=== PATIENT | female | born 1960 | race Caucasian/White ===

== ENCOUNTER → 2018-04-29 01:40 | Outpatient (CLI) | payer MEDICARE, OTHER, SELFPAY ==
--- NOTE | 2018-04-29 13:10 | DI.REPORT_ITS ---
SYMPTOM/DIAGNOSIS: SCREENING, Z12.31 BILATERAL SCREENING MAMMOGRAM: Mammograms were interpreted according to the usual protocol including computer analysis with CAD system, tomosynthesis and C view imaging. Comparison is made with exams from 2011 through 2016. The breasts are composed of scattered fibroglandular densities, breast density category B. No suspicious masses or suspicious microcalcifications are seen. There has been no significant change. IMPRESSION: Category 1-B, negative mammogram. Routine screening is recommended. [facility] ASSESSMENT OF FINDINGS: Negative. Category 1. Patient will receive a letter notifying them of these results. BI-RADS category B. There are scattered areas of fibroglandular density.
== END ==
PROVIDERS: PCP Nurse Practitioner Family; Visit Provider Nurse Practitioner Family
DX: Z12.31 Encounter for screening mammogram for malignant neoplasm of breast (principal)
CPT/HCPCS: 77063; 77067

== ENCOUNTER 2018-07-24 08:59 | Emergency (ER) | payer MEDICARE, OTHER, SELFPAY ==
[2018-07-24 09:06] VITALS: BP 121/86; PULSE 91; RESP 16; TEMP 36.7; O2SAT 94
--- NOTE | 2018-07-24 09:34 | DI.RAD_ITS ---
SYMPTOMS/DIAGNOSIS: PAIN 1ST METATARSAL AND GREAT TOE EXAMINATION OF THE RIGHT FOOT: No trauma history is provided. There is no evidence of a fracture or dislocation. There are mild degenerative changes involving the 1st metatarsophalangeal and interphalangeal joints of the great toe. There is no evidence of a soft tissue mass. There is no evidence of a localized area of osteosclerosis, osteolysis or bony expansion. Note is also made of mild degenerative changes involving the intertarsal and tarsometatarsal joints and calcaneocuboid and talonavicular joints, the findings most advanced at the calcaneocuboid articulation. The findings above to be correlated with the patient's clinical status.
[2018-07-24] MEDS: Ibuprofen 800 MG TAB PO (10:00)
--- NOTE | 2018-07-24 10:30 | W.ED.GENAD ---
Discharge Plan Disposition Patient Disposition: HOME Condition: Good Discharge Details Chief Complaint: Orthopedic Clinical Impression: Great toe pain, Acute foot pain Primary Care Provider: Yasmin Millard ED Provider: Kennedy Daniels Home Meds and New Rx's Prescriptions: New acetaminophen [Mapap Extra Strength] 500 MG tablet 1,000 mg PO Q6H 5 Days Qty: 60 RF: 0 lidocaine [Lidoderm] 1 PATCH patch 1 patch Topical Q24H Qty: 4 RF: 0 No Action cyanocobalamin (vitamin B-12) [Vitamin B-12] 500 MCG tablet 500 mcg PO DAILY RF: 0 lisinopril 10 MG tablet 10 mg PO DAILY Qty: 90 RF: 3 amitriptyline 25 MG tablet 50 mg PO HS Qty: 60 RF: 11 lamotrigine [Lamictal] 200 MG tablet 200 mg PO See Instructions Qty: 90 RF: 5 levetiracetam 750 mg tablet 750 mg PO BID Qty: 60 RF: 11 acetaminophen [Tylenol] 325 MG tablet 650 mg PO Q4H PRN PRNRF: 0 Discharge Instructions Instructions: Swollen Joint (ED) Additional Instructions: Take Tylenol, and use the topical pain patch for improvement of your symptoms please. Please use your boot and crutches as often as possible gradually transitioning to just the boot as symptoms allow. If you notice any worsening of your symptoms, or any new symptoms such as vomiting, diarrhea, fever, chills, shortness of breath, chest pain, numbness, weakness, or fainting , please return immediately to the emergency department for reevaluation. Please follow up with your primary care provider as soon as possible for reassessment and reevaluation. As always, it was a pleasure participating in your medical care today. Referrals: Yasmin Millard, LUCIUS [Primary Care Provider] - Medical Decision Making This is a 58-year-old female who presents for evaluation of foot pain. The patient states that yesterday she tripped on her foot, and now has notable pain over her right great toe. She does have a previous injury to this toe in the past, however physical exam at this time demonstrates notable bruising over the toe, however concerningly her pain extends to the proximal component of her first metatarsal, including at the tarsometatarsal joint. And concern for a distal intra-articular fracture at her metatarsal phalangeal joint however with the proximal component concern is also for Lisfranc's. We did get an x-ray, and this does show evidence of some abnormalities at the distal component, however very mild but on joint asymmetry in the proximal component at the tarsometatarsal joint. I did contact the radiologist and discussed this with him, he agrees that there is an atypical abnormality there. Recommendation is for CT scan to rule out Lisfranc injury. Prior to this I did get the patient up and ambulate her and she has notable pain with ambulation, which only increases my clinical suspicion. We will get a CT to rule this out. The CT is negative the patient will be given a walking boot for discharge home and close follow-up. 12:[address] scan has returned, I discussed the case with radiology, and the radiologist states no acute process in the foot, no evidence of fracture. With no evidence of significant fracture I feel she can be safely discharged home. We will give her a walking boot, and crutches. With close follow-up with her PCP. I discussed red flags which to return the patient understands. I feel her symptoms are most likely than secondary to a mild ligamentous injury, as well as notable bruising of the subcu tissues. Patient will follow up with her PCP. I have extensively reviewed the treatment plan and discharge instructions with the patient. I have addressed all patient concerns at this time. The patient was made aware of what symptoms to monitor for that would warrant a return to the emergency department. Discussed the plan with the patient, they demonstrate verbal understanding and agreement with our assessment and plan at this time. HPI General Date/Time Provider Initiated Documentation: 07/24/18 09:08. HPI Narrative: This is a 58-year-old female with past medical history of hypertension, who presents for evaluation of foot pain. The patient states that yesterday she was walking barefoot when she tripped on her foot and developed significant pain in her right great toe and midfoot region. It is worse with movement. It is minimally improved with NSAIDs. She denies hearing any pop, she denies any previous fractures in this area but does admit to previous injuries in the area. The patient denies any numbness or tingling. She does admit to mild associated swelling of that area, she has no other associated symptoms. She did not fall, hit her head, injure her knee, or complaint of pain in any other location. No other modifying factors at this time. She denies any pertinent family, surgical, or other personal medical history. Related Data Home Medications Medication Instructions Recorded Confirmed cyanocobalamin (vitamin B-12) 500 mcg PO DAILY 11/18/12 07/24/18 [Vitamin B-12] acetaminophen [Tylenol] 650 mg PO Q4H PRN PRN tab 06/27/16 07/24/18 lisinopril 10 mg PO DAILY #90 tab 07/23/17 07/24/18 amitriptyline 50 mg PO HS #60 tab-cap 01/08/18 07/24/18 lamotrigine [Lamictal] 200 mg PO See Instructions #90 01/23/18 07/24/18 tab-cap NS levetiracetam 750 mg tablet 750 mg PO BID #60 tab-cap 07/22/18 07/24/18 acetaminophen [Mapap Extra 1,000 mg PO Q6H 5 Days #60 tab 07/24/18 Strength] lidocaine [Lidoderm] 1 patch TOPICAL Q24H #4 patch 07/24/18 Previous Rx's Medication Instructions Recorded acetaminophen [Tylenol] 650 mg PO Q4H PRN PRN tab 06/27/16 lisinopril 10 mg PO DAILY #90 tab 07/23/17 amitriptyline 50 mg PO HS #60 tab-cap 01/08/18 lamotrigine [Lamictal] 200 mg PO See Instructions #90 01/23/18 tab-cap NS levetiracetam 750 mg tablet 750 mg PO BID #60 tab-cap 07/22/18 acetaminophen [Mapap Extra 1,000 mg PO Q6H 5 Days #60 tab 07/24/18 Strength] lidocaine [Lidoderm] 1 patch TOPICAL Q24H #4 patch 07/24/18 Allergies Allergy/AdvReac Type Severity Reaction Status Date / Time hydrocortisone Allergy Unknown SKIN RASH Unverified 07/24/18 09:09 adhesive AdvReac skin rash Unverified 07/24/18 09:09 baby powder Allergy Intermediate Contraindic Uncoded 07/24/18 09:09 ated pine trees Allergy Intermediate Uncoded 07/24/18 09:09 General Stated Complaint: Orthopedic TAWNY: 4 Review of Systems Review of Systems All systems reviewed & are unremarkable except as noted in HPI and below PFSH Medical History CKD (chronic kidney disease) HLD (hyperlipidemia) HTN (hypertension) IFG (impaired fasting glucose) Menorrhagia Seizure disorder Social History Smoking/Tobacco Use Status: Never Surgical History Brain cyst removal, [facility] [place] section Endometrial Biopsy (08/15/12) closed reduction /pinning rgt fifth finger (06/27/16) Exam Narrative Exam Narrative: 1.Const: Well-nourished, Well-developed, appearing stated age 2.Eyes: PERRL, no conjunctival injection, and symmetrical lids. 3.ENT: Atraumatic external nose and ears. Moist MM. Neck: Symmetric, trachea midline, No thyromegaly. 4.CVS: +S1/S2, No murmurs or gallops. Peripheral pulses 2+ and equal in all extremities. Brisk capillary refill in all extremities. 5.RESP: Unlabored respiratory effort. Clear to auscultation bilaterally. No wheezes rales or rhonchi 6.GI: Soft, Nontender/Nondistended, No hepatosplenomegaly. No guarding or rebound. 7.MSK: Normocephalic no cyanosis or clubbing. Extremity exams are normal for all components except for the right lower foot, which demonstrates notable swelling and bruising over the right great toe, extending proximally towards the midfoot. Tenderness is noted at the metatarsal phalangeal joint, as well as the distal middle and plantar component of the proximal metatarsal. Pain is worse with palpation and movement. Patient does demonstrate good flexion over the great toe, however slightly decreased extension of the great toe. Sensation is intact, capillary refill is brisk. Notable pain with weight placement on the foot. Immediately limits with any weight placement. No other significant abnormalities. 8.Skin: Warm, Dry. No rashes or lesions. 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 Sensation grossly intact, no focal neurologic deficits. 10.Psych: (AAO) x3. Appropriate mood and affect Course Vital Signs Temperature 36.7 C 07/24/18 09:06 Pulse 91 H 07/24/18 09:06 Respiratory Rate 16 07/24/18 09:06 Blood Pressure 121/86 07/24/18 09:06 Pulse Oximetry 94 L 07/24/18 09:06 Temperature 36.7 C 07/24/18 09:06 Temperature Source Skin 07/24/18 09:06 Pulse 91 H 07/24/18 09:06 Respiratory Rate 16 07/24/18 09:06 Respiratory Effort 07/24/18 09:06 Blood Pressure 121/86 07/24/18 09:06 Blood Pressure Position Sitting 07/24/18 09:06 Pulse Oximetry 94 L 07/24/18 09:06 Oxygen Delivery Method Room Air 07/24/18 09:06 Oxygen Flow Rate 0 07/24/18 09:06 Pain Level 6 07/24/18 09:06
--- NOTE | 2018-07-24 10:37 | ED.GENADUL_ITS ---
Discharge Plan Disposition Patient Disposition: HOME Condition: Good Discharge Details Chief Complaint: Orthopedic Clinical Impression: Great toe pain, Acute foot pain Primary Care Provider: Yasmin Millard ED Provider: Kennedy Daniels Home Meds and New Rx's Prescriptions: New acetaminophen [Mapap Extra Strength] 500 MG tablet 1,000 mg PO Q6H 5 Days Qty: 60 RF: 0 lidocaine [Lidoderm] 1 PATCH patch 1 patch Topical Q24H Qty: 4 RF: 0 No Action cyanocobalamin (vitamin B-12) [Vitamin B-12] 500 MCG tablet 500 mcg PO DAILY RF: 0 lisinopril 10 MG tablet 10 mg PO DAILY Qty: 90 RF: 3 amitriptyline 25 MG tablet 50 mg PO HS Qty: 60 RF: 11 lamotrigine [Lamictal] 200 MG tablet 200 mg PO See Instructions Qty: 90 RF: 5 levetiracetam 750 mg tablet 750 mg PO BID Qty: 60 RF: 11 acetaminophen [Tylenol] 325 MG tablet 650 mg PO Q4H PRN PRNRF: 0 Discharge Instructions Instructions: Swollen Joint (ED) Additional Instructions: Take Tylenol, and use the topical pain patch for improvement of your symptoms please. Please use your boot and crutches as often as possible gradually transitioning to just the boot as symptoms allow. If you notice any worsening of your symptoms, or any new symptoms such as vomiting, diarrhea, fever, chills , shortness of breath, chest pain, numbness, weakness, or fainting , please return immediately to the emergency department for reevaluation. Please follow up with your primary care provider as soon as possible for reassessment and reevaluation. As always, it was a pleasure participating in your medical care today. Referrals: Yasmin Millard, LUCIUS [Primary Care Provider] - Medical Decision Making This is a 58-year-old female who presents for evaluation of foot pain. The patient states that yesterday she tripped on her foot, and now has notable pain over her right great toe. She does have a previous injury to this toe in the past, however physical exam at this time demonstrates notable bruising over the toe, however concerningly her pain extends to the proximal component of her first metatarsal, including at the tarsometatarsal joint. And concern for a distal intra-articular fracture at her metatarsal phalangeal joint however with the proximal component concern is also for Lisfranc's. We did get an x-ray, and this does show evidence of some abnormalities at the distal component, however very mild but on joint asymmetry in the proximal component at the tarsometatarsal joint. I did contact the radiologist and discussed this with him, he agrees that there is an atypical abnormality there. Recommendation is for CT scan to rule out Lisfranc injury. Prior to this I did get the patient up and ambulate her and she has notable pain with ambulation , which only increases my clinical suspicion. We will get a CT to rule this out. The CT is negative the patient will be given a walking boot for discharge home and close follow-up. 12:[address] scan has returned, I discussed the case with radiology, and the radiologist states no acute process in the foot, no evidence of fracture. With no evidence of significant fracture I feel she can be safely discharged home. We will give her a walking boot, and crutches. With close follow-up with her PCP. I discussed red flags which to return the patient understands. I feel her symptoms are most likely than secondary to a mild ligamentous injury , as well as notable bruising of the subcu tissues. Patient will follow up with her PCP. I have extensively reviewed the treatment plan and discharge instructions with the patient. I have addressed all patient concerns at this time. The patient was made aware of what symptoms to monitor for that would warrant a return to the emergency department. Discussed the plan with the patient, they demonstrate verbal understanding and agreement with our assessment and plan at this time. HPI General Date/Time Provider Initiated Documentation: 07/24/18 09:08 . HPI Narrative: This is a 58-year-old female with past medical history of hypertension, who presents for evaluation of foot pain. The patient states that yesterday she was walking barefoot when she tripped on her foot and developed significant pain in her right great toe and midfoot region. It is worse with movement. It is minimally improved with NSAIDs. She denies hearing any pop, she denies any previous fractures in this area but does admit to previous injuries in the area. The patient denies any numbness or tingling. She does admit to mild associated swelling of that area, she has no other associated symptoms. She did not fall, hit her head, injure her knee, or complaint of pain in any other location. No other modifying factors at this time. She denies any pertinent family, surgical, or other personal medical history. Related Data Home Medications Medication Instructions Recorded Confirmed cyanocobalamin (vitamin B-12) 500 mcg PO DAILY 11/18/12 07/24/18 [Vitamin B-12] acetaminophen [Tylenol] 650 mg PO Q4H PRN PRN tab 06/27/16 07/24/18 lisinopril 10 mg PO DAILY #90 tab 07/23/17 07/24/18 amitriptyline 50 mg PO HS #60 tab-cap 01/08/18 07/24/18 lamotrigine [Lamictal] 200 mg PO See Instructions #90 01/23/18 07/24/18 tab-cap NS levetiracetam 750 mg tablet 750 mg PO BID #60 tab-cap 07/22/18 07/24/18 acetaminophen [Mapap Extra 1,000 mg PO Q6H 5 Days #60 tab 07/24/18 Strength] lidocaine [Lidoderm] 1 patch TOPICAL Q24H #4 patch 07/24/18 Previous Rx's Medication Instructions Recorded acetaminophen [Tylenol] 650 mg PO Q4H PRN PRN tab 06/27/16 lisinopril 10 mg PO DAILY #90 tab 07/23/17 amitriptyline 50 mg PO HS #60 tab-cap 01/08/18 lamotrigine [Lamictal] 200 mg PO See Instructions #90 01/23/18 tab-cap NS levetiracetam 750 mg tablet 750 mg PO BID #60 tab-cap 07/22/18 acetaminophen [Mapap Extra 1,000 mg PO Q6H 5 Days #60 tab 07/24/18 Strength] lidocaine [Lidoderm] 1 patch TOPICAL Q24H #4 patch 07/24/18 Allergies Allergy/AdvReac Type Severity Reaction Status Date / Time hydrocortisone Allergy Unknown SKIN RASH Unverified 07/24/18 09:09 adhesive AdvReac skin rash Unverified 07/24/18 09:09 baby powder Allergy Intermediate Contraindic Uncoded 07/24/18 09:09 ated pine trees Allergy Intermediate Uncoded 07/24/18 09:09 General Stated Complaint: Orthopedic TAWNY: 4 Review of Systems Review of Systems All systems reviewed & are unremarkable except as noted in HPI and below PFSH Medical History CKD (chronic kidney disease) HLD (hyperlipidemia) HTN (hypertension) IFG (impaired fasting glucose) Menorrhagia Seizure disorder Social History Smoking/Tobacco Use Status: Never Surgical History [place] [facility] [place]omet[place] Bi[place] (08/15/12) closed reduction /pinning rgt fifth finger (06/27/16) Exam Narrative Exam Narrative: 1.Const: Well-nourished, Well-developed, appearing stated age 2.Eyes: PERRL, no conjunctival injection, and symmetrical lids. 3.ENT: Atraumatic external nose and ears. Moist MM. Neck: Symmetric, trachea midline, No thyromegaly. 4.CVS: +S1/S2, No murmurs or gallops. Peripheral pulses 2+ and equal in all extremities. Brisk capillary refill in all extremities. 5.RESP: Unlabored respiratory effort. Clear to auscultation bilaterally. No wheezes rales or rhonchi 6.GI: Soft, Nontender/Nondistended, No hepatosplenomegaly. No guarding or rebound. 7.MSK: Normocephalic no cyanosis or clubbing. Extremity exams are normal for all components except for the right lower foot, which demonstrates notable swelling and bruising over the right great toe, extending proximally towards the midfoot. Tenderness is noted at the metatarsal phalangeal joint, as well as the distal middle and plantar component of the proximal metatarsal. Pain is worse with palpation and movement. Patient does demonstrate good flexion over the great toe, however slightly decreased extension of the great toe. Sensation is intact, capillary refill is brisk. Notable pain with weight placement on the foot. Immediately limits with any weight placement. No other significant abnormalities. 8.Skin: Warm, Dry. No rashes or lesions. 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 Sensation grossly intact, no focal neurologic deficits. 10.Psych: (AAO) x3. Appropriate mood and affect Course Vital Signs Temperature 36.7 C 07/24/18 09:06 Pulse 91 H 07/24/18 09:06 Respiratory Rate 16 07/24/18 09:06 Blood Pressure 121/86 07/24/18 09:06 Pulse Oximetry 94 L 07/24/18 09:06 Temperature 36.7 C 07/24/18 09:06 Temperature Source Skin 07/24/18 09:06 Pulse 91 H 07/24/18 09:06 Respiratory Rate 16 07/24/18 09:06 Respiratory Effort 07/24/18 09:06 Blood Pressure 121/86 07/24/18 09:06 Blood Pressure Position Sitting 07/24/18 09:06 Pulse Oximetry 94 L 07/24/18 09:06 Oxygen Delivery Method Room Air 07/24/18 09:06 Oxygen Flow Rate 0 07/24/18 09:06 Pain Level 6 07/24/18 09:06
--- NOTE | 2018-07-24 10:55 | DI.CT_ITS ---
SYMPTOMS/DIAGNOSIS: PAIN, ? LIS FRANC FX CT OF THE RIGHT FOOT: The study was conducted according to the usual protocol. Soft tissue swelling is noted over the dorsum of the distal foot. There is no demonstrated fracture or evidence of a dislocation.
== END 2018-07-24 14:32 | disposition home or self-care (01) ==
PROVIDERS: Emergency Provider Student in an Organized Health Care Education/Training Program; PCP Nurse Practitioner Family
DX: M79.671 Pain in right foot (principal); M79.674 Pain in right toe(s); W18.49XA Other slipping, tripping and stumbling without falling, initial encounter; I12.9 Hypertensive chronic kidney disease with stage 1 through stage 4 chronic kidney disease, or unspecified chronic kidney disease; N18.9 Chronic kidney disease, unspecified; R73.01 Impaired fasting glucose
CPT/HCPCS: 99284; 73630; 73700; E0114; L4361

== ENCOUNTER → 2019-01-06 13:33 | Outpatient (BNVA) | payer MEDICARE, OTHER, SELFPAY | PROVIDERS: PCP Nurse Practitioner Family; Visit Provider Psychiatry & Neurology Neurology | DX: G40.909 Epilepsy, unspecified, not intractable, without status epilepticus (principal); I12.9 Hypertensive chronic kidney disease with stage 1 through stage 4 chronic kidney disease, or unspecified chronic kidney disease; N18.9 Chronic kidney disease, unspecified | CPT/HCPCS: 99213 ==

== ENCOUNTER 2019-02-09 09:08 | Emergency (ER) | payer MEDICARE, OTHER, SELFPAY ==
--- NOTE | 2019-02-09 09:48 | W.ED.GENAD ---
Discharge Plan Disposition Patient Disposition: HOME Condition: Stable Discharge Details Chief Complaint: EyeProblem Clinical Impression: Acute allergic conjunctivitis of right eye Primary Care Provider: Yasmin Millard ED Provider: Lacho Mata Home Meds and New Rx's Prescriptions: Continued lamotrigine [Lamictal] 200 mg tablet 200 mg PO See Instructions Qty: 270 RF: 3 levetiracetam 750 mg tablet 750 mg PO BID Qty: 180 RF: 3 cyanocobalamin (vitamin B-12) [Vitamin B-12] 500 MCG tablet 500 mcg PO DAILY RF: 0 lisinopril 10 mg tablet 10 mg PO DAILY Qty: 90 RF: 3 amitriptyline 25 mg tablet 50 mg PO HS Qty: 60 RF: 3 acetaminophen [Tylenol] 325 MG tablet 650 mg PO Q4H PRN PRNRF: 0 Discharge Instructions Instructions: Conjunctivitis (ED) Additional Instructions: Please purchase [id number] allergy relief eyedrops and take as directed on packaging. If not improving over the next couple days please follow-up with your primary care provider for reassessment or return to the emergency department for any new or significant worsening of symptoms, loss of vision, or drainage from your eye. Referrals: Yasmin Millard, [facility] [Primary Care Provider] - (As needed for reassessment or if not improving) Discharge Data Discharge Date/Time-TO BE ENTERED AT DEPARTURE: 02/09/19 10:24 Medical Decision Making Patient presenting to the emergency department for chief complaint of itchy right eye. Patient states that she woke up this morning and noticed some itching and irritation to her right eye. When she looked in the mirror she noted the medial aspect was slightly reddened. Patient denies any vision loss, change in vision, eye pain, or any other symptoms. Physical exam shows slight medial injection of the sclera otherwise no purulent drainage, no exudates, eye exam is otherwise unremarkable without any emergent findings. I feel that this is more of a allergenic conjunctivitis and no signs of need of antibiotics and no signs of trauma or injury and no history to make me suspect that. Patient was encouraged to purchase [id number] allergy eyedrops and use as directed on packaging and return precautions were discussed. After discussion of diagnosis and plan of care patient has no further needs, questions, or concerns and states clear understanding to return to the emergency department for any worsening symptoms. HPI General Mode of arrival: ambulatory. Date/Time Provider Initiated Documentation: 02/09/19 09:26. Limitations to Documentation: no limitations. Information obtained by: patient. History of Present Illness 58 year old F presents to the emergency department with the chief complaint of right red eye, described as mild, with intensity rated at 1. Quality is described as other (itching), and is localized to the eyes and right. Patient started experiencing this hour(s) (3) and it has been constant. No exacerbating factors reported . Patient notes no other symptoms.. Patient did receive the following treatments prior to arrival, none Related Data Home Medications Medication Instructions Recorded Confirmed cyanocobalamin (vitamin B-12) 500 mcg PO DAILY 11/18/12 01/06/19 [Vitamin B-12] acetaminophen [Tylenol] 650 mg PO Q4H PRN PRN tab 06/27/16 01/06/19 lisinopril 10 mg tablet 10 mg PO DAILY #90 tab 09/16/18 01/06/19 amitriptyline 25 mg tablet 50 mg PO HS #60 tab-cap 12/23/18 01/06/19 lamotrigine 200 mg tablet 200 mg PO See Instructions #270 01/06/19 01/06/19 tab-cap levetiracetam 750 mg tablet 750 mg PO BID #180 tab-cap 01/06/19 01/06/19 Previous Rx's Medication Instructions Recorded acetaminophen [Tylenol] 650 mg PO Q4H PRN PRN tab 06/27/16 lisinopril 10 mg tablet 10 mg PO DAILY #90 tab 09/16/18 amitriptyline 25 mg tablet 50 mg PO HS #60 tab-cap 12/23/18 lamotrigine 200 mg tablet 200 mg PO See Instructions #270 01/06/19 tab-cap levetiracetam 750 mg tablet 750 mg PO BID #180 tab-cap 01/06/19 Allergies Allergy/AdvReac Type Severity Reaction Status Date / Time hydrocortisone Allergy Unknown SKIN RASH Unverified 01/06/19 13:52 adhesive AdvReac skin rash Unverified 01/06/19 13:52 baby powder Allergy Intermediate Contraindic Uncoded 01/06/19 13:52 ated pine trees Allergy Intermediate Uncoded 01/06/19 13:52 General TAWNY: 4 Review of Systems Constitutional Denies body ache(s), Denies chills and Denies fever(s) Eyes Reports as per HPI, Denies blurry vision, Denies eye discharge, Reports itchy eyes (right) and Denies eye pain Cardiovascular Denies chest pain and Denies dyspnea Respiratory Denies dyspnea Integumentary/Breasts Denies rash Neurologic Denies other visual disturbances Allergic/Immunologic Reports itchy eyes (right) [facility] Medical History Menorrhagia (Chronic) CKD (chronic kidney disease) (Chronic) HTN (hypertension) (Chronic) Other specified irregular menstruation (Chronic 07/23/12) Coordination problem (Chronic 12/23/10) Endometrium, polyp (Chronic 01/25/16) Epilepsy (Chronic 12/23/10) Essential hypertension (Chronic 10/18/11) Hyperlipidemia (Chronic 12/24/15) IFG (impaired fasting glucose) (Chronic 04/01/18) Insomnia (Chronic 03/09/10) Iron deficiency anemia (Resolved 05/26/13) 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) Low serum HDL (Chronic) Memory impairment (Chronic 12/23/10) Migraine without aura (Chronic 05/28/09) Obesity (Chronic 05/15/13) Primary osteoarthritis of left knee (Chronic 01/03/17) Sleep apnea (Chronic 06/09/13) Thyroid cyst (Chronic 07/26/16) Hand fracture (Resolved) [place] [facility] [place]) Endometrial Biopsy (Resolved 08/15/12) closed reduction /pinning rgt fifth finger (Resolved 06/27/16) Social History Smoking/Tobacco Use Status: Never Alcohol Intake: never Drug use: Never Substance use type: does not use Household members: spouse and children Number of Children: 1 Pets and animals: No Sexually active: Yes Current gender identity: female What type of physical activity do you participate in: walking Frequency: daily Seatbelt use: always Do you feel safe at home: Yes Do you feel safe in your relationship?: Yes Exam Const General: cooperative, no acute distress and not ill appearing Orientation: alert, awake and oriented x3 HENMT Mouth: moist mucous membranes Eyes Visual Segovia: normal visual segovia by confrontation Alignment and Position: alignment normal Periorbital: periorbital findings normal Eyelids: eyelids normal Conjunctivae: conjunctivae normal Sclera: scleral abnormality right scleral injection medial (mild) Cornea: corneas normal Pupils: PERRL EOM: EOM intact bilaterally Resp Effort & Inspection: normal respiratory effort, able to speak in complete sentences and no respiratory distress
--- NOTE | 2019-02-09 09:53 | ED.GENADUL_ITS ---
Discharge Plan Disposition Patient Disposition: HOME Condition: Stable Discharge Details Chief Complaint: EyeProblem Clinical Impression: Acute allergic conjunctivitis of right eye Primary Care Provider: Yasmin Millard ED Provider: Lacho Mata Home Meds and New Rx's Prescriptions: Continued lamotrigine [Lamictal] 200 mg tablet 200 mg PO See Instructions Qty: 270 RF: 3 levetiracetam 750 mg tablet 750 mg PO BID Qty: 180 RF: 3 cyanocobalamin (vitamin B-12) [Vitamin B-12] 500 MCG tablet 500 mcg PO DAILY RF: 0 lisinopril 10 mg tablet 10 mg PO DAILY Qty: 90 RF: 3 amitriptyline 25 mg tablet 50 mg PO HS Qty: 60 RF: 3 acetaminophen [Tylenol] 325 MG tablet 650 mg PO Q4H PRN PRNRF: 0 Discharge Instructions Instructions: Conjunctivitis (ED) Additional Instructions: Please purchase [id number] allergy relief eyedrops and take as directed on packaging. If not improving over the next couple days please follow-up with your primary care provider for reassessment or return to the emergency department for any new or significant worsening of symptoms, loss of vision, or drainage from your eye. Referrals: Yasmin Millard, [employer]MIST [Primary Care Provider] - (As needed for reassessment or if not improving) Discharge Data Discharge Date/Time-TO BE ENTERED AT DEPARTURE: 02/09/19 10:24 Medical Decision Making Patient presenting to the emergency department for chief complaint of itchy right eye. Patient states that she woke up this morning and noticed some itching and irritation to her right eye. When she looked in the mirror she noted the medial aspect was slightly reddened. Patient denies any vision loss, change in vision, eye pain, or any other symptoms. Physical exam shows slight medial injection of the sclera otherwise no purulent drainage, no exudates, eye exam is otherwise unremarkable without any emergent findings. I feel that this is more of a allergenic conjunctivitis and no signs of need of antibiotics and no signs of trauma or injury and no history to make me suspect that. Patient was encouraged to purchase [id number] allergy eyedrops and use as directed on packaging and return precautions were discussed. After discussion of diagnosis and plan of care patient has no further needs, questions, or concerns and states clear understanding to return to the emergency department for any worsening symptoms. HPI General Mode of arrival: ambulatory . Date/Time Provider Initiated Documentation: 02/09/19 09:26 . Limitations to Documentation: no limitations . Information obtained by: patient . History of Present Illness 58 year old F presents to the emergency department with the chief complaint of right red eye, described as mild, with intensity rated at 1. Quality is described as other (itching), and is localized to the eyes and right. Patient started experiencing this hour(s) (3) and it has been constant. No exacerbating factors reported . Patient notes no other symptoms.. Patient did receive the following treatments prior to arrival, none Related Data Home Medications Medication Instructions Recorded Confirmed cyanocobalamin (vitamin B-12) 500 mcg PO DAILY 11/18/12 01/06/19 [Vitamin B-12] acetaminophen [Tylenol] 650 mg PO Q4H PRN PRN tab 06/27/16 01/06/19 lisinopril 10 mg tablet 10 mg PO DAILY #90 tab 09/16/18 01/06/19 amitriptyline 25 mg tablet 50 mg PO HS #60 tab-cap 12/23/18 01/06/19 lamotrigine 200 mg tablet 200 mg PO See Instructions #270 01/06/19 01/06/19 tab-cap levetiracetam 750 mg tablet 750 mg PO BID #180 tab-cap 01/06/19 01/06/19 Previous Rx's Medication Instructions Recorded acetaminophen [Tylenol] 650 mg PO Q4H PRN PRN tab 06/27/16 lisinopril 10 mg tablet 10 mg PO DAILY #90 tab 09/16/18 amitriptyline 25 mg tablet 50 mg PO HS #60 tab-cap 12/23/18 lamotrigine 200 mg tablet 200 mg PO See Instructions #270 01/06/19 tab-cap levetiracetam 750 mg tablet 750 mg PO BID #180 tab-cap 01/06/19 Allergies Allergy/AdvReac Type Severity Reaction Status Date / Time hydrocortisone Allergy Unknown SKIN RASH Unverified 01/06/19 13:52 adhesive AdvReac skin rash Unverified 01/06/19 13:52 baby powder Allergy Intermediate Contraindic Uncoded 01/06/19 13:52 ated pine trees Allergy Intermediate Uncoded 01/06/19 13:52 General TAWNY: 4 Review of Systems Constitutional Denies body ache(s), Denies chills and Denies fever(s) Eyes Reports as per HPI, Denies blurry vision, Denies eye discharge, Reports itchy eyes (right) and Denies eye pain Cardiovascular Denies chest pain and Denies dyspnea Respiratory Denies dyspnea Integumentary/Breasts Denies rash Neurologic Denies other visual disturbances Allergic/Immunologic Reports itchy eyes (right) [facility] Medical History Menorrhagia (Chronic) CKD (chronic kidney disease) (Chronic) HTN (hypertension) (Chronic) Other specified irregular menstruation (Chronic 07/23/12) Coordination problem (Chronic 12/23/10) Endometrium, polyp (Chronic 01/25/16) Epilepsy (Chronic 12/23/10) Essential hypertension (Chronic 10/18/11) Hyperlipidemia (Chronic 12/24/15) IFG (impaired fasting glucose) (Chronic 04/01/18) Insomnia (Chronic 03/09/10) Iron deficiency anemia (Resolved 05/26/13) 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) Low serum HDL (Chronic) Memory impairment (Chronic 12/23/10) Migraine without aura (Chronic 05/28/09) Obesity (Chronic 05/15/13) Primary osteoarthritis of left knee (Chronic 01/03/17) Sleep apnea (Chronic 06/09/13) Thyroid cyst (Chronic 07/26/16) Hand fracture (Resolved) Surgical History Brain cyst removal, [facility] [place]Resolved) section (Resolved) Endometrial Biopsy (Resolved 08/15/12) closed reduction /pinning rgt fifth finger (Resolved 06/27/16) Social History Smoking/Tobacco Use Status: Never Alcohol Intake: never Drug use: Never Substance use type: does not use Household members: spouse and children Number of Children: 1 Pets and animals: No Sexually active: Yes Current gender identity: female What type of physical activity do you participate in: walking Frequency: daily Seatbelt use: always Do you feel safe at home: Yes Do you feel safe in your relationship?: Yes Exam Const General: cooperative, no acute distress and not ill appearing Orientation: alert, awake and oriented x3 HENMT Mouth: moist mucous membranes Eyes Visual Segovia: normal visual segovia by confrontation Alignment and Position: alignment normal Periorbital: periorbital findings normal Eyelids: eyelids normal Conjunctivae: conjunctivae normal Sclera: scleral abnormality right scleral injection medial (mild) Cornea: corneas normal Pupils: PERRL EOM: EOM intact bilaterally Resp Effort & Inspection: normal respiratory effort, able to speak in complete sentences and no respiratory distress
--- NOTE | 2019-02-09 10:05 | NUR.NOTE ---
pt believed that she had conjunctivitis in her right eye
[2019-02-09 10:06] VITALS: BP 129/83; PULSE 78; RESP 18; TEMP 36.8; O2SAT 98
[2019-02-09 10:08] VITALS: BP 129/83; PULSE 78; RESP 18; TEMP 36.8; O2SAT 98
== END 2019-02-09 10:24 | disposition home or self-care (01) ==
LOC: ER 10:32
PROVIDERS: Emergency Provider Nurse Practitioner Family; PCP Nurse Practitioner Family
DX: H10.11 Acute atopic conjunctivitis, right eye (principal); I12.9 Hypertensive chronic kidney disease with stage 1 through stage 4 chronic kidney disease, or unspecified chronic kidney disease; N18.9 Chronic kidney disease, unspecified
CPT/HCPCS: 99282

== ENCOUNTER 2019-03-05 23:47 | Emergency (ER) | payer MEDICARE, OTHER, SELFPAY ==
[2019-03-05 23:40] VITALS: O2SAT 95
[2019-03-05 23:46] VITALS: BP 140/70; BP 158/82; PULSE 116; PULSE 119; RESP 16; TEMP 37.1; O2SAT 92; O2SAT 94
[2019-03-05 23:50] VITALS: O2SAT 96
--- NOTE | 2019-03-05 23:59 | W.ED.GENAD ---
Discharge Plan Disposition Patient Disposition: HOME Condition: Good Discharge Details Chief Complaint: HeadInjury Clinical Impression: Fall at home, Hematoma of parietal scalp Primary Care Provider: Yasmin Millard ED Provider: Raheel Cabrales and New Rx's Prescriptions: Continued lamotrigine [Lamictal] 200 mg tablet 200 mg PO See Instructions Qty: 270 RF: 3 levetiracetam 750 mg tablet 750 mg PO BID Qty: 180 RF: 3 cyanocobalamin (vitamin B-12) [Vitamin B-12] 500 MCG tablet 500 mcg PO DAILY RF: 0 lisinopril 10 mg tablet 10 mg PO DAILY Qty: 90 RF: 3 amitriptyline 25 mg tablet 50 mg PO HS Qty: 60 RF: 3 acetaminophen [Tylenol] 325 MG tablet 650 mg PO Q4H PRN PRNRF: 0 Discharge Instructions Instructions: Fall Prevention (ED), Hematoma (ED) Additional Instructions: Your CT scan tonight showed nothing acute. His scalp hematoma will get better on its own over time. You may take Tylenol if needed for pain. Ice will help with the swelling. Follow-up with primary care next week if needed. Return to ED for acute changes in neurologic status, vomiting, lethargy. Referrals: Yasmin Millard, [employer] [Primary Care Provider] - Medical Decision Making Patient presenting to ED after losing her balance and falling at home. She has a scalp hematoma but is nonfocal neurologically. She has trouble with memory and orientation to time but this does not appear to be new according to records. She is not on focal neurologically otherwise. She has no spinal tenderness. She has no other complaints except that she was unable to get up. She does have a mild tachycardia. Saturations are normal when there is good waveform. Vitals are otherwise okay. Head CT is come back with no acute changes. She has chronic findings that are unchanged. She has been ambulatory in the ED without significant difficulty. She is requesting to go home. Follow-up with primary care next week as needed. Return to ED for problems. Medical Records Medical records reviewed: Yes I reviewed the patient's medical records. ECG Data Attestation: I personally reviewed and interpreted this ECG (s) as follows: Prior ECG tracings: not available for review Interpretation: Sinus tachycardia at 113. Normal axis and intervals. No acute ST changes noted. HPI General Mode of arrival: EMS. Date/Time Provider Initiated Documentation: 03/05/19 23:58. Limitations to Documentation: no limitations. Information obtained by: patient and EMS. HPI Narrative: Patient presents to ED by ambulance status post trip and fall at home. She struck her head but did not have loss of consciousness. She was unable to get herself up. Her could not help get her up. EMS was eventually called. Because of her inability to get herself up as well as the head injury, she decided she wanted to come in for evaluation. She has a mild headache currently. She denies neck pain or back pain. She had no chest pain, shortness of breath, syncope. She has no abdominal pain, vomiting. She has no urinary symptoms. She has not been ill and there is been no fever or cough. She has no complaints of hip or extremity pain currently. Related Data Home Medications Medication Instructions Recorded Confirmed cyanocobalamin (vitamin B-12) 500 mcg PO DAILY 11/18/12 03/05/19 [Vitamin B-12] acetaminophen [Tylenol] 650 mg PO Q4H PRN PRN tab 06/27/16 03/05/19 lisinopril 10 mg tablet 10 mg PO DAILY #90 tab 09/16/18 03/05/19 amitriptyline 25 mg tablet 50 mg PO HS #60 tab-cap 12/23/18 03/05/19 lamotrigine 200 mg tablet 200 mg PO See Instructions #270 01/06/19 03/05/19 tab-cap levetiracetam 750 mg tablet 750 mg PO BID #180 tab-cap 01/06/19 03/05/19 Previous Rx's Medication Instructions Recorded acetaminophen [Tylenol] 650 mg PO Q4H PRN PRN tab 06/27/16 lisinopril 10 mg tablet 10 mg PO DAILY #90 tab 09/16/18 amitriptyline 25 mg tablet 50 mg PO HS #60 tab-cap 12/23/18 lamotrigine 200 mg tablet 200 mg PO See Instructions #270 01/06/19 tab-cap levetiracetam 750 mg tablet 750 mg PO BID #180 tab-cap 01/06/19 Allergies Allergy/AdvReac Type Severity Reaction Status Date / Time hydrocortisone Allergy Unknown SKIN RASH Unverified 03/05/19 23:55 adhesive AdvReac skin rash Unverified 03/05/19 23:55 baby powder Allergy Intermediate Contraindic Uncoded 03/05/19 23:55 ated pine trees Allergy Intermediate Uncoded 03/05/19 23:55 General Stated Complaint: HeadInjury TAWNY: 3 Review of Systems Review of Systems As documented in HPI otherwise negative as below. Const: no fever, chills, weakness Resp: no cough, SOB, pleuritic pain CV: no CP, diaphoresis, edema, syncope GI: no abdominal pain, nausea, vomiting, diarrhea Neuro: mild headache; no numbness, focal weakness, confusion [facility] Medical History Menorrhagia (Chronic) CKD (chronic kidney disease) (Chronic) HTN (hypertension) (Chronic) Other specified irregular menstruation (Chronic 07/23/12) Coordination problem (Chronic 12/23/10) Endometrium, polyp (Chronic 01/25/16) Epilepsy (Chronic 12/23/10) Essential hypertension (Chronic 10/18/11) Hyperlipidemia (Chronic 12/24/15) IFG (impaired fasting glucose) (Chronic 04/01/18) Insomnia (Chronic 03/09/10) Iron deficiency anemia (Resolved 05/26/13) 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) Low serum HDL (Chronic) Memory impairment (Chronic 12/23/10) Migraine without aura (Chronic 05/28/09) Obesity (Chronic 05/15/13) Primary osteoarthritis of left knee (Chronic 01/03/17) Sleep apnea (Chronic 06/09/13) Thyroid cyst (Chronic 07/26/16) Hand fracture (Resolved) Surgical History Brain [place] [facility] [place] (Resolved) Endometrial Biopsy (Resolved 08/15/12) closed reduction /pinning rgt fifth finger (Resolved 06/27/16) Social History Smoking/Tobacco Use Status: Never Alcohol Intake: never Drug use: Never Substance use type: does not use Household members: spouse and children Number of Children: 1 Pets and animals: No Sexually active: Yes Current gender identity: female What type of physical activity do you participate in: walking Frequency: daily Seatbelt use: always Do you feel safe at home: Yes Do you feel safe in your relationship?: Yes Exam Narrative Exam Narrative: Vitals: Afebrile. Mild tachycardia. Normal saturations when good waveform present. Const: Obese female in NAD. HEENT: NC. Scalp hematoma present right parietal region. Neck: Supple. Trachea midline. C-spine is non-tender. Lungs: Normal respiratory effort. Lungs are clear. Ribs are non-tender. Cor: RRR without murmur/gallop. Mild tachycardia. Good radial pulses. GI: Soft. NT/ND. No guarding or rebound. Back: No spinal tenderness. Neuro: Awake and alert. Problems with timeline/memory. CN grossly in tact. Good strength and no focal deficit. Ext: No C/C/E. No deformity or tenderness. Good ROM of extremities. Skin: Warm and dry without rash. No lacerations. Course Vital Signs Temperature 98.8 F 03/05/19 23:46 Pulse 119 H 03/05/19 23:46 Respiratory Rate 16 03/05/19 23:46 Blood Pressure 158/82 H 03/05/19 23:46 Pulse Oximetry 94 L 03/05/19 23:46 Temperature 98.8 F 03/05/19 23:46 Temperature Source Temporal Artery Scan 03/05/19 23:46 Pulse 119 H 03/05/19 23:46 Respiratory Rate 16 03/05/19 23:46 Respiratory Effort 03/05/19 23:52 Respiratory Depth Normal 03/05/19 23:52 Respiratory Pattern Normal 03/05/19 23:52 Blood Pressure 158/82 H 03/05/19 23:46 Pulse Oximetry 94 L 03/05/19 23:46 Oxygen Delivery Method Room Air 03/05/19 23:46 Oxygen Flow Rate 0 03/05/19 23:46 Pain Level 6 03/05/19 23:46
[2019-03-06] VITALS: O2SAT 94
[2019-03-06 00:01] VITALS: BP 134/69; PULSE 115; O2SAT 94
[2019-03-06 00:10] VITALS: O2SAT 96
[2019-03-06 00:16] VITALS: BP 137/119; PULSE 98
[2019-03-06 00:20] VITALS: O2SAT 91
--- NOTE | 2019-03-06 00:43 | DI.CT_ITS ---
SYMPTOM/DIAGNOSIS: TRAUMA/FEEL AND HIT HEAD CRANIAL CT: A noncontrast enhanced examination was carried out. There is mild generalized atrophy. There is no evidence of an intra or extra axial hemorrhage. There is nothing to suggest a territorial infarct. The midline is well maintained. The ventricles are normal. Note is made of a high left frontal craniotomy site which is unchanged when compared with previous images of 12/03/2016. A multilobular cystic region is identified with central calcification which could represent chronic resection bed with cystic encephalomalacia measuring up to 4.3 x 3.1 cm. This finding is also unchanged. The sinuses are intact. There is no evidence of a mastoid effusion. The orbits are intact. The right parietal soft tissues with swelling noted. There is no evidence of a skull fracture. SUMMARY: No acute intracranial process is demonstrated. Note is made of a chronic high left parietal craniotomy site. The bone flap is well positioned without gross complication. There is an underlying 4.3 x 3.1 cystic region with central calcification which is also unchanged. 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 There is nothing to suggest residual or recurrent malignancy. A right parietal soft tissue swelling is noted. No underlying fracture is apparent.
--- NOTE | 2019-03-06 01:13 | DI.VRAD_ITS ---
EXAM: CT Head Without Contrast EXAM DATE/TIME: 03/06/2019 12:13 AM CLINICAL HISTORY: 59 years old, female; Injury or trauma; Fall; Initial encounter; Blunt trauma (contusions or hematomas); Without loss of consciousness; Injury date: 03/05/2019; Injury details: Fell in home, tripped over her foot, no loc; Prior surgery; Surgery type: Brain surgery; Additional info: PT states she had surgery within the past year but can't remember when exactly. Surgery was for seizures per patient TECHNIQUE: Imaging protocol: Axial computed tomography images of the head without contrast. Coronal and sagittal reformatted images were created and reviewed. Radiation optimization: All CT scans at this facility use at least one of these dose optimization techniques: automated exposure control; mA and/or kV adjustment per patient size (includes targeted exams where dose is matched to clinical indication); or iterative reconstruction. COMPARISON: CT HEAD WITHOUT CONTRAST 12/03/2016 1:20 PM FINDINGS: Brain: Mild generalized atrophy consistent with age. No extra-axial fluid collections. No evidence of acute intracranial hemorrhage. No evidence of acute or subacute intracranial ischemia/infarct. Midline shift: No midline shift or herniation. Ventricles: Ventricles normal. Bones/joints: Chronic high left frontal craniotomy site again noted, unchanged from 12/03/2016 with no gross complication. There is an underlying multilobular cystic focus with central calcification which may represent a chronic resection bed with cystic encephalomalacia, measuring 4.3 x 3.1 cm. This is unchanged. Sinuses: Visualized paranasal sinuses are clear. Mastoid air cells: Visualized mastoid air cells are clear. Orbits: Orbital contents demonstrate no evidence of acute abnormality. Soft tissues: Right parietal scalp soft tissue swelling. No underlying fracture or foreign body. Vasculature: The visualized major intracranial arterial segments demonstrate no gross abnormality by noncontrast CT. IMPRESSION: 1. No acute intracranial process. No significant change from previous exam 12/03/2016. 2. Chronic high left parietal craniotomy site again noted. The bone flap is well positioned without gross complication. 3. There is an underlying 4.3 x 3.1 cm cystic focus with central calcification which is unchanged. This may represent chronic cystic encephalomalacia at the operative bed. There were no imaging features to specifically favor residual or recurrent malignancy in this region. 4. Right parietal scalp soft tissue swelling with no underlying fracture or foreign body. Dictated and Authenticated by: Neftali Stanton MD. Ordering:RAHEEM Pickering MD
[2019-03-06 01:41] VITALS: BP 125/82; PULSE 109; RESP 16; O2SAT 94
== END 2019-03-06 01:38 | disposition home or self-care (01) ==
PROVIDERS: Emergency Provider Emergency Medicine; PCP Nurse Practitioner Family
DX: S00.03XA Contusion of scalp, initial encounter (principal); R00.0 Tachycardia, unspecified; W01.0XXA Fall on same level from slipping, tripping and stumbling without subsequent striking against object, initial encounter
CPT/HCPCS: 93005; 99284; 70450; 93010

== ENCOUNTER 2019-04-02 01:56 | Outpatient (CLI) | payer MEDICARE, OTHER, SELFPAY ==
[2019-04-02 10:06] LABS: HGB 11.9 g/dL (12.0-15.5); Mean Corp. HGB Concentration 33.1 g/dL (32.0-36.0); Mean Corpuscular Volume 90.7 fL (80-95); Mean Platelet Volume 9.9 fL (8.0-11.0); Platelet Count 252 x1000/uL (130-400); RBC 3.97 m/cumm (4.00-5.20); RBC Distribution Width 14.1 % (11.7-14.6); White Blood Cell Count 5.34 k/cumm (4.4-10.8)
[2019-04-02 10:39] LABS: ALT 22 U/L (12-78); AST 10 U/L (15-37); Albumin 3.6 g/dL (3.4-5.0); Alkaline Phosphatase 88 U/L (46-116); Anion Gap 9.7 mmol/L (3-11); BUN 15 mg/dL (7-18); Bilirubin, Total 0.3 mg/dL (0.2-1.0); CO2 26.3 mmol/L (21.0-32.0); CREATININE 1.21 mg/dL (0.55-1.02); Calcium 9.5 mg/dL (8.5-10.1); Chloride 105 mmol/L (98-107); Estimated GFR 45.86 (mL/min/1.73m2); Glucose 99 mg/dL (70-100); Potassium 4.7 mmol/L (3.5-5.1); Sodium 141 mmol/L (136-145); Total Protein 7.2 g/dL (6.4-8.2)
[2019-04-02 10:40] LABS: Hemoglobin A1C 5.5 % (4.5-6.2)
== END 2019-04-02 02:16 ==
LOC: LOS 01:56 → LBO 09:16
PROVIDERS: PCP Nurse Practitioner Family; Visit Provider Nurse Practitioner Family
DX: I10 Essential (primary) hypertension (principal); Z86.2 Personal history of diseases of the blood and blood-forming organs and certain disorders involving the immune mechanism; R73.01 Impaired fasting glucose
CPT/HCPCS: 36415; 80053; 85027; 83036

== ENCOUNTER 2019-11-06 13:44 | Emergency (ER) | payer MEDICARE, OTHER, MEDICAID, SELFPAY ==
--- NOTE | 2019-11-06 13:45 | DI.RAD_ITS ---
EXAM: XR CHEST 2V PA LATERAL CLINICAL HISTORY: cough. TECHNIQUE: 2D digital imaging was performed. COMPARISON: No exams were available for comparison FINDINGS: LUNGS: Clear. No pleural abnormality seen. HEART: Normal. MEDIASTINUM: Normal. OTHER FINDINGS:Normal. BONE:Normal. IMPRESSION: No acute pulmonary findings. DATA REPOSITORY: RADIATION DOSE DELIVERED:
[2019-11-06 13:48] VITALS: BP 125/89; PULSE 80; RESP 18; TEMP 36.5; O2SAT 98
--- NOTE | 2019-11-06 13:59 | ED.GENADUL_ITS ---
Discharge Plan Disposition Patient Disposition: HOME Condition: Stable Discharge Details Chief Complaint: Dizzy/Sync Clinical Impression: Falls Primary Care Provider: Yasmin Millard ED Provider: Alejandro Rodriguez Home Meds and New Rx's Prescriptions: Continued amitriptyline 50 mg tablet 50 mg PO QHS Qty: 90 RF: 3 lamotrigine [Lamictal] 200 mg tablet 200 mg PO See Instructions Qty: 270 RF: 3 levetiracetam 750 mg tablet 750 mg PO BID Qty: 180 RF: 3 lisinopril 10 mg tablet 10 mg PO DAILY Qty: 90 RF: 3 acetaminophen [Tylenol] 325 MG tablet 650 mg PO Q4H PRN PRNRF: 0 vitamin F16-fjkrl acid 500-400 mcg Tablet 1 tab PO DAILY RF: 0 Discharge Instructions Instructions: Fall Prevention (ED) Additional Instructions: please use your walker as much as possible follow up with your primary care provider within 1 week if you feel more ill, have chest pain/pressure or worsening weakness return to the emergency department Medical Decision Making 59 yo female with hx of ckd, htn, hld, seizures, who comes in with 3 falls the past two days and cough. she states she was using her cane and not her walker when she had 3 episodes where she felt the room spin and she landed on her buttocks. Denies loc, hitting head, vomit, fevers, abdominal pain, n/v. She denies focal weakness. Has had some rhinorrhea and cough, speaking in full s entences. She arrives with normal steady gait, no focal motor or sensation deficits, CN II-XII are intact and has nih of 0. Seems most likely this is orthostasis vs vasovagal and possible veritigo. No symptoms to suggest cva and given no head trauma or headache do not feel head imaging indicated. Will obtain ecg, eval for anemia and electrolyte abnormalities and obtain cxr givne her cough which is likely from a viral uri labs and xray unremarkable still has not urinated but denies any uti symptoms and has had uti's in the past and states she normally has dysuria. will d/c and have her use her walker, follow up with pcp and return precautions given Differential Diagnosis Differential Diagnosis: orthostasis, uri, anemia, Medical Records Medical records reviewed: Yes I reviewed the patient's medical records. Lab Data Lab results reviewed: Yes I reviewed the patient's lab results. ECG Data Attestation: I personally reviewed and interpreted this ECG (s) as follows: Prior ECG tracings: not available for review Interpretation: sinus rhythm, rate of 74, pr 154, qtc 386 HPI General Mode of arrival: ambulatory . Date/Time Provider Initiated Documentation: 11/06/19 13:46 . Limitations to Documentation: no limitations . Information obtained by: patient . History of Present Illness 59 year old F presents to the emergency department with the chief complaint of falls, described as moderate, Patient started experiencing this day(s) (3) and it has been intermittent. No relieving factors improve symptom(s), No exacerbating factors reported . Patient did receive the following treatments prior to arrival, none Related Data Home Medications Medication Instructions Recorded Confirmed acetaminophen [Tylenol] 650 mg PO Q4H PRN PRN tab 06/27/16 11/06/19 amitriptyline 50 mg tablet 50 mg PO QHS #90 tab 09/29/19 11/06/19 lamotrigine 200 mg tablet 200 mg PO See Instructions #270 09/29/19 11/06/19 tab-cap levetiracetam 750 mg tablet 750 mg PO BID #180 tab-cap 09/29/19 11/06/19 lisinopril 10 mg tablet 10 mg PO DAILY #90 tab 10/03/19 11/06/19 vitamin A25-lrzls acid 1 tab PO DAILY 11/06/19 11/06/19 Previous Rx's Medication Instructions Recorded acetaminophen [Tylenol] 650 mg PO Q4H PRN PRN tab 06/27/16 amitriptyline 50 mg tablet 50 mg PO QHS #90 tab 09/29/19 lamotrigine 200 mg tablet 200 mg PO See Instructions #270 09/29/19 tab-cap levetiracetam 750 mg tablet 750 mg PO BID #180 tab-cap 09/29/19 lisinopril 10 mg tablet 10 mg PO DAILY #90 tab 10/03/19 Allergies Allergy/AdvReac Type Severity Reaction Status Date / Time hydrocortisone Allergy Unknown SKIN RASH Verified 11/06/19 13:52 adhesive AdvReac Intermediate skin rash Verified 11/06/19 13:52 NSAIDS (Non-Steroidal AdvReac Other (See Unverified 11/06/19 13:58 Anti-Inflamma Comment) baby powder Allergy Intermediate Contraindic Uncoded 11/06/19 13:52 ated pine trees Allergy Intermediate Uncoded 11/06/19 13:52 General Stated Complaint: Dizzy/Sync TAWNY: 3 Review of Systems All systems reviewed & are unremarkable except as noted in HPI and below Constitutional Constitutional: Denies chills and Denies fever(s) Cardiovascular Cardiovascular: Denies dyspnea Respiratory Respiratory: Denies cough and Denies dyspnea Gastrointestinal Gastrointestinal: Denies abdominal pain, Denies nausea and Denies vomiting Musculoskeletal Musculoskeletal: Denies joint swelling [facility] Medical History (Updated 11/06/19 @ 15:12 by Alejandro Rodriguez MD) CKD (chronic kidney disease) (Chronic) 12/2015 [place] [facility] [place] bilateral and symmetric renal cortical thinning consistent with patient's known history of CKD Coordination problem (Chronic 12/23/10) Hemiparesis; R more than L, mostly resolved Endometrium, polyp (Chronic 01/25/16) currently protruding through the exocervix. I have recomended hysteroscopic resection under anesthesia. Epilepsy (Chronic 12/23/10) Cyst on brain surgery; Dr. Antunez follows Essential hypertension (Chronic 10/18/11) Hand fracture (Resolved) Hyperlipidemia (Chronic 12/24/15) 03/2018 labwork: 10-year ASCVD risk = ~3.7% --> no statin indicated at this time IFG (impaired fasting glucose) (Chronic 04/01/18) Insomnia (Chronic 03/09/10) Amitryp resolved Iron deficiency anemia (Chronic 05/26/13) 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) Cerebral Cyst (L parietal cyst): Dr. Antunez [facility] [place] Low serum HDL (Chronic) 2012 labwork: 10-year ASCVD risk = ~3% --> no statin indicated at this time Memory impairment (Chronic 12/23/10) Related to sz disorder & brain surgery Menorrhagia (Chronic) EMBx 2011: benign. Repeat EMBx 2012: benign proliferative endometrium, started on norethindrone, pt counseled re: endometrial ablation. Migraine without aura (Chronic 05/28/09) Obesity (Chronic 05/15/13) Other specified irregular menstruation (Chronic 07/23/12) [facility] Primary osteoarthritis of left knee (Chronic 01/03/17) Sleep apnea (Chronic 06/09/13) CPAP Thyroid cyst (Chronic 07/26/16) 07/2016 US: no changes, stable, repeat 3 years Surgical History Brain cyst removal, [facility] [place] (Resolved) 04/12/2011 section (Resolved) x2 closed reduction /pinning rgt fifth finger (Resolved 06/27/16) Endometrial Biopsy (Resolved 08/15/12) Dr. Salinas Social History Smoking/Tobacco Use Status: Never Alcohol Intake: never Drug use: Never Substance use type: does not use Caregiver/Support person: No Household members: spouse and children Number of Children: 1 Communication Needs: None Pets and animals: No Sexually active: Yes Current gender identity: female What type of physical activity do you participate in: walking Duration: 15-30 minutes/day Frequency: daily Seatbelt use: always Water heater temp set <120 deg: Yes Working smoke detector in home: Yes Fire extinguisher in home: Yes Carbon monox detector in home: Yes Firearms in home: No Do you feel safe at home: Yes Do you feel safe in your relationship?: Yes Exam Const General: no acute distress Orientation: alert HENMT Head: normal to inspection Ears: external ears normal General nose exam: external nose normal Mouth: moist mucous membranes Eyes General: appearance normal, both eyes and all related structures Neck Neck: normal visual inspection Resp Effort & Inspection: normal respiratory effort and able to speak in complete sentences Cardio Rate: regular rate Skin General skin exam: no rashes or lesions noted Neuro General: alert and oriented x3 Extrem General: normal to inspection Psych Mental Status: mental status grossly normal Course Vital Signs Vital signs: Vital Signs Temperature 36.5 C 11/06/19 13:48 Pulse 80 11/06/19 13:48 Respiratory Rate 18 11/06/19 13:48 Blood Pressure 125/89 11/06/19 13:48 Pulse Oximetry 98 11/06/19 13:48 Temperature 36.5 C 11/06/19 13:48 Temperature Source Temporal Artery Scan 11/06/19 13:48 Pulse 80 11/06/19 13:48 Respiratory Rate 18 11/06/19 13:48 Respiratory Effort Non-Labored 11/06/19 13:52 Blood Pressure 125/89 11/06/19 13:48 Blood Pressure Position Sitting 11/06/19 13:48 Pulse Oximetry 98 11/06/19 13:48 Oxygen Delivery Method Room Air 11/06/19 13:48 Oxygen Flow Rate 0 11/06/19 13:48 Pain Level 0 11/06/19 13:48
[2019-11-06 14:23] LABS: Abs Immature Grans 0.01 k/cumm (0.0-0.09); Absolute Basophil Count 0.02 k/cumm (0.0-0.2); Absolute Eosinophil Count 0.27 k/cumm (0.0-0.7); Absolute Lymphocyte Count 1.71 k/cumm (1.2-3.4); Absolute Monocyte Count 0.92 k/cumm (0.11-0.7); Absolute Neutrophil Count 4.23 k/cumm (1.2-6.7); Basophils % 0.3; Eosinophils % 3.8; HCT 36.2 % (36.0-46.0); HGB 11.8 g/dL (12.0-15.5); Immature Grans % 0.1 %; Lymphocytes % 23.9; Mean Corp. HGB Concentration 32.6 g/dL (32.0-36.0); Mean Corpuscular Hemoglobin 29.7 pg (27.0-33.0); Mean Corpuscular Volume 91.2 fL (80-95); Monocytes % 12.8; Neutrophils % 59.1; Platelet Count 253 x1000/uL (130-400); RBC 3.97 m/cumm (4.00-5.20); RBC Distribution Width 14.1 % (11.7-14.6); White Blood Cell Count 7.16 k/cumm (4.4-10.8)
[2019-11-06 14:44] LABS: ALT 17 U/L (14-59); AST 15 U/L (15-37); Albumin 3.5 g/dL (3.4-5.0); Alkaline Phosphatase 90 U/L (46-116); Anion Gap 9.5 mmol/L (3-11); BUN 14 mg/dL (7-18); Bilirubin, Total 0.3 mg/dL (0.2-1.0); CO2 27.5 mmol/L (21.0-32.0); Calcium 9.4 mg/dL (8.5-10.1); Chloride 105 mmol/L (98-107); Estimated GFR 35.79 (mL/min/1.73m2); Glucose 88 mg/dL (74-106); Potassium 4.4 mmol/L (3.5-5.1); Sodium 142 mmol/L (136-145); Total Protein 7.6 g/dL (6.4-8.2)
[2019-11-06 14:49] LABS: Troponin I < 0.05 ng/Ml (<0.06)
== END 2019-11-06 15:22 | disposition home or self-care (01) ==
PROVIDERS: Emergency Provider Emergency Medicine; PCP Nurse Practitioner Family
DX: R29.6 Repeated falls (principal); I12.9 Hypertensive chronic kidney disease with stage 1 through stage 4 chronic kidney disease, or unspecified chronic kidney disease; N18.9 Chronic kidney disease, unspecified
CPT/HCPCS: 36415; 80053; 93005; 99284; 71046; 83735; 84484; 85025; 93010; 99283

== ENCOUNTER → 2019-12-11 09:07 | Outpatient (BNVA) | payer MEDICARE, OTHER, SELFPAY | PROVIDERS: PCP Nurse Practitioner Family; Referring Provider Nurse Practitioner Family; Visit Provider Psychiatry & Neurology Neurology | DX: G40.109 Localization-related (focal) (partial) symptomatic epilepsy and epileptic syndromes with simple partial seizures, not intractable, without status epilepticus (principal); W19.XXXA Unspecified fall, initial encounter; G81.90 Hemiplegia, unspecified affecting unspecified side | CPT/HCPCS: 99213; 99442 ==

== ENCOUNTER 2020-04-16 08:25 | Outpatient (CLI) | payer MEDICARE, OTHER, SELFPAY ==
[2020-04-19 15:08] LABS: SARS-CoV-2 RNA Undetected (Undetected); SARS-CoV-2 Specimen Source Nasopharynx
== END 2020-04-16 08:45 ==
PROVIDERS: PCP Nurse Practitioner Family; Visit Provider Internal Medicine
DX: Z11.59 Encounter for screening for other viral diseases (principal)
CPT/HCPCS: U0003

== ENCOUNTER → 2020-06-15 10:20 | Outpatient (BNVA) | payer MEDICARE, OTHER, SELFPAY | PROVIDERS: PCP Nurse Practitioner Family; Referring Provider Nurse Practitioner Family; Visit Provider Psychiatry & Neurology Neurology | DX: G40.209 Localization-related (focal) (partial) symptomatic epilepsy and epileptic syndromes with complex partial seizures, not intractable, without status epilepticus (principal); I10 Essential (primary) hypertension | CPT/HCPCS: 99213 ==

== ENCOUNTER 2020-07-19 03:15 | Outpatient (CLI) | payer MEDICARE, OTHER, SELFPAY ==
[2020-07-19 10:25] LABS: Hemoglobin A1C 5.3 % (<5.7)
[2020-07-19 11:01] LABS: ALT 21 U/L (14-59); AST 14 U/L (15-37); Albumin 3.8 g/dL (3.4-5.0); Alkaline Phosphatase 89 U/L (46-116); Anion Gap 6.9 mmol/L (3-11); BUN 19 mg/dL (7-18); Bilirubin, Total 0.5 mg/dL (0.2-1.0); CO2 26.1 mmol/L (21.0-32.0); Calcium 9.4 mg/dL (8.5-10.1); Chloride 103 mmol/L (98-107); Estimated GFR 35.67 (mL/min/1.73m2); Glucose 111 mg/dL (74-106); Potassium 4.5 mmol/L (3.5-5.1); Sodium 136 mmol/L (136-145); Total Protein 7.6 g/dL (6.4-8.2)
[2020-07-21 15:06] LABS: HIV-1/2 Ag & Ab Screen Negative (Negative); Hepatitis C Ab w Rflx HCV PCR Negative (Negative)
== END 2020-07-19 03:35 ==
PROVIDERS: PCP Nurse Practitioner Family; Visit Provider Nurse Practitioner Family
DX: R73.01 Impaired fasting glucose (principal); I10 Essential (primary) hypertension; N18.9 Chronic kidney disease, unspecified; Z11.59 Encounter for screening for other viral diseases; Z11.4 Encounter for screening for human immunodeficiency virus [HIV]
CPT/HCPCS: 36415; 80053; 86803; 87389; 83036

== ENCOUNTER 2021-01-14 10:02 | Outpatient (REF) | payer MEDICARE, OTHER, SELFPAY ==
--- NOTE | 2021-01-14 08:45 | PAPFT_PTH ---
PATIENT: Sherry Wang LOC: [facility] U#:[id number] AGE/SX: 60/F ROOM: RE01/14/[address]: Yasmin Millard APRN : 1960 BED: DIS: 01/14/2021 SPEC #: [id number] RECD: 01/14/21 13:13 STATUS: FREDO REDavidson #: [id number] VALERIA: 01/14/21 08:[address]: Yasmin Millard DEPT: [facility] Cytology RECD BY: Farida Motley Tissues: 1 - CX/ENDOCX FOR PAP SMEARS Procedures: PAP THIN PREP/UVM Screening HPV DNA PROBE Comments: [id number]
== END 2021-01-14 10:03 | disposition home or self-care (01) ==
LOC: LBN 10:02
PROVIDERS: PCP Nurse Practitioner Family; Visit Provider Nurse Practitioner Family
DX: Z12.4 Encounter for screening for malignant neoplasm of cervix (principal); Z11.51 Encounter for screening for human papillomavirus (HPV)
CPT/HCPCS: 88142; 87624

== ENCOUNTER 2021-01-20 02:13 | Outpatient (CLI) | payer MEDICARE, SELFPAY ==
--- NOTE | 2021-01-20 09:03 | DI.MAMMO_ITS ---
Exam(s) MAMMO SCREENING EXAM: MAMMO SCREENING CLINICAL HISTORY: screening,z12.39 TECHNIQUE: Mammograms were interpreted according to the usual protocol including computer analysis w ith CAD system, tomosynthesis and C-view imaging. COMPARISON: FINDINGS: The breasts are of moderate density with fairly symmetrical distribution fibroglandular tissue. No d ominant mass or clumped microcalcification is identified in either breast. The current examination i s compared with previous examinations including April 2018 and there is question of increased promin ence of an area of asymmetric density projected in the central superior portion right breast on the M LO view only. Additional mammographic views of this area are requested to include an MLO spot compre ssion view of the right breast. No other significant change seen. IMPRESSION: Additional mammographic views of the right breast requested as described above. Breast ultrasound m ay be indicated as well depending on the results of the additional mammographic views. BI-RADS Category 0 - Assessment Incomplete: Need additional imaging evaluation Breast Density - Category B - Scattered areas of fibroglandular density
== END 2021-01-20 02:33 ==
PROVIDERS: PCP Nurse Practitioner Family; Visit Provider Nurse Practitioner Family
DX: Z12.31 Encounter for screening mammogram for malignant neoplasm of breast (principal); R92.8 Other abnormal and inconclusive findings on diagnostic imaging of breast
CPT/HCPCS: 77063; 77067

== ENCOUNTER 2021-01-24 01:49 | Outpatient (CLI) | payer MEDICARE, SELFPAY ==
--- NOTE | 2021-01-24 | DI.US_ITS ---
Exam(s) US BREAST RT LIMITED EXAM: US BREAST RT LIMITED CLINICAL HISTORY: ABN MAMMO. TECHNIQUE: Limited ultrasound of the right breast was performed. COMPARISON: Prior mammograms were reviewed. FINDINGS: Limited right breast ultrasound from 6 o'clock to the 12-1 o'clock position was performed following sunil torres's diagnostic mammogram. This ultrasound revealed no evidence of solid or significant cystic lesions. IMPRESSION: Negative limited right breast ultrasound Appropriate follow-up is to keep this patient yearly mammogram schedule, with earlier imaging if a se lf detected breast changes noted.. BI-RADS Category 2 - Benign Findings Breast Density - Category B - Scattered areas of fibroglandular density Breast density Category C or D implies that the patient has dense breast tissue. Dense breast tissue can make it harder to find cancer on a mammogram. Dense breast tissue is also associated with an incr eased risk of breast cancer. This information about the result of the mammogram report was provided to the patient to raise their awareness. Use this report when you speak with the patient about their risks for breast cancer, which includes their family history. At that time, you may recommend additional screening tests (Ultrasoun d or MRI) as these tests may add significant information. A negative radiographic report should not delay biopsy if a dominant or clinically suspicious mass is present. Up to ten percent of cancers are not identified on mammography. A negative report may reinforce clinical impression. Adenosis and dense breasts may obscure an underlying neoplasm. False positive reports average 6 to 10%. Patient will receive a letter notifying them of these results.
--- NOTE | 2021-01-24 09:00 | DI.US_ITS ---
Exam(s) US THYROID EXAM: US THYROID CLINICAL HISTORY: F/u thyroid cysts; last US 2016,E04.1. TECHNIQUE: Ultrasound thyroid performed using standard protocol. COMPARISON: FINDINGS: Gland echo architecture is homogeneous with the exception of the described findings below. RIGHT THYROID LOBE: Measures 1.8 cm AP x 1.7 cm wide x 5.2 cm craniocaudal Few small benign colloid cysts are noted superiorly in the right lobe. At the mid aspect of the right lobe there is a wider than taller well-defined cyst measuring 1.3 cm w elliot by 0.8 cm AP x 1.1 cm craniocaudal. This contains a solitary peripheral 3 millimeter calcificati on (1 point). TiRads: 2 ISTHMUS: Normal thickness. There are no nodules in the isthmus. LEFT THYROID LOBE: Measures 1.4 cm AP x 1.1 wide x 4.7 cm craniocaudal Contains a mid level well-defined simple cyst measuring 0.6 x 0.3 x 0.5 cm. TiRads: 1 LYMPH NODES: There is no significant adenopathy. IMPRESSION: 1. Benign findings as described above in each lobe. TiRads: 2-not suspicious 2. There is no significant lymphadenopathy. DATA REPOSITORY:
--- NOTE | 2021-01-24 14:29 | DI.MAMMO_ITS ---
Exam(s) MAMMO SCREEN CALL BACK UNI EXAM: MAMMO SCREEN CALL BACK UNI CLINICAL HISTORY: F/U MAMMO, R02.9, ? INCREASED ASYMMETRIC DENSITY. TECHNIQUE: Unilateral spot MLO mammographic images were obtained with 3D tomosynthesis and utilizing computer aided detection (CAD). Also performed 3D straight lateral view of the right breast.. Right breast Ultrasound was also performed. COMPARISON: Prior mammograms were reviewed. This additional imaging was performed due to findings described on the recent screening mammogram of January 20, 2021. FINDINGS: Additional mammographic views performed todayrender this area less concerning. Limited right breast ultrasound performed today reveals no significant focal findings. IMPRESSION: No radiographic evidence of malignancy. Ultrasound is also negative Appropriate follow-up is to keep this patient on a yearly mammogram schedule, with earlier imaging if a self detected breast changes noted. The patient was informed of these findings and recommendations prior to leaving the department today. BI-RADS Category 2 - Benign Findings Breast Density - Category B - Scattered areas of fibroglandular density Breast density Category C or D implies that the patient has dense breast tissue. Dense breast tissue can make it harder to find cancer on a mammogram. Dense breast tissue is also associated with an incr eased risk of breast cancer. This information about the result of the mammogram report was provided to the patient to raise their awareness. Use this report when you speak with the patient about their risks for breast cancer, which includes their family history. At that time, you may recommend additional screening tests (Ultrasoun d or MRI) as these tests may add significant information. A negative radiographic report should not delay biopsy if a dominant or clinically suspicious mass is present. Up to ten percent of cancers are not identified on mammography. A negative report may reinforce clinical impression. Adenosis and dense breasts may obscure an underlying neoplasm. False positive reports average 6 to 10%. Patient will receive a letter notifying them of these results.
== END 2021-01-24 02:09 ==
PROVIDERS: PCP Nurse Practitioner Family; Visit Provider Nurse Practitioner Family
DX: Z12.31 Encounter for screening mammogram for malignant neoplasm of breast (principal); R92.8 Other abnormal and inconclusive findings on diagnostic imaging of breast; N64.59 Other signs and symptoms in breast; E04.2 Nontoxic multinodular goiter
CPT/HCPCS: 76642; 77063; 77067; 76536

== ENCOUNTER → 2021-06-14 11:06 | Outpatient (BNVA) | payer MEDICARE, OTHER, MEDICAID, SELFPAY | PROVIDERS: PCP Nurse Practitioner Family; Visit Provider Psychiatry & Neurology Neurology | DX: G40.109 Localization-related (focal) (partial) symptomatic epilepsy and epileptic syndromes with simple partial seizures, not intractable, without status epilepticus (principal); R29.6 Repeated falls; E04.1 Nontoxic single thyroid nodule; R27.9 Unspecified lack of coordination; G93.9 Disorder of brain, unspecified; G40.909 Epilepsy, unspecified, not intractable, without status epilepticus | CPT/HCPCS: 99214 ==

== ENCOUNTER 2021-07-01 00:28 | Outpatient (CLI) | payer MEDICARE, OTHER, MEDICAID, SELFPAY ==
--- NOTE | 2021-07-01 08:35 | DI.MRI_ITS ---
Exam(s) MR BRAIN WO EXAM: MR BRAIN WO CLINICAL HISTORY: knowN L cyst; increased falls,COORDINATION PROBLEM,W19.XXXA,R27.9. TECHNIQUE: Multiplanar multisequence MRI of the brain and internal auditory canals was performed. COMPARISON: CT HEAD WITHOUT CONTRAST from 12/28/2015 CT HEAD WITHOUT CONTRAST from 12/28/[address] HEAD WO from 03/06/2019 FINDINGS: VENTRICLES AND EXTRA AXIAL SPACES: Normal in size and morphology for the patient's age. HEMORRHAGE: None. CEREBRAL PARENCHYMA: No focus of restricted diffusion to suggest acute infarct. Mild atrophy. No obdulio nge in cystic lesion in the high left parietal region, measuring 4.3 cm in maximal dimension.. No mercado rrounding abnormal signal or significant mass effect.. No significant white matter changes.. MIDLINE SHIFT: None. BRAINSTEM/CEREBELLUM: Normal. CALVARIUM: Craniotomy site at vertex. VISUALIZED PARANASAL SINUSES/MASTOIDS: Clear. OTHER FINDINGS: Pituitary, orbits unremarkable. Vascular flow voids intact. IMPRESSION: Stable appearance of cystic lesion in the high left parietal region. Mild atrophy. No new abnormali ties. DATA REPOSITORY:
--- NOTE | 2021-07-01 09:05 | DI.MRI_ITS ---
Exam(s) MR CERVICAL SPINE WO EXAM: MR CERVICAL SPINE WO CLINICAL HISTORY: increased falls; +Babinski bilaterally,W19.XXXA,R27.9 TECHNIQUE: Multiplanar multisequence MRI of the cervical spine was performed without intravenous con trast. FINDINGS: Exam somewhat limited by patient motion. BONES: Vertebral body heights are maintained. Intervertebral disc spaces are normal. Alignment is nor mal. Bone marrow signal intensity is within normal limits. CERVICAL CORD: Craniovertebral junction is unremarkable. The cervical cord is normal size and signal intensity. SOFT TISSUES: Unremarkable. C2-3: No disc herniation or bulge is identified. C3-4: Minimal disc bulging. No central canal stenosis or neural foraminal narrowing. C4-5: No disc herniation or bulge is identified. C5-6: No disc herniation or bulge is identified. C6-7: No disc herniation or bulge is identified. C7-T1: No disc herniation or bulge is identified. IMPRESSION: Minimal degenerative disc changes. No evidence of disc herniation. Normal cord signal. DATA REPOSITORY:
== END 2021-07-01 00:48 ==
PROVIDERS: PCP Nurse Practitioner Family; Visit Provider Psychiatry & Neurology Neurology
DX: G93.0 Cerebral cysts (principal); R27.8 Other lack of coordination; W19.XXXA Unspecified fall, initial encounter; G31.9 Degenerative disease of nervous system, unspecified
CPT/HCPCS: 80053; 80061; 80175; 85027; 70551; 72141; 80177; 83036; 84443; 85025

== ENCOUNTER 2021-07-01 02:16 | Outpatient (CLI) | payer MEDICARE, OTHER, SELFPAY ==
[2021-07-01 09:54] LABS: Abs Immature Grans 0.02 10^3/uL (0.0-0.06); Absolute Basophil Count 0.02 10^3/uL (0.0-0.2); Absolute Eosinophil Count 0.11 10^3/uL (0.0-0.7); Absolute Lymphocyte Count 1.71 10^3/uL (1.2-3.4); Absolute Monocyte Count 0.62 10^3/uL (0.1-0.8); Basophils % 0.3; Eosinophils % 1.7; HCT 36.9 % (36.0-46.0); HGB 11.8 g/dL (11.2-15.7); Immature Grans % 0.3; Lymphocytes % 26.4; MCH 29.1 pg (27.0-33.0); MCV 91.1 fL (80-95); MPV 9.2 fL (8.0-11.0); Monocytes % 9.6; Neutrophils % 61.7; Nucleated RBC 0 %; Platelet Count 264 10^3/uL (130-400); RBC 4.05 10^6/uL (3.93-5.22); RDW 13.3 % (11.7-14.6); RDW-SD 44.9 fL; WBC 6.48 10^3/uL (4.4-10.8)
[2021-07-01 10:51] LABS: Hemoglobin A1C 5.4 % (<5.7)
[2021-07-01 11:05] LABS: ALT 25 U/L (14-59); AST 13 U/L (15-37); Albumin 3.8 g/dL (3.4-5.0); Alkaline Phosphatase 90 U/L (46-116); Anion Gap 9.9 mmol/L (3-11); BUN 18 mg/dL (7-18); Bilirubin, Total 0.3 mg/dL (0.2-1.0); CO2 26.1 mmol/L (21.0-32.0); CREATININE 1.4 mg/dL (0.55-1.02); Calcium 9.5 mg/dL (8.5-10.1); Calculated LDL 160 mg/dL (<100); Chloride 104 mmol/L (98-107); Cholesterol 236 mg/dL (<200); Estimated GFR 38.49 (mL/min/1.73m2); Glucose 99 mg/dL (74-106); HDL Cholesterol 52 mg/dL (40-60); Potassium 4.6 mmol/L (3.5-5.1); Sodium 140 mmol/L (136-145); TSH (W/Ref FT4) 3.09 uIU/mL (0.36-3.74); Total Protein 7.5 g/dL (6.4-8.2); Triglyceride 124 mg/dL (<150)
[2021-07-04 12:29] LABS: Levetiracetam 21.3 mcg/mL
[2021-07-04 13:01] LABS: Lamotrigine 15.7 mcg/mL (2.5 - 15.0)
== END 2021-07-01 02:17 | disposition home or self-care (01) ==
LOC: LBO 02:16
PROVIDERS: PCP Nurse Practitioner Family; Visit Provider Psychiatry & Neurology Neurology
DX: E78.5 Hyperlipidemia, unspecified; E04.1 Nontoxic single thyroid nodule; R73.01 Impaired fasting glucose; N18.9 Chronic kidney disease, unspecified; I10 Essential (primary) hypertension; Z51.81 Encounter for therapeutic drug level monitoring
CPT/HCPCS: 80053; 80061; 80175; 85027; 80177; 83036; 84443; 85025

== ENCOUNTER 2021-07-21 09:17 | Outpatient (CLI) | payer MEDICARE, OTHER, SELFPAY ==
--- NOTE | 2021-07-21 12:45 | DI.MRI_ITS ---
Exam(s) MR THORACIC SPINE WO EXAM: MR THORACIC SPINE WO CLINICAL HISTORY: bilateral Babinski and falls; ?myelopathy,w19.xxxa,r29.2 TECHNIQUE: Multiplanar multisequence MRI of the thoracic spine was performed without intravenous con trast. MR MR BRAIN WO from 07/01/2021 FINDINGS: OSSEOUS: There are no acute appearing thoracic vertebral fractures. There is a non expansile bone les ion occupying the central and right side of the T6 vertebral body extending from superior to inferior endplate and exhibiting signal characteristics of a benign intraosseous hemangioma. This measures 1 .6 cm craniocaudal by 1.9cm AP by 1.7 cm wide. There are no lytic osseous lesions evident in the tho racic vertebral bodies. THORACIC SPINAL CORD: There is no abnormal signal in the cervical spinal cord and no evidence of foca l cord atrophy nor focal cord swelling. There is no evidence of syringomyelia nor significant spinal cord dysraphism. There is no evidence of mass at the conus medullaris. The position of the conus me dullaris is at L1 level. There is no evidence of abnormal mass or fluid collection in the epidural s pace. SIGNIFICANT INDIVIDUAL LEVEL FINDINGS: No disc herniations evident. No central canal stenosis. No foraminal stenosis. No significant face t arthropathy. PARASPINAL TISSUES: No significant masses nor fluid collections evident. Incidentally noted are benign cortical cysts in the partially included kidneys. IMPRESSION: 1. 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 No ominous osseous lesions. No fracture at this level nor elsewhere in the thoracic vertebral bodies. No listhesis 2. No disc herniations nor central canal stenosis. There is no foraminal stenosis. 3. No focal abnormality evident in the thoracic spinal cord and conus medullaris. DATA REPOSITORY:
== END 2021-07-21 09:37 ==
PROVIDERS: PCP Nurse Practitioner Family; Visit Provider Psychiatry & Neurology Neurology
DX: R29.2 Abnormal reflex (principal); R29.6 Repeated falls; D18.09 Hemangioma of other sites
CPT/HCPCS: 72146

== ENCOUNTER → 2021-08-16 12:17 | Outpatient (BNVA) | payer MEDICARE, OTHER, MEDICAID, SELFPAY | PROVIDERS: PCP Nurse Practitioner Family; Visit Provider Psychiatry & Neurology Neurology | DX: G40.209 Localization-related (focal) (partial) symptomatic epilepsy and epileptic syndromes with complex partial seizures, not intractable, without status epilepticus (principal); R29.6 Repeated falls; G93.9 Disorder of brain, unspecified; R62.50 Unspecified lack of expected normal physiological development in childhood; R63.5 Abnormal weight gain | CPT/HCPCS: 99213 ==

== ENCOUNTER 2021-09-23 11:19 | Emergency (ER) | payer MEDICARE, OTHER, MEDICAID, SELFPAY ==
[2021-09-23 11:21] VITALS: PULSE 104; RESP 16; TEMP 36.6; O2SAT 100
--- NOTE | 2021-09-23 11:35 | W.ED.GENAD ---
Discharge Plan Disposition Patient Disposition: HOME Condition: Stable Discharge Details Clinical Impression: Lumbar strain, Left lumbar radiculopathy Primary Care Provider: Yasmin Millard ED Provider: Shanti Newsome Home Meds and New Rx's Prescriptions: New methocarbamol 500 mg tablet 500 mg PO Q6H PRN (Reason: muscle spasm) Qty: 14 RF: 0 prednisone 20 mg tablet See Rx Instructions .ROUTE .COMPLEX Qty: 18 RF: 0 Continued lisinopril 10 mg tablet 10 mg PO DAILY Qty: 90 RF: 3 amitriptyline 50 mg tablet 50 mg PO QHS Qty: 90 RF: 3 lamotrigine [Lamictal] 200 mg tablet 200 mg PO See Instructions Qty: 270 RF: 3 levetiracetam 750 mg tablet 750 mg PO BID Qty: 180 RF: 3 acetaminophen [Tylenol] 325 MG tablet 650 mg PO Q4H PRN PRNRF: 0 Discharge Instructions Instructions: Low Back Strain (ED), Lumbar Radiculopathy (ED) Additional Instructions: Alternate ice and heat to the affected area(s) several times daily for 20 minutes at a time. Alternate tylenol and ibuprofen as needed and directed for pain. Take the oxycodone for pain not relieved with Tylenol or ibuprofen. Prescriptions for steroids and muscle relaxers have been sent electronically to your pharmacy. Follow-up with your primary care doctor in 1 week. Return to the emergency department with any worsening or new concerning symptoms such as worsening pain, loss of bowel or bladder function, leg weakness or numbness or any other concerns. Discharge Data Discharge Physician: Shanti Newsome Medical Decision Making 61-year-old female with a history of obesity, hypertension, hyperlipidemia, chronic kidney disease and seizures presents from home for back pain for the past 3 days after carrying groceries, worse today with now with radiation to her left leg after a slip and fall while getting into a car. Denies any direct blunt injury due to the fall. No cauda equina symptoms. She states she can take ibuprofen sparingly and denies any history of anaphylaxis with NSAIDs. Patient appears slightly uncomfortable but nontoxic. She has reproducible midline and lumbar paraspinal tenderness but no evidence of trauma, cellulitis or rash. She has no focal deficits. Suspect most likely strain. At this time do not see indication for lab work or imaging. Will give a dose of IM Toradol, p.o. oxycodone and Valium and reassess. She has a history of allergy to cortisone so hold on steroids at this time. Discussed with patient that it may be difficult to significantly reduce her pain due to limitation on NSAIDs or steroids but will try to obtain some improvement. Sister now bedside who is her POA and notes that she has no history of allergy to oral steroids. She states she cannot take NSAIDs sparingly. We will give a dose of prednisone here. Patient did have some improvement after medications here. Prescriptions for steroids and muscle relaxer sent electronically to her pharmacy. We will also send with oxycodone for breakthrough pain. Advised to follow up with the primary care doctor for re-evaluation. Usual and customary return precautions given prior to discharge. Medical Records Medical records reviewed: Yes I reviewed the patient's medical records. HPI General Mode of arrival: EMS. Date/Time Provider Initiated Documentation: 09/23/21 11:50. Limitations to Documentation: no limitations. Information obtained by: patient. HPI Narrative: Patient is a 61-year old female with a history of hypertension, hyperlipidemia, obesity, chronic kidney disease, seizures presents from home for back pain for 3 days and fall today when slipping on ice causing worsening of her back pain with radiation down her left leg. She states her lower back pain started 3 days ago for carrying groceries. She denies any specific injury but states her back hurt after that. She states the pain is across her lower back and feels aching. She states today she was getting in her sister's car when she slipped on ice and feels that she may have twisted her back more. She denies any head injury, direct injury to her back, extremities or any other new injuries from the fall. She states she is able to catch herself and did not hit against anything. She denies any bowel or bladder incontinence, saddle anesthesia, leg weakness or numbness. She states she took Bufferin this morning for her pain without relief. She states she sparingly takes Tylenol and ibuprofen for pain as needed. She states she limits ibuprofen at times due to her history of chronic kidney disease but does take it occasionally as needed. Related Data Home Medications Medication Instructions Recorded Confirmed acetaminophen [Tylenol] 650 mg PO Q4H PRN PRN tab 10/11/16 01/07/22 amitriptyline 50 mg tablet 50 mg PO QHS #90 tab 09/20/21 09/23/21 lamotrigine 200 mg tablet 200 mg PO See Instructions #270 09/20/21 09/23/21 tab-cap levetiracetam 750 mg tablet 750 mg PO BID #180 tab-cap 09/20/21 09/23/21 lisinopril 10 mg tablet 10 mg PO DAILY #90 tab 09/20/21 09/23/21 methocarbamol 500 mg PO Q6H PRN #14 tab 09/23/21 prednisone See Rx Instructions .ROUTE 09/23/21 .COMPLEX #18 tab Previous Rx's Medication Instructions Recorded acetaminophen [Tylenol] 650 mg PO Q4H PRN PRN tab 06/27/16 amitriptyline 50 mg tablet 50 mg PO QHS #90 tab 09/20/21 lamotrigine 200 mg tablet 200 mg PO See Instructions #270 09/20/21 tab-cap levetiracetam 750 mg tablet 750 mg PO BID #180 tab-cap 09/20/21 lisinopril 10 mg tablet 10 mg PO DAILY #90 tab 09/20/21 methocarbamol 500 mg PO Q6H PRN #14 tab 09/23/21 prednisone See Rx Instructions .ROUTE 09/23/21 .COMPLEX #18 tab Allergies Allergy/AdvReac Type Severity Reaction Status Date / Time hydrocortisone Allergy Unknown SKIN RASH Verified 09/23/21 11:31 adhesive AdvReac Intermediate skin rash Verified 09/23/21 11:31 NSAIDS (Non-Steroidal AdvReac Other (See Verified 09/23/21 11:31 Anti-Inflamma Comment) baby powder Allergy Intermediate Contraindic Uncoded 09/23/21 11:31 ated pine trees Allergy Intermediate Uncoded 09/23/21 11:31 General Stated Complaint: Nk/Back Pain TAWNY: 3 Review of Systems All systems reviewed & are unremarkable except as noted in HPI and below Constitutional Constitutional: Reports as per HPI, Denies chills and Denies fever(s) Eyes Eyes: Denies blurry vision ENT Ears, Nose, Mouth, and Throat: Denies dizziness, Denies sore throat and Denies throat swelling Cardiovascular Cardiovascular: Denies chest pain and Denies dyspnea Respiratory Respiratory: Denies cough and Denies dyspnea Gastrointestinal Gastrointestinal: Denies abdominal pain, Denies diarrhea and Denies vomiting Genitourinary Genitourinary: Denies hematuria and Denies dysuria Musculoskeletal Musculoskeletal: Denies back pain and Denies numbness Integumentary/Breasts Skin/Breast: Denies lesions and Denies rash Neurologic Neurologic: Denies dizziness, Denies localized weakness and Denies numbness Allergic/Immunologic Allergic/Immunologic: Denies throat swelling PFSH All Active Problems (Updated 09/23/21 @ 13:15 by Shanti Newsome DO) Lumbar strain (Acute) Left lumbar radiculopathy (Acute) Weight gain (Acute) Hemiparesis (Acute) right; Leg>>>arm; due to left parietal cyst Focal epilepsy (Acute) Falls (Acute) Menorrhagia (Chronic) EMBx 2012: benign. Repeat EMBx 2013: benign proliferative endometrium, started on norethindrone, pt counseled re: endometrial ablation. CKD (chronic kidney disease) (Chronic) 12/2015 renal US at [facility]: bilateral and symmetric renal cortical thinning consistent with patient's known history of CKD Other specified irregular menstruation (Chronic 07/23/12) [facility] Coordination problem (Chronic 12/23/10) Hemiparesis; R more than L, mostly resolved Endometrium, polyp (Chronic 01/25/16) currently protruding through the exocervix. I have recomended hysteroscopic resection under anesthesia. Epilepsy (Chronic 12/23/10) Cyst on brain surgery; Dr. 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 Migraine without aura (Chronic 05/28/09) Obesity (Chronic 05/15/13) Primary osteoarthritis of left knee (Chronic 01/03/17) Sleep apnea (Chronic 06/09/13) CPAP Thyroid cyst (Chronic 07/26/16) Most recent US: 01/24/2021 TI-RADS 2, repeat US if clinically necessary Active Problem List Hemiparesis (Acute) Focal epilepsy (Acute) Falls (Acute) Menorrhagia (Chronic) CKD (chronic kidney disease) (Chronic) Other specified irregular menstruation (Chronic 07/23/12) Coordination problem (Chronic 12/23/10) Endometrium, polyp (Chronic 01/25/16) Epilepsy (Chronic 12/23/10) Essential hypertension (Chronic 10/18/11) Hyperlipidemia (Chronic 12/24/15) IFG (impaired fasting glucose) (Chronic 04/01/18) Insomnia (Chronic 03/09/10) 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) Memory impairment (Chronic 12/23/10) Migraine without aura (Chronic 05/28/09) Obesity (Chronic 05/15/13) Primary osteoarthritis of left knee (Chronic 01/03/17) Sleep apnea (Chronic 06/09/13) Thyroid cyst (Chronic 07/26/16) Medical History Hand fracture 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 Salinas Family History Father Alcohol abuse Other Adopted Social History Smoking/Tobacco Use Status: Never Smoking risk assessment performed?: Yes Alcohol Intake: never Drug use: Never Substance use type: does not use Caregiver/Support person: No Household members: spouse and children Number of Children: 1 Communication Needs: None current occupation: Disabled Pets and animals: No Sexually active: Yes Current gender identity: female What type of physical activity do you participate in: walking Duration: 15-30 minutes/day Frequency: daily Seatbelt use: always Water heater temp set <120 deg: Yes Working smoke detector in home: Yes Fire extinguisher in home: Yes Carbon monox detector in home: Yes Firearms in home: No Do you feel safe at home: Yes Do you feel safe in your relationship?: Yes Additional Social history: 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 Sister Jeannine helps out with medical care. Female Reproductive History Menstrual Menopause type: natural Exam Const General: cooperative, healthy appearing and no acute distress HENMT Head: normal to inspection Face and sinus: normal facial exam Eyes General: appearance normal, both eyes and all related structures Pupils: PERRL EOM: EOM intact bilaterally Neck Neck: normal visual inspection and No submandibular swelling Lymphatic: no lymphadenopathy noted Chest Chest: normal inspection of the chest and no tenderness Resp Effort & Inspection: normal respiratory effort and able to speak in complete sentences Auscultation: clear to auscultation bilaterally Cardio Rate: regular rate Rhythm: regular rhythm GI Inspection: normal to inspection Palpation: soft, not firm, not rigid and nontender Auscultation: normal bowel sounds Back/Spine/Pelvis Thoracic/Lumbar Spine: thoracic and lumbar spine normal to inspection Pelvis: no pain with anterior-posterior compression Skin General skin exam: no rashes or lesions noted Neuro General: patient alert, patient awake and patient oriented x3 Cognition: normal cognition Speech: speech normal Motor: muscle tone normal throughout Sensory Exam: no sensory deficits noted Extrem General: normal to inspection, full ROM, capillary refill normal, no calf tenderness bilaterally and no edema Psych Appearance: grossly normal Mental Status: mental status grossly normal Speech and Movement: speech and movement normal Affect: normal affect Course Vital Signs Vital signs: Vital Signs Temperature 97.9 F 09/23/21 11:21 Pulse 104 H 09/23/21 11:21 Respiratory Rate 16 09/23/21 11:21 Pulse Oximetry 100 09/23/21 11:21 Temperature 97.9 F 09/23/21 11:21 Temperature Source Temporal Artery Scan 09/23/21 11:21 Pulse 104 H 09/23/21 11:21 Respiratory Rate 16 09/23/21 11:21 Respiratory Effort 09/23/21 11:21 Blood Pressure Position Sitting 09/23/21 11:21 Pulse Oximetry 100 09/23/21 11:21 Oxygen Delivery Method Room Air 09/23/21 11:21 Oxygen Flow Rate 0 09/23/21 11:21 Pain Level 3 09/23/21 11:21
[2021-09-23] MEDS: oxyCODONE 5 MG TAB PO (11:59)
[2021-09-23] MEDS: diazePAM 5 MG TAB PO (11:59)
[2021-09-23] MEDS: Ketorolac 60 MG/2 ML VIAL IM (12:06)
[2021-09-23] MEDS: predniSONE 20 MG TAB 60 MG PO (13:12)
== END 2021-09-23 13:45 | disposition home or self-care (01) ==
PROVIDERS: Emergency Provider Physician Assistant; PCP Nurse Practitioner Family
DX: S39.012A Strain of muscle, fascia and tendon of lower back, initial encounter (principal); M54.16 Radiculopathy, lumbar region; X50.0XXA Overexertion from strenuous movement or load, initial encounter; I12.9 Hypertensive chronic kidney disease with stage 1 through stage 4 chronic kidney disease, or unspecified chronic kidney disease; N18.9 Chronic kidney disease, unspecified; W00.2XXA Other fall from one level to another due to ice and snow, initial encounter
CPT/HCPCS: 96372; 99284; 99283; J1885; J7512

== ENCOUNTER 2022-01-27 03:29 | Outpatient (CLI) | payer MEDICARE, OTHER, MEDICAID, SELFPAY | END 2022-01-27 03:30 | disposition home or self-care (01) | LOC: LBO 03:30 | PROVIDERS: PCP Nurse Practitioner Family; Visit Provider Nurse Practitioner Family ==

== ENCOUNTER → 2022-01-30 02:24 | Outpatient (CLI) | payer MEDICARE, OTHER, MEDICAID, SELFPAY ==
--- NOTE | 2022-01-30 06:45 | DI.MAMMO_ITS ---
Exam(s) MAMMO SCREENING EXAM: MAMMO SCREENING CLINICAL HISTORY: screening,z12.39 TECHNIQUE: Bilateral full field digital CC and MLO mammographic images were obtained with 3D tomosyn thesis and utilizing computer aided detection (CAD). COMPARISON: Available for comparison. FINDINGS: Masses/Architectural Distortion: None seen. Microcalcifications: No suspicious pleomorphic-type are seen. Skin Thickening/Nipple Retraction: None. IMPRESSION: 1. No significant interval change with no specific features of malignancy noted. 2. Unless there is more urgent need, screening mammography is recommended, as per [place] [employer] guidelines. BI-RADS Category 1 - Negative Breast Density - Category B - Scattered areas of fibroglandular density Breast density category C or D implies that the patient has dense breast tissue. Dense breast tissue is very common and is not abnormal but dense breast tissue can make it harder to find cancer on a ma mmogram. Also, dense breast tissue may increase their breast cancer risk. This information about the result of the mammogram report was provided to the patient to raise their awareness. Use this report when you speak with the patient about their risks for breast cancer, which includes their family hist ory. At that time, you may recommend for more screening tests (Ultrasound or MRI) as they might be us eful based on their risk. A negative radiographic report should not delay biopsy if a dominant or clinically suspicious mass is present. Up to ten percent of cancers are not identified on mammography. A negative report may reinforce clinical impression. Adenosis and dense breasts may obscure an underlying neoplasm. False positive reports average 6 to 10%. Patient will receive a letter notifying them of these results.
== END ==
PROVIDERS: PCP Nurse Practitioner Family; Visit Provider Nurse Practitioner Family
DX: Z12.31 Encounter for screening mammogram for malignant neoplasm of breast (principal)
CPT/HCPCS: 77063; 77067

== ENCOUNTER → 2022-02-14 08:23 | Outpatient (BNVA) | payer MEDICARE, OTHER, MEDICAID, SELFPAY | PROVIDERS: PCP Nurse Practitioner Family; Referring Provider Nurse Practitioner Family; Visit Provider Psychiatry & Neurology Neurology | DX: G40.109 Localization-related (focal) (partial) symptomatic epilepsy and epileptic syndromes with simple partial seizures, not intractable, without status epilepticus (principal); G93.9 Disorder of brain, unspecified; R29.6 Repeated falls | CPT/HCPCS: 99213 ==

== ENCOUNTER 2022-07-25 03:29 | Outpatient (CLI) | payer MEDICARE, OTHER, MEDICAID, SELFPAY ==
[2022-07-25 09:20] LABS: Abs Immature Grans 0.02 10^3/uL (0.0-0.06); Absolute Basophil Count 0.03 10^3/uL (0.0-0.2); Absolute Eosinophil Count 0.17 10^3/uL (0.0-0.7); Absolute Lymphocyte Count 1.72 10^3/uL (1.2-3.4); Absolute Monocyte Count 0.64 10^3/uL (0.1-0.8); Absolute Neutrophil Count 3.72 10^3/uL (1.2-6.7); Basophils % 0.5; Eosinophils % 2.7; HCT 36.4 % (36.0-46.0); HGB 11.9 g/dL (11.2-15.7); Immature Grans % 0.3; Lymphocytes % 27.3; MCH 29.5 pg (27.0-33.0); MCHC 32.7 % (32.0-36.0); MCV 90 fL (80-95); MPV 9.3 fL (8.0-11.0); Monocytes % 10.2; Platelet Count 259 10^3/uL (130-400); RBC 4.04 10^6/uL (3.93-5.22); RDW 13.9 % (11.7-14.6)
[2022-07-25 09:44] LABS: ALT 22 U/L (14-59); AST 15 U/L (15-37); Albumin 3.6 g/dL (3.4-5.0); Alkaline Phosphatase 90 U/L (46-116); Anion Gap 7.2 mmol/L (3-11); BUN 23 mg/dL (7-18); Bilirubin, Total 0.3 mg/dL (0.2-1.0); CO2 27.8 mmol/L (21.0-32.0); CREATININE 1.5 mg/dL (0.55-1.02); Calcium 9.6 mg/dL (8.5-10.1); Chloride 105 mmol/L (98-107); Estimated GFR 39.65 (mL/min/1.73m2); Glucose 106 mg/dL (74-106); Potassium 4.8 mmol/L (3.5-5.1); Sodium 140 mmol/L (136-145); Total Protein 7.9 g/dL (6.4-8.2)
== END 2022-07-25 03:30 | disposition home or self-care (01) ==
LOC: LBO 03:30
PROVIDERS: PCP Nurse Practitioner Family; Visit Provider Nurse Practitioner Family
DX: I10 Essential (primary) hypertension (principal); N18.9 Chronic kidney disease, unspecified
CPT/HCPCS: 36415; 80053; 85025

== ENCOUNTER → 2022-08-14 08:21 | Outpatient (BNVA) | payer MEDICARE, OTHER, MEDICAID, SELFPAY | PROVIDERS: PCP Nurse Practitioner Family; Referring Provider Nurse Practitioner Family; Visit Provider Psychiatry & Neurology Neurology | DX: Q04.6 Congenital cerebral cysts (principal); R41.3 Other amnesia; R29.6 Repeated falls; R42 Dizziness and giddiness; I12.9 Hypertensive chronic kidney disease with stage 1 through stage 4 chronic kidney disease, or unspecified chronic kidney disease; N18.9 Chronic kidney disease, unspecified; G40.209 Localization-related (focal) (partial) symptomatic epilepsy and epileptic syndromes with complex partial seizures, not intractable, without status epilepticus; R62.50 Unspecified lack of expected normal physiological development in childhood | CPT/HCPCS: 99213 ==

== ENCOUNTER 2022-11-14 13:55 | Outpatient (REF) | payer MEDICARE, OTHER, MEDICAID, SELFPAY ==
[2022-11-14 17:32] LABS: COVID-19 PCR Negative (Negative); Influenza A PCR Negative (Negative); Influenza B PCR Negative (Negative); RSV PCR Negative (Negative)
[2022-11-14 17:41] LABS: Source Nasopharynx
== END 2022-11-14 13:56 | disposition home or self-care (01) ==
LOC: LBN 13:55
PROVIDERS: PCP Nurse Practitioner Family; Visit Provider Nurse Practitioner
DX: R05.8 Other specified cough (principal); R07.81 Pleurodynia; Z20.822 Contact with and (suspected) exposure to COVID-19
CPT/HCPCS: 87637

== ENCOUNTER 2022-11-14 15:42 | Outpatient (CLI) | payer MEDICARE, OTHER, MEDICAID, SELFPAY ==
--- NOTE | 2022-11-14 13:45 | DI.RAD_ITS ---
Exam(s) XR CHEST 2V PA LATERAL EXAM: XR CHEST 2V PA LATERAL CLINICAL HISTORY: cough, right rib pain R05.9 COUGH R07.81 PLEURODYNIA. TECHNIQUE: 2D digital imaging was performed. COMPARISON: CR XR CHEST 2V PA LATERAL from 11/06/2019 FINDINGS: 2 views: Heart size is normal. The mediastinum is not widened. Lungs are clear. No infiltrates nor pleural effusions. IMPRESSION: No acute pulmonary findings. DATA REPOSITORY: RADIATION DOSE DELIVERED:
== END 2022-11-14 16:02 ==
LOC: DI 15:44
PROVIDERS: PCP Nurse Practitioner Family; Visit Provider Nurse Practitioner
DX: R05.9 Cough, unspecified (principal); R07.81 Pleurodynia
CPT/HCPCS: 71046

== ENCOUNTER → 2022-12-21 14:44 | Outpatient (BNVA) | payer MEDICARE, OTHER, MEDICAID, SELFPAY | PROVIDERS: PCP Nurse Practitioner Family; Referring Provider Nurse Practitioner Family; Visit Provider Physical Therapy Assistant | DX: Z12.11 Encounter for screening for malignant neoplasm of colon (principal) ==

== ENCOUNTER 2023-01-01 09:47 | Day surgery (SDC) | payer MEDICARE, OTHER, MEDICAID, SELFPAY ==
--- NOTE | 2022-12-31 21:01 | W.PM.DSUDISC ---
Date of service: 01/01/23 Time of Service: 12:13 Discharge Plan Disposition Patient Disposition: Home Condition: Good Discharge Details Reason For Visit: Screening colonoscopy Attending Provider: Casey Lazo Primary Care Provider: Yasmin Millard Home Meds and New Rx's Prescriptions: Continued levetiracetam 750 mg tablet 750 mg PO BID Qty: 180 3RF lamotrigine [Lamictal] 200 mg tablet 200 mg PO See Instructions Qty: 270 3RF Rx Instructions: FOR SEIZURES - ok for generic Take 1 tablet in the AM & 2 tablets in the PM lisinopril 10 mg tablet 10 mg PO DAILY Qty: 90 3RF Rx Instructions: DX: BLOOD PRESSURE amitriptyline 50 mg tablet 50 mg PO QHS Qty: 90 3RF acetaminophen [Tylenol] 325 MG tablet 650 mg PO Q4H PRN PRN0RF Discontinued bisacodyl [Dulcolax (bisacodyl)] 5 mg tablet,delayed release (DR/EC) 5 mg PO ONCE Qty: 4 0RF Rx Instructions: Colonoscopy Bowel Prep- Per Instructions polyethylene glycol 3350 17 gram/dose powder 238 g PO ONCE Qty: 238 0RF Rx Instructions: Colonoscopy Bowel Prep- Per Instructions Discharge Instructions Additional Instructions: (My we were able to complete your colonoscopy today without any difficulty. The quality of your preparation was excellent. I did not see any signs of polyps or tumors. Your colonoscopy was negative. You should consider another screening colonoscopy in 10 years to reduce your chances of from colon cancer over the course of your lifetime. 1. If tolerated, consume a soft, low fiber diet for 1-2 days. 2[address] Do not drive, drink alcohol, operate machinery, make critical decisions, or do activities that require coordination or balance for 24 hours. 3. Because air was put into your colon during the procedure, expelling air from your rectum (passing gas or farting) is normal. 4. You may not have a bowel movement for 1-3 days because of the colonoscopy prep. This is normal. 5. Go directly to the emergency room if you notice any of the following: Develop chills (warm to touch), or if you have a thermometer and your temperature is above 101 Difficulty breathing or difficultly swallowing Persistent vomiting Severe abdominal pain, other than gas cramps Severe chest pain Black, tarry stools Any bleeding ? exceeding one tablespoon 6. Call your physician if the site where your intravenous was started becomes red, swollen, painful, and warm to touch. 7. Your physician has reviewed your pre-procedure medications. Please continue to take those medications as previously ordered. You will be given specific information/education regarding any changes to your medications before leaving. Activity:: Activity as Tolerated Diet:: As Tolerated Discharge Orders Discharge Orders: Discharge Order (Routine); Ordered 12/31/22 Ordered By: Casey Lazo DS: Diagnosis Discharge Diagnosis (1) Encounter for screening colonoscopy: Status: Acute Asessment and Plan: Negative screening colonoscopy
--- NOTE | 2022-12-31 21:03 | W.COLOREPORT ---
Date of service: 01/01/23 Time of Service: 12:14 Colonoscopy Report Date of procedure: 01/01/23 Pre-op diagnosis general: Screening colonoscopy Post-op diagnosis procedure note: other (Negative screening colonoscopy) Procedure: Colonoscopy Surgeon: Casey Lazo Anesthesia Type: General:No Airway Estimated blood loss (mL): 0 Pathology: none sent Complications: None Disposition: same day Indications: Reggie is a 62-year-old woman here for screening colonoscopy Prep: Miralax/Dulcolax Procedure Start Time: 11:46 Procedure End Time: 12:04 Retraction Time: 9 Findings: Negative screening colonoscopy Procedure Description: After the induction of monitored anesthetic care, and with the patient in left lateral decubitus position, I began by performing an external anorectal exam.? Perineum and skin were normal, as was the anal verge.? There was no evidence of external hemorrhoids.? Next, I performed a digital rectal exam.? I did not appreciate any abnormal findings.? Next, I advanced a colonoscope into the rectal vault.? I performed retroflexion.? I this appeared normal.? Using insufflation, I then advanced the colonoscope beyond the rectal folds and into the sigmoid colon before advancing towards the cecum.? The quality of the prep was excellent.? The scope was noted to be in the cecum by identification of the ileocecal valve and appendiceal orifice.? I then began withdrawing the colonoscope using repeated irrigation as necessary for full evaluation of the colonic mucosa. ?Once the scope was withdrawn to the level of the rectum, great care was taken to examine portions of the rectal folds.? I did not see any signs of colon polyps or tumors. Finally, the scope was withdrawn and the patient was brought to the same-day surgery recovery unit as the anesthetic wore off. ?The findings and instructions were shared with the patient prior to discharge.
[2023-01-01 10:00] VITALS: BP 129/81; PULSE 81; RESP 16; TEMP 36.6; O2SAT 96
[2023-01-01] MEDS: Lactated Ringers 1,000 ML 80 ML IV (10:30)
--- NOTE | 2023-01-01 11:27 | ANES.PREOP_ITS ---
General Info Date of Service Date Performed: 01/01/23 Height: 5 ft Weight: 107.5 kg Body Mass Index (BMI): 46.3 Surgical Procedure: Operation Date: 01/01/23 11:35 Proposed Procedure Side Surgeon hemanth Lazo MD Meds Allergies and Home Medications Allergies Allergy/AdvReac Type Severity Reaction Status Date / Time hydrocortisone Allergy Unknown SKIN RASH Verified 01/01/23 10:13 adhesive AdvReac Intermediate skin rash Verified 01/01/23 10:13 NSAIDS (Non-Steroidal AdvReac Other (See Verified 01/01/23 10:13 Anti-Inflamma Comment) baby powder Allergy Intermediate Contraindic Uncoded 01/01/23 10:13 ated pine trees Allergy Intermediate Uncoded 01/01/23 10:13 Home Medication Medication Instructions Recorded acetaminophen 325 mg tablet 650 mg PO Q4H PRN PRN 06/27/16 (Tylenol) lamotrigine 200 mg tablet 200 mg PO See Instructions #270 08/14/22 (Lamictal) tab-caps levetiracetam 750 mg tablet 750 mg PO BID #180 tab-caps 08/14/22 lisinopril 10 mg tablet 10 mg PO DAILY #90 tabs 09/13/22 amitriptyline 50 mg tablet 50 mg PO QHS #90 tabs 10/10/22 Current Visit Medications: Current Medications Generic Name Dose Route Start Last Admin Trade Name Freq PRN Reason Stop Dose Admin Hyoscyamine Sulfate 0.125 mg 12/31/22 21:04 Hyoscyamine 0.125 Mg Sl/Oral/Chew SL DIRECTED PRN Ringer's Solution 1,000 mls @ 80 mls/hr 01/01/23 06:00 01/01/23 10:30 IV 01/28/23 23:59 80 mls/hr INFUSION OTIS Administration IV Miscellaneous Supplies 1 each 01/01/23 06:00 Iv Access IV 01/28/23 23:59 DIRECTED OTIS Ondansetron HCl 4 mg 12/31/22 21:04 Ondansetron 4 Mg/2 Ml Vial IVP Q4H PRN PRN Nausea / Vomiting Sodium Chloride 0 ml 01/01/23 06:00 Normal Saline Flush 10 Ml Syr IV 01/28/23 23:59 PRN PRN Sodium Chloride 0 ml 01/01/23 06:00 Normal Saline 10 Ml Vial IJ 01/28/23 23:59 DIRECTED PRN Sterile Water 0 ml 01/01/23 06:00 Water,Injection,Sterile 10 Ml Vial IJ 01/28/23 23:59 DIRECTED PRN PFSH Active Problems Active Problems: Problem Status Onset Code Encounter for screening colonoscopy Z12.11 Menorrhagia CKD (chronic kidney disease) Sleep apnea 06/09/13 G47.30 Primary osteoarthritis of left knee 01/03/17 M17.12 Obesity 05/15/13 E66.9 Migraine without aura 05/28/09 G43.009 Memory impairment 12/23/10 R41.3 Lesion of brain 03/23/08 G93.9 Insomnia 03/09/10 G47.00 IFG (impaired fasting glucose) 04/01/18 R73.01 Hyperlipidemia 12/24/15 E78.5 Essential hypertension 10/18/11 I10 Endometrium, polyp 01/25/16 N84.0 Coordination problem 12/23/10 R27.9 Falls W19.XXXA Focal epilepsy G40.109 Hemiparesis G81.90 Mild developmental delay R62.50 Medical History Medical History Hand fracture Iron deficiency anemia (05/26/13) [place]. [place]unez [place] [facility] [place] Nephrolithiasis incidental finding Petit mal seizure status Per sister states she is not aware she has them per her sister states it aroung 1 month ago Thyroid cyst (07/26/16) Most recent US: 01/24/2021 TI-RADS 2, repeat US if clinically necessary Surgical History Surgical History [place] [facility] [place] fenestration closed reduction /pinning rgt fifth finger (06/27/16) R 5th digit; 2016; s/p fall Endometrial Biopsy (08/15/12) Dr. Salinas History of section x2 Tobacco Smoking/Tobacco Use Status: Never Passive smoking exposure: No Alcohol Alcohol Intake: never Substance Use Substance use: Never Substance use type: does not use Vital Signs and Lab Results Vital Signs Most Recent Vital Signs in EMR: Most Recent Vital Signs Temp Pulse Resp BP Pulse Ox 36.6 C 81 16 129/81 96 01/01/23 10:00 01/01/23 10:00 01/01/23 10:00 01/01/23 10:00 01/01/23 10:00 Lab Results Blood Type / Crossmatch: No Data to Display Complete Blood Count: No Data to Display Complete Metabolic Panel: No Data to Display Liver Function Panel: No Data to Display Coagulation Panel: No Data to Display Cardiac Panel: No Data to Display Arterial Blood Gas: No Data to Display Venous Blood Gas: No Data to Display Pancreas Panel: No Data to Display Thyroid Panel: No Data to Display Infectious Disease: No Data to Display Blood Cultures: No Data to Display Toxicology Panel: No Data to Display Anesthesia Assessment and Plan Anesthesia History Personal History: No History of Anesthesia Complications Family History: Family History Unknown Exercise Tolerance Exercise Tolerance: Metabolic Equivalents>4 Pertinent Negatives Pertinent Negatives: No Symptoms of GERD Cardiac & Pulmonary Exam Cardiac Exam: Normal S1/S2 Heart Sounds Pulmonary Exam: Clear Bilateral Breath Sounds Implantable Cardiac Device Does patient have a Pacemaker or an ICD?: No Airway Exam Known Difficult Airway: No Mallampati Class: 3 Mouth Opening: Normal (> 3cm) Thyromental Distance: Greater than 3 cm Neck Range of Motion: Full ROM Neck Circumference: Normal Teeth Condition: Normal Dentition ASA Classification ASA Score: ASA 2 Emergency Case?: No NPO Status NPO Status: NPO Clears >2 hours, Solids >8 hours Anesthesia Plan Resuscitation Status: Full Code Anesthesia Technique: General Anesthesia Airway Planned: Natural Airway Monitors Used: Standard Monitors
[2023-01-01 11:31] VITALS: BMI 46.3
[2023-01-01 12:10] VITALS: BP 127/82; PULSE 79; RESP 16; TEMP 36.5; O2SAT 96
[2023-01-01 12:37] VITALS: BP 127/82; PULSE 74; RESP 16; TEMP 36.6; O2SAT 97
--- NOTE | 2023-01-01 12:41 | W.ANESPOSTOP ---
Postoperative Evaluation Date, Time and Location Date Performed: 01/01/23 Time Performed: 12:20 Patient Location: Day Surgery Unit Vital Signs Most Recent Imported Vital Signs: Most Recent Vital Signs Temp Pulse Resp BP Pulse Ox 36.6 C 74 16 127/82 97 01/01/23 12:37 01/01/23 12:37 01/01/23 12:37 01/01/23 12:37 01/01/23 12:37 Pain Score Most Recent Pain Score: Most Recent Pain Score Pain Level 0 01/01/23 12:37 Assessment Mental Status: Awake (Alert & Oriented to Patient Baseline) Airway and Respiratory Function: Patent airway with normal (patient baseline) respiratory exam Cardiovascular Function: Hemodynamically Stable Hydration Status: Adequately Hydrated Nausea & Vomiting: No Nausea or Vomiting Pain: Pt. Denies Any Pain Peripheral Nerve Block: Patient did not receive a nerve block
== END 2023-01-01 13:00 | disposition home or self-care (01) ==
PROVIDERS: PCP Nurse Practitioner Family; Visit Provider Surgery
PROC: 0DJD8ZZ Inspection of Lower Intestinal Tract, Via Natural or Artificial Opening Endoscopic (ICD-10-PCS; CPT 45378; principal; 2023-01-01 11:30)
DX: Z12.11 Encounter for screening for malignant neoplasm of colon (principal)
CPT/HCPCS: G0121

== ENCOUNTER → 2023-02-13 08:30 | Outpatient (BNVA) | payer MEDICARE, OTHER, MEDICAID, SELFPAY | PROVIDERS: PCP Nurse Practitioner Family; Visit Provider Psychiatry & Neurology Neurology | DX: G40.209 Localization-related (focal) (partial) symptomatic epilepsy and epileptic syndromes with complex partial seizures, not intractable, without status epilepticus (principal); Q04.6 Congenital cerebral cysts; R29.6 Repeated falls; R20.0 Anesthesia of skin | CPT/HCPCS: 99214 ==

== ENCOUNTER 2023-03-14 01:31 | Outpatient (CLI) | payer MEDICARE, OTHER, MEDICAID, SELFPAY ==
--- NOTE | 2023-03-14 12:12 | DI.MAMMO_ITS ---
Exam(s) MAMMO SCREENING EXAM: MAMMO SCREENING CLINICAL HISTORY: screening,z12.39 TECHNIQUE: Bilateral full field digital CC and MLO mammographic images were obtained with 3D tomosyn thesis and utilizing computer aided detection (CAD). COMPARISON: Available for comparison. FINDINGS: Masses/Architectural Distortion: None seen. Microcalcifications: No suspicious pleomorphic-type are seen. Skin Thickening/Nipple Retraction: None. IMPRESSION: 1. No significant interval change with no specific features of malignancy noted. 2. Unless there is more urgent need, screening mammography is recommended, as per [employer] guidelines. BI-RADS Category 1 - Negative Breast Density - Category B - Scattered areas of fibroglandular density Breast density category C or D implies that the patient has dense breast tissue. Dense breast tissue is very common and is not abnormal but dense breast tissue can make it harder to find cancer on a ma mmogram. Also, dense breast tissue may increase their breast cancer risk. This information about the result of the mammogram report was provided to the patient to raise their awareness. Use this report when you speak with the patient about their risks for breast cancer, which includes their family hist ory. At that time, you may recommend for more screening tests (Ultrasound or MRI) as they might be us eful based on their risk. A negative radiographic report should not delay biopsy if a dominant or clinically suspicious mass is present. Up to ten percent of cancers are not identified on mammography. A negative report may reinforce clinical impression. Adenosis and dense breasts may obscure an underlying neoplasm. False positive reports average 6 to 10%. Patient will receive a letter notifying them of these results.
== END 2023-03-14 01:51 ==
PROVIDERS: PCP Nurse Practitioner Family; Visit Provider Nurse Practitioner Family
DX: Z12.31 Encounter for screening mammogram for malignant neoplasm of breast (principal)
CPT/HCPCS: 77063; 77067

== ENCOUNTER → 2023-05-07 15:07 | Outpatient (CLI) | payer MEDICARE, OTHER, MEDICAID, SELFPAY ==
--- NOTE | 2023-05-07 13:46 | DI.RAD_ITS ---
Exam(s) XR LUMBAR SPINE COMPLETE EXAM: XR LUMBAR SPINE COMPLETE CLINICAL HISTORY: BACK PAIN M54.9. TECHNIQUE: 2D digital imaging was performed of the lumbar spine. Five images were obtained. AP, la teral, right oblique, left oblique and L5-S1 spot views were obtained. COMPARISON: No exams were available for comparison FINDINGS: BONES: No fracture or destructive lesion. There endplate osteophytes seen in the lumbar spine particu larly at L2-3 and L3-L4. No facet hypertrophy identified. DISKS: Intervertebral disc spaces are maintained. ALIGNMENT: There is a very mild left convex curvature of the lumbar spine. No spondylolysis or spond ylolisthesis. SOFT TISSUE: Normal. IMPRESSION: Mild degenerative changes in the lumbar spine. No acute abnormality. DATA REPOSITORY: RADIATION DOSE DELIVERED:
--- NOTE | 2023-05-07 13:46 | DI.RAD_ITS ---
Exam(s) XR THORACIC SPINE COMPLETE EXAM: XR THORACIC SPINE COMPLETE CLINICAL HISTORY: BACK PAIN M54.9 FALL 2 WEEKS AGO NEW BACK PAIN. TECHNIQUE: 2D digital imaging was performed of the thoracic spine. Three views were obtained. AP, swimmer's and lateral views were obtained. COMPARISON: CR XR CHEST 2V PA LATERAL from 11/14/2022 FINDINGS: BONES: There is no fracture or destructive lesion. Mild degenerative changes are seen in the thoracic spine with disc space narrowing and endplate osteophytes. DISKS:Alignment is within normal limits. Mild disc space narrowing particularly seen in the midthorac ic spine. SOFT TISSUE: Visualized lungs are clear. IMPRESSION: Mild degenerative changes in the thoracic spine. DATA REPOSITORY: RADIATION DOSE DELIVERED:
== END ==
PROVIDERS: PCP Nurse Practitioner Family; Visit Provider Nurse Practitioner Family
DX: M51.35 Other intervertebral disc degeneration, thoracolumbar region (principal); W19.XXXA Unspecified fall, initial encounter
CPT/HCPCS: 72072; 72110

== ENCOUNTER 2023-07-10 01:39 | Emergency (ER) | payer MEDICARE, OTHER, SELFPAY ==
[2023-07-10 01:43] VITALS: BP 140/77; PULSE 107; RESP 16; TEMP 36.7; O2SAT 97
--- NOTE | 2023-07-10 01:45 | DI.RAD_ITS ---
Exam(s) XR KNEE RT 3V AP,LAT,ANJELICA EXAM: XR KNEE RT 3V AP,LAT,ANJELICA CLINICAL HISTORY: fall, generalized knee pain, bruising. TECHNIQUE: 2D digital imaging was performed. Three views. COMPARISON: CR LEFT KNEE LIMITED 1 OR 2 VIEWS from 01/03/2017 FINDINGS: BONES: No acute fracture is present. No bony destructive lesion is seen. JOINTS: The knee is normally aligned. No joint effusion is seen. SOFT TISSUE: Normal. IMPRESSION: Unremarkable radiographs of the right knee. DATA REPOSITORY: RADIATION DOSE DELIVERED:
--- NOTE | 2023-07-10 01:45 | DI.CT_ITS ---
Exam(s) CT HEAD WO EXAM: CT HEAD WO CLINICAL HISTORY: falls, confusion. TECHNIQUE: Imaging Protocol: Axial computed tomography images with coronal and sagittal reformatted images were created and reviewed COMPARISON: CT CT HEAD WO from 03/06/2019 FINDINGS: Ventricles and Extra axial spaces: Normal in size and morphology for the patient's age. Hemorrhage: None. Cerebral parenchyma: No change in area of encephalomalacia in the high left frontal region. No surro unding edema. No evidence of acute infarct or mass. Midline shift: None. Brainstem/Cerebellum: Normal. Calvarium: Craniotomy at left vertex. Visualized Paranasal sinuses/Mastoids: Clear. Soft Tissues: Unremarkable. IMPRESSION: No acute intracranial process.Stable postsurgical changes. RADIATION DOSE DELIVERED: Total DLP DATA REPOSITORY: All CT scans at this facility are submitted to the National Radiology Data Registry (NRDR) Dose Index Registry (DIR) with the [employer] ([employer]). RADIATION OPTIMIZATION: All CT scans at this facility use at least one of these dose optimization te chniques: automated exposure control; mA and/or kV adjustment per patient size (includes targeted exa ms where dose is matched to clinical indication); or iterative reconstruction.
--- NOTE | 2023-07-10 01:45 | RT.EKG_ITS ---
APPROVED REPORT Exam: Resting ECG Reason for Exam: Falls Patient Location: E HR:104 bpm ECG Measurements Heart Rate 104 AXIS KS 170 P 38 QRSd 97 QRS -14 QT 340 T -13 QTc 448 Conclusion Sinus tachycardia...rate> 99 Low voltage, precordial leads...precordial leads <1.0mV Physician: no stemi
[2023-07-10 01:47] VITALS: BP 140/77; PULSE 106; RESP 16; TEMP 36.7; O2SAT 97
[2023-07-10] MEDS: Acetaminophen 500 MG TAB 1000 MG PO (01:59)
[2023-07-10] MEDS: Normal Saline 500 ML IV (02:00)
[2023-07-10 02:04] LABS: Abs Immature Grans 0.03 10^3/uL (0.0-0.06); Absolute Basophil Count 0.03 10^3/uL (0.0-0.2); Absolute Eosinophil Count 0.28 10^3/uL (0.0-0.7); Absolute Lymphocyte Count 1.24 10^3/uL (1.2-3.4); Absolute Monocyte Count 0.71 10^3/uL (0.1-0.8); Absolute Neutrophil Count 4.66 10^3/uL (1.2-6.7); Basophils % 0.4; HCT 34.3 % (36.0-46.0); HGB 11.3 g/dL (11.2-15.7); Immature Grans % 0.4; Lymphocytes % 17.8; MCH 29.4 pg (27.0-33.0); MCHC 32.9 % (32.0-36.0); MCV 89 fL (80-95); MPV 9.2 fL (8.0-11.0); Monocytes % 10.2; Neutrophils % 67.2; Platelet Count 247 10^3/uL (130-400); RBC 3.84 10^6/uL (3.93-5.22); RDW 13.9 % (11.7-14.6); RDW-SD 45.1 fL; WBC 6.95 10^3/uL (4.4-10.8)
[2023-07-10 02:29] LABS: ALT 20 U/L (14-59); AST 16 U/L (15-37); Albumin 3.6 g/dL (3.4-5.0); Alkaline Phosphatase 102 U/L (46-116); Anion Gap 10.1 mmol/L (3-11); BUN 13 mg/dL (7-18); Bilirubin, Total 0.4 mg/dL (0.2-1.0); CO2 24.9 mmol/L (21.0-32.0); CREATININE 1.3 mg/dL (0.55-1.02); Calcium 10.3 mg/dL (8.5-10.1); Chloride 105 mmol/L (98-107); Estimated GFR 46.78 (mL/min/1.73m2); Glucose 119 mg/dL (74-106); Potassium 4.4 mmol/L (3.5-5.1); Sodium 140 mmol/L (136-145); TSH (W/Ref FT4) 2.67 uIU/mL (0.36-3.74); Total Protein 7.9 g/dL (6.4-8.2); Troponin I < 50 ng/L (<or=60)
--- NOTE | 2023-07-10 02:45 | ED.GENADUL_ITS ---
Discharge Plan Disposition Patient Disposition: Home Discharge Details Chief Complaint: GenMedical Clinical Impression: Fall, Contusion of knee, right Primary Care Provider: Yasmin Millard ED Provider: Kennedy Daniels Home Meds and New Rx's Prescriptions: No Action lisinopril 10 mg tablet 10 mg PO DAILY Qty: 90 3RF Rx Instructions: DX: BLOOD PRESSURE amitriptyline 50 mg tablet 50 mg PO QHS Qty: 90 3RF lamotrigine [Lamictal] 200 mg tablet 200 mg PO See Instructions Qty: 270 3RF Rx Instructions: FOR SEIZURES - ok for generic Take 1 tablet in the AM & 2 tablets in the PM levetiracetam 750 mg tablet 750 mg PO BID Qty: 180 3RF acetaminophen [Tylenol] 325 MG tablet 650 mg PO Q4H PRN PRN0RF Discharge Instructions Instructions: Contusion in Adults (ED), Fall Prevention (ED) Additional Instructions: At this time your x-rays of your knee show no evidence of fracture, your CAT scan shows no evidence of bleed or stroke in your brain, and your laboratory work-up is normal. If you notice any worsening of your symptoms, or any new symptoms such as vomiting, diarrhea, fever, chills, shortness of breath, chest pain, numbness, weakness, or fainting , please return immediately to the emergency department for reevaluation. Please follow up with your primary care provider as soon as possible for reassessment and reevaluation. As always, it was a pleasure participating in your medical care today. 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 Patient has been having intermittent dizziness and falls for the last few months, she was having the symptoms on 02/13/[address] Gruber. She states the symptoms have continued but not worsening. Twice in the last 2 days ago she did fall onto her right knee, but denies falling and hitting her head. She states that she has felt slightly more weak than normal. Unfortunately she is a bit of a poor historian. Her latest fall that occurred tonight she was not able to get up, so 911 was called. They were able to assist her up, and then she was brought back here for assessment. She denies any chest pain or shortness of breath. She denies any new numbness or tingling. She denies any bowel or bladder incontinence. She was not down on the floor for an extended period of time. She denies any urinary frequency. No other complaints at this time. No other modifying factors. Exam demonstrates well-appearing female, no signs of focal trauma. Normal strength of the upper and lower extremities. No focal deficits. Differential includes contusion of the knee, mild dehydration, urinary tract infection or electrolyte abnormality. ACS unlikely given exam and assessment. We will evaluate for concerning etiologies, monitor closely and reassess. We will get a CT scan of the head to rule out new stroke or bleed 3:53 AM Laboratory work-up is returned normal, no white count, bandemia or left shift. No fever. Electrolytes normal, renal function at baseline. Troponin normal, EKG normal. Thyroid function normal. CT scan of the head is negative for acute process or fracture bleed or stroke. X-ray of the knee is negative for fracture. Patient otherwise feels well. Patient stable for discharge. I did reach out and called the patient's . He states that he is not able to pick her up at this time, but will try to have the sister pick her up in the morning. Patient has also used RCT in the past, and the states that she can also be brought home via that mechanism. Patient otherwise stable and will be discharged. Discussed red flags for which to return. I have extensively reviewed the treatment plan and discharge instructions with the patient. I have addressed all patient concerns at this time. The patient was made aware of what symptoms to monitor for that would warrant a return to the emergency department. Discussed the plan with the patient, they demonstrate verbal understanding and agreement with our assessment and plan at this time. The documentation in this chart was dictated using [employer] dictation software. Please excuse any dictation errors. FINDINGS: Bones/joints: Normal. Soft tissues: Normal. IMPRESSION: No acute findings. Thank you for allowing us to participate in the care of your patient. Dictated and Authenticated by: Basil Nielsen MD 07/10/2023 3:12 AM Eastern Time ([place] & [place]) FINDINGS: Bones/joints: Normal. Soft tissues: Normal. IMPRESSION: No acute findings. Thank you for allowing us to participate in the care of your patient. Dictated and Authenticated by: Basil Nielsen MD 07/10/2023 3:12 AM Eastern Time ([place] & [place]) HPI General Date/Time Provider Initiated Documentation: 07/10/23 01:41 . 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 Patient has been having intermittent dizziness and falls for the last few months, she was having the symptoms on 02/13/[address] Gruber. She states the symptoms have continued but not worsening. Twice in the last 2 days ago she did fall onto her right knee, but denies falling and hitting her head. She states that she has felt slightly more weak than normal. Unfortunately she is a bit of a poor historian. Her latest fall that occurred tonight she was not able to get up, so 911 was called. They were able to assist her up, and then she was brought back here for assessment. She denies any chest pain or shortness of breath. She denies any new numbness or tingling. She denies any bowel or bladder incontinence. She was not down on the floor for an extended period of time. She denies any urinary frequency. No other complaints at this time. No other modifying factors. Related Data Home Medications Medication Instructions Recorded Confirmed acetaminophen 325 mg tablet 650 mg (2 x 325 mg) PO Q4H PRN PRN 06/27/16 07/10/23 (Tylenol) lisinopril 10 mg tablet 10 mg PO DAILY #90 tabs 09/13/22 07/10/23 amitriptyline 50 mg tablet 50 mg PO QHS #90 tabs 10/10/22 07/10/23 lamotrigine 200 mg tablet 200 mg PO See Instructions #270 06/11/23 07/10/23 (Lamictal) tab-caps levetiracetam 750 mg tablet 750 mg PO BID #180 tab-caps 06/11/23 07/10/23 Previous Rx's Medication Instructions Recorded acetaminophen 325 mg tablet 650 mg (2 x 325 mg) PO Q4H PRN PRN 06/27/16 (Tylenol) lisinopril 10 mg tablet 10 mg PO DAILY #90 tabs 09/13/22 amitriptyline 50 mg tablet 50 mg PO QHS #90 tabs 10/10/22 lamotrigine 200 mg tablet 200 mg PO See Instructions #270 06/11/23 (Lamictal) tab-caps levetiracetam 750 mg tablet 750 mg PO BID #180 tab-caps 06/11/23 Allergies Allergy/AdvReac Type Severity Reaction Status Date / Time hydrocortisone Allergy Unknown SKIN RASH Verified 07/10/23 01:42 adhesive AdvReac Intermediate skin rash Verified 07/10/23 01:42 NSAIDS (Non-Steroidal AdvReac Other (See Verified 07/10/23 01:42 Anti-Inflamma Comment) baby powder Allergy Intermediate Contraindic Uncoded 07/10/23 01:42 ated pine trees Allergy Intermediate Uncoded 07/10/23 01:42 General Stated Complaint: GenMedical TAWNY: 3 Review of Systems All systems reviewed & are unremarkable except as noted in HPI and below PFSH All Active Problems (Updated 07/10/23 @ 03:55 by Kennedy Daniels DO) Contusion of knee, right (Acute) Fall (Acute) CKD (chronic kidney disease) (Chronic) Encounter for screening colonoscopy (Acute) Menorrhagia (Chronic) EMBx 2012: benign. Repeat EMBx 2013: benign proliferative endometrium, started on norethindrone, pt counseled re: endometrial ablation. CKD (chronic kidney disease) (Chronic) 12[place] [facility] [place] renal cortical thinning consistent with patient's known history of CKD Sleep apnea (Chronic 06/09/13) CPAP Primary osteoarthritis of left knee (Chronic 01/03/17) Obesity (Chronic 05/15/13) Migraine without aura (Chronic 05/28/09) Memory impairment (Chronic 12/23/10) Related to sz disorder & brain surgery 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) Cerebral Cyst (L parietal cyst): [place]. Antunez [facility] [place] Insomnia (Chronic 03/09/10) Amitryp resolved IFG (impaired fasting glucose) (Chronic 04/01/18) Hyperlipidemia (Chronic 12/24/15) 06/2021 labs: 10-year ASCVD risk ~4.9% --> no statin indicated Essential hypertension (Chronic 10/18/11) Endometrium, polyp (Chronic 01/25/16) currently protruding through the exocervix. I have recomended hysteroscopic resection under anesthesia. Coordination problem (Chronic 12/23/10) Hemiparesis; R more than L, mostly resolved Falls (Acute) Focal epilepsy (Chronic) Cyst on brain; [facility] Neurology Hemiparesis (Acute) right; Leg>>>arm; due to left parietal cyst Mild developmental delay (Acute) cognitive with right hemiparesis; due to parietal cyst; surgery, seizures Medical History Petit mal seizure status Per sister states she is not aware she has them per her sister states it aroung 1 month ago Nephrolithiasis incidental finding Iron deficiency anemia (05/26/13) Dx'ed Dr. Antunez [place] [facility] [place] worked Thyroid cyst (07/26/16) Most recent US: 01/24/2021 TI-RADS 2, repeat US if clinically necessary Hand fracture Surgical History History of section x2 closed reduction /pinning rgt fifth finger (06/27/16) R 5th digit; 2016; s/p fall Endometrial Biopsy (08/15/12) Dr. Sal[place] [facility] [place]; fenestration Family History Father Alcohol abuse Other Adopted Social History Smoking/Tobacco Use Status: Never Smoking risk assessment performed?: Yes Alcohol Intake: never Drug use: Never Substance use type: does not use Caregiver/Support person: No Household members: spouse and children Housing: apartment Number of Children: 1 Communication Needs: None current occupation: Disabled Pets and animals: No Sexually active: Yes Current gender identity: female What type of physical activity do you participate in: walking Duration: 15-30 minutes/day Frequency: daily Seatbelt use: always Water heater temp set <120 deg: Yes Working smoke detector in home: Yes Fire extinguisher in home: Yes Carbon monox detector in home: Yes Firearms in home: No Do you feel safe at home: Yes Do you feel safe in your relationship?: Yes Additional Social history: Unable to assess michael She is ( 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 Sister Jeannine helps out with medical care. Signs for self Female Reproductive History Menstrual Menopause type: natural Exam Narrative Exam Narrative: 1.Const: Well-nourished, Well-developed, appearing stated age 2.Eyes: PERRL, no conjunctival injection, and symmetrical lids. 3.ENT: Atraumatic external nose and ears. Moist MM. Neck: Symmetric, trachea midline, No thyromegaly. Patient demonstrates intact dentition with no signs of tooth avulsion or fracture, no signs of jaw deformity, no evidence of a LeFort's fracture, with an intact palate, nose and orbital region. There is no evidence of a nasal septal hematoma. No proptosis. Jaw closes symmetrically. Airway is clear. No signs of trauma to the head neck or scalp. 4.CVS: +S1/S2, No murmurs or gallops. Peripheral pulses 2+ and equal in all extremities. Brisk capillary refill in all extremities. 5.RESP: Unlabored respiratory effort. Clear to auscultation bilaterally. No wheezes rales or rhonchi 6.GI: Soft, Nontender/Nondistended, No hepatosplenomegaly. No guarding or rebound. 7.MSK: Normocephalic/Atraumatic, Extremities w/o deformity. No cyanosis or clubbing, Normal movement of all extremities. No midline cervical thoracic or lumbar spine tenderness. Pelvis is stable, hips are stable with movement. She has 5 out of 5 strength in her lower extremities bilaterally. Good range of motion for both knees. There is mild bruising noted around the right knee, but the knee demonstrates good mobility, movement, with no significant focal tenderness. 8.Skin: Warm, Dry. No rashes or lesions. 9.Neuro: scow captain II-XII grossly intact. Sensation grossly intact, no focal neurologic deficits. Normal [id number]. No dysdiadochokinesia. 10.Psych: (AAO) x3. Appropriate mood and affect Course Vital Signs Vital signs: Vital Signs Temperature 36.7 C 07/10/23 01:43 Pulse 107 H 07/10/23 01:43 Respiratory Rate 16 07/10/23 01:43 Blood Pressure 140/77 07/10/23 01:43 Pulse Oximetry 97 07/10/23 01:43 Temperature 36.7 C 07/10/23 01:47 Temperature Source Temporal Artery Scan 07/10/23 01:47 Pulse 106 H 07/10/23 01:47 Respiratory Rate 16 07/10/23 01:47 Respiratory Effort Normal, Non-Labored 07/10/23 01:47 Respiratory Depth Normal 07/10/23 01:47 Respiratory Pattern Normal 07/10/23 01:47 Blood Pressure 140/77 07/10/23 01:47 Blood Pressure Position Sitting 07/10/23 01:47 Pulse Oximetry 97 07/10/23 01:47 Oxygen Delivery Method Room Air 07/10/23 01:47 Oxygen Flow Rate 0 07/10/23 01:43 Pain Level 8 07/10/23 01:47 Lab/Test Results Lab/Test Results: Laboratory Tests Range/Units 07/10/23 02:00 WBC (4.4-10.8) 10^3/uL 6.95 RBC (3.93-5.22) 10^6/uL 3.84 L Hgb (11.2-15.7) g/dL 11.3 Hct (36.0-46.0) % 34.3 L MCV (80-95) fL 89 MCH (27.0-33.0) pg 29.4 MCHC (32.0-36.0) % 32.9 RDW (11.7-14.6) % 13.9 Plt Count (130-400) 10^3/uL 247 MPV (8.0-11.0) fL 9.2 Immature Gran % 0.4 Neutrophils % 67.2 Lymphocytes % 17.8 Monocytes % 10.2 Eosinophils % 4.0 Basophils % 0.4 Nucleated RBC % (0.0-0.3) % 0.0 Absolute Neutrophils (1.2-6.7) 10^3/uL 4.66 Absolute Lymphocytes (1.2-3.4) 10^3/uL 1.24 Absolute Monocytes (0.1-0.8) 10^3/uL 0.71 Absolute Eosinophils (0.0-0.7) 10^3/uL 0.28 Absolute Basophils (0.0-0.2) 10^3/uL 0.03 Sodium (136-145) mmol/L 140 Potassium (3.5-5.1) mmol/L 4.4 Chloride (98-107) mmol/L 105 Carbon Dioxide (21.0-32.0) mmol/L 24.9 Anion Gap (3-11) mmol/L 10.1 BUN (7-18) mg/dL 13 Creatinine (0.55-1.02) mg/dL 1.3 H Est GFR (CKD-EPI 2020) (mL/min/1.73m2) 46.78 Glucose (74-106) mg/dL 119 H Calcium (8.5-10.1) mg/dL 10.3 H Total Bilirubin (0.2-1.0) mg/dL 0.4 AST (15-37) U/L 16 ALT (14-59) U/L 20 Alkaline Phosphatase (46-116) U/L 102 Troponin I (<or=60) ng/L < 50 Total Protein (6.4-8.2) g/dL 7.9 Albumin (3.4-5.0) g/dL 3.6 TSH (0.36-3.74) uIU/mL 2.67
--- NOTE | 2023-07-10 03:07 | DI.VRAD_ITS ---
PROCEDURE INFORMATION: Exam: CT Head Without Contrast Exam date and time: 07/10/2023 2:14 AM Age: 63 years old Clinical indication: Injury or trauma; Blunt trauma (contusions or hematomas); Consciousness not specified; Injury date: 07/10/23; Injury details: Fall, confusion; Prior surgery; Surgery date: 6+ months; Surgery type: Removal of brain cyst; Patient HX: Falls, confusion TECHNIQUE: Imaging protocol: Computed tomography of the head without contrast. Radiation optimization: All CT scans at this facility use at least one of these dose optimization techniques: automated exposure control; mA and/or kV adjustment per patient size (includes targeted exams where dose is matched to clinical indication); or iterative reconstruction. COMPARISON: MR BRAIN WO 07/01/2021 8:19 AM FINDINGS: Brain: No brain edema. No intracranial hemorrhage. Cerebral ventricles: No ventriculomegaly. Paranasal sinuses: Visualized sinuses are unremarkable. No fluid levels. Mastoid air cells: Unremarkable. Bones/joints: Chronic postsurgical changes of the skull. Cystic lesion/cystic encephalomalacia without associated edema in the superior left frontal parietal brain, subjacent to the postsurgical change of the skull. Unchanged compared to prior study.Mild generalized volume loss of the brain. Soft tissues: Unremarkable. IMPRESSION: No acute brain findings. Dictated and Authenticated by: Basil Nielsen MD. Ordering:WILLIE Benavides MD
--- NOTE | 2023-07-10 03:13 | DI.VRAD_ITS ---
PROCEDURE INFORMATION: Exam: XR Right Knee Exam date and time: 07/10/2023 2:21 AM Age: 63 years old Clinical indication: Injury or trauma; Blunt trauma; Right; Injury date: Unknown; Injury details: Fall, bruising, generalized knee pain TECHNIQUE: Imaging protocol: Radiologic exam of the right knee. Views: 3 views. COMPARISON: CT lower extremity RT wo 07/24/2018 10:49 AM FINDINGS: Bones/joints: Normal. Soft tissues: Normal. IMPRESSION: No acute findings. Dictated and Authenticated by: Basil Nielsen MD. Ordering:WILLIE Benavides MD
[2023-07-10 04:08] VITALS: BP 137/48; PULSE 90; RESP 18; TEMP 36.7; O2SAT 97
--- NOTE | 2023-07-10 05:37 | NUR.NOTE ---
0537: Pt ambulated around room successfully w/ a walker. Corrected a few behaviors that might be contributing to pt frequent falls (i.e. exiting bed prior to having feet placed firmly on floor, sitting down w/o ensuring that chair is directly behind her, moving walker to far ahead of her). Does demonstrate some need for further teaching on safe and effective mobility practices w/ PT. Pt stated she declined to work w/ PT b/c 'I didn't like his(the PT who came to work w/ her) attitude'. Stressed to pt that this PT was probably not the only therapist available to work w/ her, and that working regularly w/ PT would more than likely greatly reduce her difficulty w/ mobility. Pt receptive to this RN's teaching.
[2023-07-10 05:57] VITALS: BP 138/84; PULSE 82; RESP 17; TEMP 36.6; O2SAT 96
== END 2023-07-10 05:57 | disposition home or self-care (01) ==
LOC: ER 05:50
PROVIDERS: Emergency Provider Student in an Organized Health Care Education/Training Program; PCP Nurse Practitioner Family
DX: R42 Dizziness and giddiness (principal); S80.01XA Contusion of right knee, initial encounter; W19.XXXA Unspecified fall, initial encounter; Z86.39 Personal history of other endocrine, nutritional and metabolic disease
CPT/HCPCS: 73562; 80053; 93005; 96360; 99284; 70450; 81003; 84443; 84484; 85025; 93010

== ENCOUNTER → 2023-07-26 13:01 | Outpatient (BNVA) | payer MEDICARE, OTHER, SELFPAY | PROVIDERS: PCP Nurse Practitioner Family; Referring Provider Nurse Practitioner Family; Visit Provider Psychiatry & Neurology Neurology | DX: G40.109 Localization-related (focal) (partial) symptomatic epilepsy and epileptic syndromes with simple partial seizures, not intractable, without status epilepticus (principal); R29.6 Repeated falls; G93.9 Disorder of brain, unspecified; R62.50 Unspecified lack of expected normal physiological development in childhood; I12.9 Hypertensive chronic kidney disease with stage 1 through stage 4 chronic kidney disease, or unspecified chronic kidney disease; N18.9 Chronic kidney disease, unspecified | CPT/HCPCS: 99215 ==

== ENCOUNTER 2023-08-02 04:30 | Outpatient (CLI) | payer MEDICARE, OTHER, SELFPAY ==
--- NOTE | 2023-08-13 08:32 | PDOC.EEG ---
Neurology EEG EEG: [facility] Department of Neurology LONG-TERM AMBULATORY EEG REPORT Date of Recordin08/02/23 at 16:15:16 to 08/03/23 at 17:34:14 Interpreting Physician: Dr. Kim Gruber PCP/Referring Provider: Yasmin Millard NP Reason for study: Ms. Wang is a 63 year-old woman with a known L parietal cyst and epilepsy with reported 1 week of daily seizures. Current Medications: Home Medications Medication Instructions Recorded Confirmed Type acetaminophen 325 mg tablet 650 mg (2 x 325 mg) PO Q4H PRN PRN 06/27/16 08/11/23 Rx (Tylenol) lisinopril 10 mg tablet 10 mg PO DAILY #90 tabs 09/13/22 08/11/23 Rx lamotrigine 200 mg tablet 200 mg PO See Instructions #270 06/11/23 08/11/23 Rx (Lamictal) tab-caps levetiracetam 750 mg tablet 750 mg PO BID #180 tab-caps 06/11/23 08/11/23 Rx amitriptyline 50 mg tablet 50 mg PO QHS #90 tabs 07/30/23 08/11/23 Rx METHODS: An 18-channel digitized electroencephalogram was recorded in the ambulatory setting with video. The 10/20 international system of electrode placement was used and bipolar and referential electrode montages were recorded. In addition to EEG the patient was monitored for EKG and by video. Activation procedures of photic stimulation and hyperventilation were performed if applicable. The duration of the recording was ~25 hours. DESCRIPTION OF EEG: Waking background activity: During maximal wakefulness a 9-Hz posterior background rhythm was present which was well-modulated, symmetrical, reactive to eye opening, and of moderate voltage. Faster frequencies were present in the bilateral anterior head regions. There was a normal anterior-posterior voltage gradient. Drowsy and sleeping background activity: During drowsiness, there was attenuation of the posterior dominant background rhythm and vertex waves. Normal stage II and III sleep was present with symmetrical sleep spindles, K-complexes, and vertex waves with slowing of the background rhythm to delta/theta frequencies. REM sleep manifested by rapid lateral eye movements and faster background rhythms was recorded. Arousal was unremarkable. Interictal abnormalities: none. Ictal findings: No events were recorded. Activating Procedures: Photic stimulation was performed which produced a symmetrical posterior driving response at various flash frequencies. Hyperventilation was not performed. EKG: EKG revealed normal sinus rhythm. INTERPRETATION: This long-term EEG is normal during the awake and sleep states as well as during photic stimulation. PRIOR EEG: -EEG (Amb 01/25/11): normal awake, asleep, hyperventilation -EEG (Amb 05/15/16-05/16/16): left fronto-temporal low amplitude activity CLINICAL CORRELATION: No focal regions of cerebral dysfunction or epileptiform activity was present. Epilepsy remains a clinical diagnosis and a normal EEG does not rule out epilepsy. Clinical correlation is advised. Kim Gruber MD Date of service: 08/02/23 Coding CPT Codes EEG 12-26 Hours w/video - [id number] ([id number])
== END 2023-08-02 04:31 | disposition home or self-care (01) ==
LOC: RT 04:31
PROVIDERS: PCP Nurse Practitioner Family; Visit Provider Psychiatry & Neurology Neurology
DX: G93.9 Disorder of brain, unspecified (principal); R56.9 Unspecified convulsions
CPT/HCPCS: 95714; 95720

== ENCOUNTER 2023-08-05 11:34 | Emergency (ER) | payer MEDICARE, OTHER, SELFPAY ==
[2023-08-05] VITALS (8 sets, daily range): BP systolic 139–155; BP diastolic 66–108; PULSE 84–97; RESP 18; TEMP 36.4; O2SAT 95–100
--- NOTE | 2023-08-05 11:45 | RT.EKG_ITS ---
APPROVED REPORT Exam: Resting ECG Reason for Exam: Dizziness Patient Location: E HR:89 bpm ECG Measurements Heart Rate 89 AXIS SC 164 P 54 QRSd 94 QRS -20 QT 342 T -13 QTc 417 Conclusion Sinus rhythm...normal P axis, V-rate 60- 99 Nonspecific T abnormalities, inferior leads...T <-0.10mV, II III aVF sinus rhythm, normal intervals, non ischemic
[2023-08-05 12:17] LABS: Abs Immature Grans 0.01 10^3/uL (0.0-0.06); Absolute Basophil Count 0.03 10^3/uL (0.0-0.2); Absolute Eosinophil Count 0.14 10^3/uL (0.0-0.7); Absolute Lymphocyte Count 1.52 10^3/uL (1.2-3.4); Absolute Monocyte Count 0.55 10^3/uL (0.1-0.8); Absolute Neutrophil Count 3.52 10^3/uL (1.2-6.7); Basophils % 0.5; Eosinophils % 2.4; HGB 11.5 g/dL (11.2-15.7); Immature Grans % 0.2; Lymphocytes % 26.3; MCHC 31.9 % (32.0-36.0); MCV 91 fL (80-95); MPV 9.3 fL (8.0-11.0); Monocytes % 9.5; Neutrophils % 61.1; Platelet Count 283 10^3/uL (130-400); RBC 3.97 10^6/uL (3.93-5.22); RDW 13.9 % (11.7-14.6); RDW-SD 46.8 fL; WBC 5.77 10^3/uL (4.4-10.8)
--- NOTE | 2023-08-05 12:30 | DI.RAD_ITS ---
Exam(s) XR CHEST 2V PA LATERAL EXAM: XR CHEST 2V PA LATERAL CLINICAL HISTORY: dizziness TECHNIQUE: 2D digital imaging was performed. COMPARISON: CR XR CHEST 2V PA LATERAL from 11/14/2022 FINDINGS: HEART: Normal size. Aorta: Not dilated. Mildly tortuous. PULMONARY VASCULATURE: Normal. LUNGS: Clear. PLEURAL SPACE: No pleural effusion or pneumothorax. BONE:Unremarkable for age. Soft tissues: Unremarkable. IMPRESSION: No acute abnormality. DATA REPOSITORY: RADIATION DOSE DELIVERED:
--- NOTE | 2023-08-05 12:30 | DI.CT_ITS ---
Exam(s) CT BRAIN NECK CTA EXAM: CT BRAIN NECK CTA CLINICAL HISTORY: double vision dizziness. TECHNIQUE: Imaging Protocol: Axial CT angiography was performed with multi-slice acquisition and mu lti-planar and 3D reconstructions. CONTRAST MATERIAL: Intravenous: Omnipaque 350 Contrast volume:100 ml COMPARISON: CT CT HEAD WO from 07/10/2023 FINDINGS: CT Head W/O and W contrast: Ventricles and Extra axial spaces: Normal in size and morphology for the patient's age. Hemorrhage: None. Cerebral parenchyma: Stable cystic area in the high left parietal region. Midline shift: None. Brainstem/Cerebellum: Normal. Calvarium: Craniotomy defect again noted near the vertex. Visualized Paranasal sinuses/Mastoids: Clear. Soft Tissues: Unremarkable. Enhancement: Normal. CTA Brain W: Internal Carotid Arteries: Petrous: Normal. Cavernous: Normal. Cerebral: Normal. Middle Cerebral Arteries: Right: No aneurysm, occlusion or significant stenosis. Left: No aneurysm, occlusion or significant stenosis. Anterior Cerebral Arteries: Right: No aneurysm, occlusion or significant stenosis. Left: No aneurysm, occlusion or significant stenosis. Posterior cerebral Arteries: Right: No aneurysm, occlusion or significant stenosis. Left: No aneurysm, occlusion or significant stenosis. Vertebral Arteries: Right: No aneurysm, occlusion or significant stenosis. Left: No aneurysm, occlusion or significant stenosis. Basilar Artery: No aneurysm, occlusion or significant stenosis. CTA Neck W: Common Carotid: Right: No dissection, occlusion or significant stenosis. Left: No dissection, occlusion or significant stenosis. External Carotid: Right: No dissection, occlusion or significant stenosis. Left: No dissection, occlusion or significant stenosis. Internal Carotid: Right: No dissection, occlusion or significant stenosis. Left: No dissection, occlusion or significant stenosis. Vertebral Artery: Right: No dissection, occlusion or significant stenosis. Left: No dissection, occlusion or significant stenosis. Lung Apices: Normal. Bones: No acute abnormality. Soft Tissues: Normal. IMPRESSION: 1. Normal CTA examination of the [place]. 2. Head CT: Stable cystic area high left parietal lobe. No acute abnormality. 3. Normal CTA examination of the neck. RADIATION DOSE DELIVERED: Total DLP DATA REPOSITORY: All CT scans at this facility are submitted to the National Radiology Data Registry (NRDR) Dose Index Registry (DIR) with the [employer] (A[employer]). RADIATION OPTIMIZATION: All CT scans at this facility use at least one of these dose optimization te chniques: automated exposure control; mA and/or kV adjustment per patient size (includes targeted exa ms where dose is matched to clinical indication); or iterative reconstruction.
[2023-08-05 12:37] LABS: Prothrombin Time 10.4 sec (9.1-11.1)
[2023-08-05 12:40] LABS: ALT 22 U/L (14-59); AST 17 U/L (15-37); Albumin 3.6 g/dL (3.4-5.0); Alkaline Phosphatase 94 U/L (46-116); Anion Gap 8.6 mmol/L (3-11); BUN 13 mg/dL (7-18); Bilirubin, Total 0.5 mg/dL (0.2-1.0); CO2 24.4 mmol/L (21.0-32.0); CREATININE 1.5 mg/dL (0.55-1.02); Calcium 10.3 mg/dL (8.5-10.1); Chloride 103 mmol/L (98-107); Glucose 108 mg/dL (74-106); Potassium 4.6 mmol/L (3.5-5.1); Sodium 136 mmol/L (136-145)
--- NOTE | 2023-08-05 13:11 | W.ED.GENAD ---
Discharge Plan Disposition Patient Disposition: Home Condition: Improving Discharge Details Chief Complaint: Dizzy/Sync Clinical Impression: Dizziness Primary Care Provider: Yasmin Millard ED Provider: Con Li Home Meds and New Rx's Prescriptions: No Action lisinopril 10 mg tablet 10 mg PO DAILY Qty: 90 3RF Rx Instructions: DX: BLOOD PRESSURE lamotrigine [Lamictal] 200 mg tablet 200 mg PO See Instructions Qty: 270 3RF Rx Instructions: FOR SEIZURES - ok for generic Take 1 tablet in the AM & 2 tablets in the PM levetiracetam 750 mg tablet 750 mg PO BID Qty: 180 3RF amitriptyline 50 mg tablet 50 mg PO QHS Qty: 90 3RF acetaminophen [Tylenol] 325 MG tablet 650 mg PO Q4H PRN [id number] Discharge Instructions Instructions: Dizziness (ED) Additional Instructions: Please follow-up with your primary care physician and neurology team. Please return to the emergency department for any worsening symptoms Medical Decision Making 63-year-old female history of seizure disorder, migraines, presents after a dizzy episode the past 2 days as well as blurry vision now resolved. Hemodynamically stable slightly hypertensive arrival, afebrile nontoxic nonmeningeal nonfocal examination without ataxia or aphasia, no weakness or numbness, patient is asymptomatic currently. Consider resolved atypical migraine versus resolved partial seizure versus electrolyte derangement versus dehydration muscles consider TIA versus CVA lower suspicion for cardiac or pulmonary etiology lower suspicion for infectious etiology. No evidence of trauma. Screening labs imaging close reassessment of symptoms. 15: 21 patient resting comfortably no acute distress. Neurologically intact Labs imaging unremarkable. HPI General Date/Time Provider Initiated Documentation: 08/05/23 12:30. HPI Narrative: 63-year-old female history of migraines, seizure disorder, right-sided weakness, presents after episode of double vision and dizziness over the past 2 days now resolved. Denies injuries nausea vomiting fevers chills neck pain chest pain or shortness of breath. Related Data Home Medications Medication Instructions Recorded Confirmed acetaminophen 325 mg tablet 650 mg (2 x 325 mg) PO Q4H PRN PRN 06/27/16 07/26/23 (Tylenol) lisinopril 10 mg tablet 10 mg PO DAILY #90 tabs 09/13/22 07/26/23 lamotrigine 200 mg tablet 200 mg PO See Instructions #270 06/11/23 07/26/23 (Lamictal) tab-caps levetiracetam 750 mg tablet 750 mg PO BID #180 tab-caps 06/11/23 07/26/23 amitriptyline 50 mg tablet 50 mg PO QHS #90 tabs 07/30/23 Previous Rx's Medication Instructions Recorded acetaminophen 325 mg tablet 650 mg (2 x 325 mg) PO Q4H PRN PRN 06/27/16 (Tylenol) lisinopril 10 mg tablet 10 mg PO DAILY #90 tabs 09/13/22 lamotrigine 200 mg tablet 200 mg PO See Instructions #270 06/11/23 (Lamictal) tab-caps levetiracetam 750 mg tablet 750 mg PO BID #180 tab-caps 06/11/23 amitriptyline 50 mg tablet 50 mg PO QHS #90 tabs 07/30/23 Allergies Allergy/AdvReac Type Severity Reaction Status Date / Time hydrocortisone Allergy Unknown SKIN RASH Verified 07/26/23 13:13 adhesive AdvReac Intermediate skin rash Verified 07/26/23 13:13 NSAIDS (Non-Steroidal AdvReac Other (See Verified 07/26/23 13:13 Anti-Inflamma Comment) baby powder Allergy Intermediate Contraindic Uncoded 07/26/23 13:13 ated pine trees Allergy Intermediate Uncoded 07/26/23 13:13 General Stated Complaint: Dizzy/Sync TAWNY: 3 Review of Systems Narrative: Review of Systems Constitutional: negative Eyes: negative ENT: negative Cardiovascular: negative Respiratory: negative Gastrointestinal: negative : negative Musculoskeletal: negative Skin: negative Neurologic: Dizziness Psych: negative PFSH All Active Problems (Updated 08/05/23 @ 15:22 by Con Li MD) Dizziness (Acute) Contusion of knee, right (Acute) Fall (Acute) CKD (chronic kidney disease) (Chronic) Encounter for screening colonoscopy (Acute) Menorrhagia (Chronic) EMBx 2012: benign. Repeat EMBx 2013: benign proliferative endometrium, started on norethindrone, pt counseled re: endometrial ablation. CKD (chronic kidney disease) (Chronic) 12/2015 renal [place] [facility] [place]: bilateral and symmetric renal cortical thinning consistent with patient's known history of CKD Sleep apnea (Chronic 06/09/13) CPAP Primary osteoarthritis of left knee (Chronic 01/03/17) Obesity (Chronic 05/15/13) Migraine without aura (Chronic 05/28/09) Memory impairment (Chronic 12/23/10) Related to sz disorder & brain surgery 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) Cerebral Cyst (L parietal cyst): Dr. Antunez [facility] Neuro follows Insomnia (Chronic 03/09/10) Amitryp resolved IFG (impaired fasting glucose) (Chronic 04/01/18) Hyperlipidemia (Chronic 12/24/15) 06/2021 labs: 10-year ASCVD risk ~4.9% --> no statin indicated Essential hypertension (Chronic 10/18/11) Endometrium, polyp (Chronic 01/25/16) currently protruding through the exocervix. I have recomended hysteroscopic resection under anesthesia. Coordination problem (Chronic 12/23/10) Hemiparesis; R more than L, mostly resolved Falls (Acute) Focal epilepsy (Chronic) Cyst on brain; [facility] Neurology Hemiparesis (Acute) right; Leg>>>arm; due to left parietal cyst Mild developmental delay (Acute) cognitive with right hemiparesis; due to parietal cyst; surgery, seizures Medical History Petit mal seizure status Per sister states she is not aware she has them per her sister states it aroung 1 month ago Nephrolithiasis incidental finding Iron deficiency anemia (05/26/13) Dx'ed Dr. Antunez neuro [facility] [place]; iron replacement worked Thyroid cyst (07/26/16) Most recent US: 01/24/2021 TI-RADS 2, repeat US if clinically necessary Hand fracture Surgical History History of section x2 closed reduction /pinning rgt fifth finger (06/27/16) R 5th digit; 2016; s/p fall Endometrial Biopsy (08/15/12) Dr. Salinas Brain cyst removal, [facility] 04/12/2011; fenestration Family History Father Alcohol abuse Other Adopted Social History Smoking/Tobacco Use Status: Never Smoking risk assessment performed?: Yes Alcohol Intake: never Drug use: Never Substance use type: does not use Caregiver/Support person: No Household members: spouse and children Housing: apartment Number of Children: 1 Communication Needs: None current occupation: Disabled Pets and animals: No Sexually active: Yes Current gender identity: female What type of physical activity do you participate in: walking Duration: 15-30 minutes/day Frequency: daily Seatbelt use: always Water heater temp set <120 deg: Yes Working smoke detector in home: Yes Fire extinguisher in home: Yes Carbon monox detector in home: Yes Firearms in home: No Do you feel safe at home: Yes Do you feel safe in your relationship?: Yes Additional Social history: Unable to assess michael She is ( Deven is a insurance commissioner) and she states that he cant walk or talk . Sister Jeannine helps out with medical care. Signs for self Female Reproductive History Menstrual Menopause type: natural Exam Narrative Exam Narrative: Physical Examination General: alert, awake, cooperative, resting comfortably, no acute distress HEENT: normocephalic, atraumatic; PERRL, EOM intact, conjunctiva normal; no nasal discharge; moist mucous membranes, oral and pharyngeal mucosa normal, tolerating secretions Neck: supple, trachea midline; full ROM Chest: normal to inspection Respiratory: normal respiratory effort, speaking in full sentences, clear to auscultation, no wheezing, rales or rhonchi Cardiac: regular rate, regular rhythm, S1S2 intact, no murmurs rubs or gallops GI: abdomen soft, non-tender, non-distended; no palpable mass or hepatosplenomegaly Skin: no lesions, rashes or trauma appreciated Neuro: AAOx3, normal speech, moving all extremities; 5 out of 5 strength upper and lower extremities, sensation intact, no truncal ataxia Psych: Appropriate mood and affect Course Vital Signs Vital signs: Vital Signs Temperature 36.4 C 08/05/23 11:36 Pulse 97 H 08/05/23 11:36 Respiratory Rate 18 08/05/23 11:36 Blood Pressure 148/108 H 08/05/23 11:36 Pulse Oximetry 99 08/05/23 11:36 Temperature 36.4 C 08/05/23 11:36 Temperature Source Oral 08/05/23 11:36 Pulse 84 08/05/23 12:16 Respiratory Rate 18 08/05/23 11:42 Respiratory Effort Normal 08/05/23 11:42 Respiratory Depth Normal 08/05/23 11:42 Respiratory Pattern Normal 08/05/23 11:42 Blood Pressure 155/75 H 08/05/23 12:16 Blood Pressure Mean 98 08/05/23 12:16 Blood Pressure Position Sitting 08/05/23 11:36 Pulse Oximetry 99 08/05/23 12:21 Oxygen Delivery Method Room Air 08/05/23 11:36 Oxygen Flow Rate 0 08/05/23 11:36 Lab/Test Results Lab/Test Results: Laboratory Tests Range/Units 08/05/23 11:45 WBC (4.4-10.8) 10^3/uL 5.77 RBC (3.93-5.22) 10^6/uL 3.97 Hgb (11.2-15.7) g/dL 11.5 Hct (36.0-46.0) % 36.0 MCV (80-95) fL 91 MCH (27.0-33.0) pg 29.0 MCHC (32.0-36.0) % 31.9 L RDW (11.7-14.6) % 13.9 Plt Count (130-400) 10^3/uL 283 MPV (8.0-11.0) fL 9.3 Immature Gran % 0.2 Neutrophils % 61.1 Lymphocytes % 26.3 Monocytes % 9.5 Eosinophils % 2.4 Basophils % 0.5 Nucleated RBC % (0.0-0.3) % 0.0 Absolute Neutrophils (1.2-6.7) 10^3/uL 3.52 Absolute Lymphocytes (1.2-3.4) 10^3/uL 1.52 Absolute Monocytes (0.1-0.8) 10^3/uL 0.55 Absolute Eosinophils (0.0-0.7) 10^3/uL 0.14 Absolute Basophils (0.0-0.2) 10^3/uL 0.03 PT (9.1-11.1) sec 10.4 INR (0.9-1.1) 1.0 Sodium (136-145) mmol/L 136 Potassium (3.5-5.1) mmol/L 4.6 Chloride (98-107) mmol/L 103 Carbon Dioxide (21.0-32.0) mmol/L 24.4 Anion Gap (3-11) mmol/L 8.6 BUN (7-18) mg/dL 13 Creatinine (0.55-1.02) mg/dL 1.5 H Est GFR (CKD-EPI 2020) (mL/min/1.73m2) 39.40 Glucose (74-106) mg/dL 108 H Calcium (8.5-10.1) mg/dL 10.3 H Total Bilirubin (0.2-1.0) mg/dL 0.5 AST (15-37) U/L 17 ALT (14-59) U/L 22 Alkaline Phosphatase (46-116) U/L 94 Total Protein (6.4-8.2) g/dL 8.0 Albumin (3.4-5.0) g/dL 3.6
[2023-08-05] MEDS: Normal Saline Flush 10 ML SYR IVP (13:47)
[2023-08-05] MEDS: Normal Saline - Diluent 50 ML VIAL IJ (13:48)
[2023-08-05] MEDS: Omnipaque 350 MG/ML 100 ML BTL IJ (13:49)
--- NOTE | 2023-08-05 15:08 | DI.VRAD_ITS ---
PROCEDURE INFORMATION: Exam: CTA Head With Contrast, Arteriography Exam date and time: 08/05/2023 1:51 PM Age: 63 years old Clinical indication: Other: Double vision dizziness TECHNIQUE: Imaging protocol: Computed tomographic angiography of the head with contrast. Exam focused on the arteries. 3D rendering (Not supervised by radiologist): MIP and/or 3D reconstructed images were created by the technologist. Contrast material: OMNI 350; Contrast volume: 85 ml; Contrast route: IV; COMPARISON: CT HEAD WO 07/10/2023 2:14 AM FINDINGS: ANTERIOR CIRCULATION: Right internal carotid artery: Intracranial segment is patent with no significant stenosis. No aneurysm. The ophthalmic artery visualized. Right middle cerebral artery: No occlusion or significant stenosis. No aneurysm. Right anterior cerebral artery: No occlusion or significant stenosis. No aneurysm. Left internal carotid artery: Intracranial segment is patent with no significant stenosis. Minimal plaque is noted. Ophthalmic artery identified. No aneurysm. Left middle cerebral artery: No occlusion or significant stenosis. No aneurysm. Left anterior cerebral artery: No occlusion or significant stenosis. No aneurysm. POSTERIOR CIRCULATION: Right vertebral artery: No occlusion or significant stenosis. No aneurysm. Right PICA visualized Left vertebral artery: No occlusion or significant stenosis. No aneurysm. Left PICA visualized. Left vertebral artery mildly dominant. Basilar artery: No occlusion or significant stenosis. No aneurysm. Superior cerebellar artery origins identified Right posterior cerebral artery: No occlusion or significant stenosis. No aneurysm. Left posterior cerebral artery: No occlusion or significant stenosis. No aneurysm. No findings to suggest acute dural sinus thrombosis. Brain: As noted on the patient's prior CT examination examination there is a complex cyst centered at the left Pericentral cerebral convexity without surrounding edema or mass effect. There is some associated septal calcification. There are no additional findings identified on the postcontrast images. There is no associated enhancement. There is no acute cortical or major vascular territory infarct. There are no abnormal extra-axial collections. There is no evidence of an enhancing intracranial mass. Cerebral ventricles: No significant ventricular enlargement/hydrocephalus. Bones/joints: Prior left craniotomy. No new or acute bony abnormality Soft tissues: Unremarkable. IMPRESSION: No large vessel occlusion or high-grade intracranial stenosis. There is a stable complex cyst at the left ila the the the central cerebral convexity If further evaluation for recent, acute or subacute ischemic change is indicated, MR correlation is suggested. PROCEDURE INFORMATION: Exam: CTA Neck With Contrast Exam date and time: 08/05/2023 1:51 PM Age: 63 years old Clinical indication: Other: Double vision dizziness TECHNIQUE: Imaging protocol: Computed tomographic angiography of the neck with contrast. Exam focused on the cervical segments of the vasculature. 3D rendering (Not supervised by radiologist): MIP and/or 3D reconstructed images were created by the technologist. Radiation optimization: All CT scans at this facility use at least one of these dose optimization techniques: automated exposure control; mA and/or kV adjustment per patient size (includes targeted exams where dose is matched to clinical indication); or iterative reconstruction. Contrast material: OMNI 350; Contrast volume: 85 ml; Contrast route: IV; COMPARISON: CT HEAD WO 07/10/2023 2:14 AM Exam degraded by motion FINDINGS: CT angiography of the aortic arch demonstrates that the origins of the brachiocephalic left common carotid artery left subclavian artery are patent. Flow is seen distally in both subclavian arteries. Right common carotid artery: No stenosis. No dissection or occlusion. Right internal carotid artery: No stenosis of the extracranial segment. No dissection or occlusion. Right external carotid artery: No occlusion or stenosis of the origin. Left common carotid artery: No stenosis. No dissection or occlusion. Left internal carotid artery: No stenosis of the extracranial segment. No dissection or occlusion. Left external carotid artery: No occlusion or stenosis of the origin. Right vertebral artery: No stenosis. No dissection or occlusion. Left vertebral artery: No stenosis. No dissection or occlusion. Soft tissues: No evidence of a discrete soft tissue mass in the neck. The thyroid gland is heterogeneous with bilateral low-density nodules. There are small cervical nodes which are not enlarged by size criteria. The The evaluation of the lungs is degraded by patient motion. There may be some subtle patchy ground-glass airspace opacities. Bones/joints: No acute bony abnormality is identified. IMPRESSION: Exam degraded by patient motion. No significant extracranial vascular abnormality identified. REFERENCES: NASCET CRITERIA. The degree of stenosis in the cervical segment of the internal carotid artery is based on NASCET criteria. Normal is no stenosis. Mild is less than 50% stenosis. Moderate is 50-69% stenosis. Severe is 70% to 99% stenosis. Total occlusion is no detectable patent lumen. Dictated and Authenticated by: Jessica Wayne MD. Ordering:TI Andujar MD
--- NOTE | 2023-08-05 15:10 | DI.VRAD_ITS ---
PROCEDURE INFORMATION: Exam: XR Chest Exam date and time: 08/05/2023 2:18 PM Age: 63 years old Clinical indication: Other: Dizziness TECHNIQUE: Imaging protocol: Radiologic exam of the chest. Views: 2 views. COMPARISON: CR XR CHEST 2V PA LATERAL 11/14/2022 2:02 PM FINDINGS: Lungs: Unremarkable. No consolidation. Pleural spaces: Unremarkable. No pleural effusion. No pneumothorax. Heart/Mediastinum: Unremarkable. No cardiomegaly. Bones/joints: Degenerative changes are seen in the spine. Mild degenerative changes are seen in the shoulders. There is no acute bony abnormality IMPRESSION: No acute findings by plain film exam Dictated and Authenticated by: Jessica Wayne MD. Ordering:TI Andujar MD
== END 2023-08-05 16:44 | disposition home or self-care (01) ==
PROVIDERS: Emergency Provider Emergency Medicine; PCP Nurse Practitioner Family
DX: R42 Dizziness and giddiness (principal); H53.2 Diplopia; I12.9 Hypertensive chronic kidney disease with stage 1 through stage 4 chronic kidney disease, or unspecified chronic kidney disease; N18.9 Chronic kidney disease, unspecified; E78.5 Hyperlipidemia, unspecified; G40.909 Epilepsy, unspecified, not intractable, without status epilepticus
CPT/HCPCS: 70496; 70498; 80053; 93005; 99285; 71046; 85025; 85610; 93010; 99284; J3490

== ENCOUNTER 2023-08-11 22:25 | Observation (INO) | payer MEDICARE, OTHER, SELFPAY ==
[2023-08-11 22:25] VITALS: BP 167/69; PULSE 103; RESP 16; TEMP 36.3; O2SAT 98
--- NOTE | 2023-08-11 22:30 | RT.EKG_ITS ---
APPROVED REPORT Exam: Resting ECG Reason for Exam: altered mental status Patient Location: E HR:86 bpm ECG Measurements Heart Rate 86 AXIS WV 168 P 53 QRSd 101 QRS 1 QT 368 T -7 QTc 442 Conclusion Sinus rhythm 86 normal axis no acute findings
--- NOTE | 2023-08-11 22:30 | DI.CT_ITS ---
Exam(s) CT HEAD WO EXAM: CT HEAD WO CLINICAL HISTORY: altered mental status. TECHNIQUE: Imaging Protocol: Axial computed tomography images with coronal and sagittal reformatted images were created and reviewed COMPARISON: CT CT BRAIN NECK CTA from 08/05/2023 FINDINGS: Ventricles and Extra axial spaces: Normal in size and morphology for the patient's age. Hemorrhage: None. Cerebral parenchyma: Stable postsurgical changes are seen in the high left parietal lobe. No acute t erritorial infarct. Midline shift: None. Brainstem/Cerebellum: Normal. Calvarium: There again seen findings of a craniotomy at the apex of the skull. Visualized Paranasal sinuses/Mastoids: Clear. Soft Tissues: Unremarkable. IMPRESSION: No acute intracranial process. RADIATION DOSE DELIVERED: Total DLP DATA REPOSITORY: All CT scans at this facility are submitted to the National Radiology Data Registry (NRDR) Dose Index Registry (DIR) with the [employer] (A[employer]). RADIATION OPTIMIZATION: All CT scans at this facility use at least one of these dose optimization te chniques: automated exposure control; mA and/or kV adjustment per patient size (includes targeted exa ms where dose is matched to clinical indication); or iterative reconstruction.
--- NOTE | 2023-08-11 22:37 | W.ED.GENAD ---
Discharge Plan Disposition Patient Disposition: Admit to [facility] Discharge Details Clinical Impression: Mild developmental delay, Delirium, Focal epilepsy, Fall Primary Care Provider: Yasmin Millard ED Provider: Mir Crow Home Meds and New Rx's Prescriptions: No Action lisinopril 10 mg tablet 10 mg PO DAILY Qty: 90 3RF Rx Instructions: DX: BLOOD PRESSURE lamotrigine [Lamictal] 200 mg tablet 200 mg PO See Instructions Qty: 270 3RF Rx Instructions: FOR SEIZURES - ok for generic Take 1 tablet in the AM & 2 tablets in the PM levetiracetam 750 mg tablet 750 mg PO BID Qty: 180 3RF amitriptyline 50 mg tablet 50 mg PO QHS Qty: 90 3RF acetaminophen [Tylenol] 325 MG tablet 650 mg PO Q4H PRN PRN0RF Medical Decision Making Emergent evaluation of fall and altered mental status. History is difficult to obtain from the patient as well as full examination as she is having difficulty with following directions. I reviewed her medical record and noted that the seem to be her baseline. I do not appreciate any new deficits based on the records that I have reviewed. However there is a report of a fall with head injury. Initial considerations include seizure, syncope, mechanical fall. Also consider intoxication, less likely electrolyte derangement. Patient is supposed to ambulate with a walker per record, it is unclear that she was doing so this evening. Initial plan for lab work and CT imaging to evaluate for acute traumatic injury. 2320: patient just became aggressive with nursing staff, hard to redirect, as they were trying to move her for CT imaging. She was able to calm down. will order a dose of zyprexa to help her rest. 2345: I reviewed the blood work. CBC without leukocytosis or anemia. CMP demonstrates a slightly elevated creatinine that seems to be the patient's baseline. TSH is slightly elevated and there is a reflex free T4 pending. Urinalysis does not demonstrate an infection. I have sent out drug levels. Patient's waxing and waning mental status as well as her difficulty with safe ambulation makes me concerned for delirium. Based on the patient's recent neurology clinic evaluation, the patient needed an EEG and MRI. These items may contribute to an etiology of her mental status. I have attempted to contact the patient's as well as her sister, but have not been able to reach either of them. Per the neurology notes, the patient's sister is in charge of her medication, but the often finds it around the house. So there could be some noncompliance versus overdose contributing to her abnormal mental status in addition to her fall. I have discussed with the hospitalist who will admit the patient for further observation and management. Medical Records Medical records reviewed: Yes I reviewed the patient's medical records. Lab Data Lab results reviewed: Yes I reviewed the patient's lab results. HPI General Date/Time Provider Initiated Documentation: 08/11/23 22:31. Limitations to Documentation: altered mental status. Information obtained by: patient and EMS. HPI Narrative: 63-year-old female with past medical history of epilepsy, developmental delay, congenital left parietal brain cyst, presents for evaluation after a fall at home. EMS reports that the patient fell today and hit her head on the coffee table. They state that she has been having blurry vision and lightheadedness since that time. On arrival patient states that she was trying to walk in her living room and the slippery floor made her fall. Although she is not able to tell me when this happened to provide any other additional details regarding the event. Related Data Home Medications Medication Instructions Recorded Confirmed acetaminophen 325 mg tablet 650 mg (2 x 325 mg) PO Q4H PRN PRN 06/27/16 08/11/23 (Tylenol) lisinopril 10 mg tablet 10 mg PO DAILY #90 tabs 09/13/22 08/11/23 lamotrigine 200 mg tablet 200 mg PO See Instructions #270 06/11/23 08/11/23 (Lamictal) tab-caps levetiracetam 750 mg tablet 750 mg PO BID #180 tab-caps 06/11/23 08/11/23 amitriptyline 50 mg tablet 50 mg PO QHS #90 tabs 07/30/23 08/11/23 Previous Rx's Medication Instructions Recorded acetaminophen 325 mg tablet 650 mg (2 x 325 mg) PO Q4H PRN PRN 06/27/16 (Tylenol) lisinopril 10 mg tablet 10 mg PO DAILY #90 tabs 09/13/22 lamotrigine 200 mg tablet 200 mg PO See Instructions #270 06/11/23 (Lamictal) tab-caps levetiracetam 750 mg tablet 750 mg PO BID #180 tab-caps 06/11/23 amitriptyline 50 mg tablet 50 mg PO QHS #90 tabs 07/30/23 Allergies Allergy/AdvReac Type Severity Reaction Status Date / Time hydrocortisone Allergy Unknown SKIN RASH Verified 08/11/23 22:35 adhesive AdvReac Intermediate skin rash Verified 08/11/23 22:35 NSAIDS (Non-Steroidal AdvReac Other (See Verified 08/11/23 22:35 Anti-Inflamma Comment) baby powder Allergy Intermediate Contraindic Uncoded 08/11/23 22:35 ated pine trees Allergy Intermediate Uncoded 08/11/23 22:35 General Stated Complaint: GenMedical TAWNY: 3 PFSH All Active Problems (Updated 08/12/23 @ 00:24 by Bobby Mace) Fall (Acute) Delirium (Acute) Dizziness (Acute) CKD (chronic kidney disease) (Chronic) Encounter for screening colonoscopy (Acute) Menorrhagia (Chronic) EMBx 2012: benign. Repeat EMBx 2013: benign proliferative endometrium, started on norethindrone, pt counseled re: endometrial ablation. CKD (chronic kidney disease) (Chronic) 12/2015 renal US at [facility]: bilateral and symmetric renal cortical thinning consistent with patient's known history of CKD Sleep apnea (Chronic 06/09/13) CPAP Primary osteoarthritis of left knee (Chronic 01/03/17) Obesity (Chronic 05/15/13) Migraine without aura (Chronic 05/28/09) Memory impairment (Chronic 12/23/10) Related to sz disorder & brain surgery 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) Cerebral Cyst (L parietal cyst): Dr. Antunez [facility] Neuro follows Insomnia (Chronic 03/09/10) Amitryp resolved IFG (impaired fasting glucose) (Chronic 04/01/18) Hyperlipidemia (Chronic 12/24/15) 06/2021 labs: 10-year ASCVD risk ~4.9% --> no statin indicated Essential hypertension (Chronic 10/18/11) Endometrium, polyp (Chronic 01/25/16) currently protruding through the exocervix. I have recomended hysteroscopic resection under anesthesia. Coordination problem (Chronic 12/23/10) Hemiparesis; R more than L, mostly resolved Falls (Acute) Focal epilepsy (Chronic) Cyst on brain; [facility] Neurology Hemiparesis (Acute) right; Leg>>>arm; due to left parietal cyst Mild developmental delay (Acute) cognitive with right hemiparesis; due to parietal cyst; surgery, seizures Medical History Petit mal seizure status Per sister states she is not aware she has them per her sister states it aroung 1 month ago Nephrolithiasis incidental finding Iron deficiency anemia (05/26/13) Dx'ed Dr. Antunez neuro [facility]; iron replacement worked Thyroid cyst (07/26/16) Most recent US: 01/24/2021 TI-RADS 2, repeat US if clinically necessary Hand fracture Surgical History History of section x2 closed reduction /pinning rgt fifth finger (06/27/16) R 5th digit; 2016; s/p fall Endometrial Biopsy (08/15/12) Dr. Salinas Brain cyst removal, [facility] 04/12/2011; fenestration Family History Father Alcohol abuse Other Adopted Social History Smoking/Tobacco Use Status: Never Smoking risk assessment performed?: Yes Alcohol Intake: never Drug use: Never Substance use type: does not use Caregiver/Support person: No Household members: spouse and children Housing: apartment Number of Children: 1 Communication Needs: None current occupation: Disabled Pets and animals: No Sexually active: Yes Current gender identity: female What type of physical activity do you participate in: walking Duration: 15-30 minutes/day Frequency: daily Seatbelt use: always Water heater temp set <120 deg: Yes Working smoke detector in home: Yes Fire extinguisher in home: Yes Carbon monox detector in home: Yes Firearms in home: No Do you feel safe at home: Yes Do you feel safe in your relationship?: Yes Additional Social history: Unable to assess michael She is ( 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 Sister Jeannine helps out with medical care. Signs for self Female Reproductive History Menstrual Menopause type: natural Exam Narrative Exam Narrative: Review of Systems: All systems reviewed & are unremarkable except as noted in HPI and below: CONSTITUTIONAL: Alert Well-developed, no acute distress HEENT: NACT , no appreciable head trauma, contusion or laceration EYES: PERRL, no conjunctival injection CVS: RRR, No murmurs or gallops. Peripheral pulses 2+ and equal in all extremities Brisk capillary refill in all extremities. No peripheral edema RESP: Unlabored respiratory effort, Clear to auscultation bilaterally No wheezes rales or rhonchi GI: Soft, Nontender, Nondistended, No organomegaly MSK: Extremities with full range of motion, no deformity or TTP Bruising noted to bilateral hands SKIN: Warm, Dry. No rashes or lesions. NEURO: Unable to assess secondary to patient's inability to cooperate with exam Mild right-sided weakness (baseline) Has trouble answering simple questions Course Vital Signs Vital signs: Vital Signs Temperature 36.3 C L 08/11/23 22:25 Pulse 103 H 08/11/23 22:25 Respiratory Rate 16 08/11/23 22:25 Blood Pressure 167/69 H 08/11/23 22:25 Pulse Oximetry 98 08/11/23 22:25 Temperature 36.3 C L 08/11/23 22:25 Temperature Source Tympanic 08/11/23 22:25 Pulse 103 H 08/11/23 22:25 Respiratory Rate 16 08/11/23 22:25 Respiratory Effort Normal 08/11/23 22:33 Blood Pressure 167/69 H 08/11/23 22:25 Blood Pressure Position Supine 08/11/23 22:25 Pulse Oximetry 98 08/11/23 22:25 Oxygen Delivery Method Room Air 08/11/23 22:25 Oxygen Flow Rate 0 08/11/23 22:25 Pain Level 16 08/11/23 22:25
[2023-08-11 22:39] VITALS: RESP 16
[2023-08-11 23:09] LABS: Abs Immature Grans 0.02 10^3/uL (0.0-0.06); Absolute Basophil Count 0.03 10^3/uL (0.0-0.2); Absolute Eosinophil Count 0.13 10^3/uL (0.0-0.7); Absolute Neutrophil Count 3.02 10^3/uL (1.2-6.7); Basophils % 0.6; Eosinophils % 2.5; HCT 34.2 % (36.0-46.0); HGB 11.4 g/dL (11.2-15.7); Immature Grans % 0.4; Lymphocytes % 30.2; MCHC 33.3 % (32.0-36.0); MCV 90 fL (80-95); MPV 9.4 fL (8.0-11.0); Monocytes % 9.4; Neutrophils % 56.9; Platelet Count 254 10^3/uL (130-400); RDW 13.7 % (11.7-14.6); RDW-SD 44.9 fL
[2023-08-11 23:12] LABS: Bilirubin Small (Negative); Blood Trace-intact (Negative); Clarity Clear (Clear); Glucose Negative (Negative); Ketones Trace mg/dL (Negative); Leukocyte Esterase Negative (Negative); Nitrite Negative (Negative); Specific Gravity >= 1.030 (1.005-1.025); pH 5.5 (5-8)
[2023-08-11 23:17] LABS: Bacteria Rare HPF (Negative); C & S Indicated? No; Casts Negative LPF (Negative); Crystals Negative HPF (Negative); Epithelial Cells Rare HPF (Negative); Mucus Trace (Negative); WBC Negative HPF (0-5)
[2023-08-11 23:21] LABS: Prothrombin Time 9.9 sec (9.1-11.1)
[2023-08-11 23:34] LABS: ALT 21 U/L (14-59); AST 16 U/L (15-37); Albumin 3.6 g/dL (3.4-5.0); Alkaline Phosphatase 94 U/L (46-116); Anion Gap 7.4 mmol/L (3-11); BUN 15 mg/dL (7-18); Bilirubin, Total 0.4 mg/dL (0.2-1.0); CO2 25.6 mmol/L (21.0-32.0); CREATININE 1.5 mg/dL (0.55-1.02); Calcium 10.1 mg/dL (8.5-10.1); Chloride 102 mmol/L (98-107); Glucose 108 mg/dL (74-106); Magnesium 2.2 mg/dL (1.8-2.4); Potassium 4.4 mmol/L (3.5-5.1); Sodium 135 mmol/L (136-145); TSH (W/Ref FT4) 4.53 uIU/mL (0.36-3.74); Total Protein 7.8 g/dL (6.4-8.2); Troponin I < 50 ng/L (<or=60)
--- NOTE | 2023-08-11 23:34 | NUR.NOTE ---
Nursing Note: LATE ENTRY BIBArvind from home, per EMS called for fall and hitting her head. The pt was able to walk to the EMS. Upon arrival the pt appears to be altered, but had mentioned she has half of my brain removed the pt is unable to follow some directions and at times appears not to understand the staff verbal direction. IV/Labs and a straight cath was preformed without difficulty, assistance needed to obtain the urine due to the pt not following directions to bend and open her legs. The pt was being placed on a inflatable transfere device when she began to get elissa and attempted to punch the staff numerous times and would not stop trying to shake the railing with her other hand, extra staff called in for assistance. pt stopped fighting but continued to clench her fist when going to CT. security with staff
[2023-08-11 23:35] LABS: ETHANOL BLOOD < 3.0 mg/dL (<10)
--- NOTE | 2023-08-11 23:44 | DI.VRAD_ITS ---
PROCEDURE INFORMATION: Exam: CT Head Without Contrast Exam date and time: 08/11/2023 11:14 PM Age: 63 years old Clinical indication: Altered mental status/memory loss; Prior surgery; Surgery date: <1 month; Surgery type: Lesions surgery TECHNIQUE: Imaging protocol: Computed tomography of the head without contrast. COMPARISON: CT BRAIN NECK CTA 08/05/2023 1:51 PM FINDINGS: Brain: Stable multilocular CSF density cavity/postoperative change in the superior left cerebral hemisphere. No brain edema. No intracranial hemorrhage. Cerebral ventricles: No ventriculomegaly. Paranasal sinuses: Visualized sinuses are unremarkable. No fluid levels. Mastoid air cells: Unremarkable. Bones/joints: Chronic postsurgical changes the skull. Soft tissues: Unremarkable. IMPRESSION: No acute brain findings. Dictated and Authenticated by: Basil Nielsen MD. Ordering:ALYSON Lindquist MD
[2023-08-11 23:52] LABS: FREE T4 0.93 ng/dL (0.76-1.46)
[2023-08-12] VITALS (55 sets, daily range): BP systolic 100–147; BP diastolic 55–80; PULSE 73–82; RESP 12–23; TEMP 35.9–37.2; O2SAT 95–100
--- NOTE | 2023-08-12 00:21 | HPE_ITS ---
Date of service: 08/12/23 Time of Service: 00:21 Assessment and Plan Assessment and plan (1) Delirium: Start date: 08/12/23 Status: Acute Assessment and plan: This is 63-year-old lady who had a change in mental status at home with negative COVID screening and no obvious source of infection or abnormalities to explain this change. She has had a slow deterioration at home with her seizure disorder and did have plans for MRI of the brain with EEG seeing Dr. Gruber as an outpatient. There is a question of the noncompliance at home and she may be taking more or less of her medication with her partner finding medications at home on the floor at times. She will be admitted for observation and if possible MRI of the brain before being discharged. PT and OT to see the patient for evaluation for home safety. Trend labs and consider neurology consultation if available first week. Patient is a full code. (2) Fall: Start date: 08/12/23 Status: Acute Assessment and plan: He did have a fall hitting her head on a side table but negative CT for acute changes. She has a history of a chronic left frontal brain cyst. Monitor for change in neurological status and PT OT to evaluate for safety. MRI of the brain when available. Qualifiers: Encounter type: initial encounter Qualified Code(s): W19.XXXA - Unspecified fall, initial encounter (3) Petit mal seizure status: Assessment and plan: Less controlled recently some noncompliance and medication probably been missed. Follow-up on levels and monitor patient on usual prescribed medical regimen while in the hospital. Neurology consultation when available. Imaging with EEG when available. (4) CKD (chronic kidney disease): Status: Chronic Assessment and plan: Stable and most likely not contributing to acute decompensation. Continue to monitor labs. Encourage oral hydration with gentle IV hydration overnight. Qualifiers: Chronic kidney disease stage: stage 3 (moderate) Chronic kidney disease stage 3 subtype: stage 3b (GFR 30-44) Qualified Code(s): N18.32 - Chronic kidney disease, stage 3b (5) Essential hypertension: Status: Chronic Assessment and plan: Slightly elevated upon admission with patient to be started on metoprolol 25 mg every 8 hours. Continue lisinopril monitor blood pressure adjust medication as needed. History of Present Illness History of Present Illness Chief Complaint: Fall at home Narrative: This is a 63-year-old female patient with developmental delay congenital left frontal brain cyst with seizure history on medications which may not be taking correctly according to family. She usually ambulates with a walker and had a fall at home resulting in possible injury with imaging negative in the ED. She had no evidence of acute infection or significant lab abnormalities other than slightly low sodium and slightly elevated TSH with chronically elevated and stable creatinine. Patient could not stand and walk with attempt in the ED. She also had waxing and waning confusion which appears to be having at home as well. There was some concern of her being noncompliant with medications and she did need imaging with EEG in the outpatient situation which still can be done if patient stabilizes but at least MRI may be able to be accomplished if she is observed for 24 to 48 hours. The time I saw the patient appears to be at baseline with mentation being cooperative and having some evidence of developmental delay. She was not able to offer further history. Patient apparently did hit her head on a coffee table when she fell and has been having some blurry vision with lightheadedness after that fall which seem to resolve at the time I saw the patient. Review of systems was otherwise stable with patient being overweight and having no complaints of focalizing pain. Patient is a full code. Review of Systems Narrative: 13 point review of systems otherwise unrevealing or stable. PFSH All Active Problems (Updated 08/12/23 @ 00:24 by Bobby Mace) Fall (Acute) Delirium (Acute) Dizziness (Acute) CKD (chronic kidney disease) (Chronic) Encounter for screening colonoscopy (Acute) Menorrhagia (Chronic) EMBx 2012: benign. Repeat EMBx 2013: benign proliferative endometrium, started on norethindrone, pt counseled re: endometrial ablation. CKD (chronic kidney disease) (Chronic) 12/2015 renal US at [facility]: bilateral and symmetric renal cortical thinning consistent with patient's known history of CKD Sleep apnea (Chronic 06/09/13) CPAP Primary osteoarthritis of left knee (Chronic 01/03/17) Obesity (Chronic 05/15/13) Migraine without aura (Chronic 05/28/09) Memory impairment (Chronic 12/23/10) Related to sz disorder & brain surgery 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) Cerebral Cyst (L parietal cyst): Dr. Antunez [facility] Neuro follows Insomnia (Chronic 03/09/10) Amitryp resolved IFG (impaired fasting glucose) (Chronic 04/01/18) Hyperlipidemia (Chronic 12/24/15) 06/2021 labs: 10-year ASCVD risk ~4.9% --> no statin indicated Essential hypertension (Chronic 10/18/11) Endometrium, polyp (Chronic 01/25/16) currently protruding through the exocervix. I have recomended hysteroscopic resection under anesthesia. Coordination problem (Chronic 12/23/10) Hemiparesis; R more than L, mostly resolved Falls (Acute) Focal epilepsy (Chronic) Cyst on brain; [facility] Neurology Hemiparesis (Acute) right; Leg>>>arm; due to left parietal cyst Mild developmental delay (Acute) cognitive with right hemiparesis; due to parietal cyst; surgery, seizures Medical History Petit mal seizure status Per sister states she is not aware she has them per her sister states it aroung 1 month ago Nephrolithiasis incidental finding Iron deficiency anemia (05/26/13) Dx'ed Dr. Antunez neuro [facility]; iron replacement worked Thyroid cyst (07/26/16) Most recent US: 01/24/2021 TI-RADS 2, repeat US if clinically necessary Hand fracture Surgical History History of section x2 closed reduction /pinning rgt fifth finger (06/27/16) R 5th digit; 2016; s/p fall Endometrial Biopsy (08/15/12) Dr. Salinas Brain cyst removal, [facility] 04/12/2011; fenestration Family History Father Alcohol abuse Other Adopted Social History Smoking/Tobacco Use Status: Never Smoking risk assessment performed?: Yes Alcohol Intake: never Drug use: Never Substance use type: does not use Caregiver/Support person: No Household members: spouse and children Housing: apartment Number of Children: 1 Communication Needs: None current occupation: Disabled Pets and animals: No Sexually active: Yes Current gender identity: female What type of physical activity do you participate in: walking Duration: 15-30 minutes/day Frequency: daily Seatbelt use: always Water heater temp set <120 deg: Yes Working smoke detector in home: Yes Fire extinguisher in home: Yes Carbon monox detector in home: Yes Firearms in home: No Do you feel safe at home: Yes Do you feel safe in your relationship?: Yes Additional Social history: Unable to assess michael She is ( 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 Sister Jeannine helps out with medical care. Signs for self Female Reproductive History Menstrual Menopause type: natural Meds Allergies and Home Medications Allergies Allergy/AdvReac Type Severity Reaction Status Date / Time hydrocortisone Allergy Unknown SKIN RASH Verified 08/11/23 22:35 adhesive AdvReac Intermediate skin rash Verified 08/11/23 22:35 NSAIDS (Non-Steroidal AdvReac Other (See Verified 08/11/23 22:35 Anti-Inflamma Comment) baby powder Allergy Intermediate Contraindic Uncoded 08/11/23 22:35 ated pine trees Allergy Intermediate Uncoded 08/11/23 22:35 Home Medications Medication Instructions Recorded Confirmed Type acetaminophen 325 mg tablet 650 mg (2 x 325 mg) PO Q4H PRN PRN 06/27/16 08/11/23 Rx (Tylenol) lisinopril 10 mg tablet 10 mg PO DAILY #90 tabs 09/13/22 08/11/23 Rx lamotrigine 200 mg tablet 200 mg PO See Instructions #270 06/11/23 08/11/23 Rx (Lamictal) tab-caps levetiracetam 750 mg tablet 750 mg PO BID #180 tab-caps 06/11/23 08/11/23 Rx amitriptyline 50 mg tablet 50 mg PO QHS #90 tabs 07/30/23 08/11/23 Rx Exam Narrative Exam Narrative: General: Patient appears slightly older than stated age, moderate to morbidly obese, lying in bed comfortably smiling and responding to interviewer and oriented to person and place but not to time. She is in no acute distress. HEENT: Normocephalic, eyes with pupils equal react light symmetrically, extraocular movement intact and sclera anicteric. Oropharynx with moist mucosa. Neck: Supple without JVD. Lungs: Fair aeration with poor inspiratory effort. No focalizing rales or rhonchi and clear to auscultation. Breast: Exam deferred. Heart: Irregular rhythm with normal rate, 3/6 systolic murmur left sternal border. No gallop or rubs. Abdomen: Obese contour, soft nontender to palpation with no palpable hepatosplenomegaly. Bowel sounds positive all quadrants. Genitalia/rectal: Exam deferred. Extremities: Without clubbing, cyanosis or grossly pitting edema but moderate nonpitting edema over the left lower extremity more than the right. Skin: Normal color, warm and dry. Neuro: Cranial nerves II through XII appear to be grossly intact. No focalizing motor deficits or tremor. Patient states that she cannot stand but is moving lower extremities well with no obvious new weakness. Cerebellar testing not performed. Psych: Euphoric affect, normal mood. No abnormal thought processes manifested. Remote memory appear to be grossly intact with recent memory appear to have deficits at times with patient difficult to interpret with her developmental delay and being a poor historian. Results Imaging Imaging Studies: Exam: CT Head Without Contrast Exam date and time: 08/11/2023 11:14 PM Age: 63 years old Clinical indication: Altered mental status/memory loss; Prior surgery; Surgery date: <1 month; Surgery type: Lesions surgery TECHNIQUE: Imaging protocol: Computed tomography of the head without contrast. COMPARISON: CT BRAIN NECK CTA 08/05/2023 1:51 PM FINDINGS: Brain: Stable multilocular CSF density cavity/postoperative change in the superior left cerebral hemisphere. No brain edema. No intracranial hemorrhage. Cerebral ventricles: No ventriculomegaly. Paranasal sinuses: Visualized sinuses are unremarkable. No fluid levels. Mastoid air cells: Unremarkable. Bones/joints: Chronic postsurgical changes the skull. Soft tissues: Unremarkable. IMPRESSION: No acute brain findings. Labs 08/11/23 23:04 08/11/23 23:04 Labs: Laboratory Results - last 24 hr 08/11/23 08/11/23 23:03 23:04 WBC 5.30 RBC 3.80 L Hgb 11.4 Hct 34.2 L MCV 90 MCH 30.0 MCHC 33.3 RDW 13.7 Plt Count 254 MPV 9.4 Immature Gran % 0.4 Neutrophils % 56.9 Lymphocytes % 30.2 Monocytes % 9.4 Eosinophils % 2.5 Basophils % 0.6 Nucleated RBC % 0.0 Absolute Neutrophils 3.02 Absolute Lymphocytes 1.60 Absolute Monocytes 0.50 Absolute Eosinophils 0.13 Absolute Basophils 0.03 PT 9.9 INR 1.0 Sodium 135 L Potassium 4.4 Chloride 102 Carbon Dioxide 25.6 Anion Gap 7.4 BUN 15 Creatinine 1.5 H Est GFR (CKD-EPI 2020) 39.40 Glucose 108 H Calcium 10.1 Magnesium 2.2 Total Bilirubin 0.4 AST 16 ALT 21 Alkaline Phosphatase 94 Troponin I < 50 Total Protein 7.8 Albumin 3.6 TSH 4.53 H Free T4 0.93 Urine Color Yellow Urine Clarity Clear Urine pH 5.5 Ur Specific [place] >= 1.030 H Urine Protein 30 H Urine Ketones Trace H Urine Blood Trace-intact H Urine Nitrite Negative Urine Bilirubin Small H Urine Urobilinogen 2.0 H Ur Leukocyte Esterase Negative Urine RBC 3-5 H Urine WBC Negative Ur Epithelial Cells Rare Urine Crystals Negative Urine Bacteria Rare Urine Casts Negative Urine Mucus Trace Ur Culture Indicated? No Urine Glucose Negative Ethyl Alcohol < 3.0 Last Vital Signs Temp 36.3 C L 08/11/23 22:25 Pulse 103 H 08/11/23 22:25 Resp 16 08/11/23 22:39 BP 167/69 H 08/11/23 22:25 Pulse Ox 98 08/11/23 22:25 Time Spent Time spent with Patient: >75 minutes Time was spent: preparing to see the patient(eg.review tests), obtaining and/or reviewing separately otained hiistory, ordering medications,tests, procedures, referring, communicating with other health health care / medical job titles, indepentently interpreting results and care coordination
[2023-08-12 01:36] LABS: COVID-19 PCR Negative (Negative); Influenza A PCR Negative (Negative); Influenza B PCR Negative (Negative); RSV PCR Negative (Negative)
[2023-08-12 01:38] LABS: Source Nasopharynx
[2023-08-12 07:18] LABS: HGB 10.3 g/dL (11.2-15.7); MCH 29.2 pg (27.0-33.0); MCHC 32.2 % (32.0-36.0); MCV 91 fL (80-95); MPV 9.4 fL (8.0-11.0); Platelet Count 236 10^3/uL (130-400); RBC 3.53 10^6/uL (3.93-5.22); RDW 13.7 % (11.7-14.6); RDW-SD 45.6 fL; WBC 5.35 10^3/uL (4.4-10.8)
--- NOTE | 2023-08-12 07:25 | W.PC.ACHO ---
Registration Status: ADM HASMUKH Primary Language: Preferred Language: Maltese ED Information & Data Chief Complaint GenMedical 08/11/23 22:40 Triage Note Fell earlier today, hit her 08/11/23 22:25 head on a table. dizzy and double vision since. no LOC. Medical / Surgical History (Last Reviewed 08/12/23 @ 00:21 by Bobby Mace) Petit mal seizure status Nephrolithiasis Iron deficiency anemia (05/26/13) Thyroid cyst (07/26/16) Hand fracture (Last Reviewed 08/12/23 @ 00:21 by Bobby Mace) History of section closed reduction /pinning rgt fifth finger (06/27/16) Endometrial Biopsy (08/15/12) [place] [facility] Most Recent Vital Signs Temperature 36.3 C L 08/12/23 06:44 Temperature Source Tympanic 08/12/23 06:44 Pulse 75 08/12/23 06:44 Pulse Rhythm Regular 08/12/23 02:03 Respiratory Rate 18 08/12/23 06:44 Respiratory Effort Normal 08/12/23 02:03 Respiratory Depth Normal 08/12/23 02:03 Respiratory Pattern Normal 08/12/23 02:03 Blood Pressure 100/55 L 08/12/23 06:44 Blood Pressure Position Supine 08/11/23 22:25 Pulse Oximetry 99 08/12/23 06:44 Oxygen Delivery Method Room Air 08/12/23 06:44 Oxygen Flow Rate 0 08/12/23 06:44 Pain Level 0 08/12/23 02:03 Allergies hydrocortisone Allergy (Unknown, Verified 08/11/23 22:35) SKIN RASH adhesive Adverse Reaction (Intermediate, Verified 08/11/23 22:35) skin rash NSAIDS (Non-Steroidal Anti-Inflamma Adverse Reaction (Verified 08/11/23 22:35) Other (See Comment) chronic kidney disease baby powder Allergy (Intermediate, Uncoded 08/11/23 22:35) Contraindicated Rash pine trees Allergy (Intermediate, Uncoded 08/11/23 22:35) red blotches per pt. Never tested Active Medications Generic Name Dose Route Start Last Admin Trade Name Freq PRN Reason Stop Dose Admin Metoprolol Tartrate 25 mg 08/12/23 06:00 08/12/23 07:07 Metoprolol 25 Mg Tab PO Not Given Q8H [facility] IV IV Catheter Type [Right Saline Lock Antecubital] IV Catheter Gauge [Right 20 Antecubital] Diet Orders Category Date Time Status Regular/Normal [DIET] Nutrition 08/12/23 Breakfast Active Diagnostics 08/12/23 08/12/23 08/12/23 Range/Units 06:22 00:52 00:51 WBC Pending (4.4-10.8) 10^3/uL RBC Pending (3.93-5.22) 10^6/uL Hgb Pending (11.2-15.7) g/dL Hct Pending (36.0-46.0) % MCV Pending (80-95) fL MCH Pending (27.0-33.0) pg MCHC Pending (32.0-36.0) % RDW Pending (11.7-14.6) % Plt Count Pending (130-400) 10^3/uL MPV Pending (8.0-11.0) fL Immature Gran % Neutrophils % Lymphocytes % Monocytes % Eosinophils % Basophils % Nucleated RBC % (0.0-0.3) % Absolute Neutrophils (1.2-6.7) 10^3/uL Absolute Lymphocytes (1.2-3.4) 10^3/uL Absolute Monocytes (0.1-0.8) 10^3/uL Absolute Eosinophils (0.0-0.7) 10^3/uL Absolute Basophils (0.0-0.2) 10^3/uL PT (9.1-11.1) sec INR (0.9-1.1) Sodium Pending (136-145) mmol/L Potassium Pending (3.5-5.1) mmol/L Chloride Pending (98-107) mmol/L Carbon Dioxide Pending (21.0-32.0) mmol/L Anion Gap Pending (3-11) mmol/L BUN Pending (7-18) mg/dL Creatinine Pending (0.55-1.02) mg/dL Est GFR (CKD-EPI 2020) Pending (mL/min/1.73m2) Glucose Pending (74-106) mg/dL Calcium Pending (8.5-10.1) mg/dL Magnesium Pending (1.8-2.4) mg/dL Total Bilirubin Pending (0.2-1.0) mg/dL AST Pending (15-37) U/L ALT Pending (14-59) U/L Alkaline Phosphatase Pending (46-116) U/L Troponin I (<or=60) ng/L Total Protein Pending (6.4-8.2) g/dL Albumin Pending (3.4-5.0) g/dL TSH (0.36-3.74) uIU/mL Free T4 (0.76-1.46) ng/dL Urine Color (Yellow) Urine Clarity (Clear) Urine pH (5-8) Ur Specific [place] (1.005-1.025) Urine Protein (Negative) mg/dL Urine Ketones (Negative) mg/dL Urine Blood (Negative) Urine Nitrite (Negative) Urine Bilirubin (Negative) Urine Urobilinogen (Up to 0.2) mg/dL Ur Leukocyte Esterase (Negative) Urine RBC (0-2) HPF Urine WBC (0-5) HPF Ur Epithelial Cells (Negative) HPF Urine Crystals (Negative) HPF Urine Bacteria (Negative) HPF Urine Casts (Negative) LPF Urine Mucus (Negative) Ur Culture Indicated? Urine Glucose (Negative) mg/dL Lamotrigine Pending Levetiracetam Pending Amitriptyline Pending Amitriptyline&Nortrip Pending Nortriptyline Pending Ethyl Alcohol (<10) mg/dL COVID-19 Source Nasopharynx SARS-CoV-2 (PCR) Negative (Negative) Influenza Type A (PCR) Negative (Negative) Influenza Type B (PCR) Negative (Negative) RSV (PCR) Negative (Negative) 08/11/23 08/11/23 Range/Units 23:04 23:03 WBC 5.30 (4.4-10.8) 10^3/uL RBC 3.80 L (3.93-5.22) 10^6/uL Hgb 11.4 (11.2-15.7) g/dL Hct 34.2 L (36.0-46.0) % MCV 90 (80-95) fL MCH 30.0 (27.0-33.0) pg MCHC 33.3 (32.0-36.0) % RDW 13.7 (11.7-14.6) % Plt Count 254 (130-400) 10^3/uL MPV 9.4 (8.0-11.0) fL Immature Gran % 0.4 Neutrophils % 56.9 Lymphocytes % 30.2 Monocytes % 9.4 Eosinophils % 2.5 Basophils % 0.6 Nucleated RBC % 0.0 (0.0-0.3) % Absolute Neutrophils 3.02 (1.2-6.7) 10^3/uL Absolute Lymphocytes 1.60 (1.2-3.4) 10^3/uL Absolute Monocytes 0.50 (0.1-0.8) 10^3/uL Absolute Eosinophils 0.13 (0.0-0.7) 10^3/uL Absolute Basophils 0.03 (0.0-0.2) 10^3/uL PT 9.9 (9.1-11.1) sec INR 1.0 (0.9-1.1) Sodium 135 L (136-145) mmol/L Potassium 4.4 (3.5-5.1) mmol/L Chloride 102 (98-107) mmol/L Carbon Dioxide 25.6 (21.0-32.0) mmol/L Anion Gap 7.4 (3-11) mmol/L BUN 15 (7-18) mg/dL Creatinine 1.5 H (0.55-1.02) mg/dL Est GFR (CKD-EPI 2020) 39.40 (mL/min/1.73m2) Glucose 108 H (74-106) mg/dL Calcium 10.1 (8.5-10.1) mg/dL Magnesium 2.2 (1.8-2.4) mg/dL Total Bilirubin 0.4 (0.2-1.0) mg/dL AST 16 (15-37) U/L ALT 21 (14-59) U/L Alkaline Phosphatase 94 (46-116) U/L Troponin I < 50 (<or=60) ng/L Total Protein 7.8 (6.4-8.2) g/dL Albumin 3.6 (3.4-5.0) g/dL TSH 4.53 H (0.36-3.74) uIU/mL Free T4 0.93 (0.76-1.46) ng/dL Urine Color Yellow (Yellow) Urine Clarity Clear (Clear) Urine pH 5.5 (5-8) Ur Specific [place] >= 1.030 H (1.005-1.025) Urine Protein 30 H (Negative) mg/dL Urine Ketones Trace H (Negative) mg/dL Urine Blood Trace-intact H (Negative) Urine Nitrite Negative (Negative) Urine Bilirubin Small H (Negative) Urine Urobilinogen 2.0 H (Up to 0.2) mg/dL Ur Leukocyte Esterase Negative (Negative) Urine RBC 3-5 H (0-2) HPF Urine WBC Negative (0-5) HPF Ur Epithelial Cells Rare (Negative) HPF Urine Crystals Negative (Negative) HPF Urine Bacteria Rare (Negative) HPF Urine Casts Negative (Negative) LPF Urine Mucus Trace (Negative) Ur Culture Indicated? No Urine Glucose Negative (Negative) mg/dL Lamotrigine Levetiracetam Amitriptyline Amitriptyline&Nortrip Nortriptyline Ethyl Alcohol < 3.0 (<10) mg/dL COVID-19 Source SARS-CoV-2 (PCR) (Negative) Influenza Type A (PCR) (Negative) Influenza Type B (PCR) (Negative) RSV (PCR) (Negative) Dzzkg-ig-Imic Documentation Fingerstick Glucose Start: 08/11/23 22:32 Freq: .Stat Status: Active Protocol: Activity Type Activity Date Activity User E-sign Co-sign Detail Recorded Client Recorded Date Recorded By Document 08/11/23 22:37 BKG DAEMON(3) [id number] 08/11/23 22:38 BKG DAEMON(4) Intake and Output - 24 Hour Total 08/11/23 22:21 thru 08/12/23 02:03 Weight 100.244 kg Falls Risk Assessment History of Falls Admit Due to Fall 08/12/23 02:03 Contributing Factors Confusion,Impairments 08/12/23 02:03 Ambulatory Aids Uses ambulatory device + 08/12/23 02:03 Tubes/Lines With any additional score 08/12/23 02:03 Gait Evaluation No gait disturbance 08/12/23 02:03 Cognition Cognitive impairment 08/12/23 02:03 Fall Total Score 96 08/12/23 02:03 Level of Risk Maximum Risk 08/12/23 02:03 Problems (Last Reviewed 08/12/23 @ 00:21 by Bobby Mace) Fall (Acute) Delirium (Acute) CKD (chronic kidney disease) (Chronic) Essential hypertension (Chronic 10/18/11) Focal epilepsy (Chronic) Mild developmental delay (Acute) Notes 08/11/23 23:34 Nursing Notes by Bob Minor Nursing Note: LATE ENTRY BIBArvind from home, per EMS called for fall and hitting her head. The pt was able to walk to the EMS. Upon arrival the pt appears to be altered, but had mentioned she has half of my brain removed the pt is unable to follow some directions and at times appears not to understand the staff verbal direction. IV/Labs and a straight cath was preformed without difficulty, assistance needed to obtain the urine due to the pt not following directions to bend and open her legs. The pt was being placed on a inflatable transfere device when she began to get elissa and attempted to punch the staff numerous times and would not stop trying to shake the railing with her other hand, extra staff called in for assistance. pt stopped fighting but continued to clench her fist when going to CT. security with staff Initialized on 08/11/23 23:34 - END OF NOTE v v v v v v v v v Sending and/or Receiving Nurses: Please use comment section below to note any information pertinent to the patient hand-off not included above. Information / Comments: Report received from: FRANCOISE Rossi LPN
[2023-08-12 07:39] LABS: ALT 18 U/L (14-59); AST 13 U/L (15-37); Alkaline Phosphatase 85 U/L (46-116); Anion Gap 7.5 mmol/L (3-11); BUN 12 mg/dL (7-18); Bilirubin, Total 0.3 mg/dL (0.2-1.0); CO2 25.5 mmol/L (21.0-32.0); CREATININE 1.4 mg/dL (0.55-1.02); Calcium 9.3 mg/dL (8.5-10.1); Chloride 104 mmol/L (98-107); Glucose 97 mg/dL (74-106); Magnesium 2.4 mg/dL (1.8-2.4); Potassium 4.4 mmol/L (3.5-5.1); Sodium 137 mmol/L (136-145); Total Protein 6.6 g/dL (6.4-8.2)
[2023-08-12] MEDS: Enoxaparin 40 MG/0.4 ML SYR SC (08:36)
[2023-08-12] MEDS: levETIRAcetam 250 MG TAB 750 MG PO ×2 (08:37→21:04)
[2023-08-12] MEDS: Lisinopril 10 MG TAB PO (08:37)
[2023-08-12] MEDS: lamoTRIgine 100 MG TAB 200 MG PO (08:37)
--- NOTE | 2023-08-12 11:39 | PT.INIE ---
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 She recently suffered fall and hit the let side of her head, with negative CT scan. Plan for MRI in future, which may now be done sooner, with Dr. Gruber given confusion frequency. She has had recent increase in mental status changes without obvious cause, aside from potential non-compliancy with medication use, in setting of chronic CKD and HTN. Social History/Home Situation: Patient reports to live in a one level home with her , who is her care provider and generally home unless running errands. They have a ramp to enter. She reports to use a RW over the course of the last week due to increase in falls, but then can't recall if she used it prior to that. Poor historian overall. Equipment Owned/DME: RW Subjective: No pain, no current dizziness. Has fallen 5 times in the last week. She has to call EMS to get her up, as she can't do it her self, and her can't do it alone. She reports dizziness and legs giving way causing falls. She feels like her left leg is not working very well, and her has noticed she is walking differently then usual and is unsteady. History of seizures which she can usually sense prior to onset. (She is a poor historian, so report may not be accurate. ) Objective: General Observation: Lying in hospital bed, bed alarm on. Mental Status: Confused. Alert to person, place. Poor historian, and conversation not always clear or detailed, she has vague answers. ROM: Right Upper Extremity: WFL Left Upper Extremity: WFL Right Lower Extremity: WFL Left Lower Extremity:WFL Strength: Right Upper Extremity: Grossly 4/5 Left Upper Extremity: Grossly 4/5 Right Lower Extremity: Grossly 4+/5 Left Lower Extremity: Grossly 4+/5 Bed Mobility/Transfers: Supine to EOB, Min A Sit to stand at RW CG Stand to sit from RW CG Bed mobility Independent with cues, struggles and take a lot of effort Bed <> chair CG at RW Gait: 50 ft RW, demonstrates need for verbal cues for change of direction, employing AD properly Balance: Static Sitting: Fair Dynamic Sitting: Poor, easily perturbed Static Standing: Fair at RW Dynamic Standing: Poor at RW Stage 4 Balance Test Time (seconds) Feet together 10, unsteady Partial tandem 0 Tandem 0 One foot 0 Special Tests: Mobility Limitations Standardized Measure [facility] AM-PAC 6 clicks Basic Mobility Inpatient Short Form: 54% disability Informed Consent/Education: Patient instructed in purpose of PT consult and plan of care. Treatment: Initial evaluation [id number] Assessment: Patient is a 63 year old female referred to physical therapy services with reason for PT evaluation of limited ability,and admitted diagnosis of delirium, recent falls, and petit mal seizures with mental status changes without obvious cause. Patient presents with with strength, balance with increase in fall frequency and gait impairments related to acute and chronic medical issues. She requires skilled PT intervention to maximize safety mobility to allow for safe transition home once medically stable, and attend to below deficits. Impairment level findings: Poor balance, sitting and standing LE motor control deficit, uncoordinated LE movements Core control deficit, as observed with bed mobility Mental confusion Impairments are contributing to the following functional limitations: Poor bed mobility, change of position, and supine to EOB difficulty required Min A Unstable gait Poor balance with perturbations, change of direction Difficulty employing RW Patient is assessed as Moderate complexity based on the following: History: 63-year-old female patient with developmental delay congenital left frontal brain cyst with seizure history, petit mals, with medical record documentation slow deterioration of medial condition. She has had recent increase in mental status changes without obvious cause, aside from potential non-compliancy with medication use, in setting of chronic CKD and HTN. Increase in fall frequency Examination: impairment and functional limitations as noted above Presentation: Evolving Decision Making: Easy Goals: Goals X1 week 1. Supine-Sit : Independent 2. Sit-Supine : Independent 3. Sit-Stand : Independent at RW 4. Stand-Sit : Independent from RW 5. Bed-Chair : Distant supervision with RW 6. Chair-Bed : Distant supervision with RW 7. Gait : Improved ability employing RW with change of direction, distant supervision 8. [facility] [address] 20% disability Plan of Care/Treatment Plan: 1-2x/day, 7 days/week x 1 week. Plan of care has been reviewed with the RECTIFYING ATTENDANT providing the service under Physical Therapy direction. Initiate Physical Therapy intervention for strengthening, bed mobility, transfers, gait, stairs, balance training, use of assistive device. DISCHARGE RECOMMENDATIONS: Home if able to provide proper supervision, with HHPT. Requires use of RW for fall reduction and safety with ambulation. If proper home support not possible, SNF of goals are not achieved at D/C. TREATMENT CODE/TIME: Direct treatment time [id number] 30min Total treatment time 30min Units Time 04477 1 Manual therapy (72034) []min Therapeutic Procedures (53555) [] []min Neurological Reeducation (46073) [] []min Therapeutic Activity (08121) [] []min [] [] []min [] [] []min Chante Montemayor, MPT [facility]
[2023-08-12] MEDS: Metoprolol 25 MG TAB PO ×2 (14:49→21:41)
--- NOTE | 2023-08-12 17:08 | INITIAL_ITS ---
Date of service: 08/12/23 Time of Service: 17:10 Care Management Initial Assmt Initial Assessment REASON FOR HOSPITALIZATION:: Delirium, fall, petit mall seizures PREVIOUS FUNCTIONAL STATUS/SOCIAL/FAMILY SUPPORTS:: Sherry lives in [facility] with her , Beau. Her sister, Jeannine, lives nearby and is supportive. She is independent at baseline, with the use of a cane and/or walker. Recently she has been reporting falls at home. CURRENT FUNCTIONAL STATUS:: Sherry was sitting up in her chair when CM met with her. She stated that she is looking forward to getting home. She stated that she and her are home together all the time, as he recently lost his job. She has current HH RN, PT services, although they are new and have not been out to visit her yet. CM will contact [facility] to inform them that she is here, and also let them know when she discharges in order for them to resume services. Per report, Sherry will have an MRI and EEG tomorrow. CM will continue to follow. ADVANCE DIRECTIVES:: [place] AD on file; Jeannine (sister) listed as HCA. Has patient been provided with info about the portal/API?: Yes Did the patient sign up for the portal?: No CODE STATUS:: Full Code INSURANCE COVERAGE / FINANCIAL ISSUES:: [facility]. [place] [facility] [place]. CURRENT HOME/COMMUNITY SERVICES/EQUIPMENT:: HH RN, PT. PRIMARY CARE PHYSICIAN:: Yasmin Millard POTENTIAL DISCHARGE NEEDS:: Resumption of HH services, evaluation for further needs, follow up appointments. PATIENT/FAMILY EDUCATION NEEDS:: Review discharge instructions and limitations, discussion of self care needs including ask me three. ANTICIPATED BARRIERS TO DISCHARGE:: None identified. TRANSPORTATION:: Via private vehicle by family. PLAN:: Anticipate Sherry will return home with a resumption of HH services. Her sister will drive her home via private vehicle. She will follow up with her PCP and discharge plan of care. CM will continue to follow. PFSH All Active Problems (Updated 08/12/23 @ 00:24 by Bobby Mace) Fall (Acute) Delirium (Acute) Dizziness (Acute) CKD (chronic kidney disease) (Chronic) Encounter for screening colonoscopy (Acute) Menorrhagia (Chronic) EMBx 2012: benign. Repeat EMBx 2013: benign proliferative endometrium, started on norethindrone, pt counseled re: endometrial ablation. CKD (chronic kidney disease) (Chronic) 12/2015 renal US at [facility] [place] [place]: bilateral and symmetric renal cortical thinning consistent with patient's known history of CKD Sleep apnea (Chronic 06/09/13) CPAP Primary osteoarthritis of left knee (Chronic 01/03/17) Obesity (Chronic 05/15/13) Migraine without aura (Chronic 05/28/09) Memory impairment (Chronic 12/23/10) Related to sz disorder & brain surgery 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) Cerebral Cyst (L parietal cyst): Dr. Antunez [facility] [place] [place] Neuro follows Insomnia (Chronic 03/09/10) Amitryp resolved IFG (impaired fasting glucose) (Chronic 04/01/18) Hyperlipidemia (Chronic 12/24/15) 06/2021 labs: 10-year ASCVD risk ~4.9% --> no statin indicated Essential hypertension (Chronic 10/18/11) Endometrium, polyp (Chronic 01/25/16) currently protruding through the exocervix. I have recomended hysteroscopic resection under anesthesia. Coordination problem (Chronic 12/23/10) Hemiparesis; R more than L, mostly resolved Falls (Acute) Focal epilepsy (Chronic) Cyst on brain; [facility] Neurology Hemiparesis (Acute) right; Leg>>>arm; due to left parietal cyst Mild developmental delay (Acute) cognitive with right hemiparesis; due to parietal cyst; surgery, seizures Medical History Petit mal seizure status Per sister states she is not aware she has them per her sister states it aroung 1 month ago Nephrolithiasis incidental finding Iron deficiency anemia (05/26/13) Dx'ed Dr. Antunez neuro [facility] [place] [place]; iron replacement worked Thyroid cyst (07/26/16) Most recent US: 01/24/2021 TI-RADS 2, repeat US if clinically necessary Hand fracture Surgical History History of section x2 closed reduction /pinning rgt fifth finger (06/27/16) R 5th digit; 2016; s/p fall Endometrial Biopsy (08/15/12) Dr. Salinas Brain cyst removal, [facility] [place] [place] 04/12/2011; fenestration Family History Father Alcohol abuse Other Adopted Social History Smoking/Tobacco Use Status: Never Smoking risk assessment performed?: Yes Alcohol Intake: never Drug use: Never Substance use type: does not use Caregiver/Support person: No Household members: spouse and children Housing: apartment Number of Children: 1 Communication Needs: None current occupation: Disabled Pets and animals: No Sexually active: Yes Current gender identity: female What type of physical activity do you participate in: walking Duration: 15-30 minutes/day Frequency: daily Seatbelt use: always Water heater temp set <120 deg: Yes Working smoke detector in home: Yes Fire extinguisher in home: Yes Carbon monox detector in home: Yes Firearms in home: No Do you feel safe at home: Yes Do you feel safe in your relationship?: Yes Additional Social history: Unable to assess michael She is ( Deven is a lot associate) and she states that he cant walk or talk . Sister Jeannine helps out with medical care. Signs for self Female Reproductive History Menstrual Menopause type: natural
--- NOTE | 2023-08-12 20:45 | RESPIRATORY ---
RT spoke with patient concerning history of sleep apnea in her chart. Patient stated she does use a machine at home but there's no one whom can bring it in for her. RT asked if she uses O2 at night and patient declined the use of O2 at night along with a hospital device. Patient feels she will have no issues with sleeping as her very tired tonight.
[2023-08-12] MEDS: lamoTRIgine 100 MG TAB 400 MG PO (21:03)
[2023-08-12] MEDS: Normal Saline Flush 10 ML SYR IVP (21:04)
[2023-08-12] MEDS: Amitriptyline 50 MG TAB PO (21:41)
[2023-08-13 04:44] VITALS: BP 98/66; PULSE 64; RESP 16; TEMP 36; O2SAT 92
[2023-08-13] MEDS: Normal Saline 1,000 ML 125 ML IV (05:24)
--- NOTE | 2023-08-13 08:00 | DI.MRI_ITS ---
Exam(s) MR BRAIN WO EXAM: MR BRAIN WO CLINICAL HISTORY: Falls with altered mental status, seizure disorder TECHNIQUE: Multiplanar multisequence MRI of the brain was performed. COMPARISON: MR MR BRAIN WO from 07/01/[address] HEAD WO from 08/11/2023 FINDINGS: The examination is limited due to patient motion artifact. VENTRICLES AND EXTRA AXIAL SPACES: Normal in size and morphology for the patient's age. MIDLINE SHIFT: None. CEREBRAL PARENCHYMA: No focus of restricted diffusion to suggest acute infarct. No space-occupying le asuncion identified. There is a stable cystic area in the high left parietal lobe in the surgical bed. HEMORRHAGE: None. BRAINSTEM/CEREBELLUM: Normal. CALVARIUM: There again seen findings of a prior left parietal craniotomy. VISUALIZED PARANASAL SINUSES/MASTOIDS:There is a tiny mucous retention cyst in the right sphenoid sin us. The remaining visualized paranasal sinuses are clear. [place]: Normal flow void. PITUITARY GLAND: Unremarkable. OTHER FINDINGS: None. IMPRESSION: 1. No acute intracranial process. 2. Stable postsurgical changes in the high left parietal lobe. 3. No evidence of an acute infarct. DATA REPOSITORY:
[2023-08-13 08:10] VITALS: BP 106/69; PULSE 59; RESP 18; TEMP 35.9; O2SAT 93
[2023-08-13] MEDS: Lisinopril 10 MG TAB PO (08:19)
[2023-08-13] MEDS: levETIRAcetam 250 MG TAB 750 MG PO (08:19)
[2023-08-13] MEDS: lamoTRIgine 100 MG TAB 200 MG PO (08:19)
[2023-08-13] MEDS: LORazepam 2 MG/ML VIAL 0.5 MG IVP (08:20)
[2023-08-13] MEDS: Enoxaparin 40 MG/0.4 ML SYR SC (08:21)
[2023-08-13] MEDS: Normal Saline Flush 10 ML SYR IVP (08:21)
--- NOTE | 2023-08-13 08:45 | OT.INIE ---
Occupational Therapy Notes Inpatient Occupational Therapy Evaluation Date: 08/13/23 Referring Doctor:Leslie Archer NP OT Orders: Non Urgent Precautions: Fall, standard PATIENT PROFILE/ADMITTING DIAGNOSIS: Pt is a 63 year old female admitted to Med Surg through the ED for a dx of fall, delirium, dizziness, CKD, menorrhagia, CKD. Past Medical History: All Active Problems (Updated 08/12/23 @ 00:24 by Bobby Mace) Fall (Acute) Delirium (Acute) Dizziness (Acute) CKD (chronic kidney disease) (Chronic) Encounter for screening colonoscopy (Acute) Menorrhagia (Chronic) EMBx 2012: benign. Repeat EMBx 2013: benign proliferative endometrium, started on norethindrone, pt counseled re: endometrial ablation.CKD (chronic kidney disease) (Chronic) 12/2015 [place] [facility] [place] bilateral and symmetric renal cortical thinning consistent with patient's known history of CKDSleep apnea (Chronic 06/09/13) CPAP Primary osteoarthritis of left knee (Chronic 01/03/17) Obesity (Chronic 05/15/13) Migraine without aura (Chronic 05/28/09) Memory impairment (Chronic 12/23/10) Related to sz disorder & brain surgery 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) Cerebral Cyst (L parietal cyst): Dr. Antunez [facility] [place] Neuro follows Insomnia (Chronic 03/09/10) Amitryp resolved IFG (impaired fasting glucose) (Chronic 04/01/18) Hyperlipidemia (Chronic 12/24/15) 06/2021 labs: 10-year ASCVD risk ~4.9% --> no statin indicated Essential hypertension (Chronic 10/18/11) Endometrium, polyp (Chronic 01/25/16) currently protruding through the exocervix. I have recomended hysteroscopic resection under anesthesia. Coordination problem (Chronic 12/23/10) Hemiparesis; R more than L, mostly resolved Falls (Acute) Focal epilepsy (Chronic) [facility]; Leg>>>arm; due to left parietal cystMild developmental delay (Acute) cognitive with right hemiparesis; due to parietal cyst; surgery, seizures Medical History Petit mal seizure status Per sister states she is not aware she has them per her sister states it aroung 1 month agoNephrolithiasis incidental findingIron deficiency anemia (05/26/13) Dx'ed Dr. Antunez neuro [facility] [place]; iron replacement worked Thyroid cyst (07/26/16) Most recent US: 01/24/2021 TI-RADS 2, repeat US if clinically necessary Hand fracture Surgical History History of section [id number] reduction /pinning rgt fifth finger (06/27/16) R 5th digit; 2016; s/p fallEndometrial Biopsy (08/15/12) Dr. SalinasBrain cyst removal, [facility] [place]12/2011; fenestration Social History/Home Situation: Pt states that she is (I) at her baseline and (I) now. She does not offer more information on her baseline level of function. SUBJECTIVE: Pt states that she feels that she can perform her ADLs (I) and does not want further services after today. She denies all DMEs offered at todays session. OBJECTIVE: General Observation: Pleasant but refuses services post evaluation. Mental Status: A&Ox3 Pain: no c/o pain ROM: RUE AROM WFL L UE AROM WFL STRENGTH: RUE 4/5 LUE 3+/5 FUNCTIONAL MOBILITY/ADLS: BATHING pt denies. DRESSING sitting in bed Dressing UE (I) don and doffing robe Dressing LE (I) don and doffing (B) socks GROOMING Seated (I) with brushing her hair TOILETING on commode (I) EATING (I) in seated postion. BALANCE: Static sitting Normal Dynamic Sitting Normal SPECIAL TESTS: Daily Activity Limitations Standardized Measure [facility] AM -PAC ?6 clicks? Daily Activity Inpatient Short Form: Raw score: [23 Standardized score: 51.12 CMS score: 15.86% INFORMED CONSENT/EDUCATION: Pt instructed in purpose of OT Consult and plan of care. ASSESSMENT: Patient is a 63-year-old female referred to occupational therapy services with diagnosis of fall, delirium, dizziness, CKD, menorrhagia, CKD. Patient states that she would not be interested in services at this time as she feels that she is at her baseline level of function. [facility] score 23 Patient is assessed as a Moderate 30486 complexity based on the following: History: see above Examination: see functional limitations as noted above Presentation: evolving Decision Making: AMPAC score 23 GOALS N/A seen for OT consult only. PLAN OF CARE/TREATMENT PLAN: Seen for OT consult only and medically cleared per MD to return home. DISCHARGE RECOMMENDATIONS Home with services when medically cleared per MD. TREATMENT TIME/MINUTES/CODES 47319, 15 minutes Samira Raya OTR/L [facility] [place], [place]
[2023-08-13 11:29] VITALS: BP 106/67; PULSE 69; RESP 18; TEMP 36.2; O2SAT 97
[2023-08-13] MEDS: Metoprolol 25 MG TAB PO (13:26)
--- NOTE | 2023-08-13 13:48 | W.PM.DS.N ---
Date of service: 08/13/23 Time of Service: 17:03 DS: Diagnosis Discharge Diagnosis (1) Delirium: Status: Acute (2) Fall: Status: Acute (3) Petit mal seizure status: (4) CKD (chronic kidney disease): Status: Chronic (5) Essential hypertension: Status: Chronic Discharge Plan Disposition Patient Disposition: Home W/Home Health Services Condition: Stable Discharge Details Reason For Visit: Delirium, Fall, Petit mall seizures uncontrolled Admit Date/Time: 08/12/23 00:25 Admit Provider: Bobby Mace Attending Provider: Bobby Mace Primary Care Provider: Yasmin Millard Hospital Course Hospital Course: This is a 63-year-old female history of seizure disorder, migraines, who presented to the ED after a dizzy episode the past 2 days as well as blurry vision which resolved. Hemodynamically stable slightly hypertensive arrival, afebrile nontoxic nonmeningeal nonfocal examination without ataxia or aphasia, no weakness or numbness. Differentials included atypical migraine versus resolved partial seizure versus electrolyte derangement versus dehydration muscles consider TIA versus CVA with lower suspicion for cardiac or pulmonary etiology lower suspicion for infectious etiology. She was admitted to hospitalist services for further observation. We were able to obtain an EEG and MRI both which were iron remarkable. She is well-known to Dr. Gruber from neurology who did evaluate her here in the hospital. There were no medication changes. She will follow-up outpatient with her in the office. She is stable and at her baseline and ready for discharge to home, she will have resumption of home health services. Physical therapy was consulted and evaluated patient and recommendations for rehabilitation versus home with home health services. Patient adamantly refuses any rehab referral and wishes to return to home. Discharge discussed with Dr. Villalobos Home Meds and New Rx's Prescriptions: Continued lisinopril 10 mg tablet 10 mg PO DAILY Qty: 90 3RF Rx Instructions: DX: BLOOD PRESSURE lamotrigine [Lamictal] 200 mg tablet 200 mg PO See Instructions Qty: 270 3RF Rx Instructions: FOR SEIZURES - ok for generic Take 1 tablet in the AM & 2 tablets in the PM levetiracetam 750 mg tablet 750 mg PO BID Qty: 180 3RF amitriptyline 50 mg tablet 50 mg PO QHS Qty: 90 3RF acetaminophen [Tylenol] 325 MG tablet 650 mg PO Q4H PRN PRN0RF Discharge Instructions Instructions: Fall Prevention (DC) Additional Instructions: Continue to use your walker for safety and gait stability at home. You will have resumption of your home health services to include physical therapy for home safety eval gait training and fall prevention Referrals: Yasmin Millard NP [Primary Care Provider] - (Please call and make an Appointment in the next 1-2 weeks ) Kim Gruber MD [ [facility] STAFF PHYSICIAN] - (Please call and make an Appointment ) Activity:: Activity as Tolerated Equipment/Supplies:: No Equipment Needed Diet:: As Tolerated Discharge Orders Discharge Orders: Discharge Order (Routine); Ordered 08/13/23 Ordered By: Mabel Asencio Discharge Data Discharge Date/Time-TO BE ENTERED AT DEPARTURE: 08/13/23 17:28 DS: Summary Time Spent with Patient providing and/or coordinating discharge services: Greater than 30 minutes Status at Discharge Functional status at discharge: uses cane/walker Overall status at discharge: patient is back to baseline Mental Status: other Speech and Movement: speech and movement normal Mood: other Affect: normal affect Exam Const General: cooperative, no acute distress and not ill appearing Orientation: alert, awake and oriented x3 HENMT Mouth: moist mucous membranes Eyes Alignment and Position: alignment normal Eyelids: eyelids normal Conjunctivae: conjunctivae normal Pupils: PERRL EOM: EOM intact bilaterally Resp Effort & Inspection: normal respiratory effort and able to speak in complete sentences Auscultation: clear to auscultation bilaterally Cardio Rate: regular rate Rhythm: regular rhythm Heart Sounds: no murmurs GI Inspection: normal to inspection and obesity Palpation: soft Auscultation: normal bowel sounds Skin General skin exam: no rashes or lesions noted Neuro General: patient alert, patient awake, patient oriented x3 and no focal motor deficits Psych Mental Status: other Speech and Movement: speech and movement normal Mood: other Affect: normal affect DS: Data Vitals/I&O Vitals and I&O: Vital Signs Temperature 36.2 C L 08/13/23 11:29 Temperature Source Tympanic 08/13/23 11:29 Pulse 69 08/13/23 11:29 Pulse Rhythm Regular 08/13/23 09:20 Respiratory Rate 18 08/13/23 11:29 Respiratory Effort Normal 11/27/23 09:20 Respiratory Depth Normal 08/13/23 09:20 Respiratory Pattern Normal 08/13/23 09:20 Blood Pressure 106/67 08/13/23 11:29 Blood Pressure Position Supine 08/11/23 22:25 Pulse Oximetry 97 08/13/23 11:29 Oxygen Delivery Method Room Air 08/13/23 11:29 Oxygen Flow Rate 0 08/13/23 11:29 Pain Level 0 08/13/23 11:29 Comment RN Notified 08/13/23 04:44 Intake & Output 08/12/23 08/13/23 08/13/23 23:59 11:59 23:59 Intake Total 870 / 870 987.5 / 987.5 Balance 870 / 870 987.5 / 987.5 Intake: IV 737.5 / 737.5 Oral 860 / 860 250 / 250 Other: Urine Color Pale Yellow Urine Appearance Clear Clear Urine Odor None Voiding Methods Toilet Toilet PFSH All Active Problems (Updated 08/12/23 @ 00:24 by Bobby Mace) Fall (Acute) Delirium (Acute) Dizziness (Acute) CKD (chronic kidney disease) (Chronic) Encounter for screening colonoscopy (Acute) Menorrhagia (Chronic) EMBx 2012: benign. Repeat EMBx 2013: benign proliferative endometrium, started on norethindrone, pt counseled re: endometrial ablation. CKD (chronic kidney disease) (Chronic) 12/2015 renal US at [facility] [place]: bilateral and symmetric renal cortical thinning consistent with patient's known history of CKD Sleep apnea (Chronic 06/09/13) CPAP Primary osteoarthritis of left knee (Chronic 01/03/17) Obesity (Chronic 05/15/13) Migraine without aura (Chronic 05/28/09) Memory impairment (Chronic 12/23/10) Related to sz disorder & brain surgery 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) Cerebral Cyst (L parietal cyst): Dr. Antunez [facility] [place] Neuro follows Insomnia (Chronic 03/09/10) Amitryp resolved IFG (impaired fasting glucose) (Chronic 04/01/18) Hyperlipidemia (Chronic 12/24/15) 06/2021 labs: 10-year ASCVD risk ~4.9% --> no statin indicated Essential hypertension (Chronic 10/18/11) Endometrium, polyp (Chronic 05/10/16) currently protruding through the exocervix. I have recomended hysteroscopic resection under anesthesia. Coordination problem (Chronic 12/23/10) Hemiparesis; R more than L, mostly resolved Falls (Acute) Focal epilepsy (Chronic) Cyst on brain; [facility] Neurology Hemiparesis (Acute) right; Leg>>>arm; due to left parietal cyst Mild developmental delay (Acute) cognitive with right hemiparesis; due to parietal cyst; surgery, seizures Medical History Petit mal seizure status Per sister states she is not aware she has them per her sister states it aroung 1 month ago Nephrolithiasis incidental finding Iron deficiency anemia (05/26/13) Dx'ed Dr. Antunez neuro [facility] [place]; iron replacement worked Thyroid cyst (07/26/16) Most recent US: 01/24/2021 TI-RADS 2, repeat US if clinically necessary Hand fracture Surgical History History of section x2 closed reduction /pinning rgt fifth finger (06/27/16) R 5th digit; 2016; s/p fall Endometrial Biopsy (08/15/12) Dr. Salinas Brain cyst removal, [facility] [place] 04/12/2011; fenestration Family History Father Alcohol abuse Other Adopted Social History Smoking/Tobacco Use Status: Never Smoking risk assessment performed?: Yes Alcohol Intake: never Drug use: Never Substance use type: does not use Caregiver/Support person: No Household members: spouse and children Housing: apartment Number of Children: 1 Communication Needs: None current occupation: Disabled Pets and animals: No Sexually active: Yes Current gender identity: female What type of physical activity do you participate in: walking Duration: 15-30 minutes/day Frequency: daily Seatbelt use: always Water heater temp set <120 deg: Yes Working smoke detector in home: Yes Fire extinguisher in home: Yes Carbon monox detector in home: Yes Firearms in home: No Do you feel safe at home: Yes Do you feel safe in your relationship?: Yes Additional Social history: Unable to assess michael She is ( Deven is a backing in 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 Sister Jeannine helps out with medical care. Signs for self Female Reproductive History Menstrual Menopause type: natural Time Spent with Patient Time Spent with Patient: 45-69 minutes Time was spent: preparing to see the patient(eg.review tests), obtaining and/or reviewing separately otained hiistory, referring, communicating with other health residential care officer, indepentently interpreting results, counseling the patient and care coordination
[2023-08-13 15:31] VITALS: BP 91/59; PULSE 62; RESP 16; TEMP 36.2; O2SAT 98
--- NOTE | 2023-08-13 15:34 | PT.INTREAT ---
PT Notes Visit Reasons: Delirium, Fall, Petit mall seizures uncontrolled Inpatient Physical Therapy Treatment Note [facility] Date: 08/13/23 SUBJECTIVE: Pt reports her legs are tired this afternoon. OBJECTIVE: ? Therapeutic Exercises (31026c[1]): Direct one-on-one instruction in therapeutic exercises to develop strength, endurance, range of motion and flexibility. ? Exercises ? Rowing x 5 Shoulder flexion x 5 Shoulder horz abd x 5 LAQ x 5 Hip abd x 5 Heel slides x 5 Ambulation ? Assistive Device: FWW? Weight bearing: Marching Assist: CGA ? Distance:? Marching in place to fatigue due to pt's legs being tired already we did not ambulate past the chair.? ASSESSMENT:? Pt required mod/max vc's with demonstration of exercises and tasks. PLAN: Cont as per PT POC. TREATMENT CODE/TIME: TP 10) 1:30-1:40
--- NOTE | 2023-08-13 15:54 | W.NEUROCONSU ---
Date of service: 08/13/23 Time of Service: 15:54 Assessment and Plan Assessment and plan (1) Fall: Status: Acute Qualifiers: Encounter type: initial encounter Qualified Code(s): W19.XXXA - Unspecified fall, initial encounter (2) Memory impairment: Status: Chronic (3) Focal epilepsy: Status: Chronic Assessment and plan: Ms. Wang was admitted for acute on chronic falls which is attributed to her right leg weakness secondary to known L parietal cyst and further complicated by cognitive impairment, lack of adherence to use of walker. She does not seem to be having breakthrough seizures. Encouraged her to use her walker. She has declined SNF/assisted living despite inadequate support at home from who works. She will continue home health PT. In regards to apparent chronic cognitive decline, will see if we can add a vitamin B12 level on to current labs. Again, she declined further care above. May need family conference with . Note that despite years of care, I have not met due to his work schedule. Continue her seizure medications unchanged. She will f/up in the neurology clinic as scheduled in 6 weeks. History of Present Illness History of Present Illness Chief Complaint: fall Narrative: Handedness: right. Ms. Wang is a 63 year-old woman with focal epilepsy, L parietal congenital cyst, cerebral palsy with cognitive developmental delay, hypertension, hyperlipidemia, pre-diabetes, chronic kidney disease, renal stones, ESME on CPAP, and insomnia. Sherry is well known to me. I last saw her in clinic on 07/26/23 at which time she was brought by her sister after increasing falls and reports from Sherry's of daily seizures (description of events unknown); despite reported good compliance with her seizure medications (levetiracteam 750mg BID and lamotrigine 200-400mg). Note that the fire department has to come to their house to help her get up with each fall. She is advised to use a walker, but does not do so. Does not fall when she is using her walker. She underwent AmbEEG x 35 hours on 08/02/23-08/03/23 which captured no events and showed no seizure activity. She presented to the [facility] ER on 08/05/23 with 2 days of poorly described dizziness which had resolved upon arrival. Labs along with CTH/CTA head/neck were unremarkable. She presented to the [facility] ER on 08/11/23 after falling and hitting the back of her head on the coffee table - no LOC. She reports walking in her socks and missed the mat, slipping on the wood floor. She was not using her walker. She had dizziness and blurred vision following this and thus was admitted for further work-up. Sister is at bedside and remains concerned about falls and ongoing cognitive decline pre-dating current and recent visits. Sherry is not interested in assistive living, SNF etc. She is currently getting home health services and the plan is to resume them at d/c. Sherry and sister report no obvious seizures since I saw her in clinic. She has had no falls since being inpatient. Work-up: -CTH (08/11/23): Stable L parietal cyst. I reviewed these images personally and this is my personal interpretation. -CTA head/neck (08/05/23): unremarkable. I reviewed these images personally and this is my personal interpretation. -MRI brain w/o (08/13/23): stable L parietal cyst - s/p surgical changes - and L BG VR space. No acute findings. I reviewed these images personally and this is my personal interpretation. -Labs (08/11/23): W 5.3, Hgb 11.4, Na 135 -> 137, K 4.4, Cl 102, Cr 1.5 (stable with chronic), glucose 108, Ca 10/1, Mag 2.2, LFTs ok, trop x1 neg, TSH 4.53, FT4 0.93, UA spec grav >1.0303 with trace blood no infection, ETOH neg Lamotrigine, levetiracetam, and amitriptyline levels are all pending. Review of Systems All systems reviewed & are unremarkable except as noted in HPI and below PFSH All Active Problems (Updated 08/12/23 @ 00:24 by Bobby Mcae) Fall (Acute) Delirium (Acute) Dizziness (Acute) CKD (chronic kidney disease) (Chronic) Encounter for screening colonoscopy (Acute) Menorrhagia (Chronic) EMBx 2011: benign. Repeat EMBx 2013: benign proliferative endometrium, started on norethindrone, pt counseled re: endometrial ablation. CKD (chronic kidney disease) (Chronic) 12[place] [facility] bilateral and symmetric renal cortical thinning consistent with patient's known history of CKD Sleep apnea (Chronic 06/09/13) CPAP Primary osteoarthritis of left knee (Chronic 01/03/17) Obesity (Chronic 05/15/13) Migraine without aura (Chronic 05/28/09) Memory impairment (Chronic 12/23/10) Related to sz disorder & brain surgery 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) Cerebral Cyst (L parietal cyst): Dr. Antunez [facility] [place] follows Insomnia (Chronic 03/09/10) Amitryp resolved IFG (impaired fasting glucose) (Chronic 04/01/18) Hyperlipidemia (Chronic 12/24/15) 06/2021 labs: 10-year ASCVD risk ~4.9% --> no statin indicated Essential hypertension (Chronic 10/18/11) Endometrium, polyp (Chronic 01/25/16) currently protruding through the exocervix. I have recomended hysteroscopic resection under anesthesia. Coordination problem (Chronic 12/23/10) Hemiparesis; R more than L, mostly resolved Falls (Acute) Focal epilepsy (Chronic) Cyst on brain; [facility] Neurology Hemiparesis (Acute) right; Leg>>>arm; due to left parietal cyst Mild developmental delay (Acute) cognitive with right hemiparesis; due to parietal cyst; surgery, seizures Medical History Petit mal seizure status Per sister states she is not aware she has them per her sister states it aroung 1 month ago Nephrolithiasis incidental finding Iron deficiency anemia (05/26/13) Dx'ed Dr. Antunez [place] [facility]; iron replacement worked Thyroid cyst (07/26/16) Most recent US: 01/24/2021 TI-RADS 2, repeat US if clinically necessary Hand fracture Surgical History History of section x2 closed reduction /pinning rgt fifth finger (06/27/16) R 5th digit; 2016; s/p fall Endometrial Biopsy (08/15/12) Dr. Salinas Brain cyst removal, [facility] [place]12[place]; fenestration Family History Father Alcohol abuse Other Adopted Social History (Reviewed 08/12/23 @ 00:21 by Bobby Pinto Smoking/Tobacco Use Status: Never Smoking risk assessment performed?: Yes Alcohol Intake: never Drug use: Never Substance use type: does not use Caregiver/Support person: No Household members: spouse and children Housing: apartment Number of Children: 1 Communication Needs: None current occupation: Disabled Pets and animals: No Sexually active: Yes Current gender identity: female What type of physical activity do you participate in: walking Duration: 15-30 minutes/day Frequency: daily Seatbelt use: always Water heater temp set <120 deg: Yes Working smoke detector in home: Yes Fire extinguisher in home: Yes Carbon monox detector in home: Yes Firearms in home: No Do you feel safe at home: Yes Do you feel safe in your relationship?: Yes Additional Social history: Unable to assess michael She is ( 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 Sister Jeannine helps out with medical care. Signs for self Female Reproductive History Menstrual Menopause type: natural Visit Medication and Allergies Active Medications Generic Name Dose Route Start Last Admin Trade Name Odilia PRN Reason Stop Dose Admin Acetaminophen 0 mg 08/12/23 00:26 Acetaminophen 325 Mg Tab PO Q4H PRN PRN Al Hydrox/Mg Hydrox/Simethicone 30 ml 08/12/23 00:26 Mylanta Suspension 30 Ml Cup PO Q2H PRN PRN Amitriptyline HCl 50 mg 08/12/23 22:00 08/12/23 21:41 Amitriptyline 50 Mg Tab PO 50 mg HS OTIS Administration Docusate Sodium 100 mg 08/12/23 00:26 Docusate Sodium 100 Mg Cap PO TID PRN PRN Enoxaparin Sodium 40 mg 08/12/23 08:30 08/13/23 08:21 Enoxaparin 40 Mg/0.4 Ml Syr SC 40 mg DAILY OTIS Administration Sodium Chloride 1,000 mls @ 125 mls/hr 08/12/23 00:30 08/13/23 11:18 Saline 1000ml Bag IV 0 mls/hr INFUSION OTIS Infusion IV Miscellaneous Supplies 1 each 08/12/23 00:30 Iv Access IV DIRECTED OTIS Lamotrigine 200 mg 08/12/23 08:30 08/13/23 08:19 Lamotrigine 100 Mg Tab PO 200 mg QAM OTIS Administration Lamotrigine 400 mg 08/12/23 20:00 08/12/23 21:03 Lamotrigine 100 Mg Tab PO 400 mg QPM OTIS Administration Levetiracetam 750 mg 08/12/23 08:30 08/13/23 08:19 Levetiracetam 250 Mg Tab PO 750 mg BID OTIS Administration Lisinopril 10 mg 08/12/23 08:30 08/13/23 08:19 Lisinopril 10 Mg Tab PO 10 mg DAILY OTIS Administration Magnesium Hydroxide 30 ml 08/12/23 00:26 Milk Of Magnesia 30 Ml Cup PO DAILY PRN PRN Metoprolol Tartrate 25 mg 08/12/23 06:00 08/13/23 13:26 Metoprolol 25 Mg Tab PO 25 mg Q8H OTIS Administration Polyethylene Glycol 17 gm 08/12/23 00:26 Polyethylene Glycol 3350 17 Gm Packet PO DAILY PRN PRN Constipation Sodium Chloride 0 ml 08/12/23 00:26 08/13/23 08:21 Normal Saline Flush 10 Ml Syr IVP 30 ml PRN PRN Administration Allergies hydrocortisone Allergy (Unknown, Verified 08/11/23 22:35) SKIN RASH adhesive Adverse Reaction (Intermediate, Verified 08/11/23 22:35) skin rash NSAIDS (Non-Steroidal Anti-Inflamma Adverse Reaction (Verified 08/11/23 22:35) Other (See Comment) baby powder Allergy (Intermediate, Uncoded 08/11/23 22:35) Contraindicated pine trees Allergy (Intermediate, Uncoded 08/11/23 22:35) Exam Narrative Exam Narrative: Physical Exam: Constitutional: Patient of apparent stated age, well nourished, well developed, no acute distress Neck: Supple, no meningismus CV: RRR, S1, S2, no murmur Resp: CTAB Abd: Soft, nontender, nondistended Neuro: MS/Language/Speech: Alert, oriented, clear language (fluency and comprehension), ?subtle dysarthria CN: EOMI, visual [place] full, trigeminal sensation intact, no facial asymmetry, hearing intact Motor: Normal bulk and tone. FMM intact, no pronator drift. FMM subtly reduced on the right, subtle R pronator drift. 5/5 strength in bilateral upper and lower extremities except 4/5 R hip flexor. Sensation: Intact to light touch throughout Coordination: Finger to nose performed without dysmetria Gait: not seen Results Last Vital Signs Temp 97.2 F L 08/13/23 15:31 Pulse 62 08/13/23 15:31 Resp 16 08/13/23 15:31 BP 91/59 L 08/13/23 15:31 Pulse Ox 98 08/13/23 15:31 Labs 08/12/23 06:22 08/12/23 06:22
--- NOTE | 2023-08-13 17:00 | PDOC.CMDIS ---
Date of service: 08/13/23 Time of Service: 17:00 LACE Index Scoring Tool Questions: Length of Stay (in days): 1 Was the patient admitted via the E.D.?: Yes Comorbidities: Liver or Renal Disease E.D. Visits: 2 Answers: Total Score: 11 Risk of Readmission: High Risk Care Management Discharge Plan Reason for Hospitalization: Delirium, fall, [place] seizures Discharge Plan: Sherry will return home today with a resumption of HH services. Her sister will drive her home via private vehicle. She will follow up with her PCP and discharge plan of care. She is happy to be going home. Patient/Family Education Needs: Review discharge instructions and limitations, discussion of self care needs including ask me three. Services Needed at Discharge: Home Health Care Services (resume HH)
[2023-08-15 11:06] LABS: Levetiracetam 41.9 mcg/mL
[2023-08-15 13:02] LABS: Lamotrigine 24.9 mcg/mL (3.0-15.0)
[2023-08-15 17:50] LABS: Nortriptyline 52 ng/mL (70-170)
== END 2023-08-13 17:28 | disposition home health service (06) ==
LOC: ER 08-12 01:11 → MS 08-12 01:43
PROVIDERS: Admitting Provider Family Medicine; Emergency Provider Emergency Medicine; PCP Nurse Practitioner Family; Visit Provider Family Medicine
DX: R41.0 Disorientation, unspecified (principal); R41.89 Other symptoms and signs involving cognitive functions and awareness; H53.8 Other visual disturbances; R42 Dizziness and giddiness; W19.XXXA Unspecified fall, initial encounter; G40.109 Localization-related (focal) (partial) symptomatic epilepsy and epileptic syndromes with simple partial seizures, not intractable, without status epilepticus; N18.32 Chronic kidney disease, stage 3b; I12.9 Hypertensive chronic kidney disease with stage 1 through stage 4 chronic kidney disease, or unspecified chronic kidney disease; R41.3 Other amnesia; Q04.6 Congenital cerebral cysts; G80.9 Cerebral palsy, unspecified; I10 Essential (primary) hypertension; E78.5 Hyperlipidemia, unspecified; R73.03 Prediabetes; N20.0 Calculus of kidney; G47.33 Obstructive sleep apnea (adult) (pediatric); G47.00 Insomnia, unspecified; M17.12 Unilateral primary osteoarthritis, left knee
CPT/HCPCS: 00123; 36415; 36416; 80053; 80175; 80335; 82962; 85027; 87637; 93005; 95720; 96361; 96372; 96374; 97162; 97165; 97530; 99223; 99285; J1650; 70450; 70551; 80177; 80320; 81003; 81015; 83735; 84439; 84443; 84484; 85025; 85610; 93010; 99239; G0378; J2060

== ENCOUNTER → 2023-08-13 09:36 | Outpatient (BNVA) | payer MEDICARE, OTHER, SELFPAY | PROVIDERS: PCP Nurse Practitioner Family; Referring Provider Nurse Practitioner Family; Visit Provider Psychiatry & Neurology Neurology ==

== ENCOUNTER 2023-08-26 21:38 | Emergency (ER) | payer MEDICARE, OTHER, SELFPAY ==
[2023-08-26] VITALS (19 sets, daily range): BP systolic 127–153; BP diastolic 52–89; PULSE 89–105; RESP 14–28; O2SAT 95–100
--- NOTE | 2023-08-26 21:30 | RT.EKG_ITS ---
APPROVED REPORT Exam: Resting ECG Reason for Exam: dizzy Patient Location: E HR:102 bpm ECG Measurements Heart Rate 102 AXIS MT 173 P 41 QRSd 95 QRS -12 QT 352 T -10 QTc 459 Conclusion Sinus tachycardia...rate> 99 Borderline T abnormalities, diffuse leads...T flat/neg sinus tachycardia, left axis, normal intervals, non ischemic
--- NOTE | 2023-08-26 21:45 | DI.CT_ITS ---
Exam(s) CT BRAIN NECK CTA EXAM: CT BRAIN NECK CTA CLINICAL HISTORY: dizziness, hx of brain cyst removal. TECHNIQUE: Imaging Protocol: Axial CT angiography was performed with multi-slice acquisition and mu lti-planar and 3D reconstructions. CONTRAST MATERIAL: Intravenous: Omnipaque 350 Contrast volume:85 ml COMPARISON: CT CT BRAIN NECK CTA from 08/05/2023 FINDINGS: CT Head W/O and W contrast: Ventricles and Extra axial spaces: Stable mild ex vacuo dilatation of the left lateral ventricle rela aziza to prior surgery. Hemorrhage: None. Cerebral parenchyma: No evidence of acute infarct or new mass. No change cystic area high left parie giuseppe lobe. Mild atrophy Midline shift: None. Brainstem/Cerebellum: No acute findings.. Calvarium: Craniotomy defect again noted at vertex. Visualized Paranasal sinuses/Mastoids: Clear. Soft Tissues: Unremarkable. Enhancement: Normal. CTA Brain W: Internal Carotid Arteries: Petrous: Normal. Cavernous: Normal. Cerebral: Normal. Middle Cerebral Arteries: Right: No aneurysm, occlusion or significant stenosis. Left: No aneurysm, occlusion or significant stenosis. Anterior Cerebral Arteries: Right: No aneurysm, occlusion or significant stenosis. Left: No aneurysm, occlusion or significant stenosis. Posterior cerebral Arteries: Right: No aneurysm, occlusion or significant stenosis. Left: No aneurysm, occlusion or significant stenosis. Vertebral Arteries: Right: No aneurysm, occlusion or significant stenosis. Left: No aneurysm, occlusion or significant stenosis. Basilar Artery: No aneurysm, occlusion or significant stenosis. CTA Neck W: Common Carotid: Right: No dissection, occlusion or significant stenosis. Left: No dissection, occlusion or significant stenosis. External Carotid: Right: No dissection, occlusion or significant stenosis. Left: No dissection, occlusion or significant stenosis. Internal Carotid: Right: No dissection, occlusion or significant stenosis. Left: No dissection, occlusion or significant stenosis. Vertebral Artery: Right: No dissection, occlusion or significant stenosis. Left: No dissection, occlusion or significant stenosis. Lung Apices: Normal. Bones: No acute abnormality. Soft Tissues: Normal. IMPRESSION: 1. Normal CTA examination of the [place]. 2. Head CT: No acute abnormality. Stable appearance of cystic area of the high left parietal region. 3. Normal CTA examination of the neck. RADIATION DOSE DELIVERED: Total DLP DATA REPOSITORY: All CT scans at this facility are submitted to the National Radiology Data Registry (NRDR) Dose Index Registry (DIR) with the [employer] (ACR). RADIATION OPTIMIZATION: All CT scans at this facility use at least one of these dose optimization te chniques: automated exposure control; mA and/or kV adjustment per patient size (includes targeted exa ms where dose is matched to clinical indication); or iterative reconstruction.
--- NOTE | 2023-08-26 22:07 | W.ED.GENAD ---
Discharge Plan Disposition Patient Disposition: Home Condition: Improving Discharge Details Clinical Impression: Dizziness Primary Care Provider: Yasmin Millard ED Provider: Con Li Home Meds and New Rx's Prescriptions: New meclizine 25 mg tablet 25 mg PO DAILY PRN (Reason: dizziness) Qty: 10 0RF No Action lisinopril 10 mg tablet 10 mg PO DAILY Qty: 90 3RF Rx Instructions: DX: BLOOD PRESSURE lamotrigine [Lamictal] 200 mg tablet 200 mg PO See Instructions Qty: 270 3RF Rx Instructions: FOR SEIZURES - ok for generic Take 1 tablet in the AM & 2 tablets in the PM levetiracetam 750 mg tablet 750 mg PO BID Qty: 180 3RF amitriptyline 50 mg tablet 50 mg PO QHS Qty: 90 3RF acetaminophen [Tylenol] 325 MG tablet 650 mg PO Q4H PRN PRN0RF Discharge Instructions Instructions: Dizziness (ED) Additional Instructions: Please follow-up with your primary care physician. Medical Decision Making 63-year-old female history of migraines, seizure disorder, remote brain cyst excision, presents with dizziness over the last 24 hours spinning sensation and difficulty ambulating. Fell into a wall this evening. Patient is alert oriented hemodynamically stable afebrile nontoxic nonmeningeal, cranial nerves II through XII intact 5-5 strength upper and lower extremities, consider peripheral vertigo versus central process such as brain mass versus posterior CVA versus hydrocephalus versus must consider electrolyte derangement versus viral illness low suspicion for encephalitis or meningitis given history and physical most also consider atypical migraine versus atypical seizure presentation. Stat CTA head and neck, labs EKG urinalysis fluids trial of meclizine close 00: 34 patient feeling much better after meclizine. Labs and imaging unremarkable. HPI General Date/Time Provider Initiated Documentation: 08/26/23 21:49. HPI Narrative: 63-year-old female remote history of brain cyst removal presents with dizziness spinning sensation and falling over the last day fell against a wall while she was walking tonight, history of seizure disorder as well as migraines. Denies chest pain shortness of breath nausea vomiting or neck pain. Related Data Home Medications Medication Instructions Recorded Confirmed acetaminophen 325 mg tablet 650 mg (2 x 325 mg) PO Q4H PRN PRN 06/27/16 08/11/23 (Tylenol) lisinopril 10 mg tablet 10 mg PO DAILY #90 tabs 09/13/22 08/26/23 lamotrigine 200 mg tablet 200 mg PO See Instructions #270 06/11/23 08/26/23 (Lamictal) tab-caps levetiracetam 750 mg tablet 750 mg PO BID #180 tab-caps 06/11/23 08/26/23 amitriptyline 50 mg tablet 50 mg PO QHS #90 tabs 07/30/23 08/26/23 meclizine 25 mg tablet 25 mg PO DAILY PRN dizziness #10 08/27/23 tabs Previous Rx's Medication Instructions Recorded acetaminophen 325 mg tablet 650 mg (2 x 325 mg) PO Q4H PRN PRN 06/27/16 (Tylenol) lisinopril 10 mg tablet 10 mg PO DAILY #90 tabs 09/13/22 lamotrigine 200 mg tablet 200 mg PO See Instructions #270 06/11/23 (Lamictal) tab-caps levetiracetam 750 mg tablet 750 mg PO BID #180 tab-caps 06/11/23 amitriptyline 50 mg tablet 50 mg PO QHS #90 tabs 07/30/23 meclizine 25 mg tablet 25 mg PO DAILY PRN dizziness #10 08/27/23 tabs Allergies Allergy/AdvReac Type Severity Reaction Status Date / Time hydrocortisone Allergy Unknown SKIN RASH Verified 08/26/23 21:50 adhesive AdvReac Intermediate skin rash Verified 08/26/23 21:50 NSAIDS (Non-Steroidal AdvReac Other (See Verified 08/26/23 21:50 Anti-Inflamma Comment) baby powder Allergy Intermediate Contraindic Uncoded 08/26/23 21:50 ated pine trees Allergy Intermediate Uncoded 08/26/23 21:50 General Stated Complaint: Dizzy/Sync TAWNY: 3 Review of Systems Narrative: Review of Systems Constitutional: negative Eyes: negative ENT: negative Cardiovascular: negative Respiratory: negative Gastrointestinal: negative : negative Musculoskeletal: negative Skin: negative Neurologic: Dizziness Psych: negative PFSH All Active Problems (Updated 08/27/23 @ 00:35 by Con Li MD) Dizziness (Acute) Fall (Acute) Delirium (Acute) Dizziness (Acute) CKD (chronic kidney disease) (Chronic) Encounter for screening colonoscopy (Acute) Menorrhagia (Chronic) EMBx 2012: benign. Repeat EMBx 2013: benign proliferative endometrium, started on norethindrone, pt counseled re: endometrial ablation. CKD (chronic kidney disease) (Chronic) 12/2015 renal US at [facility] [place]: bilateral and symmetric renal cortical thinning consistent with patient's known history of CKD Sleep apnea (Chronic 06/09/13) CPAP Primary osteoarthritis of left knee (Chronic 01/03/17) Obesity (Chronic 05/15/13) Migraine without aura (Chronic 05/28/09) Memory impairment (Chronic 12/23/10) Related to sz disorder & brain surgery 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) Cerebral Cyst (L parietal cyst): Dr. Antunez [facility] [place] Neuro follows Insomnia (Chronic 03/09/10) Amitryp resolved IFG (impaired fasting glucose) (Chronic 04/01/18) Hyperlipidemia (Chronic 12/24/15) 06/2021 labs: 10-year ASCVD risk ~4.9% --> no statin indicated Essential hypertension (Chronic 10/18/11) Endometrium, polyp (Chronic 01/25/16) currently protruding through the exocervix. I have recomended hysteroscopic resection under anesthesia. Coordination problem (Chronic 12/23/10) Hemiparesis; R more than L, mostly resolved Falls (Acute) Focal epilepsy (Chronic) Cyst on brain; [facility] Neurology Hemiparesis (Acute) right; Leg>>>arm; due to left parietal cyst Mild developmental delay (Acute) cognitive with right hemiparesis; due to parietal cyst; surgery, seizures Medical History Petit mal seizure status Per sister states she is not aware she has them per her sister states it aroung 1 month ago Nephrolithiasis incidental finding Iron deficiency anemia (05/26/13) Dx'ed Dr. Antunez neuro [facility] [place]; iron replacement worked Thyroid cyst (07/26/16) Most recent US: 01/24/2021 TI-RADS 2, repeat US if clinically necessary Hand fracture Surgical History History of section x2 closed reduction /pinning rgt fifth finger (06/27/16) R 5th digit; 2016; s/p fall Endometrial Biopsy (08/15/12) Dr. Salinas Brain cyst removal, [facility] [place] 04/12/2011; fenestration Family History Father Alcohol abuse Other Adopted Social History Smoking/Tobacco Use Status: Never Smoking risk assessment performed?: Yes Alcohol Intake: never Drug use: Never Substance use type: does not use Caregiver/Support person: No Household members: spouse and children Housing: apartment Number of Children: 1 Communication Needs: None current occupation: Disabled Pets and animals: No Sexually active: Yes Current gender identity: female What type of physical activity do you participate in: walking Duration: 15-30 minutes/day Frequency: daily Seatbelt use: always Water heater temp set <120 deg: Yes Working smoke detector in home: Yes Fire extinguisher in home: Yes Carbon monox detector in home: Yes Firearms in home: No Do you feel safe at home: Yes Do you feel safe in your relationship?: Yes Additional Social history: Unable to assess michael She is ( 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 Sister Jeannine helps out with medical care. Signs for self Female Reproductive History Menstrual Menopause type: natural Exam Narrative Exam Narrative: Physical Examination General: alert, awake, cooperative, resting comfortably, no acute distress HEENT: normocephalic, atraumatic; PERRL, EOM intact, conjunctiva normal; no nasal discharge; moist mucous membranes, oral and pharyngeal mucosa normal, tolerating secretions Neck: supple, trachea midline; full ROM Chest: normal to inspection Respiratory: normal respiratory effort, speaking in full sentences, clear to auscultation, no wheezing, rales or rhonchi Cardiac: regular rate, regular rhythm, S1S2 intact, no murmurs rubs or gallops GI: abdomen soft, non-tender, non-distended; no palpable mass or hepatosplenomegaly Skin: no lesions, rashes or trauma appreciated Neuro: AAOx3, normal speech, moving all extremities; cranial nerves II through XII intact, 5 out of 5 strength upper and lower extremities bilateral Psych: Appropriate mood and affect Course Vital Signs Vital signs: Vital Signs Respiratory Rate 20 08/26/23 21:51 Pulse 102 H 08/26/23 21:52 Pulse 104 H 08/26/23 21:52 Respiratory Rate 14 08/26/23 21:52 Respiratory Effort Normal, Non-Labored 08/26/23 21:58 Respiratory Depth Normal 08/26/23 21:58 Respiratory Pattern Normal 08/26/23 21:58 Blood Pressure 136/89 08/26/23 21:52 Blood Pressure Mean 105 08/26/23 21:52 Pulse Oximetry 97 08/26/23 21:52 Pain Level 10 08/26/23 21:46
[2023-08-26] MEDS: Normal Saline - Diluent 50 ML VIAL IJ (22:20)
[2023-08-26] MEDS: Omnipaque 350 MG/ML 100 ML BTL IJ (22:21)
[2023-08-26 22:26] LABS: Abs Immature Grans 0.02 10^3/uL (0.0-0.06); Absolute Basophil Count 0.03 10^3/uL (0.0-0.2); Absolute Eosinophil Count 0.14 10^3/uL (0.0-0.7); Absolute Lymphocyte Count 1.76 10^3/uL (1.2-3.4); Absolute Monocyte Count 0.65 10^3/uL (0.1-0.8); Absolute Neutrophil Count 4.31 10^3/uL (1.2-6.7); Basophils % 0.4; HGB 11.5 g/dL (11.2-15.7); Immature Grans % 0.3; Lymphocytes % 25.5; MCH 29.2 pg (27.0-33.0); MCHC 31.9 % (32.0-36.0); MCV 91 fL (80-95); MPV 9.2 fL (8.0-11.0); Monocytes % 9.4; Neutrophils % 62.4; Platelet Count 253 10^3/uL (130-400); RBC 3.94 10^6/uL (3.93-5.22); RDW 13.8 % (11.7-14.6); RDW-SD 46.5 fL; WBC 6.91 10^3/uL (4.4-10.8)
[2023-08-26 22:35] LABS: Prothrombin Time 10.1 sec (9.1-11.1)
[2023-08-26 22:42] LABS: ALT 19 U/L (14-59); AST 16 U/L (15-37); Albumin 3.4 g/dL (3.4-5.0); Alkaline Phosphatase 103 U/L (46-116); Anion Gap 10.6 mmol/L (3-11); BUN 14 mg/dL (7-18); Bilirubin, Total 0.3 mg/dL (0.2-1.0); CO2 25.4 mmol/L (21.0-32.0); CREATININE 1.5 mg/dL (0.55-1.02); Calcium 9.7 mg/dL (8.5-10.1); Chloride 102 mmol/L (98-107); Glucose 110 mg/dL (74-106); Potassium 4.1 mmol/L (3.5-5.1); Sodium 138 mmol/L (136-145); Total Protein 7.6 g/dL (6.4-8.2)
--- NOTE | 2023-08-26 22:52 | DI.RAD_ITS ---
Exam(s) XR PELVIS AP EXAM: XR PELVIS AP CLINICAL HISTORY: dizziness. TECHNIQUE: 2D digital imaging was performed. Single AP view. COMPARISON: No exams were available for comparison FINDINGS: BONES: No acute fracture is present. No bony destructive lesion is seen. JOINTS: No dislocation present. No joint space narrowing is present. SOFT TISSUE: Contrast noted in ureters and urinary bladder. Ureters not dilated. IMPRESSION: Unremarkable radiographs of the pelvis. DATA REPOSITORY: RADIATION DOSE DELIVERED:
--- NOTE | 2023-08-26 22:52 | DI.RAD_ITS ---
Exam(s) XR CHEST 2V PA LATERAL EXAM: XR CHEST 2V PA LATERAL CLINICAL HISTORY: dizziness TECHNIQUE: 2D digital imaging was performed. COMPARISON: CR,XR XR CHEST 2V PA LATERAL from 08/05/2023 FINDINGS: Exam limited by poor pulmonary inflation and suboptimal penetration. HEART: Normal size. Aorta: Not dilated. PULMONARY VASCULATURE: Mildly prominent. LUNGS: Grossly clear. PLEURAL SPACE: No pleural effusion or pneumothorax. BONE:Unremarkable for age. Soft tissues: Unremarkable. IMPRESSION: No acute abnormality. DATA REPOSITORY: RADIATION DOSE DELIVERED:
[2023-08-26] MEDS: ACETAMINOPHEN 1,000 MG/100 ML BTL 400 MG IVPB (22:57)
[2023-08-26] MEDS: Meclizine 25 MG TAB PO (22:58)
[2023-08-26] MEDS: Normal Saline 1,000 ML 1000 ML IV (22:59)
--- NOTE | 2023-08-26 23:10 | DI.VRAD_ITS ---
PROCEDURE INFORMATION: Exam: XR Pelvis Exam date and time: 08/26/2023 10:44 PM Age: 63 years old Clinical indication: Other: Pelvis pain TECHNIQUE: Imaging protocol: Radiologic exam of the pelvis. Views: 1 or 2 view. COMPARISON: CR XR LUMBAR SPINE COMPLETE 05/07/2023 1:18 PM FINDINGS: Bones/joints: There is no evidence of fracture or dislocation. The right hip joint is normal. The left hip joint is normal. The sacroiliac joints are normal. The visualized portions of the lower lumbar spine are normal. Soft tissues: There are no soft tissue calcifications or masses. Organs: The ureters and bladder visualized appear normal. IMPRESSION: Normal pelvis radiographs. Dictated and Authenticated by: Josué Riley MD. Ordering:TI Andujar MD
--- NOTE | 2023-08-26 23:24 | DI.VRAD_ITS ---
PROCEDURE INFORMATION: Exam: CTA Head With Contrast, Arteriography Exam date and time: 08/26/2023 10:21 PM Age: 63 years old Clinical indication: Other: Dizziness, HX of brain cyst removal; Prior surgery; Surgery date: 6+ months TECHNIQUE: Imaging protocol: Computed tomographic angiography of the head with contrast. Exam focused on the arteries. 3D rendering (Not supervised by radiologist): MIP and/or 3D reconstructed images were created by the technologist. Contrast material: OMNIPAQUE 350; Contrast volume: 100 ml; Contrast route: INTRAVENOUS (IV); COMPARISON: CT BRAIN NECK CTA 08/05/2023 1:51 PM FINDINGS: ANTERIOR CIRCULATION: Right internal carotid artery: Intracranial segment is patent with no significant stenosis. No aneurysm. Right middle cerebral artery: The right middle cerebral artery and branches are normal. Right anterior cerebral artery: The right anterior cerebral artery is normal. Left internal carotid artery: Intracranial segment is patent with no significant stenosis. No aneurysm. Left middle cerebral artery: The left middle cerebral artery and branches are normal. Left anterior cerebral artery: The left anterior cerebral artery is normal. The anterior communicating artery is patent. POSTERIOR CIRCULATION: Right vertebral artery: Right vertebral artery is normal. Left vertebral artery: The left vertebral artery is normal. Basilar artery: The basilar artery is normal. The previously described low-attenuation lesion at the tip of the basilar artery has resolved. Right posterior cerebral artery: The right posterior cerebral artery arises from the basilar artery. The right posterior communicating artery is patent. Left posterior cerebral artery: The left posterior cerebral artery arises from the basilar artery. The left posterior communicating artery is patent. Sigmoid sinuses: The dural sinuses, including the superior sagittal, straight, transverse, and sigmoid sinuses, are patent without evidence for thrombosis.The visualized superficial and deep cerebral veins are patent. There is no evidence of a varix or venous anomaly. Brain: There is mild diffuse heterogeneity of the white matter attenuation, consistent with chronic white matter microangiopathic ischemic changes. There is mild diffuse cerebral atrophy present. There is no evidence of intracranial hemorrhage. There is no evidence of acute intracranial injury or other pathologic process. There is no evidence of an acute ischemic event. Cerebral ventricles: Asymmetric enlargement of the ventricles left greater than right a portion of which may be secondary to ex vacuo effect secondary to patient's cystic lesion removal in the left parietal lobe. Orbital cavities: The orbits are normal without evidence of fracture. There is no evidence of retro-bulbar hemorrhage. There is no evidence of globe or lens injury. Mastoid air cells: The mastoid aircells are normal. Paranasal sinuses: There is no evidence of fluid levels, mucoperiosteal thickening, or opacification to suggest acute or chronic sinusitis. Bones/joints: Postsurgical changes consistent with craniotomy and cranial plate placement at the high posterior parietal and occipital regions. The bony cranium shows no evidence of injury or other acute pathologic processes. Soft tissues: Multilobulated soft tissue cystic structure with postoperative changes remains stable compared to 07/10/2023. The extracranial soft tissues are normal. Other findings: The left cavernous and supraclinoid carotid arteries are normal. The right cavernous and supraclinoid carotid arteries are normal. IMPRESSION: 1. No evidence of acute occlusive, aneurysmal or vasculitic changes seen within the intracranial carotid or vertebrobasilar arterial systems. 2. No acute intracranial enhancing lesions identified. 3. No evidence of an acute intracranial abnormality. 4. There is mild age-related atrophy and chronic white matter ischemic changes, with compensatory ventricular dilation. 5. Postsurgical changes consistent with craniotomy and cranial plate placement at the high posterior parietal and occipital regions. 6. Multilobulated soft tissue cystic structure with postoperative changes remains stable compared to 07/10/2023. PROCEDURE INFORMATION: Exam: CTA Neck With Contrast Exam date and time: 08/26/2023 10:21 PM Age: 63 years old Clinical indication: Other: Dizziness, HX of brain cyst removal; Prior surgery; Surgery date: 6+ months TECHNIQUE: Imaging protocol: Computed tomographic angiography of the neck with contrast. Exam focused on the cervical segments of the vasculature. 3D rendering (Not supervised by radiologist): MIP and/or 3D reconstructed images were created by the technologist. Contrast material: OMNIPAQUE 350; Contrast volume: 100 ml; Contrast route: INTRAVENOUS (IV); COMPARISON: CT BRAIN NECK CTA 08/05/2023 1:51 PM FINDINGS: Right common carotid artery: Right common carotid artery is normal. Right internal carotid artery: The right internal carotid artery is normal. Right external carotid artery: Right external carotid artery is normal. Left common carotid artery: Left common carotid artery is normal. Left internal carotid artery: The left internal carotid artery is normal. Left external carotid artery: The left external carotid artery is normal. Right vertebral artery: Right vertebral artery is normal. Left vertebral artery: The left vertebral artery is normal. Right subclavian artery: Mild atherosclerosis at the origin of the right subclavian artery. Aorta: The aorta demonstrates mild atherosclerotic calcification. Salivary glands: The parotid and submandibular glands are normal. The pharyngeal, hypopharyngeal, and laryngeal structures are unremarkable. There is no evidence of lymphadenopathy. Thyroid: Low-attenuation cystic changes present within the thyroid lobes bilaterally. Soft tissues: No evidence of soft tissue masses or fluid collections. Bones/joints: There is no evidence of acute fracture within the cervical spine.. The spinal canal and cord are normal. Lungs: The visualized portions of the lung apices are normal. Other findings: Minimal atherosclerosis at the origins of the great vessels. Standard branching of the great vessels. IMPRESSION: 1. No evidence of acute occlusive, aneurysmal or vasculitic changes seen within the extracranial carotid or vertebrobasilar arterial systems. 2. Low-attenuation cystic changes present within the thyroid lobes bilaterally. REFERENCES: NASCET CRITERIA. The degree of stenosis in the cervical segment of the internal carotid artery is based on NASCET criteria. Normal is no stenosis. Mild is less than 50% stenosis. Moderate is 50-69% stenosis. Severe is 70% to 99% stenosis. Total occlusion is no detectable patent lumen. Dictated and Authenticated by: Josué Riley MD. Ordering:TI Andujar MD
--- NOTE | 2023-08-26 23:25 | DI.VRAD_ITS ---
PROCEDURE INFORMATION: Exam: XR Chest Exam date and time: 08/26/2023 10:41 PM Age: 63 years old Clinical indication: Other: Dizziness TECHNIQUE: Imaging protocol: Radiologic exam of the chest. Views: 2 views. COMPARISON: CR XR CHEST 2V PA LATERAL 08/05/2023 2:18 PM FINDINGS: Lungs: There is mild pulmonary venous congestion. There is mild diffuse interstitial edema. Underlying inflammatory or infectious process not excluded. Pleural spaces: There are no pleural effusions. No evidence of pneumothorax. Heart/Mediastinum: The heart is mildly enlarged. There is prominence of the mediastinum. Bones/joints: The skeletal structures and soft tissues show no evidence of fracture or other acute processes. Soft tissues: The soft tissues of the extrathoracic region are unremarkable. IMPRESSION: Probable mild congestive heart failure. Underlying inflammatory or infectious process not excluded. Dictated and Authenticated by: Josué Riley MD. Ordering:TI Andujar MD
[2023-08-27] VITALS: PULSE 82; RESP 14; O2SAT 97
[2023-08-27 00:01] VITALS: BP 138/72; PULSE 82; PULSE 85; RESP 16; O2SAT 95
[2023-08-27 00:10] VITALS: PULSE 82; RESP 16; O2SAT 96
[2023-08-27 00:16] VITALS: BP 141/61; PULSE 82; PULSE 84; RESP 20; O2SAT 97
[2023-08-27 00:20] VITALS: PULSE 82; RESP 22; O2SAT 96
[2023-08-27 01:03] VITALS: PULSE 98; RESP 16; TEMP 36.4; O2SAT 97
== END 2023-08-27 01:08 | disposition home or self-care (01) ==
PROVIDERS: Emergency Provider Emergency Medicine; PCP Nurse Practitioner Family
DX: R42 Dizziness and giddiness (principal); M79.621 Pain in right upper arm; M79.622 Pain in left upper arm; W18.00XA Striking against unspecified object with subsequent fall, initial encounter; Z86.011 Personal history of benign neoplasm of the brain; Z86.69 Personal history of other diseases of the nervous system and sense organs
CPT/HCPCS: 36415; 36416; 70496; 70498; 80053; 82962; 93005; 96365; 99285; 71046; 72170; 85025; 85610; 85730; 93010; 99283; J0131; J3490

== ENCOUNTER → 2023-08-30 01:09 | Outpatient (CLI) | payer MEDICARE, OTHER, SELFPAY ==
--- NOTE | 2023-08-30 | DI.US_ITS ---
Exam(s) US CAROTID EXAM: US CAROTID CLINICAL HISTORY: episode blurred vision josi Hx falls, H53.8 visual disturbances. TECHNIQUE: Ultrasound carotids performed using grayscale, color-flow, and spectral Doppler imaging. COMPARISON: CT CT BRAIN NECK CTA from 08/26/2023 FINDINGS: RIGHT CAROTID ARTERY: Plaque: No significant plaque. Velocity elevation: None. LEFT CAROTID ARTERY: Plaque: No significant plaque. Velocity elevation: None. VERTEBRAL ARTERIES: Antegrade flow. Measurements: R Bulb: 68.5cm/s PS / 21.9cm/s ED R CCA: 73.7cm/s PS / 24.5cm/s ED R ECA: 109.4cm/s PS / 18.7cm/s ED R ICA Prox: 83.5cm/s PS / 16.8cm/s ED R ICA Mid: 87.1cm/s PS / 32.6cm/s ED R ICA Distal: 65.3cm/s PS /13.2cm/s ED R Vert: 51.9cm/s PS / 19.2cm/s ED R SVR: 1.2 R DVR: 1.3 L Bulb: 53.1cm/s PS / 15.6cm/s ED L CCA: PS / 22.8cm/s ED L ECA: 82.3cm/s PS / 14.4cm/s ED L ICA Prox: 83cm/s PS / 26.1cm/s ED L ICA Mid: 85cm/s PS / 31.5cm/s ED L ICA Distal: 85.6cm/s PS / 34.2cm/s ED L Vert: 48.2cm/s PS / 17.5cm/s ED L SVR: 1.2 L DVR: 1.5 IMPRESSION: No evidence for hemodynamically significant carotid stenosis. Criteria for Carotid Stenosis: Normal: ICA PSV <125 cm/s no plaque or intimal thickening is visible. <50% stenosis: ICA PSV <125 cm/s and plaque or intimal thickening is visible. 50-69% stenosis: ICA PSV is 125-250 cm/s and plaque is visible. >70% stenosis to near occlusion: ICA PSV >250 cm/s with visible plaque and luminal narrowing. DATA REPOSITORY:
== END ==
PROVIDERS: PCP Nurse Practitioner Family; Visit Provider Nurse Practitioner
DX: H53.8 Other visual disturbances (principal)
CPT/HCPCS: 93880

== ENCOUNTER 2023-09-02 03:05 | Emergency (ER) | payer MEDICARE, OTHER, SELFPAY ==
[2023-09-02] VITALS (20 sets, daily range): BP systolic 110–166; BP diastolic 77–94; PULSE 64–83; RESP 13–18; TEMP 36.9; O2SAT 96–99
--- NOTE | 2023-09-02 03:15 | DI.RAD_ITS ---
Exam(s) XR LUMBAR SPINE COMPLETE EXAM: XR LUMBAR SPINE COMPLETE CLINICAL HISTORY: trauma fall. TECHNIQUE: 2D digital imaging was performed of the lumbar spine. Six images were obtained. AP, lat eral, right oblique, left oblique and L5-S1 spot views were obtained. COMPARISON: CR XR LUMBAR SPINE COMPLETE from 05/07/2023 FINDINGS: The lateral view is suboptimal due to positioning and patient body habitus. There are mild degenerative changes present throughout the lumbar spine. No definite acute fractures or subluxations are seen in the bones appear normally mineralized. Atherosclerosis is present. The re is a moderate amount of stool in the colon. IMPRESSION: 1. Examination limited by patient body habitus and patient positioning. 2. No obvious acute fractures or subluxations. If there is continued clinical concern, a repeat exam ination should be considered. DATA REPOSITORY: RADIATION DOSE DELIVERED:
--- NOTE | 2023-09-02 03:20 | W.ED.GENAD ---
Discharge Plan Disposition Patient Disposition: Home Discharge Details Chief Complaint: Orthopedic Clinical Impression: Low back pain, Falls, CKD (chronic kidney disease) Primary Care Provider: Yasmin Millard ED Provider: Mariya Denny Home Meds and New Rx's Prescriptions: No Action lisinopril 10 mg tablet 10 mg PO DAILY Qty: 90 3RF Rx Instructions: DX: BLOOD PRESSURE lamotrigine [Lamictal] 200 mg tablet 200 mg PO See Instructions Qty: 270 3RF Rx Instructions: FOR SEIZURES - ok for generic Take 1 tablet in the AM & 2 tablets in the PM levetiracetam 750 mg tablet 750 mg PO BID Qty: 180 3RF amitriptyline 50 mg tablet 50 mg PO QHS Qty: 90 3RF acetaminophen [Tylenol] 325 MG tablet 650 mg PO Q4H PRN PRN0RF meclizine 25 mg tablet 25 mg PO DAILY PRN (Reason: dizziness) Qty: 10 0RF Discharge Instructions Instructions: Low Back Strain (ED), Fall Prevention (ED) Additional Instructions: 1. Take acetaminophen as needed for pain. You may also buy [id number] lidocaine patches for your back pain. Return to the emergency department if he develop any problems controlling your bowels or bladder or if you develop numbness and tingling in the genitals, abdominal pain, fever or any new or worrisome complaints. 2. Call your primary care provider on Sunday the for a follow-up appointment and recheck and return return here as needed. Discharge Data Discharge Physician: Mariya Denny Medical Decision Making This is a 63-year-old female who presents to the emergency department after several falls with back pain. She denies any saddle anesthesia, bowel or bladder incontinence or retention, pain radiating down her legs or numbness tingling or weakness. She does have a history of a previous left craniotomy for cerebral cyst but has only mild weakness of the right lower extremity on my exam. My plan is to obtain blood work including a CBC to check for anemia since she appears slightly pale. I will also check coags because of the ecchymoses. I will check a urinalysis for hematuria and infection. I will obtain plain films of the LS spine and blood work including a comprehensive metabolic panel to evaluate her liver and renal function as well as as her electrolytes. I will write for IV acetaminophen for pain since she has an allergy to nonsteroidal anti-inflammatories. If her workup is unremarkable she will likely be discharged home with outpatient follow-up. Differential Diagnosis Differential Diagnosis: Multiple falls, abrasion right elbow, ecchymoses Medical Records Medical records reviewed: Yes I reviewed the patient's medical records. Imaging Data Radiologic Study: Imaging: X-Ray (LS-spine) Radiologist's impression: V rad impression: Mild degenerative change otherwise negative Lab Data Lab results reviewed: Yes I reviewed the patient's lab results. Lab results narrative: Mild anemia white count of 4.332 which is slightly lower than normal. Normal coags. Electrolytes are within normal limits. Mild elevation of the creatinine of 1.3 with a GFR 46.68. This is actually improved from previous labs. Miild hypoalbuminemia HPI General Date/Time Provider Initiated Documentation: 09/02/23 03:20. Information obtained by: patient, EMS, RN notes reviewed and old records reviewed. History of Present Illness with intensity rated at 5. Patient started experiencing this day(s) (2) and it has been constant. HPI Narrative: Time seen was on arrival in bed 4. Patient is a 63-year-old female well-known to the ED staff for multiple falls who was brought into the emergency department this evening by EMS after a fall from home. She uses a cane and a walker. She has had a craniotomy for a left cerebral cyst many years ago. Apparently she called 911 after she fell this evening and fire department came and helped her back into bed, when EMS arrived shortly afterwards she told them that she has had 2 days of low back pain. She denies any bowel or bladder incontinence or retention. She denies any saddle anesthesia. She denies any dysuria or hematuria. She denies any headache chest pain abdominal pain or shortness of breath. She denies any numbness tingling or weakness in her legs. She denies any radiation of the pain down her legs. She denies any fevers chills or URI symptoms. She said initially her back pain was 10 out of 10 in severity is currently 5 out of 10 in severity. According to EMS she was able to ambulate though she denied being able to ambulate here. She also tells me she has a seizure disorder and her last seizure was several days ago. She tells me when she has a seizure she is usually awake. She denies any other aggravating or alleviating factors. Related Data Home Medications Medication Instructions Recorded Confirmed acetaminophen 325 mg tablet 650 mg (2 x 325 mg) PO Q4H PRN PRN 06/27/16 09/02/23 (Tylenol) lisinopril 10 mg tablet 10 mg PO DAILY #90 tabs 09/13/22 09/02/23 lamotrigine 200 mg tablet 200 mg PO See Instructions #270 06/11/23 09/02/23 (Lamictal) tab-caps levetiracetam 750 mg tablet 750 mg PO BID #180 tab-caps 06/11/23 09/02/23 amitriptyline 50 mg tablet 50 mg PO QHS #90 tabs 07/30/23 09/02/23 meclizine 25 mg tablet 25 mg PO DAILY PRN dizziness #10 08/27/23 09/02/23 tabs Previous Rx's Medication Instructions Recorded acetaminophen 325 mg tablet 650 mg (2 x 325 mg) PO Q4H PRN PRN 06/27/16 (Tylenol) lisinopril 10 mg tablet 10 mg PO DAILY #90 tabs 09/13/22 lamotrigine 200 mg tablet 200 mg PO See Instructions #270 06/11/23 (Lamictal) tab-caps levetiracetam 750 mg tablet 750 mg PO BID #180 tab-caps 06/11/23 amitriptyline 50 mg tablet 50 mg PO QHS #90 tabs 07/30/23 meclizine 25 mg tablet 25 mg PO DAILY PRN dizziness #10 08/27/23 tabs Allergies Allergy/AdvReac Type Severity Reaction Status Date / Time hydrocortisone Allergy Unknown SKIN RASH Verified 09/02/23 03:08 adhesive AdvReac Intermediate skin rash Verified 09/02/23 03:08 NSAIDS (Non-Steroidal AdvReac Other (See Verified 09/02/23 03:08 Anti-Inflamma Comment) baby powder Allergy Intermediate Contraindic Uncoded 09/02/23 03:08 ated pine trees Allergy Intermediate Uncoded 09/02/23 03:08 General Stated Complaint: Orthopedic TAWNY: 3 Review of Systems Narrative: see hpi PFSH All Active Problems (Updated 09/02/23 @ 07:11 by Mariya Denny MD) Low back pain (Acute) Dizziness (Acute) Fall (Acute) Delirium (Acute) Dizziness (Acute) CKD (chronic kidney disease) (Chronic) Encounter for screening colonoscopy (Acute) Menorrhagia (Chronic) EMBx 2012: benign. Repeat EMBx 2013: benign proliferative endometrium, started on norethindrone, pt counseled re: endometrial ablation. CKD (chronic kidney disease) (Chronic) 12/2015 [place] [facility] [place]: bilateral and symmetric renal cortical thinning consistent with patient's known history of CKD Sleep apnea (Chronic 06/09/13) CPAP Primary osteoarthritis of left knee (Chronic 01/03/17) Obesity (Chronic 05/15/13) Migraine without aura (Chronic 05/28/09) Memory impairment (Chronic 12/23/10) Related to sz disorder & brain surgery 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) Cerebral Cyst (L parietal cyst): Dr. Antunez [facility] [place] follows Insomnia (Chronic 03/09/10) Amitryp resolved IFG (impaired fasting glucose) (Chronic 04/01/18) Hyperlipidemia (Chronic 12/24/15) 06/2021 labs: 10-year ASCVD risk ~4.9% --> no statin indicated Essential hypertension (Chronic 10/18/11) Endometrium, polyp (Chronic 01/25/16) currently protruding through the exocervix. I have recomended hysteroscopic resection under anesthesia. Coordination problem (Chronic 12/23/10) Hemiparesis; R more than L, mostly resolved Falls (Acute) Focal epilepsy (Chronic) Cyst on brain; [facility] Hemiparesis (Acute) right; Leg>>>arm; due to left parietal cyst Mild developmental delay (Acute) cognitive with right hemiparesis; due to parietal cyst; surgery, seizures Medical History Petit mal seizure status Per sister states she is not aware she has them per her sister states it aroung 1 month ago Nephrolithiasis incidental finding Iron deficiency anemia (05/26/13) Dx'ed Dr. Antunez neuro [facility] [place]; iron replacement worked Thyroid cyst (07/26/16) Most recent US: 01/24/2021 TI-RADS 2, repeat US if clinically necessary Hand fracture Surgical History History of section x2 closed reduction /pinning rgt fifth finger (06/27/16) R 5th digit; 2016; s/p fall Endometrial Biopsy (08/15/12) Dr. Salinas Brain cyst removal, [facility] [place] 04/12/2011; fenestration Family History Father Alcohol abuse Other Adopted Social History Smoking/Tobacco Use Status: Never Smoking risk assessment performed?: Yes Alcohol Intake: never Drug use: Never Substance use type: does not use Caregiver/Support person: No Household members: spouse and children Housing: apartment Number of Children: 1 Communication Needs: None current occupation: Disabled Pets and animals: No Sexually active: Yes Current gender identity: female What type of physical activity do you participate in: walking Duration: 15-30 minutes/day Frequency: daily Seatbelt use: always Water heater temp set <120 deg: Yes Working smoke detector in home: Yes Fire extinguisher in home: Yes Carbon monox detector in home: Yes Firearms in home: No Do you feel safe at home: Yes Do you feel safe in your relationship?: Yes Additional Social history: Unable to assess michael She is ( Deven is a plodding 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 Sister Jeannine helps out with medical care. Signs for self Female Reproductive History Menstrual Menopause type: natural Exam Narrative Exam Narrative: Patient is a well-developed well-nourished female lying on the stretcher in no acute distress. She is mildly hypertensive with a blood pressure 160/81. Heart rate 83 respiratory rate 17 she is afebrile at 36.9. Const General: cooperative, healthy appearing, comfortable, no acute distress, well developed, well groomed and well hydrated Nutritional Appearance: average body habitus and well nourished Orientation: alert, awake and oriented x3 HENMT Head: normal to inspection, normocephalic and atraumatic Ears: hearing grossly normal bilaterally and external ears normal General nose exam: external nose normal, nares normal and no nasal discharge Face and sinus: normal facial exam, sinuses nontender and face symmetric Mouth: oral mucosae normal, lip normal, tongue normal, oropharynx normal, moist mucous membranes and other (Normal phonation. The patient is handling secretions.) Throat: posterior oropharynx normal and uvula midline Eyes General: appearance normal, both eyes and all related structures Eyelids: eyelids normal Conjunctivae: other (Conjunctiva slightly pale) Sclera: sclerae normal Cornea: corneas normal Pupils: PERRL EOM: EOM intact bilaterally and No nystagmus Neck Neck: normal visual inspection, full ROM, no lymphadenopathy, no meningeal signs, trachea midline and supple Lymphatic: no lymphadenopathy noted Chest Chest: normal inspection of the chest Resp Effort & Inspection: normal respiratory effort, able to speak in complete sentences, no audible wheezes, no nasal flaring, no respiratory distress, no retractions, no stridor, not tachypneic, no tracheal deviation, no use of accessory muscles, No prolonged expiratory phase and other (Normal inspiratory to expiratory ratio.) Auscultation: clear to auscultation bilaterally, no rales, no rhonchi, no wheezes and no rubs Tactile Fremitus: tactile fremitus absent Cardio Jugular venous pressure: no JVD Palpation: normal PMI Rate: regular rate Rhythm: regular rhythm Heart Sounds: S1 normal, S2 normal, no gallops, no murmurs and no rubs GI Inspection: normal to inspection and non-distended Palpation: soft, no hepatosplenomegaly, no guarding and nontender Percussion: normal to percussion Auscultation: normal bowel sounds General: No CVA tenderness Other: No numbness or tingling of the buttocks. Back/Spine/Pelvis Back: no CVA tenderness and No back tenderness Cervical Spine: normal cervical lordosis, cervical ROM normal, No cervical muscular tenderness, No pain with cervical ROM, No cervical spinal tenderness and No step off deformity Thoracic/Lumbar Spine: thoracic and lumbar spine normal to inspection, No thoracic spinal tenderness and No lumbar spinal tenderness Pelvis: no pain with anterior-posterior compression and no pain with lateral compression Sacrum: no swelling and no tenderness Coccyx: no swelling and no tenderness Other: The patient has mild paraspinous tenderness in the lumbar region. There is no step-off, bony crepitus or point tenderness of the LS spine, sacrum or coccyx. Skin General skin exam: turgor normal, no petechiae, no purpura and other (Her skin is slightly pale for ethnicity.) Rashes: no rashes Other: Patient has scattered ecchymoses of her upper and lower extremities of varying ages. She also has an abrasion over her right elbow from fall that she took several days ago. Neuro General: patient alert, patient awake, patient oriented x3, moves all extremities, no meningeal signs, no focal motor deficits and CN's II-XI intact bilaterally Cranial Nerves: CN's II-XI intact bilaterally, PERRL, accommodation normal, EOM intact bilaterally, no nystagmus, facial strength normal, tongue midline, hearing normal and no nystagmus Cognition: normal cognition Speech: speech normal Motor: muscle tone normal throughout and strength 5/5 throughout Sensory Exam: no sensory deficits noted DTR's: Rt Biceps: 2+, Lt Biceps: 2+, Rt Brachioradialis: 2+, Lt Brachioradialis: 2+, Rt Patellar: 2+, Lt Patellar: 2+, Rt Ankle: 1+ and Lt Ankle: 1+ Plantar Reflexes: Downgoing: bilateral Pupils: Normal pupillary reactivity/response: bilateral Other: I cannot appreciate any weakness in her arms. No sensory deficits. She has equal hand grasps and is able to lift both legs off the stretcher but appears to have mild weakness of the hip flexors on the right compared to the left. No sensory deficits symmetric reflexes. Extrem General: capillary refill normal, no clubbing, cyanosis or edema and no calf tenderness Other: Please see above. She does have an abrasion over the right elbow and bruises of varying ages of her arms and legs. There is no bony crepitus. No point tenderness. No deformity she is neurovascularly intact in all 4 extremities. Psych Appearance: grossly normal Affect: normal affect Attitude: cooperative Thought Process: normal Thought Content: normal Insight: insight good Judgment: judgment good Other: The patient appears to have capacity make medical decisions. Course 6:57 AM: I have reviewed the patient's labs and radiographs with the patient. She is ready for discharge. I have advised her to avoid nonsteroidal anti-inflammatories because of her renal disease and to follow-up with her primary care provider and to return here for any new or worrisome symptoms. She voiced understanding and agreement with the discharge plan. All her questions and concerns were addressed prior to discharge. 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
[2023-09-02 03:42] LABS: Abs Immature Grans 0.02 10^3/uL (0.0-0.06); Absolute Basophil Count 0.02 10^3/uL (0.0-0.2); Absolute Eosinophil Count 0.13 10^3/uL (0.0-0.7); Absolute Lymphocyte Count 1.39 10^3/uL (1.2-3.4); Absolute Monocyte Count 0.43 10^3/uL (0.1-0.8); Absolute Neutrophil Count 2.34 10^3/uL (1.2-6.7); Basophils % 0.5; HCT 33.1 % (36.0-46.0); HGB 10.7 g/dL (11.2-15.7); Immature Grans % 0.5; Lymphocytes % 32.1; MCH 29.2 pg (27.0-33.0); MCHC 32.3 % (32.0-36.0); MCV 90 fL (80-95); MPV 9.1 fL (8.0-11.0); Monocytes % 9.9; Platelet Count 235 10^3/uL (130-400); RBC 3.66 10^6/uL (3.93-5.22); RDW 13.8 % (11.7-14.6); RDW-SD 45.5 fL; WBC 4.33 10^3/uL (4.4-10.8)
[2023-09-02] MEDS: ACETAMINOPHEN 1,000 MG/100 ML BTL 400 MG IVPB (03:42)
[2023-09-02] MEDS: Normal Saline 1,000 ML 1000 ML IV (03:43)
[2023-09-02 03:58] LABS: ALT 17 U/L (14-59); AST 13 U/L (15-37); Albumin 3.3 g/dL (3.4-5.0); Alkaline Phosphatase 91 U/L (46-116); Anion Gap 9.6 mmol/L (3-11); BUN 11 mg/dL (7-18); Bilirubin, Total 0.4 mg/dL (0.2-1.0); CO2 25.4 mmol/L (21.0-32.0); CREATININE 1.3 mg/dL (0.55-1.02); Calcium 9.5 mg/dL (8.5-10.1); Chloride 105 mmol/L (98-107); Estimated GFR 46.78 (mL/min/1.73m2); Glucose 104 mg/dL (74-106); PTT Activated 27.7 sec (23.6-32.8); Potassium 3.9 mmol/L (3.5-5.1); Prothrombin Time 10.1 sec (9.1-11.1); Sodium 140 mmol/L (136-145); Total Protein 6.6 g/dL (6.4-8.2)
--- NOTE | 2023-09-02 06:13 | DI.VRAD_ITS ---
PROCEDURE INFORMATION: Exam: XR Lumbosacral Spine Exam date and time: 09/02/2023 4:16 AM Age: 63 years old Clinical indication: Injury or trauma; Fall; Blunt trauma (contusions or hematomas); Additional info: Best images obtained due to pt's lack of range of motion and body habitus TECHNIQUE: Imaging protocol: Radiologic exam of the lumbosacral spine. Views: 4 or 5 views. COMPARISON: CR XR LUMBAR SPINE COMPLETE 05/07/2023 1:18 PM FINDINGS: Bones/joints: Mild spondylotic spurring. No evidence of fracture. No significant disc space narrowing Soft tissues: Unremarkable. IMPRESSION: Mild degenerative change otherwise negative Dictated and Authenticated by: Kisha Taylor MD. Ordering:NYASIA Meraz MD
[2023-09-02 06:22] LABS: Bilirubin Small (Negative); Blood Negative (Negative); Clarity Sl Cloudy (Clear); Glucose Negative (Negative); Ketones 15 mg/dL (Negative); Leukocyte Esterase Negative (Negative); Nitrite Negative (Negative); Specific Gravity >= 1.030 (1.005-1.025); pH 5.5 (5-8)
[2023-09-02 06:29] LABS: Bacteria Few HPF (Negative); C & S Indicated? No/Sq. Contamination; Casts 0-2 Hyaline LPF (Negative); Crystals Negative HPF (Negative); Epithelial Cells Moderate HPF (Negative); Mucus Trace (Negative); RBC 0-2 HPF (0-2); WBC 0-2 HPF (0-5)
== END 2023-09-02 07:46 | disposition home or self-care (01) ==
PROVIDERS: Emergency Provider Emergency Medicine Emergency Medical Services; PCP Nurse Practitioner Family
DX: M54.50 Low back pain, unspecified (principal); N18.9 Chronic kidney disease, unspecified; W19.XXXA Unspecified fall, initial encounter
CPT/HCPCS: 36415; 36416; 80053; 82962; 96365; 96366; 99284; 72110; 81003; 81015; 85025; 85610; 85730; J0131

== ENCOUNTER 2023-10-08 22:04 | Emergency (ER) | payer MEDICARE, OTHER, SELFPAY ==
[2023-10-08] VITALS (14 sets, daily range): BP systolic 149–179; BP diastolic 83–98; PULSE 85–116; RESP 15–21; TEMP 36.4
--- NOTE | 2023-10-08 22:00 | RT.EKG_ITS ---
APPROVED REPORT Exam: Resting ECG Reason for Exam: dizziness Patient Location: E HR:90 bpm ECG Measurements Heart Rate 90 AXIS MS 165 P 24 QRSd 97 QRS -21 QT 389 T -8 QTc 477 Conclusion Sinus rhythm.. V-rate 60- [address] segment or T wave abnormalities to suggest occlusive [place]
--- NOTE | 2023-10-08 22:42 | W.ED.GENAD ---
HPI General Mode of arrival: EMS. Date/Time Provider Initiated Documentation: 10/08/23 22:17. Limitations to Documentation: no limitations. Information obtained by: patient, EMS and old records reviewed. HPI Narrative: 63yo F remote hx of brain cyst excision, migraines, seizure disorder, vertigo, CKD, HTN, HLD, presenting for episode of dizziness and difficulty ambulating. History from patient, EMS, [facility] record review. Has recurrent vertigo, been seen in this ED in the past for such. Today felt 'dizzy' (difficult to clarify whether vertigo or presyncope) and was unable to get out of her chair and walk. No falls. No focal weakness. No numbness or tingling. Took meclizine which seemed to improve her symptoms. She is otherwise in her usual state of health with no fevers, chills, rash, nasuea, vomiting, abdominal pain, chest pain, shortness of breath, palpitations, dysuria, hematuria, or other concerns. Related Data Home Medications Medication Instructions Recorded Confirmed acetaminophen 325 mg tablet 650 mg (2 x 325 mg) PO Q4H PRN PRN 06/27/16 10/08/23 (Tylenol) lisinopril 10 mg tablet 10 mg PO DAILY #90 tabs 09/13/22 10/08/23 lamotrigine 200 mg tablet 200 mg PO See Instructions #270 06/11/23 10/08/23 (Lamictal) tab-caps levetiracetam 750 mg tablet 750 mg PO BID #180 tab-caps 06/11/23 10/08/23 amitriptyline 50 mg tablet 50 mg PO QHS #90 tabs 07/30/23 10/08/23 meclizine 25 mg tablet 25 mg PO DAILY PRN dizziness #10 08/27/23 10/08/23 tabs Previous Rx's Medication Instructions Recorded acetaminophen 325 mg tablet 650 mg (2 x 325 mg) PO Q4H PRN PRN 06/27/16 (Tylenol) lisinopril 10 mg tablet 10 mg PO DAILY #90 tabs 09/13/22 lamotrigine 200 mg tablet 200 mg PO See Instructions #270 06/11/23 (Lamictal) tab-caps levetiracetam 750 mg tablet 750 mg PO BID #180 tab-caps 06/11/23 amitriptyline 50 mg tablet 50 mg PO QHS #90 tabs 07/30/23 meclizine 25 mg tablet 25 mg PO DAILY PRN dizziness #10 08/27/23 tabs Allergies Allergy/AdvReac Type Severity Reaction Status Date / Time hydrocortisone Allergy Unknown SKIN RASH Verified 10/08/23 22:20 adhesive AdvReac Intermediate skin rash Verified 10/08/23 22:20 NSAIDS (Non-Steroidal AdvReac Other (See Verified 10/08/23 22:20 Anti-Inflamma Comment) baby powder Allergy Intermediate Contraindic Uncoded 10/08/23 22:20 ated pine trees Allergy Intermediate Uncoded 10/08/23 22:20 General Stated Complaint: Dizzy/Sync TAWNY: 3 Review of Systems Narrative: see HPI Exam Narrative Exam Narrative: General: Alert, well appearing, well nourished, in no acute distress. Head: Normocephalic, atraumatic Neck: Trachea midline, ?Neck supple. ENT: ?MMM.? No oropharygeal lesions or exudate. Cardiac: ?RRR, no murmurs appreciated Resp: No respiratory distress. CTAB. Abd: ?Soft, non-distended, nontender : ?No suprapubic tenderness. Extremities: ?No deformities.? No peripheral edema. Neuro: ? GCS 15. Fluent speech, no dysarthria. Motor- 5/5 strength symmetric bilateral upper and lower extremities including shoulder abductors/adductors, elbow flexors/extensors, wrist flexors/extensors, finger abductors/adductors, hipflexors/extensors, knee flexors/extensors, ankle dorsiflexors and planter flexors. Sensation- ?Intact to light touch and symmetric multiple dermatomes including upper and lower extremities Coordination- No dysmetria on finger to nose Reflexes- 2/4 achilles & patellar, no clonus Gait/station: ?Normal stance.? No truncal ataxia. Steady gait with equal normal steps CRANIAL NERVES: II: Pupils equal and reactive, III, IV, : EOM intact, no gaze preference or deviation, no nystagmus. V: normal sensation in V1, V2, and V3 segments bilaterally VII: no asymmetry, no nasolabial fold flattening VIII: normal hearing to speech IX, X: normal palatal elevation, no uvular deviation XI: 5/5 head turn and 5/5 shoulder shrug bilaterally XII: midline tongue protrusion Course Vital Signs Vital signs: Vital Signs Temperature 36.4 C L 10/08/23 22:09 Pulse 90 10/08/23 22:09 Respiratory Rate 21 10/08/23 22:09 Blood Pressure 156/83 H 10/08/23 22:09 Temperature 36.4 C L 10/08/23 22:09 Temperature Source Tympanic 10/08/23 22:09 Pulse 90 10/08/23 22:09 Respiratory Rate 21 10/08/23 22:09 Respiratory Effort Normal, Non-Labored 10/08/23 22:15 Respiratory Depth Normal 10/08/23 22:15 Respiratory Pattern Normal 10/08/23 22:15 Blood Pressure 156/83 H 10/08/23 22:09 Oxygen Delivery Method Room Air 10/08/23 22:09 Oxygen Flow Rate 0 10/08/23 22:09 Pain Level 0 10/08/23 22:09 Medical Decision Making 63yo F with developmental delay, remote hx of brain cyst excision, migraines, seizure disorder, vertigo, CKD, HTN, HLD, presenting for episode of dizziness and difficulty ambulating. History from patient, EMS, [facility] record review. Has recurrent vertigo, been seen in this ED in the past for such. Today felt 'dizzy' (difficult to clarify whether vertigo or presyncope) and was unable to get out of her chair and walk. No falls. No other symptoms. Took meclizine which seemed to improve her dizziness. Vital signs and physical exam reassuring, normal neurologic exam. [facility] records reviewed including ED visit notes 09/02/23, 08/26/23, 08/05/23. CTA head on 08/26 visit for similar symptoms with no indication of CVA, was treated with meclizine with improvement. Would not repeat CT imaging at this time given normal neurologic exam and no change in symptoms. Followup visit note on 08/28 indicated neurology appointment scheduled for 10/02, patient states she was not able to make this appointment and that it has been rescheduled (she is not sure when). Given difficulty to clarify whether symptoms are vertiginous vs presyncopal, will get EKG and screening labs. EKG NSR, appropriate intervals, not ST segment or T wave abnormalities to suggest occlusive [place]. Labs reviewed as below, CBC reassuring with no anemia or leukocytosis, CMP with normal electrolytes. Orthostatic vital signs reassuring. Ambulatory trial with walker (uses at home) went well, able to ambulate without difficulty and without symptoms. On reassessment she remains well appearing with a normal neurologic exam. Discharged home; discharge instructions and reutrn precautions were reviewed with patient who verbalized understanding. All questions were answered and she is in full agreement with the plan. Medical Records Medical records reviewed: Yes I reviewed the patient's medical records. Lab Data Lab results reviewed: Yes I reviewed the patient's lab results. Labs: Laboratory Tests Range/Units 10/08/23 22:55 WBC (4.4-10.8) 10^3/uL 5.51 RBC (3.93-5.22) 10^6/uL 4.08 Hgb (11.2-15.7) g/dL 11.8 Hct (36.0-46.0) % 36.3 MCV (80-95) fL 89 MCH (27.0-33.0) pg 28.9 MCHC (32.0-36.0) % 32.5 RDW (11.7-14.6) % 13.4 Plt Count (130-400) 10^3/uL 261 MPV (8.0-11.0) fL 9.3 Immature Gran % 0.2 Neutrophils % 65.2 Lymphocytes % 22.7 Monocytes % 8.9 Eosinophils % 2.5 Basophils % 0.5 Nucleated RBC % (0.0-0.3) % 0.0 Absolute Neutrophils (1.2-6.7) 10^3/uL 3.59 Absolute Lymphocytes (1.2-3.4) 10^3/uL 1.25 Absolute Monocytes (0.1-0.8) 10^3/uL 0.49 Absolute Eosinophils (0.0-0.7) 10^3/uL 0.14 Absolute Basophils (0.0-0.2) 10^3/uL 0.03 Sodium (136-145) mmol/L 138 Potassium (3.5-5.1) mmol/L 4.1 Chloride (98-107) mmol/L 100 Carbon Dioxide (21.0-32.0) mmol/L 26.9 Anion Gap (3-11) mmol/L 11.1 H BUN (7-18) mg/dL 9 Creatinine (0.55-1.02) mg/dL 1.2 H Est GFR (CKD-EPI 2020) (mL/min/1.73m2) 51.50 Glucose (74-106) mg/dL 97 Calcium (8.5-10.1) mg/dL 10.0 Total Bilirubin (0.2-1.0) mg/dL 0.4 AST (15-37) U/L 13 L ALT (14-59) U/L 16 Alkaline Phosphatase (46-116) U/L 111 Total Protein (6.4-8.2) g/dL 7.6 Albumin (3.4-5.0) g/dL 3.4 Quality:SDOH Health Related Social Needs: No Data to Display PFSH All Active Problems (Updated 10/08/23 @ 23:52 by Chante Gutierrez MD) Dizziness (Acute) Fall (Acute) Delirium (Acute) Dizziness (Acute) CKD (chronic kidney disease) (Chronic) Encounter for screening colonoscopy (Acute) Menorrhagia (Chronic) EMBx 2011: benign. Repeat EMBx 2013: benign proliferative endometrium, started on norethindrone, pt counseled re: endometrial ablation. CKD (chronic kidney disease) (Chronic) 12/2015 [place] [facility] bilateral and symmetric renal cortical thinning consistent with patient's known history of CKD Sleep apnea (Chronic 06/09/13) CPAP Primary osteoarthritis of left knee (Chronic 01/03/17) Obesity (Chronic 05/15/13) Migraine without aura (Chronic 05/28/09) Memory impairment (Chronic 12/23/10) Related to sz disorder & brain surgery 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) Cerebral Cyst (L parietal cyst): Dr. Antunez [facility] [place] follows Insomnia (Chronic 03/09/10) Amitryp resolved IFG (impaired fasting glucose) (Chronic 04/01/18) Hyperlipidemia (Chronic 12/24/15) 06/2021 labs: 10-year ASCVD risk ~4.9% --> no statin indicated Essential hypertension (Chronic 10/18/11) Endometrium, polyp (Chronic 01/25/16) currently protruding through the exocervix. I have recomended hysteroscopic resection under anesthesia. Coordination problem (Chronic 12/23/10) Hemiparesis; R more than L, mostly resolved Falls (Acute) Focal epilepsy (Chronic) Cyst on brain; [facility] Neurology Hemiparesis (Acute) right; Leg>>>arm; due to left parietal cyst Mild developmental delay (Acute) cognitive with right hemiparesis; due to parietal cyst; surgery, seizures Medical History Petit mal seizure status Per sister states she is not aware she has them per her sister states it aroung 1 month ago Nephrolithiasis incidental finding Iron deficiency anemia (05/26/13) Dx'ed Dr. [place]unez [place] [facility]; iron replacement worked Thyroid cyst (07/26/16) Most recent US: 01/24/2021 TI-RADS 2, repeat US if clinically necessary Hand fracture Surgical History History of section x2 closed reduction /pinning rgt fifth finger (06/27/16) R 5th digit; 2016; s/p fall Endometrial Biopsy (08/15/12) Dr. Salinas Brain cyst removal, [facility] 04/12/[place]; fenestration Family History Father Alcohol abuse Other Adopted Social History Smoking/Tobacco Use Status: Never Smoking risk assessment performed?: Yes Alcohol Intake: never Drug use: Never Substance use type: does not use Caregiver/Support person: No Household members: spouse and children Housing: apartment Number of Children: 1 Communication Needs: None current occupation: Disabled Pets and animals: No Sexually active: Yes Current gender identity: female What type of physical activity do you participate in: walking Duration: 15-30 minutes/day Frequency: daily Seatbelt use: always Water heater temp set <120 deg: Yes Working smoke detector in home: Yes Fire extinguisher in home: Yes Carbon monox detector in home: Yes Firearms in home: No Do you feel safe at home: Yes Do you feel safe in your relationship?: Yes Additional Social history: Unable to assess michael She is ( Deven is a computer installation engineer) and she states that he cant walk or talk . Sister Jeannine helps out with medical care. Signs for self Female Reproductive History Menstrual Menopause type: natural Discharge Plan Disposition Patient Disposition: Home Condition: Good Discharge Details Clinical Impression: Dizziness Primary Care Provider: Yasmin Millard ED Provider: Chante Gutierrez Home Meds and New Rx's Prescriptions: No Action lisinopril 10 mg tablet 10 mg PO DAILY Qty: 90 3RF Rx Instructions: DX: BLOOD PRESSURE lamotrigine [Lamictal] 200 mg tablet 200 mg PO See Instructions Qty: 270 3RF Rx Instructions: FOR SEIZURES - ok for generic Take 1 tablet in the AM & 2 tablets in the PM levetiracetam 750 mg tablet 750 mg PO BID Qty: 180 3RF amitriptyline 50 mg tablet 50 mg PO QHS Qty: 90 3RF acetaminophen [Tylenol] 325 MG tablet 650 mg PO Q4H PRN PRN0RF meclizine 25 mg tablet 25 mg PO DAILY PRN (Reason: dizziness) Qty: 10 0RF Discharge Instructions Instructions: Dizziness (ED) Additional Instructions: Keep your appointment with neurology. Call your primary care doctor today to schedule an appointment within 3 days to followup on your visit here. Return to the emergency department for new or worsening symptoms. Referrals: Yasmin Millard NP [Primary Care Provider] -
[2023-10-08 23:13] LABS: Abs Immature Grans 0.01 10^3/uL (0.0-0.06); Absolute Basophil Count 0.03 10^3/uL (0.0-0.2); Absolute Eosinophil Count 0.14 10^3/uL (0.0-0.7); Absolute Lymphocyte Count 1.25 10^3/uL (1.2-3.4); Absolute Monocyte Count 0.49 10^3/uL (0.1-0.8); Absolute Neutrophil Count 3.59 10^3/uL (1.2-6.7); Basophils % 0.5; Eosinophils % 2.5; HCT 36.3 % (36.0-46.0); HGB 11.8 g/dL (11.2-15.7); Immature Grans % 0.2; Lymphocytes % 22.7; MCH 28.9 pg (27.0-33.0); MCHC 32.5 % (32.0-36.0); MCV 89 fL (80-95); MPV 9.3 fL (8.0-11.0); Monocytes % 8.9; Neutrophils % 65.2; Platelet Count 261 10^3/uL (130-400); RBC 4.08 10^6/uL (3.93-5.22); RDW 13.4 % (11.7-14.6); RDW-SD 43.6 fL; WBC 5.51 10^3/uL (4.4-10.8)
[2023-10-08 23:29] LABS: ALT 16 U/L (14-59); AST 13 U/L (15-37); Albumin 3.4 g/dL (3.4-5.0); Alkaline Phosphatase 111 U/L (46-116); Anion Gap 11.1 mmol/L (3-11); BUN 9 mg/dL (7-18); Bilirubin, Total 0.4 mg/dL (0.2-1.0); CO2 26.9 mmol/L (21.0-32.0); CREATININE 1.2 mg/dL (0.55-1.02); Chloride 100 mmol/L (98-107); Glucose 97 mg/dL (74-106); Potassium 4.1 mmol/L (3.5-5.1); Sodium 138 mmol/L (136-145); Total Protein 7.6 g/dL (6.4-8.2)
== END 2023-10-09 02:02 | disposition home or self-care (01) ==
PROVIDERS: Emergency Provider Student in an Organized Health Care Education/Training Program; PCP Nurse Practitioner Family
DX: R42 Dizziness and giddiness (principal); R53.1 Weakness; I12.9 Hypertensive chronic kidney disease with stage 1 through stage 4 chronic kidney disease, or unspecified chronic kidney disease; N18.9 Chronic kidney disease, unspecified; G40.909 Epilepsy, unspecified, not intractable, without status epilepticus; E78.5 Hyperlipidemia, unspecified; R62.50 Unspecified lack of expected normal physiological development in childhood
CPT/HCPCS: 80053; 93005; 99284; 85025; 93010; 99283

== ENCOUNTER → 2023-10-09 10:28 | Outpatient (BNVA) | payer MEDICARE, OTHER, SELFPAY | PROVIDERS: PCP Nurse Practitioner Family; Referring Provider Nurse Practitioner Family; Visit Provider Psychiatry & Neurology Neurology ==

== ENCOUNTER 2023-10-09 11:39 | Emergency (ER) | payer MEDICARE, OTHER, SELFPAY ==
[2023-10-09 11:33] VITALS: BP 154/86; PULSE 84; RESP 18; TEMP 36.8; O2SAT 97
[2023-10-09 11:38] VITALS: RESP 18
--- NOTE | 2023-10-09 11:45 | DI.CT_ITS ---
Exam(s) CT BRAIN NECK CTA EXAM: CT BRAIN NECK CTA CLINICAL HISTORY: dizziness, multiple falls. TECHNIQUE: Imaging Protocol: Axial CT angiography was performed with multi-slice acquisition and mu lti-planar and/or 3D reconstructions. CONTRAST MATERIAL: Intravenous: Omnipaque 350 contrast volume:85 mL COMPARISON: CT CT HEAD WO from 07/10/[address] BRAIN NECK CTA from 08/05/[address] HEAD WO from 08/11/[address] BRAIN NECK CTA from 08/26/2023 FINDINGS: CT Head W/O and W: Ventricles and Extra axial spaces: Normal in size and morphology for the patient's age. The large cys tic area in the posterior left parietal lobe is unchanged. Hemorrhage: None. Cerebral parenchyma: No acute mass effect. Subtle areas of decreased attenuation are seen in the whi te matter likely reflecting small vessel ischemic disease. Midline shift: None. Brainstem/Cerebellum: Normal. Calvarium: Normal. Postsurgical changes are again seen in the high left parietal bone. Visualized Paranasal sinuses/Mastoids: Small mucous retention cyst is seen in the right sphenoid sinu s. The remaining visualized paranasal sinuses are clear. Soft Tissues: Unremarkable. Enhancement: Unremarkable. CTA Neck W: Common Carotid: Right: No dissection, occlusion or significant stenosis. Left: No dissection, occlusion or significant stenosis. External Carotid: Right: No occlusion or significant stenosis. Left: No occlusion or significant stenosis. Internal Carotid: Right: No dissection, occlusion or significant stenosis. Left: No dissection, occlusion or significant stenosis. Vertebral Artery: Right: No dissection, occlusion or significant stenosis. Left: No dissection, occlusion or significant stenosis. Lung Apices: Normal. Bones: Within normal limits for the patient's age. Soft Tissues: Normal. Thyroid gland: Stable thyroid nodules. No follow-up is recommended. CTA Brain W: Internal Carotid Arteries: Normal. Anterior Cerebral Arteries: Right: No aneurysm, occlusion or significant stenosis. Left: No aneurysm, occlusion or significant stenosis. Middle Cerebral Arteries: Right: No aneurysm, occlusion or significant stenosis. Left: No aneurysm, occlusion or significant stenosis. Posterior Cerebral Arteries: Right: No aneurysm, occlusion or significant stenosis. Left: No aneurysm, occlusion or significant stenosis. Vertebral Arteries: Right: No aneurysm, occlusion or significant stenosis. Left: No aneurysm, occlusion or significant stenosis. Basilar Artery: No aneurysm, occlusion or significant stenosis. IMPRESSION: 1. No large vessel occlusion or significant stenosis on the CT angiography of the head. 2. No acute intracranial process. 3. Stable appearance of the brain compared to the prior examination. 4. No occlusion or significant stenosis on the CT angiography of the neck. 5. Findings were discussed with the emergency department at 12:58 p.m. on 10/09/2023. RADIATION DOSE DELIVERED: 2,149.83mGy.cm Total DLP DATA REPOSITORY: All CT scans at this facility are submitted to the National Radiology Data Registry (NRDR) Dose Index Registry (DIR) with the [employer] [place] [employer] [employer] (A[employer]). RADIATION OPTIMIZATION: All CT scans at this facility use at least one of these dose optimization te chniques: automated exposure control; mA and/or kV adjustment per patient size (includes targeted exa ms where dose is matched to clinical indication); or iterative reconstruction.
--- NOTE | 2023-10-09 11:45 | DI.RAD_ITS ---
Exam(s) XR CHEST 2V PA LATERAL EXAM: XR CHEST 2V PA LATERAL CLINICAL HISTORY: dizziness TECHNIQUE: 2D digital imaging was performed of the chest. Two images were obtained. PA and lateral views were obtained. COMPARISON: CR,XR XR CHEST 2V PA LATERAL from 08/26/2023 FINDINGS: MEDIASTINUM: Normal. HEART: Normal. PULMONARY VASCULATURE: Normal. LUNGS: Clear. PLEURAL SPACE: No pleural effusion or pneumothorax. BONE:Within normal limits for the patient's age. OTHER FINDINGS:On the AP view in the midline, there is a curvilinear lucency projected over the spine which appears to be extrinsic. No findings to suggest pneumoperitoneum is seen. IMPRESSION: No acute pulmonary findings. DATA REPOSITORY: RADIATION DOSE DELIVERED:
[2023-10-09] MEDS: Omnipaque 350 MG/ML 100 ML BTL IJ ×2 (12:04→12:42)
[2023-10-09] MEDS: Normal Saline - Diluent 50 ML VIAL IJ (12:05)
[2023-10-09 12:16] LABS: Carboxyhemoglobin 2.2 %
[2023-10-09 12:19] LABS: Abs Immature Grans 0.02 10^3/uL (0.0-0.06); Absolute Basophil Count 0.03 10^3/uL (0.0-0.2); Absolute Eosinophil Count 0.09 10^3/uL (0.0-0.7); Absolute Lymphocyte Count 1.16 10^3/uL (1.2-3.4); Absolute Monocyte Count 0.54 10^3/uL (0.1-0.8); Absolute Neutrophil Count 4.16 10^3/uL (1.2-6.7); Basophils % 0.5; Eosinophils % 1.5; HCT 38.1 % (36.0-46.0); HGB 12.8 g/dL (11.2-15.7); Immature Grans % 0.3; Lymphocytes % 19.3; MCH 29.5 pg (27.0-33.0); MCHC 33.6 % (32.0-36.0); MCV 88 fL (80-95); MPV 9.3 fL (8.0-11.0); Neutrophils % 69.4; Platelet Count 280 10^3/uL (130-400); RBC 4.34 10^6/uL (3.93-5.22); RDW 13.5 % (11.7-14.6); RDW-SD 43.5 fL
[2023-10-09 12:32] LABS: PTT Activated 29.3 sec (23.6-32.8); Prothrombin Time 10.1 sec (9.1-11.1)
[2023-10-09 12:35] LABS: ALT 22 U/L (14-59); AST 16 U/L (15-37); Alkaline Phosphatase 121 U/L (46-116); Anion Gap 10.6 mmol/L (3-11); BUN 9 mg/dL (7-18); Bilirubin, Total 0.5 mg/dL (0.2-1.0); CO2 26.4 mmol/L (21.0-32.0); CREATININE 1.4 mg/dL (0.55-1.02); Calcium 10.4 mg/dL (8.5-10.1); Chloride 100 mmol/L (98-107); Glucose 104 mg/dL (74-106); Potassium 4.3 mmol/L (3.5-5.1); Sodium 137 mmol/L (136-145); Total Protein 8.6 g/dL (6.4-8.2)
[2023-10-09 12:44] LABS: Magnesium 2.1 mg/dL (1.8-2.4); Salicylate < 2.8 mg/dL (<2.8); Troponin I < 50 ng/L (< or =60)
--- NOTE | 2023-10-09 12:45 | DI.MRI_ITS ---
Exam(s) MR BRAIN WO EXAM: MR BRAIN WO CLINICAL HISTORY: hx of cerebral cyst, recurrent worsening dizziness TECHNIQUE: Multiplanar multisequence MRI of the brain was performed. COMPARISON: MR MR BRAIN WO from 08/13/2023 FINDINGS: The examination is limited due to patient motion artifact. VENTRICLES AND EXTRA AXIAL SPACES: Normal in size and morphology for the patient's age. MIDLINE SHIFT: None. CEREBRAL PARENCHYMA: No focus of restricted diffusion to suggest acute infarct. No space-occupying le asuncion identified. The cystic area in the surgical bed in the left parietal lobe appears stable. HEMORRHAGE: None. BRAINSTEM/CEREBELLUM: Normal. CALVARIUM: Normal. The patient has had a prior parietal craniotomy. VISUALIZED PARANASAL SINUSES/MASTOIDS:There is again seen a mucous retention cyst in the right spheno id sinus. The visualized paranasal sinuses are otherwise clear. [place]: Normal flow void. PITUITARY GLAND: Unremarkable. OTHER FINDINGS: None. IMPRESSION: 1. Stable postsurgical changes in the left parietal lobe. 2. No evidence of an acute infarct. 3. Findings were discussed with the emergency department at 2:24 p.m. on 10/09/2023. DATA REPOSITORY:
[2023-10-09 12:55] LABS: Acetaminophen < 2 ug/mL (10-30)
[2023-10-09] MEDS: Normal Saline 500 ML 1000 ML IV (12:58)
[2023-10-09] MEDS: Meclizine 25 MG TAB PO (12:58)
--- NOTE | 2023-10-09 13:21 | W.ED.GENAD ---
HPI General Date/Time Provider Initiated Documentation: 10/09/23 11:42. HPI Narrative: 63-year-old female history of cerebral cyst presents with acute on chronic dizziness and falls, was seen in neurology office today had multiple falls over the last couple of days and was unable to ambulate upon examination in office, neurology staff concerned that patient is not suitable/safe for home given ambulatory dysfunction despite use of walker and cane. No change in speech no change in consciousness no focal weakness. No seizure activity today. Related Data Home Medications Medication Instructions Recorded Confirmed acetaminophen 325 mg tablet 650 mg (2 x 325 mg) PO Q4H PRN PRN 06/27/16 10/09/23 (Tylenol) lisinopril 10 mg tablet 10 mg PO DAILY #90 tabs 09/13/22 10/09/23 lamotrigine 200 mg tablet 200 mg PO See Instructions #270 06/11/23 10/09/23 (Lamictal) tab-caps levetiracetam 750 mg tablet 750 mg PO BID #180 tab-caps 06/11/23 10/09/23 amitriptyline 50 mg tablet 50 mg PO QHS #90 tabs 07/30/23 10/09/23 meclizine 25 mg tablet 25 mg PO DAILY PRN dizziness #10 08/27/23 10/09/23 tabs Previous Rx's Medication Instructions Recorded acetaminophen 325 mg tablet 650 mg (2 x 325 mg) PO Q4H PRN PRN 06/27/16 (Tylenol) lisinopril 10 mg tablet 10 mg PO DAILY #90 tabs 09/13/22 lamotrigine 200 mg tablet 200 mg PO See Instructions #270 06/11/23 (Lamictal) tab-caps levetiracetam 750 mg tablet 750 mg PO BID #180 tab-caps 06/11/23 amitriptyline 50 mg tablet 50 mg PO QHS #90 tabs 07/30/23 meclizine 25 mg tablet 25 mg PO DAILY PRN dizziness #10 08/27/23 tabs Allergies Allergy/AdvReac Type Severity Reaction Status Date / Time hydrocortisone Allergy Unknown SKIN RASH Verified 10/09/23 11:37 adhesive AdvReac Intermediate skin rash Verified 10/09/23 11:37 NSAIDS (Non-Steroidal AdvReac Other (See Verified 10/09/23 11:37 Anti-Inflamma Comment) baby powder Allergy Intermediate Contraindic Uncoded 10/09/23 11:37 ated pine trees Allergy Intermediate Uncoded 10/09/23 11:37 General Stated Complaint: Dizzy/Sync TAWNY: 3 Review of Systems Narrative: Review of Systems Constitutional: negative Eyes: negative ENT: negative Cardiovascular: negative Respiratory: negative Gastrointestinal: negative : negative Musculoskeletal: negative Skin: negative Neurologic: Dizziness Psych: negative Exam Narrative Exam Narrative: Physical Examination General: alert, awake, cooperative, resting comfortably, no acute distress HEENT: normocephalic, atraumatic; PERRL, EOM intact, conjunctiva normal; no nasal discharge; moist mucous membranes, oral and pharyngeal mucosa normal, tolerating secretions Neck: supple, trachea midline; full ROM Chest: normal to inspection Respiratory: normal respiratory effort, speaking in full sentences, clear to auscultation, no wheezing, rales or rhonchi Cardiac: regular rate, regular rhythm, S1S2 intact, no murmurs rubs or gallops GI: abdomen soft, non-tender, non-distended; no palpable mass or hepatosplenomegaly Skin: no lesions, rashes or trauma appreciated Neuro: AAOx3, normal speech, moving all extremities, 5-5 strength upper and lower extremities bilaterally, no sensory deficits, no truncal ataxia Psych: Appropriate mood and affect Course Vital Signs Vital signs: Vital Signs Temperature 36.8 C 10/09/23 11:33 Pulse 84 10/09/23 11:33 Respiratory Rate 18 10/09/23 11:33 Blood Pressure 154/86 H 10/09/23 11:33 Pulse Oximetry 97 10/09/23 11:33 Temperature 36.8 C 10/09/23 11:33 Temperature Source Oral 10/09/23 11:33 Pulse 84 10/09/23 11:33 Respiratory Rate 18 10/09/23 11:38 Respiratory Effort Normal 10/09/23 11:38 Respiratory Depth Normal 10/09/23 11:38 Respiratory Pattern Normal 10/09/23 11:38 Blood Pressure 154/86 H 10/09/23 11:33 Blood Pressure Position Sitting 10/09/23 11:33 Pulse Oximetry 97 10/09/23 11:33 Oxygen Delivery Method Room Air 10/09/23 11:33 Oxygen Flow Rate 0 10/09/23 11:33 Pain Level 0 10/09/23 11:33 Lab/Test Results Lab/Test Results: Laboratory Tests Range/Units 10/09/23 12:05 WBC (4.4-10.8) 10^3/uL 6.00 RBC (3.93-5.22) 10^6/uL 4.34 Hgb (11.2-15.7) g/dL 12.8 Hct (36.0-46.0) % 38.1 MCV (80-95) fL 88 MCH (27.0-33.0) pg 29.5 MCHC (32.0-36.0) % 33.6 RDW (11.7-14.6) % 13.5 Plt Count (130-400) 10^3/uL 280 MPV (8.0-11.0) fL 9.3 Immature Gran % 0.3 Neutrophils % 69.4 Lymphocytes % 19.3 Monocytes % 9.0 Eosinophils % 1.5 Basophils % 0.5 Nucleated RBC % (0.0-0.3) % 0.0 Absolute Neutrophils (1.2-6.7) 10^3/uL 4.16 Absolute Lymphocytes (1.2-3.4) 10^3/uL 1.16 L Absolute Monocytes (0.1-0.8) 10^3/uL 0.54 Absolute Eosinophils (0.0-0.7) 10^3/uL 0.09 Absolute Basophils (0.0-0.2) 10^3/uL 0.03 PT (9.1-11.1) sec 10.1 INR (0.9-1.1) 1.0 APTT (23.6-32.8) sec 29.3 Carboxyhemoglobin % % 2.2 Sodium (136-145) mmol/L 137 Potassium (3.5-5.1) mmol/L 4.3 Chloride (98-107) mmol/L 100 Carbon Dioxide (21.0-32.0) mmol/L 26.4 Anion Gap (3-11) mmol/L 10.6 BUN (7-18) mg/dL 9 Creatinine (0.55-1.02) mg/dL 1.4 H Est GFR (CKD-EPI 2020) (mL/min/1.73m2) 42.80 Glucose (74-106) mg/dL 104 Calcium (8.5-10.1) mg/dL 10.4 H Magnesium (1.8-2.4) mg/dL 2.1 Total Bilirubin (0.2-1.0) mg/dL 0.5 AST (15-37) U/L 16 ALT (14-59) U/L 22 Alkaline Phosphatase (46-116) U/L 121 H Troponin I (< or =60) ng/L < 50 Total Protein (6.4-8.2) g/dL 8.6 H Albumin (3.4-5.0) g/dL 4.0 TSH (0.36-3.74) uIU/mL 2.70 Salicylates (<2.8) mg/dL < 2.8 Acetaminophen (10-30) ug/mL < 2 Medical Decision Making 63-year-old female history of cerebral cyst, chronic ambulatory dysfunction presents referred in by neurology team for evaluation of acute on chronic dizziness ambulatory dysfunction multiple falls and consideration for rehabilitation placement given high fall risk at home. Patient alert oriented interactive cranial nerves II through XII intact 5-5 strength upper and lower extremities bilaterally no truncal ataxia no sensory deficits, hemodynamically stable mildly hypertensive in arrival afebrile nontoxic nonmeningeal. No evidence of trauma or intoxication. No evidence of infection. Will obtain repeat CTA head and neck as well as MRI to assess for any posterior fossa/vertebral/basilar system abnormalities that could contribute to her gait disturbance consider change in morphology/structure of her cyst lower suspicion for cerebral hemorrhage seizure encephalitis or meningitis given history and physical, must consider component of peripheral vertigo, will trial meclizine. Basic labs imaging EKG close reassessment of symptoms will attempt to ambulate at bedside. If unable to ambulate safely must consider placement in rehabilitation facility. 15: 16 labs and imaging unremarkable. CT CTA head neck showing no cerebral artery occlusion or dissection or aneurysm. MRI brain showing stable parietal lobe cyst. Patient evaluated by PT at bedside, able to ambulate without issue. Care management consultation has been placed given multiple visits for fall and concern for home safety. In the meantime patient has removed her own IV and got dressed and sitting at the bedside, would like to go home[facility] patient has home PT available to her. Walker and cane at home. 16: 39 patient resting comfortably no acute distress. Ambulatory at bedside. Evaluated by PT and cleared. Seen by care management team who has coordinated home health care resources for patient. Safe for discharge. Quality:SDOH Health Related Social Needs: Health related social needs risk of homeless PFSH All Active Problems Dizziness (Acute) Fall (Acute) Delirium (Acute) Dizziness (Acute) CKD (chronic kidney disease) (Chronic) Encounter for screening colonoscopy (Acute) Menorrhagia (Chronic) EMBx 2012: benign. Repeat EMBx 2013: benign proliferative endometrium, started on norethindrone, pt counseled re: endometrial ablation. CKD (chronic kidney disease) (Chronic) 12/2015 [place] [facility] bilateral and symmetric renal cortical thinning consistent with patient's known history of CKD Sleep apnea (Chronic 06/09/13) CPAP Primary osteoarthritis of left knee (Chronic 01/03/17) Obesity (Chronic 05/15/13) Migraine without aura (Chronic 05/28/09) Memory impairment (Chronic 12/23/10) Related to sz disorder & brain surgery 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) Cerebral Cyst (L parietal cyst): Dr. Antunez [facility] Neuro follows Insomnia (Chronic 03/09/10) Amitryp resolved IFG (impaired fasting glucose) (Chronic 04/01/18) Hyperlipidemia (Chronic 12/24/15) 06/2021 labs: 10-year ASCVD risk ~4.9% --> no statin indicated Essential hypertension (Chronic 10/18/11) Endometrium, polyp (Chronic 01/25/16) currently protruding through the exocervix. I have recomended hysteroscopic resection under anesthesia. 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 Antunez neuro [facility]; iron replacement worked Thyroid cyst (07/26/16) Most recent US: 01/24/2021 TI-RADS 2, repeat US if clinically necessary Hand fracture Surgical History History of section x2 closed reduction /pinning rgt fifth finger (06/27/16) R 5th digit; 2016; s/p fall Endometrial Biopsy (08/15/12) Dr. Salinas Brain cyst removal, [facility] [place]/12/2011; fenestration Family History Father Alcohol abuse Other Adopted Social History Smoking/Tobacco Use Status: Never Smoking risk assessment performed?: Yes Alcohol Intake: never Drug use: Never Substance use type: does not use Caregiver/Support person: No Household members: spouse and children Housing: apartment Number of Children: 1 Communication Needs: None current occupation: Disabled Pets and animals: No Sexually active: Yes Current gender identity: female What type of physical activity do you participate in: walking Duration: 15-30 minutes/day Frequency: daily Seatbelt use: always Water heater temp set <120 deg: Yes Working smoke detector in home: Yes Fire extinguisher in home: Yes Carbon monox detector in home: Yes Firearms in home: No Do you feel safe at home: Yes Do you feel safe in your relationship?: Yes Female Reproductive History Menstrual Menopause type: natural Discharge Plan Disposition Patient Disposition: Home Condition: Improving Discharge Details Chief Complaint: Dizzy/Sync Clinical Impression: Falls Primary Care Provider: Yasmin Millard ED Provider: Con iL Home Meds and New Rx's Prescriptions: No Action lisinopril 10 mg tablet 10 mg PO DAILY Qty: 90 3RF Rx Instructions: DX: BLOOD PRESSURE lamotrigine [Lamictal] 200 mg tablet 200 mg PO See Instructions Qty: 270 3RF Rx Instructions: FOR SEIZURES - ok for generic Take 1 tablet in the AM & 2 tablets in the PM levetiracetam 750 mg tablet 750 mg PO BID Qty: 180 3RF amitriptyline 50 mg tablet 50 mg PO QHS Qty: 90 3RF acetaminophen [Tylenol] 325 MG tablet 650 mg PO Q4H PRN PRN0RF meclizine 25 mg tablet 25 mg PO DAILY PRN (Reason: dizziness) Qty: 10 0RF Discharge Instructions Instructions: Fall Prevention (ED) Additional Instructions: Please follow-up with physical therapy as well as her home health aide services.
--- NOTE | 2023-10-09 14:58 | PT.INIE ---
PT Notes Visit Reasons: [facility] Physical Therapy Evaluation Date: 10/09/23 Referring Doctor: Dr. Con Li PT Orders: PT CONSULT: safety consult for D/C Certification Period: From 10/09/23 through 10/09/23 I certify the need for these services as being medically necessary and skilled as furnished under this plan of treatment while under my care. Please sign and return within 14 days if you agree wit the above plan of care. Thank you for this referral! Referring Physician: Date: Precautions: fall, standard Patient Profile/Admitting Diagnosis: PT consult requested in ED for patient presenting with h/o falls and increased gait instability. Brain imaging performed today reads: 1. Stable postsurgical changes in the left parietal lobe. 2. No evidence of an acute infarct. Social History/Home Situation: Patient lives with her , who assists with her care. She states that she needs help getting in/out of bed, but walks on her own. She states that she is supposed to use a walker or cane in the house, and has been working on this with PT. She admits that she often walks on her own despite recommendations. Reports approx 6 falls in the past year. Equipment Owned/DME: cane, FWW Subjective: Sherry states that she has been dizzy and off balance. States that her dizziness comes on at any time, without any identifiable provoking factor. States that yesterday it was present all day. Describes a constant sensation of light headedness and spinning, unaffected by movement or rest. She denies symptoms getting in or out of bed, rolling over, or turning her head side to side. Objective: General Observation: Resting on gurney, IV in LUE. Mental Status: A&Ox3. ROM: Cervical ROM WFL and non-symptom provoking Right Upper Extremity: Shoulder flexion 135*. Otherwise WFL for bilat UEs. Left Upper Extremity: Shoulder flexion 135*. Otherwise WFL for bilat UEs. Right Lower Extremity: Hip and knee WFL. Right ankle motion restricted in all planes (reports distant h/o ORIF) Left Lower Extremity: WF Strength: Right Upper Extremity: Shoulder flexion 4-/5. Biceps 4-/5. Triceps 4-/5. Tractor Mechanic Helper is strong and equal. Left Upper Extremity: Shoulder flexion 4/5. Biceps 4/5. Triceps 4/5. Tractor Mechanic Helper is strong and equal. Right Lower Extremity: Hip flexion 4-/5. Quads 4/5. Ankle DF 3/5 or greater. Left Lower Extremity: Hip flexion 4/5. Quads 4+/5. Ankle DF 3/5 or greater. Bed Mobility/Transfers: supine-sit: independent sit-supine: mod A x 2 sit-stand: SBA stand-sit: SBA with decreased safety awareness Gait: Ambulates 10'x1, 6'x2 with FWW, SBA. Demonstrates functional weakness of RLE, with right knee hyperextension during weight bearing. Requires intermittent cues for equipment management. Coordination: intact with rapid alternating movements of UEs and LEs Fine motor: impaired bilat UEs with thumb to digit tapping Gaze: Visual tracking is normal Test of Skew is (-) Breese-Halpike: (-) bilat for vestibular symptoms Balance: Static Sitting: good Dynamic Sitting: fair Static Standing: fair Dynamic Standing: fair Special Tests: Mobility Limitations Standardized Measure [facility]-PAC 6 clicks Basic Mobility Inpatient Short Form: Raw Score: 22 CMS Score: 21% impairment Informed Consent/Education: Patient instructed in purpose of PT consult and plan of care. Treatment: Initial Evaluation (02212) Therapeutic Activities (67371): instruction in equipment management and safe transfers instructed in safe utilization of FWW, with cues for hand position, FWW placement, and utilization during turning instructed in hand placement for effective sit-stand transfers instructed in turning techniques with use of FWW Assessment: Patient is a 63 year old female referred to physical therapy services for safety consult. Patient presents with chronic mobility deficits and diminished safety awareness, with h/o falls at home. She does report dizziness, although no signs of peripheral vestibular component. She would benefit from aggressive PT intervention to maximize mobility and improve safety in the home. She is able to safely ambulate in the treatment room today, and is safe to return home with family support and continuation of PT. She currently demonstrates the following impairment level findings: 1. decreased LE strength 2. Decreased balance 3. decreased safety awareness 4. h/o falls Impairments are contributing to the following functional limitations: 1. high risk for falls Patient is assessed as Moderate 61425 complexity based on the following: History: as above. Complicating factor of chronic mobility impairment Examination: functional limitations as above Presentation: evolving Decision Making: moderate complexity Plan of Care/Treatment Plan: One time visit DISCHARGE RECOMMENDATIONS: Home with continued family support and services ( PT) TREATMENT CODE/TIME: 3704-6174 (85088, 25520) Please sign an return this page within 30 days if you agree with the above POC. Thank you! Physician Signature Date [facility] All Active Problems Dizziness (Acute) Fall (Acute) Delirium (Acute) Dizziness (Acute) CKD (chronic kidney disease) (Chronic) Encounter for screening colonoscopy (Acute) Menorrhagia (Chronic) EMBx 2012: benign. Repeat EMBx 2013: benign proliferative endometrium, started on norethindrone, pt counseled re: endometrial ablation. CKD (chronic kidney disease) (Chronic) 12/2015 renal US at [facility]: bilateral and symmetric renal cortical thinning consistent with patient's known history of CKD Sleep apnea (Chronic 06/09/13) CPAP Primary osteoarthritis of left knee (Chronic 01/03/17) Obesity (Chronic 05/15/13) Migraine without aura (Chronic 05/28/09) Memory impairment (Chronic 12/23/10) Related to sz disorder & brain surgery 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) Cerebral Cyst (L parietal cyst): Dr. Antunez [facility] Neuro follows Insomnia (Chronic 03/09/10) Amitryp resolved IFG (impaired fasting glucose) (Chronic 04/01/18) Hyperlipidemia (Chronic 12/24/15) 06/2021 labs: 10-year ASCVD risk ~4.9% --> no statin indicated Essential hypertension (Chronic 10/18/11) Endometrium, polyp (Chronic 01/25/16) currently protruding through the exocervix. I have recomended hysteroscopic resection under anesthesia. 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 Antunez neuro [facility]; iron replacement worked Thyroid cyst (07/26/16) Most recent US: 01/24/2021 TI-RADS 2, repeat US if clinically necessary Hand fracture Surgical History History of section x2 closed reduction /pinning rgt fifth finger (06/27/16) R 5th digit; 2016; s/p fall Endometrial Biopsy (08/15/12) Dr. Salinas Brain cyst removal, [facility] 04/12/2011; fenestration
[2023-10-09 17:58] VITALS: BP 147/126; PULSE 73; RESP 20; O2SAT 97
== END 2023-10-09 18:05 | disposition home or self-care (01) ==
PROVIDERS: Emergency Provider Emergency Medicine; PCP Nurse Practitioner Family
DX: R42 Dizziness and giddiness (principal); R26.81 Unsteadiness on feet; G93.0 Cerebral cysts; I12.9 Hypertensive chronic kidney disease with stage 1 through stage 4 chronic kidney disease, or unspecified chronic kidney disease; N18.9 Chronic kidney disease, unspecified; G40.109 Localization-related (focal) (partial) symptomatic epilepsy and epileptic syndromes with simple partial seizures, not intractable, without status epilepticus; Z91.81 History of falling
CPT/HCPCS: 70496; 70498; 80053; 82375; 97162; 97530; 99215; 99285; 70551; 71046; 80329; 83735; 84443; 84484; 85025; 85610; 85730; 99284; J3490

== ENCOUNTER 2023-10-10 04:35 | Emergency (ER) | payer MEDICARE, OTHER, SELFPAY ==
[2023-10-10 04:36] VITALS: BP 160/88; PULSE 80; RESP 18; TEMP 36.6; O2SAT 100
--- NOTE | 2023-10-10 04:57 | ED.GENADUL_ITS ---
HPI General Mode of arrival: EMS . Date/Time Provider Initiated Documentation: 10/10/23 04:46 . Limitations to Documentation: no limitations . Information obtained by: patient, EMS and old records reviewed . HPI Narrative: 63yo F remote hx of brain cyst excision, migraines, seizure disorder, vertigo, CKD, HTN, HLD, presenting for back pain after a fall. Seen in this ED last night for dizziness, and again yesterday during the day for difficulty ambulating. History from patient, EMS, and prior ED visit notes. This evening was getting up and hurrying to the bathroom, when she went to sit down on the toilet she lost hold of the bar on the wall and fell to the ground, missing the toilet. Not sure if she hit her head; thinks maybe she did because she has a right-sided headache. She also has left sided upper neck pain and diffuse mid- back pain. Most bothersome symptom is the back pain which is not new but is worse than baseline after falling. Did not lose consciousness. Not on any blood thinners. No numbness, tingling, focal weakness, or vertigo. She is otherwise in her usual state of health with no fevers, chills, rash, nasuea, vomiting, abdominal pain, chest pain, shortness of breath, or other concerns. ED visit notes reviewed; 08/08 for vertigo, 08/09 sent from neurology office for concern for difficulty ambulating (evaluated by PT and able to ambulate well in dependently, cleared for discharge). Related Data Home Medications Medication Instructions Recorded Confirmed acetaminophen 325 mg tablet 650 mg (2 x 325 mg) PO Q4H PRN PRN 06/27/16 10/09/23 (Tylenol) lisinopril 10 mg tablet 10 mg PO DAILY #90 tabs 09/13/22 10/09/23 lamotrigine 200 mg tablet 200 mg PO See Instructions #270 06/11/23 10/09/23 (Lamictal) tab-caps levetiracetam 750 mg tablet 750 mg PO BID #180 tab-caps 06/11/23 10/09/23 amitriptyline 50 mg tablet 50 mg PO QHS #90 tabs 07/30/23 10/09/23 meclizine 25 mg tablet 25 mg PO DAILY PRN dizziness #10 08/27/23 10/09/23 tabs Previous Rx's Medication Instructions Recorded acetaminophen 325 mg tablet 650 mg (2 x 325 mg) PO Q4H PRN PRN 06/27/16 (Tylenol) lisinopril 10 mg tablet 10 mg PO DAILY #90 tabs 09/13/22 lamotrigine 200 mg tablet 200 mg PO See Instructions #270 06/11/23 (Lamictal) tab-caps levetiracetam 750 mg tablet 750 mg PO BID #180 tab-caps 06/11/23 amitriptyline 50 mg tablet 50 mg PO QHS #90 tabs 07/30/23 meclizine 25 mg tablet 25 mg PO DAILY PRN dizziness #10 08/27/23 tabs Allergies Allergy/AdvReac Type Severity Reaction Status Date / Time hydrocortisone Allergy Unknown SKIN RASH Verified 10/09/23 11:37 adhesive AdvReac Intermediate skin rash Verified 10/09/23 11:37 NSAIDS (Non-Steroidal AdvReac Other (See Verified 10/09/23 11:37 Anti-Inflamma Comment) baby powder Allergy Intermediate Contraindic Uncoded 10/09/23 11:37 ated pine trees Allergy Intermediate Uncoded 10/09/23 11:37 General Stated Complaint: Fall/Non TraumaCriteria TAWNY: 3 Review of Systems Narrative: see HPI Exam Narrative Exam Narrative: GENERAL: Alert, C-collar in place. SKIN: Warm and well perfused. HEAD: Atraumatic, normocephalic without edema, discoloration or evidence of tr auma. Facial bones without deformities or tenderness. EYES: PERRL. No scleral icterus or conjunctival injection. EARS: Normal appearing pinnae. No hemotympanum. NOSE: No discharge, tenderness, laxity. No nasal septal hematoma. MOUTH: No malocclusion or trismus. Moist mucus membranes without blood. NECK: Trachea midline. No discolorations or edema. No midline tenderness. Left paraspinal tenderness to palpation. Full pain free ROM at neck with flexion and bilateral rotation. CV: Regular rate and rhythm, Normal s1 and s2. No murmurs, rubs, or gallops. PV: Radial pulses 2+ bilaterally and symmetric. Dorsalis pedis pulses 2+ bilaterally and symmetric. 2+ capillary refill. CHEST: No abrasions or ecchymosis. Chest symmetric with respirations. No chest wall tenderness. Lungs are clear to auscultation bilaterally. ABDOMEN: No ecchymosis or abrasions. Soft, nondistended, nontender. BACK: No abrasions, skin openings, or ecchymosis. Spine without bony tenderness, no step offs. PELVIC: Pelvis stable, nontender to lateral compression and palpation of symphysis pubis. : Normal external genitalia MSK: No gross deformities or discolorations or lesions. Tolerates full range of motion of extremities without tenderness. NEURO: Alert and oriented to person, place, and time. GCS 15. Sensation grossly intact. Strength 5/5 in bilateral UE and LE. Finger to nose intact bilaterally. Course Vital Signs Vital signs: Vital Signs Temperature 36.6 C 10/10/23 04:36 Pulse 80 10/10/23 04:36 Respiratory Rate 18 10/10/23 04:36 Blood Pressure 160/88 H 10/10/23 04:36 Pulse Oximetry 100 10/10/23 04:36 Temperature 36.6 C 10/10/23 04:36 Pulse 80 10/10/23 04:36 Respiratory Rate 18 10/10/23 04:36 Respiratory Effort Normal 10/10/23 04:40 Blood Pressure 160/88 H 10/10/23 04:36 Pulse Oximetry 100 10/10/23 04:36 Oxygen Delivery Method Room Air 10/10/23 04:36 Oxygen Flow Rate 0 10/10/23 04:36 Pain Level 10 10/10/23 04:36 Medical Decision Making 63yo F remote hx of brain cyst excision, migraines, seizure disorder, vertigo, CKD, HTN, HLD, presenting for back pain after a fall. Seen in this ED last night for dizziness, and again yesterday during the day for difficulty ambulating. History from patient, EMS, and prior ED visit notes. ED visit notes reviewed; 08/08 for vertigo, 08/09 sent from neurology office for concern for difficulty ambulating (workup yesterday including CTA head & neck, MRI brain, labs. Was seen by PT and able to ambulate well independently, cleared for discharge with home health arranged by care management). Neurology visit note 08/09 reviewed; initially unable to ambulate in office without 2-person assist however on EMS arrival there was able to walk with walker. This morning she reports she was getting up and hurrying to the bathroom, when she began to sit down on the toilet she lost hold of the bar on the wall and fell to the ground, missing the toilet. Unknown HS, no LOC, no AC. No vertigo or presyncope with this event this morning. Vital signs and physical exam reassuring. C-spine clinically cleared. She does have some left paraspinal tenderness on exam. No significant traumatic findings, normal neurologic exam, no hemotypanum. With controlled fall from semi-sitting and no significant traumatic findings on exam, very low suspicion for acute injury including intracranial hemmoraghe, pelvic or rib fractures, or other serious injury; will not get CT or XR imaging. Her primary complaint on arrival is diffuse mid-back pain which is not new but is worse since the fall. Will treat pain with tylenol, toradol. No palpable muscle spasm on exam and with history would hesitate to add cyclobenzaprine or Valium. On reassessment she reports pain has much improved. Stood at bedside independently and ambulated with walker independently and steadily, albeit slowly. She requests discharge home which is reasonable; confirms that she has home PT set up to start soon. Discharged home; discharge instructions and return precautions were reviewed with patient who verbalized understanding. All questions were answered and she is in full agreement with the plan. Awaiting ride. Quality:SDOH Health Related Social Needs: Health related social needs risk of homeless PFSH All Active Problems (Updated 10/10/23 @ 06:11 by Chante Gutierrez MD) Fall (Acute) Back pain (Acute) Dizziness (Acute) Fall (Acute) Delirium (Acute) Dizziness (Acute) CKD (chronic kidney disease) (Chronic) Encounter for screening colonoscopy (Acute) Menorrhagia (Chronic) EMBx 2011: benign. Repeat EMBx 2013: benign proliferative endometrium, started on norethindrone, pt counseled re: endometrial ablation. CKD (chronic kidney disease) (Chronic) 12/2015 renal US at [facility] [place]: bilateral and symmetric renal cortical thinning consistent with patient's known history of CKD Sleep apnea (Chronic 06/09/13) CPAP Primary osteoarthritis of left knee (Chronic 01/03/17) Obesity (Chronic 05/15/13) Migraine without aura (Chronic 05/28/09) Memory impairment (Chronic 12/23/10) Related to sz disorder & brain surgery 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) Cerebral Cyst (L parietal cyst): Dr. Antunez [facility] [place] Neuro follows Insomnia (Chronic 03/09/10) Amitryp resolved IFG (impaired fasting glucose) (Chronic 04/01/18) Hyperlipidemia (Chronic 12/24/15) 06/2021 labs: 10-year ASCVD risk ~4.9% --> no statin indicated Essential hypertension (Chronic 10/18/11) Endometrium, polyp (Chronic 01/25/16) currently protruding through the exocervix. I have recomended hysteroscopic resection under anesthesia. Coordination problem (Chronic 12/23/10) Hemiparesis; R more than L, mostly resolved Falls (Acute) Focal epilepsy (Chronic) Cyst on brain; [facility] Neurology Hemiparesis (Acute) right; Leg>>>arm; due to left parietal cyst Mild developmental delay (Acute) cognitive with right hemiparesis; due to parietal cyst; surgery, seizures Medical History Petit mal seizure status Per sister states she is not aware she has them per her sister states it aroung 1 month ago Nephrolithiasis incidental finding Iron deficiency anemia (05/26/13) Dx'ed Dr. Antunez neuro [facility] [place]; iron replacement worked Thyroid cyst (07/26/16) Most recent US: 01/24/2021 TI-RADS 2, repeat US if clinically necessary Hand fracture Surgical History History of section x2 closed reduction /pinning rgt fifth finger (06/27/16) R 5th digit; 2016; s/p fall Endometrial Biopsy (08/15/12) Dr. Salinas Brain cyst removal, [facility] [place] 04/12/2011; fenestration Family History Father Alcohol abuse Other Adopted Social History Smoking/Tobacco Use Status: Never Smoking risk assessment performed?: Yes Alcohol Intake: never Drug use: Never Substance use type: does not use Caregiver/Support person: No Household members: spouse and children Housing: apartment Number of Children: 1 Communication Needs: None current occupation: Disabled Pets and animals: No Sexually active: Yes Current gender identity: female What type of physical activity do you participate in: walking Duration: 15-30 minutes/day Frequency: daily Seatbelt use: always Water heater temp set <120 deg: Yes Working smoke detector in home: Yes Fire extinguisher in home: Yes Carbon monox detector in home: Yes Firearms in home: No Do you feel safe at home: Yes Do you feel safe in your relationship?: Yes Female Reproductive History Menstrual Menopause type: natural Discharge Plan Disposition Patient Disposition: Home Condition: Good Discharge Details Clinical Impression: Back pain, Fall Primary Care Provider: Yasmin Millard ED Provider: Chante Gutierrez Meds and New Rx's Prescriptions: No Action lisinopril 10 mg tablet 10 mg PO DAILY Qty: 90 3RF Rx Instructions: DX: BLOOD PRESSURE lamotrigine [Lamictal] 200 mg tablet 200 mg PO See Instructions Qty: 270 3RF Rx Instructions: FOR SEIZURES - ok for generic Take 1 tablet in the AM & 2 tablets in the PM levetiracetam 750 mg tablet 750 mg PO BID Qty: 180 3RF amitriptyline 50 mg tablet 50 mg PO QHS Qty: 90 3RF acetaminophen [Tylenol] 325 MG tablet 650 mg PO Q4H PRN PRN0RF meclizine 25 mg tablet 25 mg PO DAILY PRN (Reason: dizziness) Qty: 10 0RF Discharge Instructions Instructions: Fall Prevention (ED) Additional Instructions: Call your primary care doctor today to schedule an appointment within the next 3 days to follow up on your visit here. Make sure you keep your appointments with physical therapy Return to the emergency department for new or worsening symptoms, including new/different/worse pain, or if you have any other concerns. Referrals: Yasmin Millard NP [Primary Care Provider] -
[2023-10-10] MEDS: Ketorolac 15 MG/ML VIAL IM (05:05)
[2023-10-10] MEDS: Acetaminophen 500 MG TAB 1000 MG PO (05:05)
[2023-10-10 05:58] VITALS: BP 129/85; PULSE 76; RESP 18; O2SAT 98
--- NOTE | 2023-10-10 06:16 | NUR.NOTE ---
PT was able to stand at bedside with walker and walk 3 steps forward and backward. Nursing Note:
== END 2023-10-10 07:46 | disposition home or self-care (01) ==
PROVIDERS: Emergency Provider Student in an Organized Health Care Education/Training Program; PCP Nurse Practitioner Family
DX: M54.50 Low back pain, unspecified (principal); G93.0 Cerebral cysts; G40.109 Localization-related (focal) (partial) symptomatic epilepsy and epileptic syndromes with simple partial seizures, not intractable, without status epilepticus; I12.9 Hypertensive chronic kidney disease with stage 1 through stage 4 chronic kidney disease, or unspecified chronic kidney disease; I50.9 Heart failure, unspecified; E78.5 Hyperlipidemia, unspecified; Z79.899 Other long term (current) drug therapy; W18.39XA Other fall on same level, initial encounter; Y93.E8 Activity, other personal hygiene; Y92.012 Bathroom of single-family (private) house as the place of occurrence of the external cause
CPT/HCPCS: 96372; 99283; J1885

== ENCOUNTER 2023-10-10 10:04 | Emergency (ER) | payer MEDICARE, OTHER, SELFPAY ==
[2023-10-10 10:11] VITALS: BP 144/87; PULSE 77; RESP 19; TEMP 36.4; O2SAT 99
--- NOTE | 2023-10-10 10:11 | ED.GENADUL_ITS ---
HPI General Date/Time Provider Initiated Documentation: 10/10/23 10:11 . HPI Narrative: 63-year-old female presents brought in by EMS, after mechanical fall from standing, unwitnessed, unclear whether loss of conscious, patient was able to ambulate afterwards. Multiple visits over the past several days to weeks most recently worked up with labs and MRI, had PT and care management involvement to coordinate home PT and home health. Patient lives at home with who has home health aide as well. No chest pain shortness of breath nausea vomiting or systemic signs of illness. 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 Follows closely with neurology Related Data Home Medications Medication Instructions Recorded Confirmed acetaminophen 325 mg tablet 650 mg (2 x 325 mg) PO Q4H PRN PRN 06/27/16 10/10/23 (Tylenol) lisinopril 10 mg tablet 10 mg PO DAILY #90 tabs 09/13/22 10/10/23 lamotrigine 200 mg tablet 200 mg PO See Instructions #270 06/11/23 10/10/23 (Lamictal) tab-caps levetiracetam 750 mg tablet 750 mg PO BID #180 tab-caps 06/11/23 10/10/23 amitriptyline 50 mg tablet 50 mg PO QHS #90 tabs 07/30/23 10/10/23 meclizine 25 mg tablet 25 mg PO DAILY PRN dizziness #10 08/27/23 10/10/23 tabs Previous Rx's Medication Instructions Recorded acetaminophen 325 mg tablet 650 mg (2 x 325 mg) PO Q4H PRN PRN 06/27/16 (Tylenol) lisinopril 10 mg tablet 10 mg PO DAILY #90 tabs 09/13/22 lamotrigine 200 mg tablet 200 mg PO See Instructions #270 06/11/23 (Lamictal) tab-caps levetiracetam 750 mg tablet 750 mg PO BID #180 tab-caps 06/11/23 amitriptyline 50 mg tablet 50 mg PO QHS #90 tabs 07/30/23 meclizine 25 mg tablet 25 mg PO DAILY PRN dizziness #10 08/27/23 tabs Allergies Allergy/AdvReac Type Severity Reaction Status Date / Time hydrocortisone Allergy Unknown SKIN RASH Verified 10/09/23 11:37 adhesive AdvReac Intermediate skin rash Verified 10/09/23 11:37 NSAIDS (Non-Steroidal AdvReac Other (See Verified 10/09/23 11:37 Anti-Inflamma Comment) baby powder Allergy Intermediate Contraindic Uncoded 10/09/23 11:37 ated pine trees Allergy Intermediate Uncoded 10/09/23 11:37 General TAWNY: 3 Review of Systems Narrative: Review of Systems Constitutional: negative Eyes: negative ENT: negative Cardiovascular: negative Respiratory: negative Gastrointestinal: negative : negative Musculoskeletal: negative Skin: negative Neurologic: Fall, head injury Psych: negative Exam Narrative Exam Narrative: Physical Examination General: alert, awake, cooperative, resting comfortably, no acute distress HEENT: normocephalic, atraumatic; PERRL, EOM intact, conjunctiva normal; no nasal discharge; moist mucous membranes, oral and pharyngeal mucosa normal, tolerating secretions Neck: supple, trachea midline; full ROM Chest: normal to inspection Respiratory: normal respiratory effort, speaking in full sentences Skin: no lesions, rashes or trauma appreciated Neuro: Alert, interactive moving all extremities 5-5 strength upper and lower extremities, no truncal ataxia. Extremities: No signs of trauma Psych: Appropriate mood and affect Medical Decision Making 63-year-old female presents after mechanical fall from standing at home, history of longstanding balance issues related to cerebral cyst, follows closely with neurology, multiple ER visits over the past several days to months with extensive workup including CT CTA head neck MRI labs EKG cardiac evaluation ass essment by PT and case management, cleared by physical therapy for discharge home. Working with home physical therapist actively. Home health care currently being arranged. Lives at home with who has frequent home health care visit as well. Patient alert and interactive moving all extremities without deficit, cranial nerves intact, no truncal ataxia, afebrile nontoxic normotensive nontachycardic nonhypoxic. No acute distress. Fingerstick high 80s on arrival. Patient taken to CT for Noncon head given unwitnessed fall head injury and initial complaint of confusion. Likely component of chronic balance issues versus developmental delay versus must consider secondary gain versus vertigo however no spinning sensation nausea or vomiting, low suspicion for intracerebral hemorrhage or skull fracture. No examination or history findings to suggest spinal cord injury. If CT head is negative we will continue to encourage patient to follow closely with PT home health neurology and will be discharged home 12: 00 care management patient see if he wants to touch base again with patient, given extensive evaluation yesterday reevaluation by care management is not necessary. CT head unremarkable. Patient resting comfortably alert interactive moving all extremities. Will be discharged home Quality:SDOH Health Related Social Needs: Health related social needs risk of homeless PFSH All Active Problems (Updated 10/10/23 @ 12:02 by Con Li MD) Fall (Acute) Fall (Acute) Back pain (Acute) Dizziness (Acute) Fall (Acute) Delirium (Acute) Dizziness (Acute) CKD (chronic kidney disease) (Chronic) Encounter for screening colonoscopy (Acute) Menorrhagia (Chronic) EMBx 2012: benign. Repeat EMBx 2013: benign proliferative endometrium, started on norethindrone, pt counseled re: endometrial ablation. CKD (chronic kidney disease) (Chronic) 12/2015 renal US at [facility] [place]: bilateral and symmetric renal cortical thinning consistent with patient's known history of CKD Sleep apnea (Chronic 06/09/13) CPAP Primary osteoarthritis of left knee (Chronic 01/03/17) Obesity (Chronic 05/15/13) Migraine without aura (Chronic 05/28/09) Memory impairment (Chronic 12/23/10) Related to sz disorder & brain surgery 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) Cerebral Cyst (L parietal cyst): Dr. Antunez [facility] [place] Neuro follows Insomnia (Chronic 03/09/10) Amitryp resolved IFG (impaired fasting glucose) (Chronic 04/01/18) Hyperlipidemia (Chronic 12/24/15) 06/2021 labs: 10-year ASCVD risk ~4.9% --> no statin indicated Essential hypertension (Chronic 10/18/11) Endometrium, polyp (Chronic 01/25/16) currently protruding through the exocervix. I have recomended hysteroscopic resection under anesthesia. Coordination problem (Chronic 12/23/10) Hemiparesis; R more than L, mostly resolved Falls (Acute) Focal epilepsy (Chronic) Cyst on brain; [facility] Neurology Hemiparesis (Acute) right; Leg>>>arm; due to left parietal cyst Mild developmental delay (Acute) cognitive with right hemiparesis; due to parietal cyst; surgery, seizures Medical History Petit mal seizure status Per sister states she is not aware she has them per her sister states it aroung 1 month ago Nephrolithiasis incidental finding Iron deficiency anemia (05/26/13) Dx'ed Dr. Antunez neuro [facility] [place]; iron replacement worked Thyroid cyst (07/26/16) Most recent US: 01/24/2021 TI-RADS 2, repeat US if clinically necessary Hand fracture Surgical History History of section x2 closed reduction /pinning rgt fifth finger (06/27/16) R 5th digit; 2016; s/p fall Endometrial Biopsy (08/15/12) Dr. Salinas Brain cyst removal, [facility] [place] 04/12/2011; fenestration Family History Father Alcohol abuse Other Adopted Social History Smoking/Tobacco Use Status: Never Smoking risk assessment performed?: Yes Alcohol Intake: never Drug use: Never Substance use type: does not use Caregiver/Support person: No Household members: spouse and children Housing: apartment Number of Children: 1 Communication Needs: None current occupation: Disabled Pets and animals: No Sexually active: Yes Current gender identity: female What type of physical activity do you participate in: walking Duration: 15-30 minutes/day Frequency: daily Seatbelt use: always Water heater temp set <120 deg: Yes Working smoke detector in home: Yes Fire extinguisher in home: Yes Carbon monox detector in home: Yes Firearms in home: No Do you feel safe at home: Yes Do you feel safe in your relationship?: Yes Female Reproductive History Menstrual Menopause type: natural Discharge Plan Disposition Patient Disposition: Home Condition: Improving Discharge Details Chief Complaint: Dizzy/Sync Clinical Impression: Fall Primary Care Provider: Yasmin Millard ED Provider: Con Li Home Meds and New Rx's Prescriptions: No Action lisinopril 10 mg tablet 10 mg PO DAILY Qty: 90 3RF Rx Instructions: DX: BLOOD PRESSURE lamotrigine [Lamictal] 200 mg tablet 200 mg PO See Instructions Qty: 270 3RF Rx Instructions: FOR SEIZURES - ok for generic Take 1 tablet in the AM & 2 tablets in the PM levetiracetam 750 mg tablet 750 mg PO BID Qty: 180 3RF amitriptyline 50 mg tablet 50 mg PO QHS Qty: 90 3RF acetaminophen [Tylenol] 325 MG tablet 650 mg PO Q4H PRN PRN0RF meclizine 25 mg tablet 25 mg PO DAILY PRN (Reason: dizziness) Qty: 10 0RF Discharge Instructions Instructions: Fall Prevention (ED) Additional Instructions: Please follow-up with physical therapy and home health. Follow-up with your primary care physician as well.
[2023-10-10 10:13] VITALS: RESP 19
--- NOTE | 2023-10-10 10:52 | DI.CT_ITS ---
Exam(s) CT HEAD WO EXAM: CT HEAD WO CLINICAL HISTORY: fell. hit head. TECHNIQUE: Imaging Protocol: Axial computed tomography images with coronal and sagittal reformatted images were created and reviewed COMPARISON: CT CT BRAIN NECK CTA from 10/09/2023 FINDINGS: Ventricles and Extra axial spaces: Normal in size and morphology for the patient's age. Hemorrhage: None. Cerebral parenchyma: No evidence of acute infarct. Stable cyst area again noted in the high left par ietal region. Midline shift: None. Brainstem/Cerebellum: Normal. Calvarium: No skull fracture. Craniotomy defect near vertex. Visualized Paranasal sinuses:Small mucous retention cyst right sphenoid sinus. Mastoids: Clear. Soft Tissues: Unremarkable. ORBITS: Unremarkable. PITUITARY: Normal. IMPRESSION: No acute intracranial process. RADIATION DOSE DELIVERED: 710mGy.cm Total DLP DATA REPOSITORY: All CT scans at this facility are submitted to the National Radiology Data Registry (NRDR) Dose Index Registry (DIR) with the [employer] (A[employer]). RADIATION OPTIMIZATION: All CT scans at this facility use at least one of these dose optimization te chniques: automated exposure control; mA and/or kV adjustment per patient size (includes targeted exa ms where dose is matched to clinical indication); or iterative reconstruction.
[2023-10-10 12:21] VITALS: BP 117/89; PULSE 77; RESP 16; TEMP 36.6; O2SAT 97
== END 2023-10-10 13:53 | disposition home or self-care (01) ==
PROVIDERS: Emergency Provider Emergency Medicine; PCP Nurse Practitioner Family
DX: R42 Dizziness and giddiness (principal); R41.0 Disorientation, unspecified; G93.0 Cerebral cysts; G40.109 Localization-related (focal) (partial) symptomatic epilepsy and epileptic syndromes with simple partial seizures, not intractable, without status epilepticus; E78.5 Hyperlipidemia, unspecified; I12.9 Hypertensive chronic kidney disease with stage 1 through stage 4 chronic kidney disease, or unspecified chronic kidney disease; I50.9 Heart failure, unspecified; W18.39XA Other fall on same level, initial encounter; Y93.89 Activity, other specified; Y92.018 Other place in single-family (private) house as the place of occurrence of the external cause
CPT/HCPCS: 82962; 96372; 99283; 99284; 70450; J1885

== ENCOUNTER 2023-10-19 10:49 | Emergency (ER) | payer MEDICARE, SELFPAY ==
[2023-10-19 10:49] VITALS: BP 141/90; PULSE 82; RESP 18; TEMP 36.9; O2SAT 98
--- NOTE | 2023-10-19 11:02 | W.ED.GENAD ---
HPI General Date/Time Provider Initiated Documentation: 10/19/23 10:59. HPI Narrative: 63-year-old female presents with recurrent falls over the last several weeks to months. Mechanical fall from standing fell backwards onto her back. Denies loss of consciousness. No nausea no vomiting. No weakness no numbness. Patient has physical therapy at home and coordination is underway for home health care Related Data Home Medications Medication Instructions Recorded Confirmed acetaminophen 325 mg tablet 650 mg (2 x 325 mg) PO Q4H PRN PRN 06/27/16 10/19/23 (Tylenol) lisinopril 10 mg tablet 10 mg PO DAILY #90 tabs 09/13/22 10/19/23 lamotrigine 200 mg tablet 200 mg PO See Instructions #270 06/11/23 10/19/23 (Lamictal) tab-caps levetiracetam 750 mg tablet 750 mg PO BID #180 tab-caps 06/11/23 10/19/23 amitriptyline 50 mg tablet 50 mg PO QHS #90 tabs 07/30/23 10/19/23 meclizine 25 mg tablet 25 mg PO .COMPLEX dizziness #60 10/10/23 10/19/23 tabs Previous Rx's Medication Instructions Recorded acetaminophen 325 mg tablet 650 mg (2 x 325 mg) PO Q4H PRN PRN 06/27/16 (Tylenol) lisinopril 10 mg tablet 10 mg PO DAILY #90 tabs 09/13/22 lamotrigine 200 mg tablet 200 mg PO See Instructions #270 06/11/23 (Lamictal) tab-caps levetiracetam 750 mg tablet 750 mg PO BID #180 tab-caps 06/11/23 amitriptyline 50 mg tablet 50 mg PO QHS #90 tabs 07/30/23 meclizine 25 mg tablet 25 mg PO .COMPLEX dizziness #60 10/10/23 tabs Allergies Allergy/AdvReac Type Severity Reaction Status Date / Time hydrocortisone Allergy Unknown SKIN RASH Verified 10/19/23 10:56 adhesive AdvReac Intermediate skin rash Verified 10/19/23 10:56 NSAIDS (Non-Steroidal AdvReac chronic Verified 10/19/23 11:02 Anti-Inflamma kidney disease baby powder Allergy Intermediate Contraindic Uncoded 10/19/23 11:02 ated/rash pine trees Allergy Intermediate red Uncoded 10/19/23 11:02 blotches per pt. Never tested General Stated Complaint: Fall/Non TraumaCriteria TAWNY: 3 Review of Systems Narrative: Review of Systems Constitutional: negative Eyes: negative ENT: negative Cardiovascular: negative Respiratory: negative Gastrointestinal: negative : negative Musculoskeletal: Back discomfort Skin: negative Neurologic: negative Psych: negative Exam Narrative Exam Narrative: Physical Examination General: alert, awake, cooperative, resting comfortably, no acute distress HEENT: normocephalic, atraumatic; PERRL, EOM intact, conjunctiva normal; no nasal discharge; moist mucous membranes, oral and pharyngeal mucosa normal, tolerating secretions Neck: supple, trachea midline; full ROM Chest: normal to inspection Respiratory: normal respiratory effort, speaking in full sentences GI: abdomen soft, non-tender, non-distended; no palpable mass or hepatosplenomegaly Back: No midline spinal tenderness step-off deformity or crepitus Skin: no lesions, rashes or trauma appreciated Neuro: AAOx3, normal speech, moving all extremities; cranial nerves II through XII intact, 5 out of 5 strength upper and lower extremities, no truncal ataxia Extremities: Moving all extremities without deformity Psych: Appropriate mood and affect Course Vital Signs Vital signs: Vital Signs Temperature 36.9 C 10/19/23 10:49 Pulse 82 10/19/23 10:49 Respiratory Rate 18 10/19/23 10:49 Blood Pressure 141/90 H 10/19/23 10:49 Pulse Oximetry 98 10/19/23 10:49 Temperature 36.9 C 10/19/23 10:49 Temperature Source Oral 10/19/23 10:49 Pulse 82 10/19/23 10:49 Respiratory Rate 18 10/19/23 10:49 Blood Pressure 141/90 H 10/19/23 10:49 Blood Pressure Position Sitting 10/19/23 10:49 Pulse Oximetry 98 10/19/23 10:49 Oxygen Delivery Method Room Air 10/19/23 10:49 Oxygen Flow Rate 0 10/19/23 10:49 Pain Level 7 10/19/23 10:49 Medical Decision Making 63-year-old female history of recurrent falls due to chronic balance issue presents after mechanical fall from standing, fell backwards onto her back, endorsing back discomfort, no loss of conscious, patient hemodynamically stable afebrile nontoxic alert oriented cranial nerves intact 5 strength upper lower extremities bilaterally, no ataxia, no midline spinal tenderness step-off crepitus or deformity. No external signs of trauma. Trial of analgesia anti-inflammatory. Will ambulate at bedside. Patient has physical therapy at home currently and arrangements are being made for home health care. Low suspicion for intracerebral hemorrhage skull fracture spinal cord injury thoracoabdominal trauma stroke ACS PE pulmonary contusion pneumothorax or other serious pathology at this time. Extensive lab work and imaging evaluation was done recently which was negative this included an MRI of the brain. Care management team involved in patient's care upon last contact. Will continue to encourage outpatient interventions home care instructions and return precautions to be given. Quality:SDOH Health Related Social Needs: Health related social needs risk of homeless PFSH All Active Problems (Updated 10/19/23 @ 11:17 by Con Li MD) Fall (Acute) Fall (Acute) Fall (Acute) Back pain (Acute) Dizziness (Acute) Fall (Acute) Delirium (Acute) Dizziness (Acute) CKD (chronic kidney disease) (Chronic) Encounter for screening colonoscopy (Acute) Menorrhagia (Chronic) EMBx 2012: benign. Repeat EMBx 2013: benign proliferative endometrium, started on norethindrone, pt counseled re: endometrial ablation. CKD (chronic kidney disease) (Chronic) 12/2015 renal US at [facility] [place]: bilateral and symmetric renal cortical thinning consistent with patient's known history of CKD Sleep apnea (Chronic 06/09/13) CPAP Primary osteoarthritis of left knee (Chronic 01/03/17) Obesity (Chronic 05/15/13) Migraine without aura (Chronic 05/28/09) Memory impairment (Chronic 12/23/10) Related to sz disorder & brain surgery 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) Cerebral Cyst (L parietal cyst): Dr. Antunez [facility] [place] Neuro follows Insomnia (Chronic 03/09/10) Amitryp resolved IFG (impaired fasting glucose) (Chronic 04/01/18) Hyperlipidemia (Chronic 12/24/15) 06/2021 labs: 10-year ASCVD risk ~4.9% --> no statin indicated Essential hypertension (Chronic 10/18/11) Endometrium, polyp (Chronic 01/25/16) currently protruding through the exocervix. I have recomended hysteroscopic resection under anesthesia. Coordination problem (Chronic 04/08/11) Hemiparesis; R more than L, mostly resolved Falls (Acute) Focal epilepsy (Chronic) Cyst on brain; [facility] Neurology Hemiparesis (Acute) right; Leg>>>arm; due to left parietal cyst Mild developmental delay (Acute) cognitive with right hemiparesis; due to parietal cyst; surgery, seizures Medical History Petit mal seizure status Per sister states she is not aware she has them per her sister states it aroung 1 month ago Nephrolithiasis incidental finding Iron deficiency anemia (05/26/13) Dx'ed Dr. Antunez neuro [facility] [place]; iron replacement worked Thyroid cyst (07/26/16) Most recent US: 01/24/2021 TI-RADS 2, repeat US if clinically necessary Hand fracture Surgical History History of section x2 closed reduction /pinning rgt fifth finger (06/27/16) R 5th digit; 2016; s/p fall Endometrial Biopsy (08/15/12) Dr. Salinas Brain cyst removal, [facility] [place] 04/12/2011; fenestration Family History Father Alcohol abuse Other Adopted Social History Smoking/Tobacco Use Status: Never Smoking risk assessment performed?: Yes Alcohol Intake: never Drug use: Never Substance use type: does not use Caregiver/Support person: No Household members: spouse and children Housing: apartment Number of Children: 1 Communication Needs: None current occupation: Disabled Pets and animals: No Sexually active: Yes Current gender identity: female What type of physical activity do you participate in: walking Duration: 15-30 minutes/day Frequency: daily Seatbelt use: always Water heater temp set <120 deg: Yes Working smoke detector in home: Yes Fire extinguisher in home: Yes Carbon monox detector in home: Yes Firearms in home: No Do you feel safe at home: Yes Do you feel safe in your relationship?: Yes Female Reproductive History Menstrual Menopause type: natural Discharge Plan Disposition Patient Disposition: Home Condition: Improving Discharge Details Chief Complaint: Fall/Non TraumaCriteria Clinical Impression: Fall Primary Care Provider: Yasmin Millard ED Provider: Con Li Home Meds and New Rx's Prescriptions: No Action meclizine 25 mg tablet 25 mg PO .COMPLEX Qty: 60 5RF Rx Instructions: Take 25mg once daily every day; ok to take an additional 25mg once daily prn dizziness lisinopril 10 mg tablet 10 mg PO DAILY Qty: 90 3RF Rx Instructions: DX: BLOOD PRESSURE lamotrigine [Lamictal] 200 mg tablet 200 mg PO See Instructions Qty: 270 3RF Rx Instructions: FOR SEIZURES - ok for generic Take 1 tablet in the AM & 2 tablets in the PM levetiracetam 750 mg tablet 750 mg PO BID Qty: 180 3RF amitriptyline 50 mg tablet 50 mg PO QHS Qty: 90 3RF acetaminophen [Tylenol] 325 MG tablet 650 mg PO Q4H PRN [id number] Discharge Instructions Instructions: Fall Prevention (ED)
[2023-10-19] MEDS: Lidocaine 5% Patch 1 PATCH TP (11:03)
[2023-10-19] MEDS: Acetaminophen 325 MG TAB 650 MG PO (11:04)
[2023-10-19 13:13] VITALS: BP 142/87; PULSE 82; RESP 16; O2SAT 100
== END 2023-10-19 13:13 | disposition home or self-care (01) ==
PROVIDERS: Emergency Provider Emergency Medicine; PCP Nurse Practitioner Family
DX: R26.89 Other abnormalities of gait and mobility (principal); M54.9 Dorsalgia, unspecified; W19.XXXA Unspecified fall, initial encounter
CPT/HCPCS: 99282; 99283

== ENCOUNTER 2023-11-30 02:38 | Outpatient (CLI) | payer MEDICARE, SELFPAY ==
[2023-11-30 13:13] LABS: Abs Immature Grans 0.01 10^3/uL (0.0-0.06); Absolute Basophil Count 0.03 10^3/uL (0.0-0.2); Absolute Eosinophil Count 0.14 10^3/uL (0.0-0.7); Absolute Lymphocyte Count 1.75 10^3/uL (1.2-3.4); Absolute Monocyte Count 0.44 10^3/uL (0.1-0.8); Absolute Neutrophil Count 3.51 10^3/uL (1.2-6.7); Basophils % 0.5; Eosinophils % 2.4; HCT 33.9 % (36.0-46.0); HGB 11.1 g/dL (11.2-15.7); Immature Grans % 0.2; Lymphocytes % 29.8; MCH 29.6 pg (27.0-33.0); MCHC 32.7 % (32.0-36.0); MCV 90 fL (80-95); MPV 9.1 fL (8.0-11.0); Monocytes % 7.5; Neutrophils % 59.6; Platelet Count 255 10^3/uL (130-400); RBC 3.75 10^6/uL (3.93-5.22); RDW 13.7 % (11.7-14.6); RDW-SD 45.1 fL; WBC 5.88 10^3/uL (4.4-10.8)
[2023-11-30 13:25] LABS: Hemoglobin A1C 5.4 % (<5.7)
[2023-11-30 13:58] LABS: ALT 17 U/L (14-59); AST 14 U/L (15-37); Albumin 3.5 g/dL (3.4-5.0); Alkaline Phosphatase 105 U/L (46-116); Anion Gap 8.2 mmol/L (3-11); BUN 27 mg/dL (7-18); Bilirubin, Total 0.3 mg/dL (0.2-1.0); CO2 26.8 mmol/L (21.0-32.0); CREATININE 1.5 mg/dL (0.55-1.02); Calcium 9.5 mg/dL (8.5-10.1); Chloride 104 mmol/L (98-107); Glucose 96 mg/dL (74-106); Potassium 4.7 mmol/L (3.5-5.1); Sodium 139 mmol/L (136-145); Total Protein 7.7 g/dL (6.4-8.2)
== END 2023-11-30 02:39 | disposition home or self-care (01) ==
LOC: LBO 02:38
PROVIDERS: Nurse Practitioner Family; Absent Provider Nurse Practitioner Adult Health; PCP Nurse Practitioner Adult Health; Visit Provider Nurse Practitioner Adult Health
DX: I10 Essential (primary) hypertension (principal); N18.9 Chronic kidney disease, unspecified; R73.01 Impaired fasting glucose
CPT/HCPCS: 36415; 80053; 83036; 85025

== ENCOUNTER 2023-12-01 23:05 | Emergency (ER) | payer MEDICARE, SELFPAY ==
[2023-12-01 23:05] VITALS: BP 176/107; PULSE 91; RESP 18; TEMP 36.4; O2SAT 97
--- NOTE | 2023-12-01 23:25 | W.ED.GENAD ---
Discharge Plan Disposition Patient Disposition: Home Condition: Stable Discharge Details Chief Complaint: Fall/Non TraumaCriteria Clinical Impression: Contusion of knee, Recurrent falls while walking, Contusion of scalp, Coordination problem Primary Care Provider: Delmy Valdez ED Provider: Sudhir Rivera Home Meds and New Rx's Prescriptions: No Action meclizine 25 mg tablet 25 mg PO .COMPLEX Qty: 60 5RF Rx Instructions: Take 25mg once daily every day; ok to take an additional 25mg once daily prn dizziness lisinopril 10 mg tablet 10 mg PO DAILY Qty: 90 3RF Rx Instructions: DX: BLOOD PRESSURE lamotrigine [Lamictal] 200 mg tablet 200 mg PO See Instructions Qty: 270 3RF Rx Instructions: FOR SEIZURES - ok for generic Take 1 tablet in the AM & 2 tablets in the PM levetiracetam 750 mg tablet 750 mg PO BID Qty: 180 3RF amitriptyline 50 mg tablet 50 mg PO QHS Qty: 90 3RF acetaminophen [Tylenol] 325 MG tablet 650 mg PO Q4H PRN PRN0RF Discharge Instructions Instructions: Contusion in Adults (ED) Additional Instructions: Apply cold compresses to any areas of discomfort related to recent contusions from the falls. You can take 2-3 325 mg acetaminophen tablets every 4-6 hours as needed for any symptoms of aches or pains. Continue current in-home medical therapy plans. You can always return to the ER for any new concerns or sudden changes in your health which you feel require emergency medical attention. Discharge Data Discharge Physician: Sudhir Rivera [facility] General Date/Time Provider Initiated Documentation: 12/01/23 23:11. 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 The patient is seen frequently in the emergency room for minor falls at home, typically with minor injuries. The patient tonight fell into the bureau in her bathroom, and then tells me that she fell onto her couch at home as well. The EMS crew that picked her up said that she had a hematoma on her scalp vertex and describes some bruising on her right knee. The patient tells me that the bruising on her right knee is not new but is old from other recent falls. Currently the patient lives at home with multiple family members and has physical therapy, cccupational therapy, and home health services coming to her house. The patient was offered pain medications but declined, telling me I have no pain. Related Data Home Medications Medication Instructions Recorded Confirmed acetaminophen 325 mg tablet 650 mg (2 x 325 mg) PO Q4H PRN PRN 06/27/16 10/25/23 (Tylenol) lamotrigine 200 mg tablet 200 mg PO See Instructions #270 06/11/23 10/25/23 (Lamictal) tab-caps levetiracetam 750 mg tablet 750 mg PO BID #180 tab-caps 06/11/23 10/25/23 amitriptyline 50 mg tablet 50 mg PO QHS #90 tabs 07/30/23 10/25/23 meclizine 25 mg tablet 25 mg PO .COMPLEX dizziness #60 10/10/23 10/25/23 tabs lisinopril 10 mg tablet 10 mg PO DAILY #90 tabs 10/25/23 10/25/23 Previous Rx's Medication Instructions Recorded acetaminophen 325 mg tablet 650 mg (2 x 325 mg) PO Q4H PRN PRN 06/27/16 (Tylenol) lamotrigine 200 mg tablet 200 mg PO See Instructions #270 06/11/23 (Lamictal) tab-caps levetiracetam 750 mg tablet 750 mg PO BID #180 tab-caps 06/11/23 amitriptyline 50 mg tablet 50 mg PO QHS #90 tabs 07/30/23 meclizine 25 mg tablet 25 mg PO .COMPLEX dizziness #60 10/10/23 tabs lisinopril 10 mg tablet 10 mg PO DAILY #90 tabs 10/25/23 Allergies Allergy/AdvReac Type Severity Reaction Status Date / Time hydrocortisone Allergy Unknown SKIN RASH Verified 10/25/23 13:29 adhesive AdvReac Intermediate skin rash Verified 10/25/23 13:29 NSAIDS (Non-Steroidal AdvReac chronic Verified 10/25/23 13:29 Anti-Inflamma kidney disease baby powder Allergy Intermediate Contraindic Uncoded 10/25/23 13:29 ated/rash pine trees Allergy Intermediate red Uncoded 10/25/23 13:29 blotches per pt. Never tested General Stated Complaint: Fall/Non TraumaCriteria TAWNY: 3 Exam Const Other: The patient is awake, alert, and interactive with examination. She has normal vital signs here in the emergency room and appears in no distress. HENMT Other: The external otic canals have a significant amount of wax within them, however there are visualized portions of the tympanic membranes and there does not appear to be any gross hemotympanums. The patient does not have any nasal or mandibular injury that is evident. She moves the contours of her face without difficulty and has a normal intact bite. Eyes Other: The patient has intact extraocular movements and no significant eye injuries that are readily visible to inspection. The patient has no nystagmus to confrontational testing. Neck Other: The patient spontaneously moves her neck without any difficulty. It is supple and nontender to the palpation of the posterior elements. Chest Other: The chest wall does not appear to exhibit any bruising, and there is no pain to direct palpation in both the coronal and sagittal planes. Resp Other: The breath sounds are equal bilaterally with good air exchange and no increased work of breathing. Cardio Other: The heart sounds are a regular rate and rhythm, without any murmurs, rubs, or gallops. GI Other: The patient is obese but has a soft and nontender abdomen. Back/Spine/Pelvis Other: There is no pain to palpation of the posterior elements of the thoracic or lumbar spine. There are no step-offs. Direct palpation does not elicit any pain that radiates up and down the spine. The patient had no discomfort to coronal or sagittal compression of the pelvic ring. Skin Other: There is a cluster of older appearing ecchymosis on the anterior aspect of the right knee. There are no other wounds or contusions that are visible. There is no palpable hematoma or obvious swelling or bruising to the vertex of the scalp Neuro Other: The patient has speech that would be indicative of cognitive delay. The patient has no focal motor or sensory deficits to evaluation. The cranial nerves appear to be grossly intact. Extrem Other: The patient is able to spontaneously move all 4 extremities, and does not report any pain to manipulation of the ankles, knees, hips, wrists, elbows, or shoulders. Course Vital Signs Vital signs: Vital Signs Temperature 36.4 C L 12/01/23 23:05 Pulse 91 H 12/01/23 23:05 Respiratory Rate 18 12/01/23 23:05 Blood Pressure 176/107 H 12/01/23 23:05 Pulse Oximetry 97 12/01/23 23:05 Temperature 36.4 C L 12/01/23 23:05 Temperature Source Temporal Artery Scan 12/01/23 23:05 Pulse 91 H 12/01/23 23:05 Respiratory Rate 18 12/01/23 23:05 Respiratory Effort Normal 12/01/23 23:10 Blood Pressure 176/107 H 12/01/23 23:05 Pulse Oximetry 97 12/01/23 23:05 Pain Level 9 12/01/23 23:05 Medical Decision Making The patient was seen and examined. She does not appear to be injured from the fall. She appears to have some chronic bruising to the right knee. There is no significant injury to the scalp. The patient seems to be functioning at her current base level of motor function. Although there are some chronic injuries to the right knee, there was no real significant pain to direct palpation of the contusions or manipulation of that knee. The patient will be ambulated at the bedside and assuming she is ambulating at her baseline, the patient can return home tonight with family for ongoing services. I discussed the case with her [id number] who lives in the home and will come to pick her up. Quality:SDOH Health Related Social Needs: Health related social needs risk of homeless PFSH All Active Problems (Updated 12/01/23 @ 23:36 by Sudhir Rivera MD) Contusion of scalp (Acute) Contusion of knee (Acute) Impaired gait and mobility (Acute) Recurrent falls while walking (Acute ~2022) Menorrhagia (Chronic) EMBx 2011: benign. Repeat EMBx 2013: benign proliferative endometrium, started on norethindrone, pt counseled re: endometrial ablation. CKD (chronic kidney disease) (Chronic) 12/2015 renal US at [facility] [place]: bilateral and symmetric renal cortical thinning consistent with patient's known history of CKD Sleep apnea (Chronic 06/09/13) CPAP Primary osteoarthritis of left knee (Chronic 01/03/17) Obesity (Chronic 05/15/13) Migraine without aura (Chronic 05/28/09) Memory impairment (Chronic 12/23/10) Related to sz disorder & brain surgery 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) Cerebral Cyst (L parietal cyst): Dr. Antunez [facility] [place] [place] Neuro follows Insomnia (Chronic 03/09/10) Amitryp resolved IFG (impaired fasting glucose) (Chronic 04/01/18) Hyperlipidemia (Chronic 12/24/15) 06/2021 labs: 10-year ASCVD risk ~4.9% --> no statin indicated Essential hypertension (Chronic 10/18/11) Endometrium, polyp (Chronic 01/25/16) currently protruding through the exocervix. I have recomended hysteroscopic resection under anesthesia. Coordination problem (Chronic 12/23/10) Hemiparesis; R more than L, mostly resolved Falls (Acute) Focal epilepsy (Chronic) Cyst on brain; [facility] Neurology Hemiparesis (Acute) right; Leg>>>arm; due to left parietal cyst Mild developmental delay (Acute) cognitive with right hemiparesis; due to parietal cyst; surgery, seizures Medical History (Updated 12/01/23 @ 23:36 by Sudhir Rivera MD) Delirium Dizziness Encounter for screening colonoscopy (~12/2022) Petit mal seizure status Per sister states she is not aware she has them per her sister states it aroung 1 month ago Nephrolithiasis incidental finding Iron deficiency anemia (05/26/13) Dx'ed Dr. Antunez neuro [facility] [place]; iron replacement worked Thyroid cyst (07/26/16) Most recent US: 01/24/2021 TI-RADS 2, repeat US if clinically necessary Hand fracture Surgical History History of section x2 closed reduction /pinning rgt fifth finger (06/27/16) R 5th digit; 2016; s/p fall Endometrial Biopsy (08/15/12) Dr. Salinas Brain cyst removal, [facility] 04/12/2011; fenestration Family History Father Alcohol abuse Other Adopted Social History Smoking/Tobacco Use Status: Never Smoking risk assessment performed?: Yes Alcohol Intake: never Drug use: Never Substance use type: does not use Caregiver/Support person: No Household members: spouse and children Housing: apartment Number of Children: 1 Communication Needs: None current occupation: Disabled Pets and animals: No Sexually active: Yes Current gender identity: female What type of physical activity do you participate in: walking Duration: 15-30 minutes/day Frequency: daily Seatbelt use: always Water heater temp set <120 deg: Yes Working smoke detector in home: Yes Fire extinguisher in home: Yes Carbon monox detector in home: Yes Firearms in home: No Do you feel safe at home: Yes Do you feel safe in your relationship?: Yes Female Reproductive History Menstrual Menopause type: natural
--- NOTE | 2023-12-01 23:33 | NUR.NOTE ---
PT ambulated in the room with a walker with no issues. Nursing Note:
[2023-12-01 23:57] VITALS: PULSE 85; RESP 18; O2SAT 96
== END 2023-12-01 23:57 | disposition home or self-care (01) ==
PROVIDERS: Emergency Provider Emergency Medicine Emergency Medical Services; PCP Nurse Practitioner Adult Health
DX: S80.01XA Contusion of right knee, initial encounter (principal); E78.5 Hyperlipidemia, unspecified; I10 Essential (primary) hypertension; Z91.81 History of falling; W18.39XA Other fall on same level, initial encounter; Y93.01 Activity, walking, marching and hiking; Y92.018 Other place in single-family (private) house as the place of occurrence of the external cause
CPT/HCPCS: 99283

== ENCOUNTER → 2023-12-11 09:57 | Outpatient (BNVA) | payer MEDICARE, SELFPAY | PROVIDERS: PCP Nurse Practitioner Adult Health; Visit Provider Psychiatry & Neurology Neurology | DX: R41.3 Other amnesia (principal); G81.90 Hemiplegia, unspecified affecting unspecified side; G40.109 Localization-related (focal) (partial) symptomatic epilepsy and epileptic syndromes with simple partial seizures, not intractable, without status epilepticus; G93.9 Disorder of brain, unspecified | CPT/HCPCS: 99215 ==

== ENCOUNTER → 2024-02-12 10:13 | Outpatient (BNVA) | payer MEDICARE, SELFPAY | PROVIDERS: PCP Nurse Practitioner Adult Health; Referring Provider Nurse Practitioner Adult Health; Visit Provider Psychiatry & Neurology Neurology | DX: G40.209 Localization-related (focal) (partial) symptomatic epilepsy and epileptic syndromes with complex partial seizures, not intractable, without status epilepticus (principal); G93.9 Disorder of brain, unspecified; R62.50 Unspecified lack of expected normal physiological development in childhood; R41.3 Other amnesia | CPT/HCPCS: 99214 ==

== ENCOUNTER 2024-03-18 03:29 | Outpatient (CLI) | payer MEDICARE, SELFPAY ==
[2024-03-18 14:48] LABS: Vitamin B12 410 pg/mL (193-986)
== END 2024-03-18 03:30 | disposition home or self-care (01) ==
PROVIDERS: PCP Nurse Practitioner Adult Health; Visit Provider Psychiatry & Neurology Neurology
DX: R62.50 Unspecified lack of expected normal physiological development in childhood (principal); R41.3 Other amnesia
CPT/HCPCS: 36415; 82607

== ENCOUNTER → 2024-04-22 15:16 | Outpatient (BNVA) | payer MEDICARE, SELFPAY | PROVIDERS: PCP Nurse Practitioner Adult Health; Visit Provider Psychiatry & Neurology Neurology | DX: R29.6 Repeated falls (principal); G40.909 Epilepsy, unspecified, not intractable, without status epilepticus; G93.9 Disorder of brain, unspecified; R62.50 Unspecified lack of expected normal physiological development in childhood; R41.3 Other amnesia | CPT/HCPCS: 99214 ==

== ENCOUNTER → 2024-06-25 14:05 | Outpatient (BNVA) | payer MEDICARE, SELFPAY | PROVIDERS: PCP Nurse Practitioner Adult Health; Referring Provider Nurse Practitioner Adult Health; Visit Provider Psychiatry & Neurology Neurology | DX: G40.209 Localization-related (focal) (partial) symptomatic epilepsy and epileptic syndromes with complex partial seizures, not intractable, without status epilepticus (principal); G40.109 Localization-related (focal) (partial) symptomatic epilepsy and epileptic syndromes with simple partial seizures, not intractable, without status epilepticus; R29.6 Repeated falls | CPT/HCPCS: 99213 ==

== ENCOUNTER 2024-07-09 02:09 | Outpatient (CLI) | payer MEDICARE, SELFPAY | END 2024-07-09 02:29 | PROVIDERS: PCP Nurse Practitioner Adult Health; Visit Provider Nurse Practitioner Adult Health | DX: Z12.31 Encounter for screening mammogram for malignant neoplasm of breast (principal) | CPT/HCPCS: 77063; 77067 ==

== ENCOUNTER 2024-10-07 10:20 | Emergency (ER) | payer MEDICARE, MEDICAID, SELFPAY ==
[2024-10-07 10:21] VITALS: BP 121/77; PULSE 95; RESP 18; TEMP 36.4
--- NOTE | 2024-10-07 10:27 | ED.GENADUL_ITS ---
Discharge Plan Disposition Patient Disposition: Home Condition: Stable Discharge Details Clinical Impression: Sprain of right ankle Primary Care Provider: Delmy Valdez ED Provider: Kennedy Murrell Home Meds and New Rx's Prescriptions: Continued donepezil 5 mg tablet 5 mg PO DAILY Qty: 90 3RF amitriptyline 50 mg tablet 50 mg PO QHS Qty: 90 3RF memantine 10 mg tablet 10 mg PO BID Qty: 180 3RF lisinopril 10 mg tablet See Rx Instructions .ROUTE .COMPLEX Qty: 100 2RF Dose Instruction: TAKE 1 TABLET BY MOUTH DAILY FOR BLOOD PRESSURE Rx Instructions: TAKE 1 TABLET BY MOUTH DAILY FOR BLOOD PRESSURE levetiracetam 750 mg tablet 750 mg PO BID Qty: 180 2RF meclizine 25 mg tablet 25 mg PO .COMPLEX Qty: 60 1RF Rx Instructions: Take 25mg once daily every day; ok to take an additional 25mg once daily prn dizziness lamotrigine [Lamictal] 200 mg tablet 200 mg PO See Instructions Qty: 270 2RF Rx Instructions: FOR SEIZURES - ok for generic Take 1 tablet in the AM & 2 tablets in the PM acetaminophen [Tylenol] 325 MG tablet 650 mg PO Q4H PRN PRN0RF Discharge Instructions Instructions: Ankle Sprain ED Additional Instructions: You were seen in the emergency department for the sprain of your right ankle. There is no fracture seen on your x-ray. Please rest, ice, compress and elevate your ankle often over the next few days. Take 650 mg of Tylenol every 6 hours, mcc between Tylenol dosings take 400 mg of ibuprofen also on a 6-hour schedule. Your injury should improve over the next 1 to 2 weeks, please follow- up with orthopedics for persistent pain lasting longer than this time. Please return to the emergency department for severe increase in pain especially with inability to ambulate, complete numbness or other signs of neurovascular compromise. Referrals: Delmy Valdze, SALES DESIGNER [Primary Care Provider] - Discharge Data Discharge Date/Time-TO BE ENTERED AT DEPARTURE: 10/07/24 12:27 HPI General Date/Time Provider Initiated Documentation: 10/07/24 10:27 . HPI Narrative: 64 year-old female presents to ED today by POV/ambulating with walker, which is not her baseline, with a chief complaint of R ankle pain with onset yesterday when she caught it getting out of the tub. Quality described as ankle and foot pain, worse with movement, no radiation to gross deformity, bruising, endorses mild swelling, denies numbness/tingling, denies proximal calf pain. Severity is described as moderate. Palliating factors include nothing specific attempted. Provoking factors include nothing specific. Events leading up to the incident/Associated Symptoms: Patient is R-side dominant. Patient not anticoagulated. Related Data Home Medications ?Medication ?Instructions ?Recorded ?Confirmed acetaminophen 325 mg tablet 650 mg (2 x 325 mg) PO Q4H PRN PRN 06/27/16 10/07/24 (Tylenol) amitriptyline 50 mg tablet 50 mg PO QHS #90 tabs 05/13/24 10/07/24 memantine 10 mg tablet 10 mg PO BID #180 tabs 06/09/24 10/07/24 donepezil 5 mg tablet 5 mg PO DAILY #90 tabs 06/25/24 10/07/24 lisinopril 10 mg tablet See Rx Instructions .Route 08/04/24 10/07/24 .COMPLEX #100 tabs lamotrigine 200 mg tablet 200 mg PO See Instructions #270 08/18/24 10/07/24 (Lamictal) tab-caps levetiracetam 750 mg tablet 750 mg PO BID #180 tab-caps 08/18/24 10/07/24 meclizine 25 mg tablet 25 mg PO .COMPLEX dizziness #60 08/18/24 10/07/24 tabs Previous Rx's ?Medication ?Instructions ?Recorded acetaminophen 325 mg tablet 650 mg (2 x 325 mg) PO Q4H PRN PRN 06/27/16 (Tylenol) amitriptyline 50 mg tablet 50 mg PO QHS #90 tabs 05/13/24 memantine 10 mg tablet 10 mg PO BID #180 tabs 06/09/24 donepezil 5 mg tablet 5 mg PO DAILY #90 tabs 06/25/24 lisinopril 10 mg tablet See Rx Instructions .Route 08/04/24 .COMPLEX #100 tabs lamotrigine 200 mg tablet 200 mg PO See Instructions #270 08/18/24 (Lamictal) tab-caps levetiracetam 750 mg tablet 750 mg PO BID #180 tab-caps 08/18/24 meclizine 25 mg tablet 25 mg PO .COMPLEX dizziness #60 08/18/24 tabs Allergies Allergy/AdvReac Type Severity Reaction Status Date / Time hydrocortisone Allergy Unknown SKIN RASH Verified 10/07/24 10:37 adhesive AdvReac Intermediate skin rash Verified 10/07/24 10:37 NSAIDS (Non-Steroidal AdvReac chronic Verified 10/07/24 10:37 Anti-Inflamma kidney disease baby powder Allergy Intermediate Contraindic Uncoded 10/07/24 10:37 ated/rash pine trees Allergy Intermediate red Uncoded 10/07/24 10:37 blotches per pt. Never tested General Stated Complaint: Orthopedic TAWNY: 4 Review of Systems All systems reviewed & are unremarkable except as noted in HPI and below Exam Narrative Exam Narrative: GENERAL APPEARANCE: Well-nourished, non-toxic, awake and alert, atraumatic, no acute distress. SKIN: Warm, pink, dry, intact, without rashes/lesions/ulcerations. HEAD: Normocephalic, atraumatic, normal hair distribution for gender/age. EYES: Normal conjunctiva, no exudates on lids/lashes. ENT: Nares patent, no circumoral cyanosis, no facial swelling NECK: Supple, trachea midline, painless cervical ROM. LUNGS/CHEST: Non-labored respirations, normal A/P diameter, symmetrical expansion, no chest wall deformity HEART (CV/PV): Regular rate, no peripheral edema, no JVD. ABDOMEN: Soft, non-distended, no guarding. MSK: Normal ROM, no swelling/deformity to bilateral UEs or LEs, moving all extremities without weakness, no cyanosis, spine midline without tenderness, normal curvature, diffuse tenderness to the right ankle and foot without crepitus, no overt swelling or ecchymosis, right dorsalis pedis pulse 2+, sensation intact, range of motion intact NEURO: Mental Status AAOx4 - alert to person, place, time, events No facial droop, no forehead involvement. Motor: No focal weakness - strength 5/5 in bilateral UEs and LEs, proximal and distal, symmetric. Sensory: sensation intact to light touch globally. Gait antalgic PSYCH: euthymic, cooperative, pleasant, appropriate speech Course Vital Signs Vital signs: Vital Signs Temperature 36.4 C 10/07/24 10:21 Pulse 95 H 10/07/24 10:21 Respiratory Rate 18 10/07/24 10:21 Blood Pressure 121/77 10/07/24 10:21 Temperature 36.4 C 10/07/24 10:21 Temperature Source Temporal Artery Scan 10/07/24 10:21 Pulse 95 H 10/07/24 10:21 Respiratory Rate 18 10/07/24 10:21 Blood Pressure 121/77 10/07/24 10:21 Blood Pressure Position Sitting 10/07/24 10:21 Oxygen Delivery Method Room Air 10/07/24 10:21 Oxygen Flow Rate 0 10/07/24 10:21 Pain Level 10 10/07/24 10:21 Medical Decision Making This dictation utilizes [id number] dictation software and may contain unedited grammatical errors. 64 year-old female presents to ED today by POV/ambulating with walker, which is not her baseline, with a chief complaint of R ankle pain with onset yesterday when she caught it getting out of the tub. Quality described as ankle and foot pain, worse with movement, no radiation to gross deformity, bruising, endorses mild swelling, denies numbness/tingling, denies proximal calf pain. Severity is described as moderate. Palliating factors include nothing specific attempted. Provoking factors include nothing specific. Events leading up to the incident/A ssociated Symptoms: Patient is R-side dominant. Patients' medical history: [ ]. Family and social history: [ ]. Pertinent exam findings / vital signs include diffuse tenderness to the right ankle and foot without crepitus, no overt swelling or ecchymosis, right dorsalis pedis pulse 2+, sensation intact, range of motion intact. Differential / pathologies of concern include fracture, sprain. Diagnostic studies of: -XR R ankle and foot-no acute fracture seen. Interventions of: -Sharif wrap. ED Course/Assessment/Plan: 64-year-old female presents after getting her right ankle getting stuck on the edge of her bathtub last night having persistent pain with ambulation, has intact range of motion and no severe swelling or skin changes, no crepitus on exam. X-rays negative for fracture likely ankle sprain, wrapped with Sharif, recommend RICE therapy and therapeutic dosing Tylenol and ibuprofen Findings not consistent with fracture or neurovascular compromise. Disposition of sprain of right ankle. Patient verbalized understanding of the plan and return to ED criteria and engaged in shared decision making. Medical Records Medical records reviewed: Yes I reviewed the patient's medical records. Imaging Data Radiologic Study: Attestation: I personally reviewed and interpreted this imaging study as follows: Imaging: X-Ray Radiologist's impression: EXAM: XR ANKLE RT COMPLETE CLINICAL HISTORY: R foot and ankle pain. TECHNIQUE: 2D digital imaging was performed. COMPARISON: No exams were available for comparison FINDINGS: 3 views There is soft tissue swelling around the ankle, more so laterally than medially. There is no evidence of acute fracture of the malleoli nor widening the ankle mortise. Bony excrescence is noted off the lateral aspect of the calcaneus which is doubtful for fracture. IMPRESSION: As above. No obvious fractures. Radiologic Study #2: Attestation: I personally reviewed and interpreted this imaging study as follows: Imaging: X-Ray Radiologist's impression: EXAM: XR FOOT RT COMPLETE CLINICAL HISTORY: R foot and ankle pain. TECHNIQUE: 2D digital imaging was performed. COMPARISON: CR RIGHT GREAT TOE from 07/08/2017 FINDINGS: 3 views There is some soft tissue swelling dorsally over the metatarsals. No obvious metatarsal fractures evident. No evidence of acute fracture or diastasis of the Lisfranc joint. Mild degenerative changes in the great toe metatarsophalangeal joint and interphalangeal joint of the great toe. Tarsometatarsal joints appear intact. Bone density normal. No osseous lesions. IMPRESSION: Dorsal soft tissue swelling. No fractures evident. Quality:SDOH Health Related Social Needs: Health related social needs details N/A PFSH All Active Problems (Updated 10/07/24 @ 12:01 by GLORIA Martin) Sprain of right ankle (Acute) Palliative care encounter (Acute) Memory loss (Acute) Impaired gait and mobility (Acute) Recurrent falls while walking (Acute ~2022) Menorrhagia (Chronic) EMBx 2011: benign. Repeat EMBx 2013: benign proliferative endometrium, star aziza on norethindrone, pt counseled re: endometrial ablation. CKD (chronic kidney disease) (Chronic) 12/2015 [place] [facility] [place]: bilateral and symmetric renal cortical thinning consistent with patient's known history of CKD Sleep apnea (Chronic 06/09/13) 11/2023: Per sister Jeannine, not using CPAP Primary osteoarthritis of left knee (Chronic 01/03/17) Obesity (Chronic 05/15/13) Migraine without aura (Chronic 05/28/09) Memory impairment (Chronic 12/23/10) Related to sz disorder & brain surgery 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) Cerebral Cyst (L parietal cyst): Dr. Antunez [facility] [place] follows Insomnia (Chronic 03/09/10) Amitryp resolved IFG (impaired fasting glucose) (Chronic 04/01/18) Hyperlipidemia (Chronic 12/24/15) 06/2021 labs: 10-year ASCVD risk ~4.9% --> no statin indicated Essential hypertension (Chronic 10/18/11) Endometrium, polyp (Chronic 01/25/16) currently protruding through the exocervix. I have recomended hysteroscopic resection under anesthesia. 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 Antunez neuro [facility] [place]; iron replacement worked Thyroid cyst (07/26/16) Most recent US: 01/24/2021 TI-RADS 2, repeat US if clinically necessary Hand fracture Surgical History History of section x2 closed reduction /pinning rgt fifth finger (06/27/16) R 5th digit; 2016; s/p fall Endometrial Biopsy (08/15/12) Dr. Salinas Brain cyst removal, [facility] 04/12/2011; fenestration Family History Father Alcohol abuse Other Adopted Social History Smoking/Tobacco Use Status: Never Smoking risk assessment performed?: Yes Alcohol Intake: never Drug use: Never Substance use type: does not use Adopted: Yes Caregiver/Support person: No Foster care: Yes Household members: spouse Housing: apartment Number of Children: 1 Communication Needs: Corrective Lenses Education Level: high school Do you need help understanding health information?: Never current occupation: Disabled Pets and animals: No Sexually active: No Do you think of yourself as: straight/heterosexual Current gender identity: female What is your relationship status?: How often do you talk on the phone with friends or family?: three or more times per week How often do you get together with friends or relatives?: never How often do you attend restoration or scientologist services?: decline to answer Do you belong to any clubs or organized social groups?: no Panel score (0-1 are the most socially isolated patients): 2 What type of physical activity do you participate in: walking Duration: 15-30 minutes/day Frequency: daily Seatbelt use: sometimes Helmet use: Yes (No Reason) Helmet use: never Drive intox or ride w/intox straddle truck driver: No Water heater temp set <120 deg: Yes Working smoke detector in home: Yes Fire extinguisher in home: Yes Carbon monox detector in home: Yes Firearms in home: No Do you feel safe at home: Yes Do you feel safe in your relationship?: Yes Female Reproductive History Menstrual Menopause type: natural
--- NOTE | 2024-10-07 10:30 | DI.RAD_ITS ---
Exam(s) XR FOOT RT COMPLETE EXAM: XR FOOT RT COMPLETE CLINICAL HISTORY: R foot and ankle pain. TECHNIQUE: 2D digital imaging was performed. COMPARISON: CR RIGHT GREAT TOE from 07/08/2017 FINDINGS: 3 views There is some soft tissue swelling dorsally over the metatarsals. No obvious metatarsal fractures ev ident. No evidence of acute fracture or diastasis of the Lisfranc joint. Mild degenerative changes in the g reat toe metatarsophalangeal joint and interphalangeal joint of the great toe. Tarsometatarsal joint s appear intact. Bone density normal. No osseous lesions. IMPRESSION: Dorsal soft tissue swelling. No fractures evident. DATA REPOSITORY: RADIATION DOSE DELIVERED:
--- NOTE | 2024-10-07 11:13 | DI.RAD_ITS ---
Exam(s) XR ANKLE RT COMPLETE EXAM: XR ANKLE RT COMPLETE CLINICAL HISTORY: R foot and ankle pain. TECHNIQUE: 2D digital imaging was performed. COMPARISON: No exams were available for comparison FINDINGS: 3 views There is soft tissue swelling around the ankle, more so laterally than medially. There is no evidence of acute fracture of the malleoli nor widening the ankle mortise. Bony excresce nce is noted off the lateral aspect of the calcaneus which is doubtful for fracture. IMPRESSION: As above. No obvious fractures. DATA REPOSITORY: RADIATION DOSE DELIVERED:
== END 2024-10-07 12:27 | disposition home or self-care (01) ==
PROVIDERS: Emergency Provider Physician Assistant; PCP Nurse Practitioner Adult Health
DX: S93.401A Sprain of unspecified ligament of right ankle, initial encounter (principal); W18.49XA Other slipping, tripping and stumbling without falling, initial encounter; I12.9 Hypertensive chronic kidney disease with stage 1 through stage 4 chronic kidney disease, or unspecified chronic kidney disease; N18.9 Chronic kidney disease, unspecified; E78.5 Hyperlipidemia, unspecified; Y93.E1 Activity, personal bathing and showering; Y92.012 Bathroom of single-family (private) house as the place of occurrence of the external cause
CPT/HCPCS: 99283; 73610; 73630

== ENCOUNTER → 2024-10-22 12:44 | Outpatient (BNVA) | payer MEDICARE, MEDICAID, SELFPAY | PROVIDERS: PCP Nurse Practitioner Adult Health; Visit Provider Psychiatry & Neurology Neurology | DX: R29.6 Repeated falls (principal); G40.109 Localization-related (focal) (partial) symptomatic epilepsy and epileptic syndromes with simple partial seizures, not intractable, without status epilepticus; G40.209 Localization-related (focal) (partial) symptomatic epilepsy and epileptic syndromes with complex partial seizures, not intractable, without status epilepticus | CPT/HCPCS: 99214 ==

== ENCOUNTER 2024-12-18 03:31 | Outpatient (CLI) | payer MEDICARE, MEDICAID, SELFPAY ==
[2024-12-18 09:20] LABS: Hemoglobin A1C 5.1 % (<5.7)
[2024-12-18 09:40] LABS: BUN 23 mg/dL (7-18); CREATININE 1.3 mg/dL (0.55-1.02); Calcium 9.9 mg/dL (8.5-10.1); Calculated LDL 148 mg/dL (<100); Chloride 105 mmol/L (98-107); Cholesterol 240 mg/dL (<200); Estimated GFR 46.49 (mL/min/1.73m2); Glucose 100 mg/dL (74-106); HDL Cholesterol 68 mg/dL (>or=50); Potassium 4.9 mmol/L (3.5-5.1); Sodium 142 mmol/L (136-145); Triglyceride 122 mg/dL (<150)
== END 2024-12-18 03:32 | disposition home or self-care (01) ==
LOC: LBO 03:32
PROVIDERS: PCP Nurse Practitioner Adult Health; Visit Provider Nurse Practitioner Adult Health
DX: R73.01 Impaired fasting glucose (principal); N18.9 Chronic kidney disease, unspecified; E78.5 Hyperlipidemia, unspecified; I10 Essential (primary) hypertension
CPT/HCPCS: 36415; 80048; 80061; 83036

== ENCOUNTER 2025-01-19 16:54 | Observation (INO) | payer MEDICARE, MEDICAID, SELFPAY ==
[2025-01-19] VITALS (44 sets, daily range): BP systolic 91–178; BP diastolic 48–104; PULSE 64–89; RESP 11–23; TEMP 36.6–36.7; O2SAT 83–100
--- NOTE | 2025-01-19 16:45 | DI.CT_ITS ---
Exam(s) CT BRAIN NECK CTA EXAM: CT BRAIN NECK CTA CLINICAL HISTORY: speech changes, ?cva. TECHNIQUE: Imaging Protocol: Axial CT angiography was performed with multi-slice acquisition and mu lti-planar and MIP reconstructions. CONTRAST MATERIAL: Intravenous: Omnipaque 350 Contrast volume:70ml COMPARISON: CT CT HEAD WO from 10/10/2023 FINDINGS: CT Head W/O and W contrast: Ventricles and Extra axial spaces: Normal in size and morphology for the patient's age. Hemorrhage: None. Cerebral parenchyma: No evidence of acute infarct or mass. Midline shift: None. Brainstem/Cerebellum: No acute findings.. Calvarium: High left parietal craniotomy. Visualized Paranasal sinuses/Mastoids: Clear. Soft Tissues: Unremarkable. Enhancement: Normal. Venous sinuses are patent. CTA Brain W: Internal Carotid Arteries: Right: No aneurysm, occlusion or significant stenosis. Left: No aneurysm, occlusion or significant stenosis. Middle Cerebral Arteries: Right: No aneurysm, occlusion or significant stenosis. Left: No aneurysm, occlusion or significant stenosis. Anterior Cerebral Arteries: Right: No aneurysm, occlusion or significant stenosis. Left: No aneurysm, occlusion or significant stenosis. Posterior cerebral Arteries: Right: No aneurysm, occlusion or significant stenosis. Left: No aneurysm, occlusion or significant stenosis. Vertebral Arteries: Right: No aneurysm, occlusion or significant stenosis. Left: No aneurysm, occlusion or significant stenosis. Basilar Artery: No aneurysm, occlusion or significant stenosis. CTA Neck W: Common Carotid: No visible plaque. Right: No dissection, occlusion or significant stenosis. Left: No dissection, occlusion or significant stenosis. External Carotid: Right: No dissection, occlusion or significant stenosis. Left: No dissection, occlusion or significant stenosis. Internal Carotid: Right: No dissection, occlusion or significant stenosis. Left: No dissection, occlusion or significant stenosis. Vertebral Artery: Right: No dissection, occlusion or significant stenosis. Left: No dissection, occlusion or significant stenosis. Lung Apices: No acute findings. Bones: No acute abnormality. Soft Tissues: Normal. IMPRESSION: 1. CTA brain: Normal CTA examination of the [place]. 2. Head CT: No acute abnormality. Stable cytic area left high parietal lobe. 3. CTA neck: No visible atherosclerotic sclerotic disease. No evidence of occlusion, significant nilay nosis or dissection. RADIATION DOSE DELIVERED: Total DLP DATA REPOSITORY: All CT scans at this facility are submitted to the National Radiology Data Registry (NRDR) Dose Index Registry (DIR) with the [employer] (ACR). RADIATION OPTIMIZATION: All CT scans at this facility use at least one of these dose optimization te chniques: automated exposure control; mA and/or kV adjustment per patient size (includes targeted exa ms where dose is matched to clinical indication); or iterative reconstruction.
--- NOTE | 2025-01-19 16:59 | ED.GENADUL_ITS ---
Discharge Plan Disposition Patient Disposition: Admit to [facility] Condition: Serious Discharge Details Chief Complaint: CVA/TIA Clinical Impression: Altered mental status Primary Care Provider: Delmy Valdez ED Provider: Alejandro Rodriguez Home Meds and New Rx's Prescriptions: No Action (DME) Wheeled Walker See Rx Instructions .Route .MEDSUPPLY Qty: 1 0RF Rx Instructions: Requested to have wheeled walker without breaks and with a seat (pt and sister's request) donepezil 10 mg tablet 10 mg PO DAILY Qty: 90 3RF memantine 10 mg tablet 10 mg PO BID Qty: 180 3RF lisinopril 10 mg tablet See Rx Instructions .ROUTE .COMPLEX Qty: 100 2RF Dose Instruction: TAKE 1 TABLET BY MOUTH DAILY FOR BLOOD PRESSURE Rx Instructions: TAKE 1 TABLET BY MOUTH DAILY FOR BLOOD PRESSURE levetiracetam 750 mg tablet 750 mg PO BID Qty: 180 2RF meclizine 25 mg tablet 25 mg PO .COMPLEX Qty: 60 1RF Rx Instructions: Take 25mg once daily every day; ok to take an additional 25mg once daily prn dizziness lamotrigine [Lamictal] 200 mg tablet 200 mg PO See Instructions Qty: 270 2RF Rx Instructions: FOR SEIZURES - ok for generic Take 1 tablet in the AM & 2 tablets in the PM amitriptyline 25 mg tablet 25 mg PO QHS Qty: 90 1RF Rx Instructions: Pharm: Discontinue 50mg strength. acetaminophen [Tylenol] 325 MG tablet 650 mg PO Q4H PRN PRN0RF HPI General Mode of arrival: EMS . Date/Time Provider Initiated Documentation: 01/19/25 16:56 . Information obtained by: EMS . History of Present Illness 64 year old F presents to the emergency department with the chief complaint of changes in speech, described as moderate, Patient started experiencing this minute(s) (30) and it has been constant. No relieving factors improve symptom(s), No exacerbating factors reported . Patient notes denies chest pain and shortness of breath. Patient did receive the following treatments prior to arrival, none Related Data Home Medications ?Medication ?Instructions ?Recorded ?Confirmed acetaminophen 325 mg tablet 650 mg (2 x 325 mg) PO Q4H PRN PRN 06/27/16 01/01/25 (Tylenol) memantine 10 mg tablet 10 mg PO BID #180 tabs 06/09/24 01/01/25 lisinopril 10 mg tablet See Rx Instructions .Route 08/04/24 01/01/25 .COMPLEX #100 tabs lamotrigine 200 mg tablet 200 mg PO See Instructions #270 08/18/24 01/01/25 (Lamictal) tab-caps levetiracetam 750 mg tablet 750 mg PO BID #180 tab-caps 08/18/24 01/01/25 meclizine 25 mg tablet 25 mg PO .COMPLEX dizziness #60 08/18/24 01/01/25 tabs donepezil 10 mg tablet 10 mg PO DAILY #90 tabs 10/22/24 01/01/25 Wheeled Walker #1 ea 12/22/24 01/01/25 amitriptyline 25 mg tablet 25 mg PO QHS #90 tabs 01/01/25 Previous Rx's ?Medication ?Instructions ?Recorded acetaminophen 325 mg tablet 650 mg (2 x 325 mg) PO Q4H PRN PRN 06/27/16 (Tylenol) memantine 10 mg tablet 10 mg PO BID #180 tabs 06/09/24 lisinopril 10 mg tablet See Rx Instructions .Route 08/04/24 .COMPLEX #100 tabs lamotrigine 200 mg tablet 200 mg PO See Instructions #270 08/18/24 (Lamictal) tab-caps levetiracetam 750 mg tablet 750 mg PO BID #180 tab-caps 08/18/24 meclizine 25 mg tablet 25 mg PO .COMPLEX dizziness #60 08/18/24 tabs donepezil 10 mg tablet 10 mg PO DAILY #90 tabs 10/22/24 Wheeled Walker #1 ea 12/22/24 amitriptyline 25 mg tablet 25 mg PO QHS #90 tabs 01/01/25 Allergies Allergy/AdvReac Type Severity Reaction Status Date / Time hydrocortisone Allergy Unknown SKIN RASH Verified 01/19/25 17:44 adhesive AdvReac Intermediate skin rash Verified 01/19/25 17:44 NSAIDS (Non-Steroidal AdvReac chronic Verified 01/19/25 17:44 Anti-Inflamma kidney disease baby powder Allergy Intermediate Contraindic Uncoded 01/19/25 17:44 ated/rash pine trees Allergy Intermediate red Uncoded 01/19/25 17:44 blotches per pt. Never tested General Stated Complaint: CVA/TIA TAWNY: 2 Review of Systems All systems reviewed & are unremarkable except as noted in HPI and below Constitutional Constitutional: Denies chills, Denies fever(s) and Denies weakness Cardiovascular Cardiovascular: Denies chest pain and Denies dyspnea Respiratory Respiratory: Denies dyspnea Gastrointestinal Gastrointestinal: Denies abdominal pain and Denies vomiting Neurologic Neurologic: Reports abnormal speech and Denies weakness Psychiatric Psychiatric: Denies depression Exam Const General: no acute distress Orientation: alert HENMT Head: normal to inspection Ears: external ears normal General nose exam: external nose normal Mouth: moist mucous membranes Eyes General: appearance normal, both eyes and all related structures Neck Neck: normal visual inspection Resp Effort & Inspection: normal respiratory effort and able to speak in complete sentences Cardio Rate: regular rate Skin General skin exam: no rashes or lesions noted Neuro General: patient alert and patient oriented x3 Extrem General: normal to inspection Psych Mental Status: mental status grossly normal Medical Decision Making 64-year-old female with a history of CKD, focal epilepsy, who comes in with EMS after she was talking with her around 430 and her speech became incomprehensible which is new for her. No recent falls or other trauma. Viviane vo is alert on arrival, she is moving all extremities well with no drift. She is very slurred speech and has severe dysarthria she is able to shake her head yes or no to questions. Concern for CVA versus TIA, will obtain CTA neck and brain and CBC, CMP and troponins and obtain teleneurology consult.NIH on initial exam 4 due to 2 for aphasia and 2 for dysarthria. CTA and labs thus far unremarkable. She was evaluated by teleneurology and the now states that at the start of this the patient appeared to have rigidity of her arms and brief unresponsive episode. Neurology is questioning if she had a seizure and is now postictal versus possibly a different form of Xu's paralysis. They recommend admission for monitoring and loading with Keppra 2 g IV and then 1000 mg twice daily. Recommend MRI and then when able to get an EEG. Will discuss with hospitalist upon admission. Differential Diagnosis Differential Diagnosis: TIA, CVA, electrolyte abnormality Medical Records Medical records reviewed: Yes I reviewed the patient's medical records. Lab Data Lab results reviewed: Yes I reviewed the patient's lab results. ECG Data Attestation: I personally reviewed and interpreted this ECG (s) as follows: Prior ECG tracings: available for review Interpretation: sinus rate of 79 no stemi Quality:SDOH Health Related Social Needs: Health related social needs details N/A PFSH All Active Problems (Updated 01/19/25 @ 18:20 by Alejandro Rodriguez MD) Altered mental status (Acute) Iron deficiency anemia (Acute 05/26/13) Dx'ed Dr. Antunez [place] [facility] [place]; iron replacement worked Palliative care encounter (Acute) Memory loss (Acute) Impaired gait and mobility (Acute) Recurrent falls while walking (Acute ~2022) Menorrhagia (Chronic ~2011) EMBx 2012: benign. Repeat EMBx 2013: benign proliferative endometrium, started on norethindrone, pt counseled re: endometrial ablation. CKD (chronic kidney disease) (Chronic) 12/2015 renal US at [facility] [place]: bilateral and symmetric renal cortical thinning consistent with patient's known history of CKD Sleep apnea (Chronic 06/09/13) 11/2023: Per sister Jeannine, not using CPAP Primary osteoarthritis of left knee (Chronic 01/03/17) Obesity (Chronic 05/15/13) Migraine without aura (Chronic 05/28/09) Memory impairment (Chronic 12/23/10) Related to sz disorder & brain surgery 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) Cerebral Cyst (L parietal cyst): Dr. Antunez [facility] [place] Neuro follows Insomnia (Chronic 03/09/10) Amitryp resolved IFG (impaired fasting glucose) (Chronic 04/01/18) Hyperlipidemia (Chronic 12/24/15) 06/2021 labs: 10-year ASCVD risk ~4.9% --> no statin indicated Essential hypertension (Chronic 10/18/11) Endometrium, polyp (Chronic 01/25/16) currently protruding through the exocervix. I have recomended hysteroscopic resection under anesthesia. Coordination problem (Chronic 12/23/10) Hemiparesis; R more than L, mostly resolved Falls (Acute) Focal epilepsy (Chronic) Cyst on brain; [facility] Neurology Hemiparesis (Acute) right; Leg>>>arm; due to left parietal cyst Mild developmental delay (Acute) cognitive with right hemiparesis; due to parietal cyst; surgery, seizures Medical History Delirium Dizziness Encounter for screening colonoscopy (~12/2022) Petit mal seizure status Per sister states she is not aware she has them per her sister states it aroung 1 month ago Nephrolithiasis incidental finding Thyroid cyst (07/26/16) Most recent US: 01/24/2021 TI-RADS 2, repeat US if clinically necessary Hand fracture Surgical History History of section x2 closed reduction /pinning rgt fifth finger (06/27/16) R 5th digit; 2016; s/p fall Endometrial Biopsy (08/15/12) Dr. Salinas Brain cyst removal, [facility] [place]; fenestration Family History Father Alcohol abuse Other Adopted Social History Smoking/Tobacco Use Status: Never Smoking risk assessment performed?: Yes Alcohol Intake: never Drug use: Never Substance use type: does not use Adopted: Yes Caregiver/Support person: No Foster care: Yes Household members: spouse Housing: apartment Number of Children: 1 Communication Needs: Corrective Lenses Education Level: high school Do you need help understanding health information?: Never current occupation: Disabled Pets and animals: No Sexually active: No Do you think of yourself as: straight/heterosexual Current gender identity: female What is your relationship status?: How often do you talk on the phone with friends or family?: three or more times per week How often do you get together with friends or relatives?: never How often do you attend gnosticism or sabianist services?: decline to answer Do you belong to any clubs or organized social groups?: no Panel score (0-1 are the most socially isolated patients): 2 What type of physical activity do you participate in: walking Duration: 15-30 minutes/day Frequency: daily Seatbelt use: sometimes Helmet use: Yes (No Reason) Helmet use: never Drive intox 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
--- NOTE | 2025-01-19 17:00 | RT.EKG_ITS ---
APPROVED REPORT Exam: Resting ECG Reason for Exam: possible stroke Patient Location: E HR:79 bpm ECG Measurements Heart Rate 79 AXIS RI 170 P 67 QRSd 108 QRS 35 QT 422 T 42 QTc 483 Conclusion Sinus rhythm...normal P axis, V-rate 60- 99 Nonspecific T abnormalities, lateral leads...T <-0.10mV, I aVL V5 V6
[2025-01-19] MEDS: Omnipaque 350 MG/ML 100 ML BTL 70 ML IJ (17:11)
[2025-01-19] MEDS: Normal Saline - Diluent 50 ML VIAL IJ (17:12)
[2025-01-19 17:39] LABS: Abs Immature Grans 0.01 10^3/uL (0.0-0.06); Absolute Basophil Count 0.03 10^3/uL (0.0-0.2); Absolute Eosinophil Count 0.07 10^3/uL (0.0-0.7); Absolute Lymphocyte Count 1.68 10^3/uL (1.2-3.4); Absolute Monocyte Count 0.52 10^3/uL (0.1-0.8); Absolute Neutrophil Count 3.45 10^3/uL (1.2-6.7); Basophils % 0.5 %; Eosinophils % 1.2 %; HCT 36.6 % (36.0-46.0); HGB 11.9 g/dL (11.2-15.7); Immature Grans % 0.2 %; Lymphocytes % 29.2 %; MCHC 32.5 % (32.0-36.0); MCV 92 fL (80-95); MPV 9.2 fL (8.0-11.0); Neutrophils % 59.9 %; Platelet Count 211 10^3/uL (130-400); RBC 3.97 10^6/uL (3.93-5.22); RDW 12.6 % (11.7-14.6); RDW-SD 43.3 fL; WBC 5.76 10^3/uL (4.4-10.8)
[2025-01-19 17:47] LABS: PTT Activated 25.4 sec (20.6-30.2); Prothrombin Time 10.3 sec (9.1-11.1)
[2025-01-19 17:51] LABS: ALT 21 U/L (14-59); AST 15 U/L (15-37); Albumin 3.4 g/dL (3.4-5.0); Alkaline Phosphatase 108 U/L (46-116); Anion Gap 7.5 mmol/L (3-11); BUN 18 mg/dL (7-18); Bilirubin, Total 0.3 mg/dL (0.2-1.0); CO2 26.5 mmol/L (21.0-32.0); CREATININE 1.5 mg/dL (0.55-1.02); Calcium 9.7 mg/dL (8.5-10.1); Chloride 100 mmol/L (98-107); Estimated GFR 39.16 (mL/min/1.73m2); Glucose 105 mg/dL (74-106); Magnesium 2.1 mg/dL (1.8-2.4); Potassium 4.4 mmol/L (3.5-5.1); Sodium 134 mmol/L (136-145); Total Protein 7.2 g/dL (6.4-8.2); Troponin I 4 ng/L (<or=51)
--- NOTE | 2025-01-19 18:00 | DI.RAD_ITS ---
Exam(s) XR PORTABLE CHEST AP EXAM: XR PORTABLE CHEST AP CLINICAL HISTORY: ?pneumonia TECHNIQUE: 2D digital imaging was performed. COMPARISON: CR XR CHEST 2V PA LATERAL from 10/09/2023 FINDINGS: Overlying monitoring leads. LUNGS: Clear. No pleural abnormality seen. HEART: Upper limits of normal size AORTA: Mildly tortuous. BONES: Unremarkable for age. Soft tissues: Unremarkable. IMPRESSION: No acute findings. DATA REPOSITORY: RADIATION DOSE DELIVERED:
[2025-01-19] MEDS: levETIRAcetam 2,000 MG in Normal Saline 100 ML 400 MG IVPB (18:13)
[2025-01-19 18:44] LABS: Troponin I 5 ng/L (<or=51)
[2025-01-19 19:18] LABS: COVID-19 PCR Negative (Negative); Influenza A PCR Negative (Negative); Influenza B PCR Negative (Negative); RSV PCR Negative (Negative)
[2025-01-19 19:22] LABS: Source Nasopharynx
--- NOTE | 2025-01-19 19:57 | NUR.NOTE ---
Pt still unable to give urine, purewick in place, fpj
--- NOTE | 2025-01-19 20:08 | HPE_ITS ---
Date of service: 01/19/25 Time of Service: 20:08 Assessment and Plan Assessment and plan (1) CKD (chronic kidney disease): Status: Chronic Assessment and plan: Patient appears to be close to her baseline will monitor (2) Delirium: Assessment and plan: Exact etiology unknown but most likely is a breakthrough seizure. At this point the cause of the breakthrough is unknown. Patient was given loading doses in the ED Keppra. Will continue with their antiseizure medications. (3) Seizure: Status: Acute Assessment and plan: Ordered a EEG for the a.m. The patient does not improve remarkably in the next 12 to 16 hours we will consider a infectious workup. 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 She presents today to the ED with sudden onset of dysphasia as well as instability. Patient was seen in the ED was CT scan was done which showed stable cystic lesion in the parietal area of the brain. EKG was also done and was essentially negative. Labs including a CMP and CBC were also done and benign. Triple viral screen was done as well as negative. We are called to admit the patient for possible seizure breakthroughs. The patient was seen in consultation by teleneurology. Upon my interview with the patient she would respond to verbal stimuli but would quickly fall asleep and her speech was garbled. Her last neurology visit was in October of this year. Patient did not get a infectious workup but her white count is within normal limits at this point. Patient does not appear to have meningeal signs. Review of Systems Unobtainable due to mental status PFSH All Active Problems (Updated 01/19/25 @ 20:16 by Raheel Charles MD) Seizure (Acute) Altered mental status (Acute) Iron deficiency anemia (Acute 05/26/13) Dx'ed Dr. Antunez neuro [facility] [place]; iron replacement worked Palliative care encounter (Acute) Memory loss (Acute) Impaired gait and mobility (Acute) Recurrent falls while walking (Acute ~2022) Menorrhagia (Chronic ~2011) EMBx 2011: benign. Repeat EMBx 2012: benign proliferative endometrium, started on norethindrone, pt counseled re: endometrial ablation. CKD (chronic kidney disease) (Chronic) 12/2015 renal US at [facility] [place]: bilateral and symmetric renal cortical thinning consistent with patient's known history of CKD Sleep apnea (Chronic 06/09/13) 11/2023: Per sister Jeannine, not using CPAP Primary osteoarthritis of left knee (Chronic 01/03/17) Obesity (Chronic 05/15/13) Migraine without aura (Chronic 05/28/09) Memory impairment (Chronic 12/23/10) Related to sz disorder & brain surgery 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) Cerebral Cyst (L parietal cyst): Dr. Antunez [facility] [place] Neuro follows Insomnia (Chronic 03/09/10) Amitryp resolved IFG (impaired fasting glucose) (Chronic 04/01/18) Hyperlipidemia (Chronic 12/24/15) 06/2021 labs: 10-year ASCVD risk ~4.9% --> no statin indicated Essential hypertension (Chronic 10/18/11) Endometrium, polyp (Chronic 01/25/16) currently protruding through the exocervix. I have recomended hysteroscopic resection under anesthesia. Coordination problem (Chronic 12/23/10) Hemiparesis; R more than L, mostly resolved Falls (Acute) Focal epilepsy (Chronic) Cyst on brain; [facility] Neurology Hemiparesis (Acute) right; Leg>>>arm; due to left parietal cyst Mild developmental delay (Acute) cognitive with right hemiparesis; due to parietal cyst; surgery, seizures Medical History Delirium Dizziness Encounter for screening colonoscopy (~12/2022) Petit mal seizure status Per sister states she is not aware she has them per her sister states it aroung 1 month ago Nephrolithiasis incidental finding Thyroid cyst (07/26/16) Most recent US: 01/24/2021 TI-RADS 2, repeat US if clinically necessary Hand fracture Surgical History History of section x2 closed reduction /pinning rgt fifth finger (06/27/16) R 5th digit; 2016; s/p fall Endometrial Biopsy (08/15/12) Dr. Salinas Brain cyst removal, [facility] [place] 04/12/2011; fenestration Family History Father Alcohol abuse Other Adopted Social History Smoking/Tobacco Use Status: Never Smoking risk assessment performed?: Yes Alcohol Intake: never Drug use: Never Substance use type: does not use Adopted: Yes Caregiver/Support person: No Foster care: Yes Household members: spouse Housing: apartment Number of Children: 1 Communication Needs: Corrective Lenses Education Level: high school Do you need help understanding health information?: Never current occupation: Disabled Pets and animals: No Sexually active: No Do you think of yourself as: straight/heterosexual Current gender identity: female What is your relationship status?: How often do you talk on the phone with friends or family?: three or more times per week How often do you get together with friends or relatives?: never How often do you attend methodist or presybeterian services?: decline to answer Do you belong to any clubs or organized social groups?: no Panel score (0-1 are the most socially isolated patients): 2 What type of physical activity do you participate in: walking Duration: 15-30 minutes/day Frequency: daily Seatbelt use: sometimes Helmet use: Yes (No Reason) Helmet use: never Drive intox 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 Water heater temp set <120 deg: Yes Working smoke detector in home: Yes Fire extinguisher in home: Yes Carbon monox detector in home: Yes Firearms in home: No Do you feel safe at home: Yes Do you feel safe in your relationship?: Yes Female Reproductive History Menstrual Menopause type: natural Meds Allergies and Home Medications Allergies Allergy/AdvReac Type Severity Reaction Status Date / Time hydrocortisone Allergy Unknown SKIN RASH Verified 01/19/25 17:44 adhesive AdvReac Intermediate skin rash Verified 01/19/25 17:44 NSAIDS (Non-Steroidal AdvReac chronic Verified 01/19/25 17:44 Anti-Inflamma kidney disease baby powder Allergy Intermediate Contraindic Uncoded 01/19/25 17:44 ated/rash pine trees Allergy Intermediate red Uncoded 01/19/25 17:44 blotches per pt. Never tested Home Medications ?Medication ?Instructions ?Recorded ?Confirmed ?Type acetaminophen 325 mg tablet 650 mg (2 x 325 mg) PO Q4H PRN PRN 06/27/16 01/19/25 Rx (Tylenol) memantine 10 mg tablet 10 mg PO BID #180 tabs 06/09/24 01/19/25 Rx lisinopril 10 mg tablet See Rx Instructions .Route 08/04/24 01/19/25 Rx .COMPLEX #100 tabs lamotrigine 200 mg tablet 200 mg PO See Instructions #270 08/18/24 01/19/25 Rx (Lamictal) tab-caps levetiracetam 750 mg tablet 750 mg PO BID #180 tab-caps 08/18/24 01/19/25 Rx meclizine 25 mg tablet 25 mg PO .COMPLEX dizziness #60 08/18/24 01/01/25 Rx tabs donepezil 10 mg tablet 10 mg PO DAILY #90 tabs 10/22/24 01/19/25 Rx Wheeled Walker #1 ea 12/22/24 01/19/25 Rx amitriptyline 25 mg tablet 25 mg PO QHS #90 tabs 01/01/25 01/19/25 Rx Exam Narrative Exam Narrative: HEENT: Normocephalic atraumatic mucous membranes moist oropharynx is clear extract motions are intact Neck: No lymphadenopathy no JVD no thyromegaly Cardiovascular: Regular rate and rhythm without gallops Lungs: Clear to station bilaterally with good air exchange no accessory muscle use noted Abdomen: Soft nontender nondistended bowel sounds active Extremities: No cyanosis clubbing or edema : Lange is in place neurologic: Cannot be completely assessed due to patient's underlying condition No focal abnormalities are noted Psych: Patient does respond to verbal stimuli but is very garbled in her speech somnolent Results Labs 01/19/25 17:20 01/19/25 17:20 Labs: Laboratory Results - last 24 hr 01/19/25 01/19/25 01/19/25 17:20 18:20 18:35 WBC 5.76 RBC 3.97 Hgb 11.9 Hct 36.6 MCV 92 MCH 30.0 MCHC 32.5 RDW 12.6 Plt Count 211 MPV 9.2 Immature Gran % 0.2 Neutrophils % 59.9 Lymphocytes % 29.2 Monocytes % 9.0 Eosinophils % 1.2 Basophils % 0.5 Nucleated RBC % 0.0 Absolute Neutrophils 3.45 Absolute Lymphocytes 1.68 Absolute Monocytes 0.52 Absolute Eosinophils 0.07 Absolute Basophils 0.03 PT 10.3 INR 1.0 APTT 25.4 Sodium 134 L Potassium 4.4 Chloride 100 Carbon Dioxide 26.5 Anion Gap 7.5 BUN 18 Creatinine 1.5 H Est GFR (CKD-EPI 2020) 39.16 Glucose 105 Calcium 9.7 Magnesium 2.1 Total Bilirubin 0.3 AST 15 ALT 21 Alkaline Phosphatase 108 Troponin I 4 5 Total Protein 7.2 Albumin 3.4 COVID-19 Source Nasopharynx SARS-CoV-2 (PCR) Negative Influenza Type A (PCR) Negative Influenza Type B (PCR) Negative RSV (PCR) Negative Last Vital Signs Pulse 72 01/19/25 19:46 Resp 17 01/19/25 19:50 BP 163/92 H 01/19/25 19:46 Pulse Ox 83 L 01/19/25 19:46 Time Spent Time spent with Patient: 40-54 minutes Time was spent: preparing to see the patient(eg.review tests), obtaining and/or reviewing separately otained hiistory, ordering medications,tests, procedures, referring, communicating with other health child care education coordinator, indepentently interpreting results, counseling the patient and care coordination
[2025-01-19] MEDS: Enoxaparin 40 MG/0.4 ML SYR SC (21:15)
[2025-01-19 22:12] LABS: Bilirubin Negative (Negative); Blood Negative (Negative); Clarity Clear (Clear); Glucose Negative (Negative); Ketones Trace mg/dL (Negative); Leukocyte Esterase Small (Negative); Nitrite Negative (Negative); Urobilinogen 0.2 mg/dL (Up to 0.2)
[2025-01-19 22:19] LABS: Bacteria Negative HPF (Negative); C & S Indicated? No; Crystals Negative HPF (Negative); Epithelial Cells Rare HPF (Negative); Mucus Negative (Negative); Other Cells Rare Transitional (Negative); RBC 0-2 HPF (0-2)
[2025-01-19] MEDS: lamoTRIgine 100 MG TAB 400 MG PO (23:09)
[2025-01-19] MEDS: Memantine 5 MG TAB 10 MG PO (23:09)
[2025-01-19] MEDS: Acetaminophen 325 MG TAB 650 MG PO (23:09)
[2025-01-19] MEDS: Docusate Sodium 100 MG CAP PO (23:09)
[2025-01-19] MEDS: Amitriptyline 50 MG TAB 25 MG PO (23:10)
[2025-01-19] MEDS: Normal Saline Flush 10 ML SYR IVP (23:10)
--- NOTE | 2025-01-20 03:16 | W.PC.ACHO ---
Registration Status: Primary Language: Preferred Language: ED Information & Data Chief Complaint CVA/TIA 01/19/25 17:28 Chief Complaint CVA/TIA 01/19/25 17:03 Triage Note last known normal 1630. 01/19/25 16:54 Garbled speech, AMS, not following commands. MD assessment on arrival to ED and directly to CT on EMS stretcher. will obtain VS when she returns, maintaining own airway Medical / Surgical History (Last Reviewed 01/01/25 @ 10:51 by Mel Prajapati NP) Delirium Dizziness Encounter for screening colonoscopy (~12/2022) Petit mal seizure status Nephrolithiasis Thyroid cyst (07/26/16) Hand fracture (Last Reviewed 01/01/25 @ 10:51 by Mel Prajapati NP) History of section closed reduction /pinning rgt fifth finger (06/27/16) Endometrial Biopsy (08/15/12) Brain cyst removal, [facility] [place] Most Recent Vital Signs Temperature 36.6 C 01/19/25 23:18 Temperature Source Temporal Artery Scan 01/19/25 23:18 Pulse 64 01/19/25 23:18 Pulse Rhythm Regular 01/19/25 21:39 Pulse 78 01/19/25 21:00 Respiratory Rate 18 01/19/25 23:18 Respiratory Effort Normal, Non-Labored 01/19/25 21:39 Respiratory Depth Normal 01/19/25 21:39 Respiratory Pattern Normal 01/19/25 21:39 Blood Pressure 127/82 01/19/25 23:18 Blood Pressure Mean 97 01/19/25 23:18 Pulse Oximetry 98 01/19/25 23:18 Oxygen Delivery Method Room Air 01/19/25 23:18 Oxygen Flow Rate 0 01/19/25 23:18 Allergies hydrocortisone Allergy (Unknown, Verified 01/19/25 17:44) SKIN RASH adhesive Adverse Reaction (Intermediate, Verified 01/19/25 17:44) skin rash NSAIDS (Non-Steroidal Anti-Inflamma Adverse Reaction (Verified 01/19/25 17:44) chronic kidney disease baby powder Allergy (Intermediate, Uncoded 01/19/25 17:44) Contraindicated/rash pine trees Allergy (Intermediate, Uncoded 01/19/25 17:44) red blotches per pt. Never tested Precautions Isolation Standard precaution 01/19/25 17:28 Active Medications Generic Name Dose Route Start Last Admin Trade Name Freq PRN Reason Stop Dose Admin Acetaminophen 650 mg 01/19/25 21:28 01/19/25 23:09 Acetaminophen 325 Mg Tab PO 650 mg Q4H PRN PRN Administration Amitriptyline HCl 25 mg 01/19/25 22:00 01/19/25 23:10 Amitriptyline 50 Mg Tab PO 25 mg HS OTIS Administration Docusate Sodium 100 mg 01/19/25 19:48 01/19/25 23:09 Docusate Sodium 100 Mg Cap PO 100 mg TID PRN PRN Administration Enoxaparin Sodium 40 mg 01/19/25 20:00 01/19/25 21:15 Enoxaparin 40 Mg/0.4 Ml Syr SC 40 mg Q24H OTIS Administration Iohexol 70 ml 01/19/25 17:15 01/19/25 17:11 Omnipaque 350 Mg/Ml 100 Ml Btl IJ 02/18/25 23:59 70 ml DIRECTED OTIS Administration Lamotrigine 400 mg 01/19/25 22:00 01/19/25 23:09 Lamotrigine 100 Mg Tab PO 400 mg HS OTIS Administration Memantine 10 mg 01/19/25 22:00 01/19/25 23:09 Memantine 5 Mg Tab PO 10 mg BID OTIS Administration Sodium Chloride 0 ml 01/19/25 20:00 01/19/25 23:10 Normal Saline Flush 10 Ml Syr IVP 10 ml BID OTIS Administration Sodium Chloride 50 ml 01/19/25 17:15 01/19/25 17:12 Normal Saline - Diluent 50 Ml Vial IJ 50 ml .FOR DI USE OTIS Administration IV IV Catheter Type [Left Saline Lock Antecubital] IV Catheter Type [Right Saline Lock Antecubital] IV Catheter Gauge [Left 18 Antecubital] IV Catheter Gauge [Right 18 Antecubital] Diet Orders Category Date Time Status Regular/Normal [DIET] Nutrition 01/20/25 Breakfast Active Diagnostics 01/19/25 01/19/25 01/19/25 Range/Units 21:43 19:51 18:35 WBC (4.4-10.8) 10^3/uL RBC (3.93-5.22) 10^6/uL Hgb (11.2-15.7) g/dL Hct (36.0-46.0) % MCV (80-95) fL MCH (27.0-33.0) pg MCHC (32.0-36.0) % RDW (11.7-14.6) % Plt Count (130-400) 10^3/uL MPV (8.0-11.0) fL Immature Gran % % Neutrophils % % Lymphocytes % % Monocytes % % Eosinophils % % Basophils % % Nucleated RBC % (0.0-0.3) % Absolute Neutrophils (1.2-6.7) 10^3/uL Absolute Lymphocytes (1.2-3.4) 10^3/uL Absolute Monocytes (0.1-0.8) 10^3/uL Absolute Eosinophils (0.0-0.7) 10^3/uL Absolute Basophils (0.0-0.2) 10^3/uL PT (9.1-11.1) sec INR (0.9-1.1) APTT (20.6-30.2) sec Sodium (136-145) mmol/L Potassium (3.5-5.1) mmol/L Chloride (98-107) mmol/L Carbon Dioxide (21.0-32.0) mmol/L Anion Gap (3-11) mmol/L BUN (7-18) mg/dL Creatinine (0.55-1.02) mg/dL Est GFR (CKD-EPI 2020) (mL/min/1.73m2) Glucose (74-106) mg/dL Calcium (8.5-10.1) mg/dL Magnesium (1.8-2.4) mg/dL Total Bilirubin (0.2-1.0) mg/dL AST (15-37) U/L ALT (14-59) U/L Alkaline Phosphatase (46-116) U/L Troponin I Cancelled (<or=51) ng/L Total Protein (6.4-8.2) g/dL Albumin (3.4-5.0) g/dL Urine Color Yellow (Yellow) Urine Clarity Clear (Clear) Urine pH 6.0 (5-8) Ur Specific [place] 1.010 (1.005-1.025) Urine Protein Negative (Neg-Trace) mg/dL Urine Ketones Trace H (Negative) mg/dL Urine Blood Negative (Negative) Urine Nitrite Negative (Negative) Urine Bilirubin Negative (Negative) Urine Urobilinogen 0.2 (Up to 0.2) mg/dL Ur Leukocyte Esterase Small H (Negative) Urine RBC 0-2 (0-2) HPF Urine WBC 5-10 (0-5) HPF Ur Epithelial Cells Rare (Negative) HPF Urine Crystals Negative (Negative) HPF Urine Bacteria Negative (Negative) HPF Urine Mucus Negative (Negative) Urine Other Rare Transitional (Negative) Ur Culture Indicated? No Urine Glucose Negative (Negative) mg/dL COVID-19 Source Nasopharynx SARS-CoV-2 (PCR) Negative (Negative) Influenza Type A (PCR) Negative (Negative) Influenza Type B (PCR) Negative (Negative) RSV (PCR) Negative (Negative) 01/19/25 01/19/25 Range/Units 18:20 17:20 WBC 5.76 (4.4-10.8) 10^3/uL RBC 3.97 (3.93-5.22) 10^6/uL Hgb 11.9 (11.2-15.7) g/dL Hct 36.6 (36.0-46.0) % MCV 92 (80-95) fL MCH 30.0 (27.0-33.0) pg MCHC 32.5 (32.0-36.0) % RDW 12.6 (11.7-14.6) % Plt Count 211 (130-400) 10^3/uL MPV 9.2 (8.0-11.0) fL Immature Gran % 0.2 % Neutrophils % 59.9 % Lymphocytes % 29.2 % Monocytes % 9.0 % Eosinophils % 1.2 % Basophils % 0.5 % Nucleated RBC % 0.0 (0.0-0.3) % Absolute Neutrophils 3.45 (1.2-6.7) 10^3/uL Absolute Lymphocytes 1.68 (1.2-3.4) 10^3/uL Absolute Monocytes 0.52 (0.1-0.8) 10^3/uL Absolute Eosinophils 0.07 (0.0-0.7) 10^3/uL Absolute Basophils 0.03 (0.0-0.2) 10^3/uL PT 10.3 (9.1-11.1) sec INR 1.0 (0.9-1.1) APTT 25.4 (20.6-30.2) sec Sodium 134 L (136-145) mmol/L Potassium 4.4 (3.5-5.1) mmol/L Chloride 100 (98-107) mmol/L Carbon Dioxide 26.5 (21.0-32.0) mmol/L Anion Gap 7.5 (3-11) mmol/L BUN 18 (7-18) mg/dL Creatinine 1.5 H (0.55-1.02) mg/dL Est GFR (CKD-EPI 2020) 39.16 (mL/min/1.73m2) Glucose 105 (74-106) mg/dL Calcium 9.7 (8.5-10.1) mg/dL Magnesium 2.1 (1.8-2.4) mg/dL Total Bilirubin 0.3 (0.2-1.0) mg/dL AST 15 (15-37) U/L ALT 21 (14-59) U/L Alkaline Phosphatase 108 (46-116) U/L Troponin I 5 4 (<or=51) ng/L Total Protein 7.2 (6.4-8.2) g/dL Albumin 3.4 (3.4-5.0) g/dL Urine Color (Yellow) Urine Clarity (Clear) Urine pH (5-8) Ur Specific [place] (1.005-1.025) Urine Protein (Neg-Trace) mg/dL Urine Ketones (Negative) mg/dL Urine Blood (Negative) Urine Nitrite (Negative) Urine Bilirubin (Negative) Urine Urobilinogen (Up to 0.2) mg/dL Ur Leukocyte Esterase (Negative) Urine RBC (0-2) HPF Urine WBC (0-5) HPF Ur Epithelial Cells (Negative) HPF Urine Crystals (Negative) HPF Urine Bacteria (Negative) HPF Urine Mucus (Negative) Urine Other (Negative) Ur Culture Indicated? Urine Glucose (Negative) mg/dL COVID-19 Source SARS-CoV-2 (PCR) (Negative) Influenza Type A (PCR) (Negative) Influenza Type B (PCR) (Negative) RSV (PCR) (Negative) [id number] Documentation Fingerstick Glucose Start: 01/19/25 17:25 Freq: Status: Active Protocol: Activity Type Activity Date Activity User E-sign Co-sign Detail Recorded Client Recorded Date Recorded By Document 01/19/25 17:27 TAM [id number] 01/19/25 17:27 N.GINV Intake and Output - 24 Hour Total 01/19/25 16:44 thru 01/19/25 23:28 Intake Total 420 Output Total 350 Balance 70 Weight 113.398 kg Intake: IV 120 Oral 300 Output: Urine 350 Other: Urine Color Yellow Urine Appearance Clear Falls Risk Assessment History of Falls Previous History 01/19/25 21:39 Contributing Factors Impairments 01/19/25 21:39 Ambulatory Aids Uses ambulatory device 01/19/25 21:39 Tubes/Lines None 01/19/25 21:39 Gait Evaluation W/any additional score 01/19/25 21:39 Cognition No cognitive impairment 01/19/25 21:39 Fall Total Score 53 01/19/25 21:39 Level of Risk High Risk 01/19/25 21:39 Problems (Last Reviewed 01/01/25 @ 10:51 by Mel Prajapati NP) Seizure (Acute) CKD (chronic kidney disease) (Chronic) Notes 01/19/25 19:57 Nursing Notes by Meredith Ortiz Pt still unable to give urine, purewick in place, fpj Initialized on 01/19/25 19:57 - END OF NOTE v v v v v v v v v Sending and/or Receiving Nurses: Please use comment section below to note any information pertinent to the patient hand-off not included above. Information / Comments: alert and orientated, confused at times. bedrest. seizure precautions. chest x ray complete. Report received from: meredith sanchez
[2025-01-20 03:59] VITALS: BP 138/75; PULSE 77; RESP 20; TEMP 36.8; O2SAT 95
[2025-01-20 08:11] VITALS: BP 134/79; PULSE 70; RESP 12; TEMP 36.5; O2SAT 97
[2025-01-20] MEDS: Donepezil 5 MG TAB 10 MG PO (08:52)
[2025-01-20] MEDS: lamoTRIgine 100 MG TAB 200 MG PO (08:52)
[2025-01-20] MEDS: Normal Saline Flush 10 ML SYR IVP ×2 (08:53→19:44)
[2025-01-20] MEDS: Lisinopril 10 MG TAB PO (08:53)
[2025-01-20] MEDS: Memantine 5 MG TAB 10 MG PO ×2 (08:53→19:43)
[2025-01-20] MEDS: levETIRAcetam 250 MG TAB 750 MG PO ×2 (08:53→19:43)
--- NOTE | 2025-01-20 09:55 | PDOC.CMIN ---
Date of service: 01/20/25 Time of Service: 09:55 Care Management Initial Assmt Initial Assessment Reason for Hospitalization: seizure Functional Status/Living Situation Patient Presentation: Sherry was lying in bed with her eyes closed when CM met with her. She stated she was sleepy and that her eyes were bothering her. Sherry was admitted with a seizure. She has a known seizure disorder for which she takes Keppra. She is scheduled to have an EEG this afternoon around 3 pm after which she may be discharged. Sherry lives in an apartment in [facility] with her .They have one child, a son, who lives in [place]. Sherry is disabled and is unable to work. She receives home health nursing services , has a Life Alert and uses a cane, walker and wheelchair as needed. Town of Residence: [place] [facility] Resides with: Spouse ( Beau) Significant Other/Family: Out of area (son lives in [place]) Natural Supports: Employment Status: Disabled Instrumental Activities of Daily Living (ADLs): Independent Medications Medication Management: No Issues/Barriers identified Physical Functioning/Mobility Assistive Device: walker, wheel chair, cane, shower chair, Life Alert Advance Directives Advance Directives: Do you have an Advance Directive: Y 08/13/23 09:35 AD On File at [facility]: Y 08/13/23 09:35 Date Asked 12/17/24 12/23/24 08:01 AD Date Reviewed 01/19/25 01/19/25 17:03 COLST On File at [facility] COLST Date Scanned Code Status Resuscitation Status Full Code Insurance Coverage/Financial Issues Insurance: [employer] Medicare Replacement Care Team Visit Care Team Role Provider Type Keanu Marquez MD MD [facility] STAFF PHYSICIAN Delmy Valdez NP Primary Care Provider NURSE PRACTITIONER Mara Galarza Other Providers [employer] REPAIRER Lyndsey Alexander Other Providers [employer] REPAIRER Jayde Ware Other Providers [employer] REPAIRER Adrienne Durand RN Other Providers [employer] REPAIRER Rhea Charles Other Providers [employer] REPAIRER Alejandro Rodriguez MD Emergency Provider [facility] STAFF PHYSICIAN Raheel Charles MD Admit Provider [facility] STAFF PHYSICIAN Attending Provider Discharge Potential Discharge Needs: PCP F/U Appt and Other (Neurology) Anticipated Barriers to Discharge: None Identified Patient/Family Education Needs: Review discharge instructions, discuss Ask Me Three Transportation: Private vehicle Plan: Anticipate Sherry will be discharged home with a resumption of home health services when medically cleared. She will follow up with her PCP, Neurology and plan of care and transport with family. CM will follow and continue to support discharge planning efforts. Social Determinants of Health Screening Social Determinants of health last assessed in clinic: 01/20/25 Will the Patient Participate in the Screening?: Yes Do you worry about having a steady place to live?: no Problems where you live: no known problems In the past 12 months, have you had to go without electric, gas, oil or water in your home?: no 1. Within the past 12 months, we worried whether our food would run out before we got money to buy more.: Never true 2. Within the past 12 months, the food we bought just didn't last and we didn't have money to get more.: Never true Has lack of transportation kept you from medical appointments or from doing things needed for daily living?: no Has anyone in your life made you feel unsafe or unsupported?: yes How often does anyone, including family and friends, physically hurt you?: Never How often does anyone, including family and friends, insult or talk down to you?: Never How often does anyone, including family and friends, threaten you with harm?: Never How often does anyone, including family and friends, scream or curse at you?: Never HRSN Safety total score: 4 How hard is it for you to pay for the very basics like food, housing, medical care, and heating? Would you say it is:: Not hard at all Do you want help finding or keeping work or a job?: I do not need or want help If for any reason you need help with day-to-day activities such as bathing, preparing meals, shopping, managing finances, etc., do you get the help you need?: I get all the help I need How often do you feel lonely or isolated from those around you?: Never Do you speak a language other than [place] Islander at home?: No Does the patient want assistance with any of the above?: No Health Related Social Needs Health related social needs details: pt states she has home health, PT. PFSH All Active Problems (Updated 01/19/25 @ 20:16 by Raheel Charles MD) Seizure (Acute) Altered mental status (Acute) Iron deficiency anemia (Acute 05/26/13) Dx'ed Dr. Antunez [place] [facility] [place] replacement worked Palliative care encounter (Acute) Memory loss (Acute) Impaired gait and mobility (Acute) Recurrent falls while walking (Acute ~2022) Menorrhagia (Chronic ~2011) EMBx 2011: benign. Repeat EMBx 2013: benign proliferative endometrium, started on norethindrone, pt counseled re: endometrial ablation. CKD (chronic kidney disease) (Chronic) 12/2015 renal US [place] [facility] [place]: bilateral and symmetric renal cortical thinning consistent with patient's known history of CKD Sleep apnea (Chronic 06/09/13) 11/2023: Per sister Jeannine, not using CPAP Primary osteoarthritis of left knee (Chronic 01/03/17) Obesity (Chronic 05/15/13) Migraine without aura (Chronic 05/28/09) Memory impairment (Chronic 12/23/10) Related to sz disorder & brain surgery 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) Cerebral Cyst (L parietal cyst): Dr. Antunez [facility] [place] follows Insomnia (Chronic 03/09/10) Amitryp resolved IFG (impaired fasting glucose) (Chronic 04/01/18) Hyperlipidemia (Chronic 12/24/15) 06/2021 labs: 10-year ASCVD risk ~4.9% --> no statin indicated Essential hypertension (Chronic 10/18/11) Endometrium, polyp (Chronic 01/25/16) currently protruding through the exocervix. I have recomended hysteroscopic resection under anesthesia. Coordination problem (Chronic 12/23/10) Hemiparesis; R more than L, mostly resolved Falls (Acute) Focal epilepsy (Chronic) Cyst on brain; [facility] Neurology Hemiparesis (Acute) right; Leg>>>arm; due to left parietal cyst Mild developmental delay (Acute) cognitive with right hemiparesis; due to parietal cyst; surgery, seizures Medical History Delirium Dizziness Encounter for screening colonoscopy (~12/2022) Petit mal seizure status Per sister states she is not aware she has them per her sister states it aroung 1 month ago Nephrolithiasis incidental finding Thyroid cyst (07/26/16) Most recent US: 01/24/2021 TI-RADS 2, repeat US if clinically necessary Hand fracture Surgical History History of section x2 closed reduction /pinning rgt fifth finger (06/27/16) R 5th digit; 2016; s/p fall Endometrial Biopsy (08/15/12) Dr. Salinas Brain cyst removal, [facility] [place]; fenestration Family History Father Alcohol abuse Other Adopted Social History Smoking/Tobacco Use Status: Never Smoking risk assessment performed?: Yes Alcohol Intake: never Drug use: Never Substance use type: does not use Adopted: Yes Caregiver/Support person: No Foster care: Yes Household members: spouse Housing: house Number of Children: 1 Communication Needs: Corrective Lenses Education Level: high school Do you need help understanding health information?: Never current occupation: Disabled Pets and animals: No Sexually active: No Do you think of yourself as: straight/heterosexual Current gender identity: female What is your relationship status?: How often do you talk on the phone with friends or family?: three or more times per week How often do you get together with friends or relatives?: never How often do you attend mormon or scientologist services?: decline to answer Do you belong to any clubs or organized social groups?: no Panel score (0-1 are the most socially isolated patients): 2 What type of physical activity do you participate in: walking Duration: 15-30 minutes/day Frequency: daily Seatbelt use: sometimes Helmet use: Yes (No Reason) Helmet use: never Drive intox or ride w/intox wrecker driver: No Water heater temp set <120 deg: Yes Working smoke detector in home: Yes Fire extinguisher in home: Yes Carbon monox detector in home: Yes Firearms in home: No Do you feel safe at home: Yes Do you feel safe in your relationship?: Yes Female Reproductive History Menstrual Menopause type: natural
[2025-01-20] MEDS: Enoxaparin 40 MG/0.4 ML SYR SC ×2 (10:47→21:38)
--- NOTE | 2025-01-20 13:25 | CHAPLAIN ---
Sherry woke up with I spoke her name, but was very sleeping and didn't keep her eyes open. I will visit at another time.
--- NOTE | 2025-01-20 14:26 | PHA.REVIEW2 ---
Pharmacy Admission Review Admission Clinical Review Admission Pharmacy Review: Seizure (Acute) hydrocortisone Allergy (Unknown, Verified 01/19/25 17:44) SKIN RASH adhesive Adverse Reaction (Intermediate, Verified 01/19/25 17:44) skin rash NSAIDS (Non-Steroidal Anti-Inflamma Adverse Reaction (Verified 01/19/25 17:44) chronic kidney disease baby powder Allergy (Intermediate, Uncoded 01/19/25 17:44) Contraindicated/rash pine trees Allergy (Intermediate, Uncoded 01/19/25 17:44) red blotches per pt. Never tested Resuscitation Status Full Code Height 5 ft Weight 113.398 kg Pharmacy Admission Review Renal Dosing Renal Dosing: BUN 18 mg/dL (7-18) 01/19/25 17:20 Creatinine 1.5 mg/dL (0.55-1.02) H 01/19/25 17:20 Medications needing adjustments: Reviewed (CrCl 44.6 mL/min) List of meds needing interventions: Current medications are okay Anticoagulation Anticoagulation: Hgb 11.9 g/dL (11.2-15.7) 01/19/25 17:20 Hct 36.6 % (36.0-46.0) 01/19/25 17:20 Plt Count 211 10^3/uL (130-400) 01/19/25 17:20 INR 1.0 (0.9-1.1) 01/19/25 17:20 Creatinine 1.5 mg/dL (0.55-1.02) H 01/19/25 17:20 DVT Prophylaxis: Intervened (changed from DAILY to q12h due to BMI) Medications: Enoxaparin (40mg q12h due to BMI > 40) Relevant Labs Relevant Labs: Sodium 134 mmol/L (136-145) L 01/19/25 17:20 Potassium 4.4 mmol/L (3.5-5.1) 01/19/25 17:20 Chloride 100 mmol/L (98-107) 01/19/25 17:20 Magnesium 2.1 mg/dL (1.8-2.4) 01/19/25 17:20 Electrolytes, C-Reactive P, ESR: Reviewed (No new labs for today) Cardiac Review Cardiac Review: Troponin I Cancelled 01/19/25 19:51 BP, HR, EF%: Reviewed (HR and BP WNL) List meds needing interventions: Has order for lisinopril 10mg daily QTc Review QTc: Reviewed (483 from 01/19/25) IV to PO Switch IV Medications: Reviewed (No IV orders) Home Meds Home Med List reviewed: Reviewed Relevent Home Meds Not ordered & why?: meclizine (PRN) Current Meds Current Medication Order Review: Reviewed
--- NOTE | 2025-01-20 16:21 | PGE_ITS ---
Date of Service Date of service: 01/20/25 Time of Service: 16:21 Assessment and Plan Assessment and plan (1) Seizure: Status: Acute Assessment and plan: - Breakthrough seizures, with known seizure disorder - Likely secondary to known parietal lobe cystic lesion which appears stable - Continue 1 g Keppra IV twice daily - Follow-up EEG discussed with neurology as needed ordered a EEG for the a.m - Continue home memantine, Lamictal, donepezil, amitriptyline (2) Delirium: Assessment and plan: - Improved - Likely postictal (3) CKD (chronic kidney disease): Status: Chronic Assessment and plan: Patient appears to be close to her baseline will monitor Subjective Subjective Interval history since last seen: Patient states that she is doing well this afternoon. She understands the plan for her to have her EEG and once it is reviewed we will go over the results. Otherwise she has no other complaints or concerns at this time. Exam Narrative Exam Narrative: Fatigued appearing female laying in bed in no acute distress, ANO x 4, heart regular rhythm, lungs good auscultation bilaterally, abdomen soft, nontender, nondistended, able to spontaneously move all 4 extremities, PERRLA Objective Last Vital Signs Temp 97.7 F 01/20/25 08:11 Pulse 70 01/20/25 08:11 Resp 12 01/20/25 08:11 BP 134/79 01/20/25 08:11 Pulse Ox 97 01/20/25 08:11 Laboratory Results - last 24 hr 01/19/25 01/19/25 01/19/25 17:20 18:20 18:35 WBC 5.76 RBC 3.97 Hgb 11.9 Hct 36.6 MCV 92 MCH 30.0 MCHC 32.5 RDW 12.6 Plt Count 211 MPV 9.2 Immature Gran % 0.2 Neutrophils % 59.9 Lymphocytes % 29.2 Monocytes % 9.0 Eosinophils % 1.2 Basophils % 0.5 Nucleated RBC % 0.0 Absolute Neutrophils 3.45 Absolute Lymphocytes 1.68 Absolute Monocytes 0.52 Absolute Eosinophils 0.07 Absolute Basophils 0.03 PT 10.3 INR 1.0 APTT 25.4 Sodium 134 L Potassium 4.4 Chloride 100 Carbon Dioxide 26.5 Anion Gap 7.5 BUN 18 Creatinine 1.5 H Est GFR (CKD-EPI 2020) 39.16 Glucose 105 Calcium 9.7 Magnesium 2.1 Total Bilirubin 0.3 AST 15 ALT 21 Alkaline Phosphatase 108 Troponin I 4 5 Total Protein 7.2 Albumin 3.4 Urine Color Urine Clarity Urine pH Ur Specific [place] Urine Protein Urine Ketones Urine Blood Urine Nitrite Urine Bilirubin Urine Urobilinogen Ur Leukocyte Esterase Urine RBC Urine WBC Ur Epithelial Cells Urine Crystals Urine Bacteria Urine Mucus Urine Other Ur Culture Indicated? Urine Glucose COVID-19 Source Nasopharynx SARS-CoV-2 (PCR) Negative Influenza Type A (PCR) Negative Influenza Type B (PCR) Negative RSV (PCR) Negative 01/19/25 01/19/25 19:51 21:43 WBC RBC Hgb Hct MCV MCH MCHC RDW Plt Count MPV Immature Gran % Neutrophils % Lymphocytes % Monocytes % Eosinophils % Basophils % Nucleated RBC % Absolute Neutrophils Absolute Lymphocytes Absolute Monocytes Absolute Eosinophils Absolute Basophils PT INR APTT Sodium Potassium Chloride Carbon Dioxide Anion Gap BUN Creatinine Est GFR (CKD-EPI 2020) Glucose Calcium Magnesium Total Bilirubin AST ALT Alkaline Phosphatase Troponin I Cancelled Total Protein Albumin Urine Color Yellow Urine Clarity Clear Urine pH 6.0 Ur Specific [place] 1.010 Urine Protein Negative Urine Ketones Trace H Urine Blood Negative Urine Nitrite Negative Urine Bilirubin Negative Urine Urobilinogen 0.2 Ur Leukocyte Esterase Small H Urine RBC 0-2 Urine WBC 5-10 Ur Epithelial Cells Rare Urine Crystals Negative Urine Bacteria Negative Urine Mucus Negative Urine Other Rare Transitional Ur Culture Indicated? No Urine Glucose Negative COVID-19 Source SARS-CoV-2 (PCR) Influenza Type A (PCR) Influenza Type B (PCR) RSV (PCR) Time Spent with Patient Time Spent with Patient: >50 minutes Time was spent: preparing to see the patient(eg.review tests), obtaining and/or reviewing separately otained hiistory, ordering medications,tests, procedures, referring, communicating with other health career development director, indepentently interpreting results, counseling the patient and care coordination
[2025-01-20 19:33] VITALS: BP 101/55; PULSE 77; RESP 18; TEMP 36.6; O2SAT 95
[2025-01-20] MEDS: Acetaminophen 325 MG TAB 650 MG PO (19:43)
[2025-01-20] MEDS: Amitriptyline 50 MG TAB 25 MG PO (19:43)
--- NOTE | 2025-01-20 20:37 | PDOC.EEG ---
Neurology EEG EEG: [facility] Department of Neurology INPATIENT EEG REPORT Date of Recordin01/20/25 Interpreting Physician: Dr. Kim Gruber Reason for study: Ms. Wang is a 64 year-old with a known epilepsy disorder admitted after a spell of reduced responsiveness followed by severe dysarthria, now resolved, concerning for breakthrough seizure. Current Medications: Current Medications Acetaminophen (Acetaminophen 325 Mg Tab) 650 mg PO Q4H PRN PRN Last Admin: 01/20/25 19:43 Dose: 650 mg Al Hydrox/Mg Hydrox/Simethicone (Mylanta Suspension 30 Ml Cup) 30 ml PO Q2H PRN PRN Amitriptyline HCl (Amitriptyline 50 Mg Tab) 25 mg PO HS [facility] Last Admin: 01/20/25 19:43 Dose: 25 mg Docusate Sodium (Docusate Sodium 100 Mg Cap) 100 mg PO TID PRN PRN Last Admin: 01/19/25 23:09 Dose: 100 mg Donepezil HCl (Donepezil 5 Mg Tab) 10 mg PO DAILY [facility] Last Admin: 01/20/25 08:52 Dose: 10 mg Enoxaparin Sodium (Enoxaparin 40 Mg/0.4 Ml Syr) 40 mg SC Q12H [facility] Last Admin: 01/20/25 10:47 Dose: 40 mg IV Miscellaneous Supplies (Iv Access) 1 each IV DIRECTED [facility] Lamotrigine (Lamotrigine 100 Mg Tab) 200 mg PO DAILY [facility] Last Admin: 01/20/25 08:52 Dose: 200 mg Lamotrigine (Lamotrigine 100 Mg Tab) 400 mg PO HS [facility] Last Admin: 01/19/25 23:09 Dose: 400 mg Levetiracetam (Levetiracetam 250 Mg Tab) 750 mg PO BID [facility] Last Admin: 01/20/25 19:43 Dose: 750 mg Lisinopril (Lisinopril 10 Mg Tab) 10 mg PO DAILY [facility] Last Admin: 01/20/25 08:53 Dose: 10 mg Magnesium Hydroxide (Milk Of Magnesia 30 Ml Cup) 30 ml PO DAILY PRN PRN Memantine (Memantine 5 Mg Tab) 10 mg PO BID [facility] Last Admin: 01/20/25 19:43 Dose: 10 mg Polyethylene Glycol (Polyethylene Glycol 3350 17 Gm Packet) 17 gm PO DAILY PRN PRN PRN Reason: Constipation Sodium Chloride (Normal Saline Flush 10 Ml Syr) 0 ml IVP PRN PRN Sodium Chloride (Normal Saline Flush 10 Ml Syr) 0 ml IVP BID [facility] Last Admin: 01/20/25 19:44 Dose: 10 ml Sodium Chloride (Normal Saline 10 Ml Vial) 0 ml IJ DIRECTED PRN METHODS: A 21 channel digitized electroencephalogram was performed in the [facility] Med/Surg Floor or ICU. The 10/20 international system of electrode placement was used and bipolar and referential electrode montages were recorded. In addition to EEG the patient was monitored for EKG and lateral/vertical eye movements. Activation procedures of photic stimulation and hyperventilation were performed if applicable. Video was used during activation procedures and during events where applicable. The duration of the recording was 30 minutes. DESCRIPTION OF EEG: The patient was noted to be awake and drowsy during the recording. During maximal wakefulness a 9-Hz posterior background rhythm was present which was well-modulated, symmetrical, reactive to eye opening, and of moderate voltage. With eye opening the background activity changed to a low voltage mixture of alpha, beta, and occasional theta range frequencies. Faster frequencies were present in the bilateral anterior head regions. There was a normal anterior-posterior voltage gradient. During drowsiness, there was attenuation of the posterior dominant background rhythm and vertex waves. No stage II sleep was recorded. Activating Procedures: Photic stimulation was performed which produced a symmetrical posterior driving response at various flash frequencies. Hyperventilation was not performed. EKG: EKG revealed normal sinus rhythm/sinus bradycardia. INTERPRETATION: This EEG is normal during the awake and drowsy states as well as during photic stimulation. PRIOR EEG: -EEG (Amb 01/25/11): normal awake, asleep, hyperventilation -EEG (Amb 05/15/16-05/16/16): left fronto-temporal low amplitude activity -EEG (Amb 08/02/23-08/03/23): normal. CLINICAL CORRELATION: No focal regions of cerebral dysfunction or epileptiform activity was present. Epilepsy remains a clinical diagnosis and a normal EEG does not rule out epilepsy. Clinical correlation is advised. Kim Gruber MD Date of service: 01/20/25
[2025-01-20 23:40] VITALS: BP 104/60; PULSE 64; RESP 16; TEMP 36.5; O2SAT 96
[2025-01-21 03:21] VITALS: BP 98/65; PULSE 61; RESP 20; TEMP 36.1; O2SAT 94
[2025-01-21 07:58] VITALS: BP 102/57; PULSE 59; RESP 16; TEMP 36.4; O2SAT 93
[2025-01-21] MEDS: Normal Saline Flush 10 ML SYR IVP (08:04)
[2025-01-21] MEDS: levETIRAcetam 250 MG TAB 750 MG PO (08:04)
[2025-01-21] MEDS: lamoTRIgine 100 MG TAB 200 MG PO (08:04)
[2025-01-21] MEDS: Memantine 5 MG TAB 10 MG PO (08:04)
[2025-01-21] MEDS: Donepezil 5 MG TAB 10 MG PO (08:04)
[2025-01-21] MEDS: levETIRAcetam 250 MG TAB PO (08:40)
[2025-01-21] MEDS: Enoxaparin 40 MG/0.4 ML SYR SC (08:40)
--- NOTE | 2025-01-21 10:13 | PDOC.HHF2F ---
Home Health Referral Home Health Orders Clinical synopsis of why skilled professionals are needed: intracranial cyst, seizure disorder, memory impairment, CKD, hemiparesis Registered Nurse: Check all that apply Instruct on new or changed medication(s)/assess compliance: Ordered Physical Therapist: Check all that apply Increase strength & endurance for safe mobility at home: Ordered To design/establish home maintenance program: Ordered Fall reduction therapy program for patient with history of frequent falls: Ordered Home safety evaluation and teaching/gait training including stair management (if applicable): Ordered Seat Cover Cutter: Assist with community resources: Ordered Assist with remote computer terminal operator care planning: Ordered Encounter Date and Reason: I certify that a FTF encounter for this patient was performed on January 21, 2025 and that such encounter was related to the primary reason the patient requires home health services. The encounter was conducted in the following manner: By me as the certifying physician, CONSULTING SERVICES MANAGER, PA or By an inpatient physician, CONSULTING SERVICES MANAGER or PA during an inpatient stay who communicated findings to me, Certification And Authentication I certify that I composed the above information based on my clinical judgment relating to this patient's medical condition and, if applicable, clinical findings communicated to me by the NPP or inpatient physician who performed the FTF encounter. Name of Provider that will be monitoring home health services: Delmy Valdez
--- NOTE | 2025-01-21 10:14 | DSE_ITS ---
Date of service: 01/21/25 Time of Service: 10:14 DS: Diagnosis Discharge Diagnosis (1) Seizure: Status: Acute (2) Delirium: (3) CKD (chronic kidney disease): Status: Chronic Discharge Plan Disposition Patient Disposition: Home W/Home Health Services Condition: Good Discharge Details Reason For Visit: Seizure Admit Date/Time: 01/19/25 19:48 Admit Provider: Raheel Charles Attending Provider: Raheel Charles Primary Care Provider: Delmy Valdez Hospital Course Hospital Course: Patient has a known seizure history and presented after experiencing a seizure with postictal like symptoms. Imaging showed stable known intracranial cyst without surrounding edema or other changes. Patient also had a EEG that did not show any acute changes. While hospitalized she had a loading dose of Keppra and had her home dose of Keppra increased from 750 mg to 1 g twice daily and did not have any additional seizure-like symptoms. Given that the patient returned to her functional baseline it was determined that she was stable for discharge home and will have close follow-up with neurology. Home Meds and New Rx's Prescriptions: New levetiracetam 500 mg Tablet 1,000 mg PO BID Qty: 90 0RF Continued donepezil 10 mg tablet 10 mg PO DAILY Qty: 90 3RF memantine 10 mg tablet 10 mg PO BID Qty: 180 3RF lisinopril 10 mg tablet See Rx Instructions .ROUTE .COMPLEX Qty: 100 2RF Dose Instruction: TAKE 1 TABLET BY MOUTH DAILY FOR BLOOD PRESSURE Rx Instructions: TAKE 1 TABLET BY MOUTH DAILY FOR BLOOD PRESSURE meclizine 25 mg tablet 25 mg PO .COMPLEX Qty: 60 1RF Rx Instructions: Take 25mg once daily every day; ok to take an additional 25mg once daily prn dizziness lamotrigine [Lamictal] 200 mg tablet 200 mg PO See Instructions Qty: 270 2RF Rx Instructions: FOR SEIZURES - ok for generic Take 1 tablet in the AM & 2 tablets in the PM amitriptyline 25 mg tablet 25 mg PO QHS Qty: 90 1RF Rx Instructions: Pharm: Discontinue 50mg strength. acetaminophen [Tylenol] 325 MG tablet 650 mg PO Q4H PRN PRN0RF Discontinued levetiracetam 750 mg tablet 750 mg PO BID Qty: 180 2RF No Action (DME) Wheeled Walker See Rx Instructions .Route .MEDSUPPLY Qty: 1 0RF Rx Instructions: Requested to have wheeled walker without breaks and with a seat (pt and sister's request) Discharge Instructions Activity:: Activity as Tolerated Equipment/Supplies:: No Equipment Needed Diet:: As Tolerated Discharge Orders Discharge Orders: Discharge Order (Routine); Ordered 01/21/25 Ordered By: Keanu Marquez DS: Summary Time Spent with Patient providing and/or coordinating discharge services: Greater than 30 minutes Status at Discharge Functional status at discharge: independent ambulation Overall status at discharge: patient is back to baseline Mental Status: mental status grossly normal Speech and Movement: speech and movement normal Mood: congruent mood Affect: normal affect Quality:SDOH Health Related Social Needs: Health related social needs food insecurity (Z59.41) Health related social needs details pt states she has home health, PT. Health related social needs details: pt states she has home health, PT. Exam Narrative Exam Narrative: Fatigued appearing female laying in bed in no acute distress, ANO x 4, heart regular rhythm, lungs good auscultation bilaterally, abdomen soft, nontender, nondistended, able to spontaneously move all 4 extremities, PERRLA Psych Mental Status: mental status grossly normal Speech and Movement: speech and movement normal Mood: congruent mood Affect: normal affect DS: Data Vitals/I&O Vitals and I&O: Vital Signs Temperature 97.5 F L 01/21/25 07:58 Temperature Source Temporal Artery Scan 01/21/25 07:58 Pulse 59 L 01/21/25 07:58 Pulse Rhythm Regular 01/19/25 21:39 Pulse 78 01/19/25 21:00 Respiratory Rate 16 01/21/25 07:58 Respiratory Effort Normal, Non-Labored 01/19/25 21:39 Respiratory Depth Normal 01/19/25 21:39 Respiratory Pattern Normal 01/19/25 21:39 Blood Pressure 102/57 L 01/21/25 07:58 Blood Pressure Mean 72 01/21/25 07:58 Pulse Oximetry 93 01/21/25 07:58 Oxygen Delivery Method Room Air 01/21/25 07:58 Oxygen Flow Rate 0 01/21/25 07:58 Pain Level 0 01/21/25 07:58 Intake & Output 01/20/25 01/21/25 01/21/25 17:59 05:59 17:59 Intake Total 500 / 500 Output Total 250 / 250 200 / 450 Balance -250 / -250 300 / 50 Weight 199 lb 11.821 oz Intake: Oral 500 / 500 Output: Urine 250 / 250 200 / 450 Other: Urine Color Yellow Pale Yellow Urine Appearance Clear Urine Odor Normal Comment Tried but couldn't go. Stool Size Moderate Stool Characteristics Formed Brown PFSH All Active Problems (Updated 01/19/25 @ 20:16 by Raheel Charles MD) Seizure (Acute) Altered mental status (Acute) Iron deficiency anemia (Acute 05/26/13) Dx'ed Dr. Antunez neuro [facility]; iron replacement worked Palliative care encounter (Acute) Memory loss (Acute) Impaired gait and mobility (Acute) Recurrent falls while walking (Acute ~2022) Menorrhagia (Chronic ~2011) EMBx 2011: benign. Repeat EMBx 2012: benign proliferative endometrium, started on norethindrone, pt counseled re: endometrial ablation. CKD (chronic kidney disease) (Chronic) 12/2015 renal US at [facility] [place]: bilateral and symmetric renal cortical thinning consistent with patient's known history of CKD Sleep apnea (Chronic 06/09/13) 11/2023: Per sister Jeannine, not using CPAP Primary osteoarthritis of left knee (Chronic 01/03/17) Obesity (Chronic 05/15/13) Migraine without aura (Chronic 05/28/09) Memory impairment (Chronic 12/23/10) Related to sz disorder & brain surgery 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) Cerebral Cyst (L parietal cyst): Dr. Antunez [facility] Neuro follows Insomnia (Chronic 03/09/10) Amitryp resolved IFG (impaired fasting glucose) (Chronic 04/01/18) Hyperlipidemia (Chronic 12/24/15) 06/2021 labs: 10-year ASCVD risk ~4.9% --> no statin indicated Essential hypertension (Chronic 10/18/11) Endometrium, polyp (Chronic 01/25/16) currently protruding through the exocervix. I have recomended hysteroscopic resection under anesthesia. 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 Salinas Brain cyst removal, [facility] 04/12/2011; fenestration Family History Father Alcohol abuse Other Adopted Social History Smoking/Tobacco Use Status: Never Smoking risk assessment performed?: Yes Alcohol Intake: never Drug use: Never Substance use type: does not use Adopted: Yes Caregiver/Support person: No Foster care: Yes Household members: spouse Housing: house Number of Children: 1 Communication Needs: Corrective Lenses Education Level: high school Do you need help understanding health information?: Never current occupation: Disabled Pets and animals: No Sexually active: No Do you think of yourself as: straight/heterosexual Current gender identity: female What is your relationship status?: How often do you talk on the phone with friends or family?: three or more times per week How often do you get together with friends or relatives?: never How often do you attend rastafari or muslim services?: decline to answer Do you belong to any clubs or organized social groups?: no Panel score (0-1 are the most socially isolated patients): 2 What type of physical activity do you participate in: walking Duration: 15-30 minutes/day Frequency: daily Seatbelt use: sometimes Helmet use: Yes (No Reason) Helmet use: never Drive intox or ride w/intox special client bus driver: No Water heater temp set <120 deg: Yes Working smoke detector in home: Yes Fire extinguisher in home: Yes Carbon monox detector in home: Yes Firearms in home: No Do you feel safe at home: Yes Do you feel safe in your relationship?: Yes Female Reproductive History Menstrual Menopause type: natural Time Spent with Patient Time Spent with Patient: <45 minutes Time was spent: preparing to see the patient(eg.review tests), obtaining and/or reviewing separately otained hiistory, ordering medications,tests, procedures, referring, communicating with other health neonatal intensive care unit nurse, indepentently interpreting results, counseling the patient and care coordination
[2025-01-21 11:33] VITALS: BP 90/59; PULSE 66; RESP 16; TEMP 35.9; O2SAT 94
[2025-01-21 12:52] VITALS: BP 90/56
[2025-01-21 13:46] VITALS: BP 108/65
--- NOTE | 2025-01-21 15:41 | PDOC.CMDIS ---
Date of service: 01/21/25 Time of Service: 15:41 LACE Index Scoring Tool Questions: Length of Stay (in days): 2 Was the patient admitted via the E.D.?: Yes Comorbidities: Liver or Renal Disease E.D. Visits: 2 Answers: Total Score: 12 Risk of Readmission: High Risk Care Management Discharge Plan Reason for Hospitalization: seizure Discharge Plan: Sherry will be discharged home with a resumption of her caregiver services through [facility]. She will also have new home health nursing, PT and FERMENTING CELLARS SUPERVISOR through [facility]. She will transport with her and follow up with her PCP and plan of care. Patient/Family Education Needs: review of discharge instructions, limitations, follow up plan and discuss Ask Me Three Services Needed at Discharge: Home Health Care Services SDOH Health Related Social Needs: Health related social needs food insecurity (Z59.41) Health related social needs details pt states she has home health, PT. Health related social needs details: pt states she has home health, PT.
== END 2025-01-21 14:59 | disposition home health service (06) ==
LOC: ER 18:20 → MS 21:36
PROVIDERS: Admitting Provider Hospitalist; Emergency Provider Emergency Medicine; PCP Nurse Practitioner Adult Health; Responsible Provider Family Medicine; Visit Provider Hospitalist
DX: G40.109 Localization-related (focal) (partial) symptomatic epilepsy and epileptic syndromes with simple partial seizures, not intractable, without status epilepticus; R41.0 Disorientation, unspecified; R47.02 Dysphasia; G81.91 Hemiplegia, unspecified affecting right dominant side; G93.0 Cerebral cysts; D50.9 Iron deficiency anemia, unspecified; Z74.09 Other reduced mobility; G47.30 Sleep apnea, unspecified; M17.12 Unilateral primary osteoarthritis, left knee; E66.9 Obesity, unspecified; G43.009 Migraine without aura, not intractable, without status migrainosus; G47.00 Insomnia, unspecified; R73.01 Impaired fasting glucose; E78.5 Hyperlipidemia, unspecified; N18.9 Chronic kidney disease, unspecified; I12.9 Hypertensive chronic kidney disease with stage 1 through stage 4 chronic kidney disease, or unspecified chronic kidney disease; Z79.899 Other long term (current) drug therapy
CPT/HCPCS: 00123; 36415; 36416; 70496; 70498; 80053; 82962; 87637; 93005; 95816; 96365; 96372; 99285; J1650; 71045; 81003; 81015; 83735; 84484; 85025; 85610; 85730; 93010; 99222; 99233; 99239; G0378; J1953; J3490

== ENCOUNTER → 2025-01-20 08:15 | Outpatient (BNVA) | payer MEDICARE, MEDICAID, SELFPAY | PROVIDERS: PCP Nurse Practitioner Adult Health; Referring Provider Nurse Practitioner Adult Health; Visit Provider Psychiatry & Neurology Neurology ==

== ENCOUNTER → 2025-01-21 08:05 | Outpatient (BNVA) | payer MEDICARE, MEDICAID, SELFPAY | PROVIDERS: PCP Nurse Practitioner Adult Health; Referring Provider Nurse Practitioner Adult Health; Visit Provider Psychiatry & Neurology Neurology ==

== ENCOUNTER → 2025-02-18 13:16 | Outpatient (BNVA) | payer MEDICARE, MEDICAID, SELFPAY | PROVIDERS: PCP Nurse Practitioner Adult Health; Visit Provider Psychiatry & Neurology Neurology | DX: G40.209 Localization-related (focal) (partial) symptomatic epilepsy and epileptic syndromes with complex partial seizures, not intractable, without status epilepticus (principal); R29.6 Repeated falls; G40.109 Localization-related (focal) (partial) symptomatic epilepsy and epileptic syndromes with simple partial seizures, not intractable, without status epilepticus; G93.0 Cerebral cysts; R62.50 Unspecified lack of expected normal physiological development in childhood; R41.3 Other amnesia; G81.91 Hemiplegia, unspecified affecting right dominant side; I12.9 Hypertensive chronic kidney disease with stage 1 through stage 4 chronic kidney disease, or unspecified chronic kidney disease; N18.9 Chronic kidney disease, unspecified | CPT/HCPCS: 99214 ==

== ENCOUNTER 2025-03-03 12:44 | Emergency (ER) | payer MEDICARE, MEDICAID, SELFPAY ==
[2025-03-03 12:59] VITALS: BP 133/66; PULSE 73; RESP 16; TEMP 36.5; O2SAT 98
--- NOTE | 2025-03-03 13:15 | DI.RAD_ITS ---
Exam(s) XR HAND LT COMPLETE EXAM: XR HAND LT COMPLETE CLINICAL HISTORY: pain in palm and pinky s/p fall. TECHNIQUE: 2D digital imaging was performed of the left hand. Three views were obtained. AP, lateral and oblique views were obtained. COMPARISON: No exams were available for comparison FINDINGS: BONES: There is an acute nondisplaced oblique fracture through the distal 5th metacarpal. The fracture does not extend into the joint space. No bony destructive lesion is seen. JOINTS: No dislocation present. SOFT TISSUE: Normal. IMPRESSION: Nondisplaced oblique fracture through the distal metaphyseal region of the 5th metacarpal. DATA REPOSITORY: RADIATION DOSE DELIVERED:
--- NOTE | 2025-03-03 14:04 | ED.GENADUL_ITS ---
Discharge Plan Disposition Patient Disposition: Home Condition: Stable Discharge Details Clinical Impression: Closed fracture of 5th metacarpal Primary Care Provider: Delmy Valdez ED Provider: Alejandro Rodriguez Home Meds and New Rx's Prescriptions: Continued (DME) Wheeled Walker See Rx Instructions .Route .MEDSUPPLY Qty: 1 0RF Rx Instructions: Requested to have wheeled walker without breaks and with a seat (pt and sister's request) lamotrigine [Lamictal] 200 mg tablet 200 mg PO See Instructions Qty: 270 3RF Rx Instructions: FOR SEIZURES - ok for generic Take 1 tablet in the AM & 2 tablets in the PM levetiracetam [Keppra] 750 mg tablet 750 mg PO BID Qty: 180 3RF memantine 10 mg tablet 10 mg PO BID Qty: 180 3RF donepezil 10 mg tablet 10 mg PO DAILY Qty: 90 3RF amitriptyline 25 mg tablet 25 mg PO QHS Qty: 90 3RF Rx Instructions: Pharm: Discontinue 50mg strength. lisinopril 10 mg tablet See Rx Instructions .ROUTE .COMPLEX Qty: 100 3RF Dose Instruction: TAKE 1 TABLET BY MOUTH DAILY FOR BLOOD PRESSURE Rx Instructions: TAKE 1 TABLET BY MOUTH DAILY FOR BLOOD PRESSURE meclizine 25 mg tablet 25 mg PO .COMPLEX Qty: 60 1RF Rx Instructions: Take 25mg once daily every day; ok to take an additional 25mg once daily prn dizziness acetaminophen [Tylenol] 325 MG tablet 650 mg PO Q4H PRN PRN0RF Discharge Instructions Additional Instructions: You have a broken bone in the bone right below your pinky. It is nondisplaced. Call orthopedics to arrange for a follow-up appointment. If you feel significantly more ill or have severe worsening pain return to the emergency department for reevaluation. Referrals: Brooks Villalobos MD [ [facility] STAFF PHYSICIAN, Orthopaedic Surgical] [facility] General Mode of arrival: ambulatory . Date/Time Provider Initiated Documentation: 03/03/25 13:09 . Limitations to Documentation: no limitations . Information obtained by: patient . History of Present Illness 65 year old F presents to the emergency department with the chief complaint of left hand pain, described as moderate, Quality is described as aching, and is localized to the left and upper extremity. Patient started experiencing this hour(s) (1) and it has been constant. No relieving factors improve symptom(s), No exacerbating factors reported . Patient notes no other symptoms.. Related Data Home Medications ?Medication ?Instructions ?Recorded ?Confirmed acetaminophen 325 mg tablet 650 mg (2 x 325 mg) PO Q4H PRN PRN 06/27/16 03/03/25 (Tylenol) donepezil 10 mg tablet 10 mg PO DAILY #90 tabs 02/0803/03/25 Wheeled Walker #1 ea 12/22/24 03/03/25 amitriptyline 25 mg tablet 25 mg PO QHS #90 tabs 02/0403/03/25 lisinopril 10 mg tablet See Rx Instructions .Route 0 02/11/25 03/03/25 .COMPLEX #100 tabs meclizine 25 mg tablet 25 mg PO .COMPLEX dizziness #60 02/12/25 03/03/25 tabs lamotrigine 200 mg tablet 200 mg PO See Instructions # 270 02/18/25 03/03/25 (Lamictal) tab-caps levetiracetam 750 mg tablet 750 mg PO BID #180 tabs 03/03/25 (Keppra) memantine 10 mg tablet 10 mg PO BID #180 tabs 02/1803/03/25 Previous Rx's ?Medication ?Instructions ?Recorded acetaminophen 325 mg tablet 650 mg (2 x 325 mg) PO Q4H PRN PRN 06/27/16 (Tylenol) donepezil 10 mg tablet 10 mg PO DAILY #90 tabs 02/08 Wheeled Walker #1 ea 12/22/24 amitriptyline 25 mg tablet 25 mg PO QHS #90 tabs 02/04 lisinopril 10 mg tablet See Rx Instructions .Route 0 02/11/25 .COMPLEX #100 tabs meclizine 25 mg tablet 25 mg PO .COMPLEX dizziness #60 02/12/25 tabs lamotrigine 200 mg tablet 200 mg PO See Instructions # 270 02/18/25 (Lamictal) tab-caps levetiracetam 750 mg tablet 750 mg PO BID #180 tabs (Keppra) memantine 10 mg tablet 10 mg PO BID #180 tabs 06/04 /25 Allergies Allergy/AdvReac Type Severity Reaction Status Date / Time hydrocortisone Allergy Unknown SKIN RASH Verified 03/03/25 12:58 adhesive AdvReac Intermediate skin rash Verified 03/03/25 12:58 NSAIDS (Non-Steroidal AdvReac chronic Verified 03/03/25 12:58 Anti-Inflamma kidney disease baby powder Allergy Intermediate Contraindic Uncoded 03/03/25 12:58 ated/rash pine trees Allergy Intermediate red Uncoded 03/03/25 12:58 blotches per pt. Never tested General Stated Complaint: Orthopedic TAWNY: 4 Review of Systems All systems reviewed & are unremarkable except as noted in HPI and below Constitutional Constitutional: Denies chills, Denies fever(s) and Denies weakness ENT Ears, Nose, Mouth, and Throat: Denies change in voice Cardiovascular Cardiovascular: Denies chest pain and Denies dyspnea Respiratory Respiratory: Denies dyspnea Gastrointestinal Gastrointestinal: Denies abdominal pain and Denies vomiting Neurologic Neurologic: Denies weakness Exam Const General: no acute distress Orientation: alert HENMT Head: normal to inspection Ears: external ears normal General nose exam: external nose normal Mouth: moist mucous membranes Eyes General: appearance normal, both eyes and all related structures Neck Neck: normal visual inspection Resp Effort & Inspection: normal respiratory effort and able to speak in complete sentences Cardio Rate: regular rate Skin General skin exam: no rashes or lesions noted Neuro General: patient alert and patient oriented x3 Extrem General: full ROM and capillary refill normal Psych Mental Status: mental status grossly normal Course Vital Signs Vital signs: Vital Signs Temperature 36.5 C 03/03/25 12:59 Pulse 73 03/03/25 12:59 Respiratory Rate 16 03/03/25 12:59 Blood Pressure 133/66 03/03/25 12:59 Pulse Oximetry 98 03/03/25 12:59 Temperature 36.5 C 03/03/25 12:59 Pulse 73 03/03/25 12:59 Respiratory Rate 16 03/03/25 12:59 Blood Pressure 133/66 03/03/25 12:59 Pulse Oximetry 98 03/03/25 12:59 Pain Level 9 03/03/25 13:08 Medical Decision Making 65-year-old female comes in after she was working with physical therapy and went to sit in a chair and missed the chair and fell landing on her left hand. Did not hit her head or have other injuries. She has no headache, no neck pain, back or chest or abdomen pain. She has tenderness at the base of the left pinky and just proximal to this over the metatarsals. She has full range of motion of the pinky with intact sensation and pulses. There is no tenderness in the wrist. I suspect contusion versus sprain versus fracture will obtain x-rays to further evaluate X-ray shows oblique nondisplaced fracture of the fifth metacarpal. Patient stable. Will provide her with a boxer splint follow-up with orthopedics, return precautions given Quality:SDOH Health Related Social Needs: Health related social needs food insecurity Health related social needs details pt states she has home health, PT. PFSH All Active Problems (Updated 03/03/25 @ 14:16 by Alejandro Rodriguez MD) Closed fracture of 5th metacarpal (Acute) Seizure (Acute) Altered mental status (Acute) Iron deficiency anemia (Acute 05/26/13) Dx'ed Dr. Antunez [place] [facility]; iron replacement worked Palliative care encounter (Acute) Memory loss (Acute) Impaired gait and mobility (Acute) Recurrent falls while walking (Acute ~2022) Menorrhagia (Chronic ~2011) EMBx 2012: benign. Repeat EMBx 2013: benign proliferative endometrium, started on norethindrone, pt counseled re: endometrial ablation. CKD (chronic kidney disease) (Chronic) 12/2015 renal US at [facility]: bilateral and symmetric renal cortical thinning consistent with patient's known history of CKD Sleep apnea (Chronic 06/09/13) 11/2023: Per sister Jeannine, not using CPAP Primary osteoarthritis of left knee (Chronic 01/03/17) Obesity (Chronic 05/15/13) Migraine without aura (Chronic 05/28/09) Memory impairment (Chronic 12/23/10) Related to sz disorder & brain surgery 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) Cerebral Cyst (L parietal cyst): Dr. Antunez [facility] Neuro follows Insomnia (Chronic 03/09/10) Amitryp resolved IFG (impaired fasting glucose) (Chronic 04/01/18) Hyperlipidemia (Chronic 12/24/15) 06/2021 labs: 10-year ASCVD risk ~4.9% --> no statin indicated Essential hypertension (Chronic 10/18/11) Endometrium, polyp (Chronic 01/25/16) currently protruding through the exocervix. I have recomended hysteroscopic resection under anesthesia. Coordination problem (Chronic 12/23/10) Hemiparesis; R more than L, mostly resolved Falls (Acute) Focal epilepsy (Chronic) Cyst on brain; [facility] Neurology Hemiparesis (Acute) right; Leg>>>arm; due to left parietal cyst Mild developmental delay (Acute) cognitive with right hemiparesis; due to parietal cyst; surgery, seizures Medical History Delirium Dizziness Encounter for screening colonoscopy (~12/2022) Petit mal seizure status Per sister states she is not aware she has them per her sister states it aroung 1 month ago Nephrolithiasis incidental finding Thyroid cyst (07/26/16) Most recent US: 01/24/2021 TI-RADS 2, repeat US if clinically necessary Hand fracture Surgical History History of section x2 closed reduction /pinning rgt fifth finger (06/27/16) R 5th digit; 2016; s/p fall Endometrial Biopsy (08/15/12) Dr. Salinas Brain cyst removal, [facility] 04/12/2011; fenestration Family History Father Alcohol abuse Other Adopted Social History Smoking/Tobacco Use Status: Never Smoking risk assessment performed?: Yes Alcohol Intake: never Drug use: Never Substance use type: does not use Adopted: Yes Caregiver/Support person: No Foster care: Yes Household members: spouse Housing: house Number of Children: 1 Communication Needs: Corrective Lenses Education Level: high school Do you need help understanding health information?: Never current occupation: Disabled Pets and animals: No Sexually active: No Do you think of yourself as: straight/heterosexual Current gender identity: female What is your relationship status?: How often do you talk on the phone with friends or family?: three or more times per week How often do you get together with friends or relatives?: never How often do you attend hinduism or synagogue services?: decline to answer Do you belong to any clubs or organized social groups?: no Panel score (0-1 are the most socially isolated patients): 2 What type of physical activity do you participate in: walking Duration: 15-30 minutes/day Frequency: daily Seatbelt use: sometimes Helmet use: Yes (No Reason) Helmet use: never Drive intox or ride w/intox transit bus driver: No Water heater temp set <120 deg: Yes Working smoke detector in home: Yes Fire extinguisher in home: Yes Carbon monox detector in home: Yes Firearms in home: No Do you feel safe at home: Yes Do you feel safe in your relationship?: Yes Female Reproductive History Menstrual Menopause type: natural
[2025-03-03 14:50] VITALS: BP 125/71; PULSE 71; RESP 18; O2SAT 95
== END 2025-03-03 15:55 | disposition home or self-care (01) ==
PROVIDERS: Emergency Provider Emergency Medicine; PCP Nurse Practitioner Adult Health
DX: S62.347A Nondisplaced fracture of base of fifth metacarpal bone, left hand, initial encounter for closed fracture (principal); W19.XXXA Unspecified fall, initial encounter
CPT/HCPCS: 99283 ×2; 26600; 73130

== ENCOUNTER 2025-03-18 15:02 | Outpatient (CLI) | payer MEDICARE, MEDICAID, SELFPAY ==
--- NOTE | 2025-03-18 13:45 | DI.RAD_ITS ---
Exam(s) XR HAND LT LIMITED EXAM: XR HAND LT LIMITED CLINICAL HISTORY: F/U FRACTURE. TECHNIQUE: 2D digital imaging was performed. COMPARISON: CR XR HAND LT COMPLETE from 03/03/2025 FINDINGS: 3 views Again noted is a previously described oblique fracture line and at the neck of the 5th metacarpal. Fracture line is still evident. Indeed, there appears to be further displacement when compared to the previous images of 03/03/2025. No new additional fractures evident. No osseous lesions IMPRESSION: Further displacement at the 5th metacarpal neck fracture site when compared to 03/03/2025. DATA REPOSITORY: RADIATION DOSE DELIVERED:
== END 2025-03-18 15:03 | disposition home or self-care (01) ==
LOC: DIORS 15:02
PROVIDERS: PCP Nurse Practitioner Adult Health; Referring Provider Nurse Practitioner Adult Health; Visit Provider Student in an Organized Health Care Education/Training Program
DX: S62.337A Displaced fracture of neck of fifth metacarpal bone, left hand, initial encounter for closed fracture (principal); W19.XXXA Unspecified fall, initial encounter; I10 Essential (primary) hypertension
CPT/HCPCS: 99213; 73120

== ENCOUNTER 2025-04-22 15:49 | Outpatient (CLI) | payer MEDICARE, MEDICAID, SELFPAY ==
--- NOTE | 2025-04-22 13:00 | DI.RAD_ITS ---
Exam(s) XR HAND LT LIMITED EXAM: XR HAND LT LIMITED CLINICAL HISTORY: F/U FRACTURE. TECHNIQUE: 2D digital imaging was performed of the left hand. Two views were obtained. PA and lateral views were obtained. COMPARISON: CR XR HAND LT LIMITED from 03/18/2025 FINDINGS: BONES: There has been no change in alignment of the fracture involving the distal aspect of the 5th metacarpal. Fracture lines are still visualized. No bony destructive lesion is seen. JOINTS: No dislocation present. SOFT TISSUE: Normal. IMPRESSION: Stable alignment of the 5th metacarpal fracture. DATA REPOSITORY: RADIATION DOSE DELIVERED:
== END 2025-04-22 15:50 | disposition home or self-care (01) ==
LOC: DIORS 15:49
PROVIDERS: PCP Nurse Practitioner Adult Health; Referring Provider Nurse Practitioner Adult Health; Visit Provider Student in an Organized Health Care Education/Training Program
DX: S62.367D Nondisplaced fracture of neck of fifth metacarpal bone, left hand, subsequent encounter for fracture with routine healing (principal); X58.XXXD Exposure to other specified factors, subsequent encounter
CPT/HCPCS: 99212; 73120

== ENCOUNTER → 2025-05-21 12:45 | Outpatient (BNVA) | payer MEDICARE, MEDICAID, SELFPAY | PROVIDERS: PCP Nurse Practitioner Adult Health; Referring Provider Nurse Practitioner Adult Health; Visit Provider Psychiatry & Neurology Neurology | DX: G40.209 Localization-related (focal) (partial) symptomatic epilepsy and epileptic syndromes with complex partial seizures, not intractable, without status epilepticus (principal); Q04.6 Congenital cerebral cysts; R29.6 Repeated falls; G80.9 Cerebral palsy, unspecified; F88 Other disorders of psychological development; I12.9 Hypertensive chronic kidney disease with stage 1 through stage 4 chronic kidney disease, or unspecified chronic kidney disease; N18.9 Chronic kidney disease, unspecified; Z91.148 Patient's other noncompliance with medication regimen for other reason | CPT/HCPCS: 99214 ==

== ENCOUNTER 2025-06-10 15:27 | Outpatient (CLI) | payer MEDICARE, MEDICAID, SELFPAY ==
--- NOTE | 2025-06-10 12:45 | DI.RAD_ITS ---
Exam(s) XR HAND LT LIMITED EXAM: XR HAND LT LIMITED INDICATION: F/U FRACTURE. COMPARISON: CR XR HAND LT LIMITED from 04/22/2025 TECHNIQUE: 2D digital imaging was performed. Two views. FINDINGS: There has been increased healing at the 5th metacarpal fracture with blurring of the fracture margins. No change in alignment. No new abnormalities are seen. DATA REPOSITORY: RADIATION DOSE DELIVERED:
== END 2025-06-10 15:28 | disposition home or self-care (01) ==
LOC: DIORS 15:27
PROVIDERS: PCP Nurse Practitioner Adult Health; Referring Provider Nurse Practitioner Adult Health; Visit Provider Student in an Organized Health Care Education/Training Program
DX: S62.367D Nondisplaced fracture of neck of fifth metacarpal bone, left hand, subsequent encounter for fracture with routine healing (principal); X58.XXXD Exposure to other specified factors, subsequent encounter
CPT/HCPCS: 99213; 73120

== ENCOUNTER 2025-07-15 01:24 | Outpatient (CLI) | payer MEDICARE, MEDICAID, SELFPAY ==
--- NOTE | 2025-07-15 06:45 | DI.MRI_ITS ---
Exam(s) MR BRAIN WO/W EXAM: MR BRAIN WO/W CLINICAL HISTORY: L thigh pain/weakness,HYPOESTHESIA OF SKIN,R20.1 TECHNIQUE: Multiplanar multisequence MRI of the brain was performed. Both noninfused and contrast infused sequences were performed. IV Contrast injected was 20 cc Dotarem. COMPARISON: MR MR BRAIN WO from 08/13/2023 MR MR BRAIN WO from 10/09/[address] BRAIN NECK CTA from 01/19/2025 FINDINGS: CEREBRAL PARENCHYMA: Again noted is evidence of previous high left parietal craniotomy. The prominent cystic area in the left parietal lobe remains unchanged from prior recent MRI studies and exhibits no evidence of new nodular nor peripheral enhancement, hemorrhage, nor new surrounding edema. There is no significant focal signal abnormality in the cerebellar hemispheres nor within the talha, midbrain, and thalami. There is no abnormal signal abnormality in the periventricular white matter. No evidence of demyelinating disease. DWI: No areas of restricted diffusion to suggest acute ischemic event. SWI: No microhemorrhages evident. There are no ring enhancing lesions in the brain. There is no abnormal meningeal enhancement. PITUITARY GLAND: No mass nor parasellar abnormality. No obvious abnormality in the cavernous sinuses. FLOW VOIDS: The expected flow void are noted. No evidence of obvious aneurysm nor obvious vascular malformation. PARANASAL SINUSES: The visualized paranasal sinuses appear unremarkable. ORBITS: No obvious abnormal findings. IMPRESSION: 1. No significant new intracranial findings on this MRI scan of the brain. 2. Stable appearance of the previously described prominent cystic area in the left parietal lobe (previous left parietal craniotomy). There is no abnormal enhancement in this region or elsewhere in the brain. No new signal abnormality in the brain and no evidence of restricted diffusion to suggest recent ischemic event. DATA REPOSITORY:
[2025-07-15] MEDS: Gadoterate meglumine 20 ML VIAL IVP (09:01)
[2025-07-15] MEDS: Normal Saline Flush 10 ML SYR IVP (09:01)
== END 2025-07-15 01:44 ==
LOC: DI 01:24
PROVIDERS: PCP Nurse Practitioner Adult Health; Visit Provider Family Medicine
DX: R20.1 Hypoesthesia of skin (principal)
CPT/HCPCS: 70553

== ENCOUNTER 2025-07-16 16:58 | Emergency (ER) | payer MEDICARE, MEDICAID, SELFPAY ==
[2025-07-16 17:03] VITALS: BP 135/82; PULSE 74; RESP 20; TEMP 36.6; O2SAT 95
--- NOTE | 2025-07-16 17:07 | W.ED.GENAD ---
Discharge Plan Disposition Patient Disposition: Home Condition: Good Discharge Details Clinical Impression: Bilateral impacted cerumen Primary Care Provider: Delmy Valdez ED Provider: Mercedes Posadas Home Meds and New Rx's Prescriptions: No Action (DME) Wheeled Walker See Rx Instructions .Route .MEDSUPPLY Qty: 1 0RF Rx Instructions: Requested to have wheeled walker without breaks and with a seat (pt and sister's request) donepezil 10 mg tablet 10 mg PO DAILY Qty: 90 3RF lamotrigine [Lamictal] 200 mg tablet 200 mg PO See Instructions Qty: 270 3RF Rx Instructions: FOR SEIZURES - ok for generic Take 1 tablet in the AM & 2 tablets in the PM levetiracetam [Keppra] 750 mg tablet 750 mg PO BID Qty: 180 3RF memantine 10 mg tablet 10 mg PO BID Qty: 180 3RF amitriptyline 25 mg tablet 25 mg PO QHS Qty: 90 3RF Rx Instructions: Pharm: Discontinue 50mg strength. lisinopril 10 mg tablet See Rx Instructions .ROUTE .COMPLEX Qty: 100 3RF Dose Instruction: TAKE 1 TABLET BY MOUTH DAILY FOR BLOOD PRESSURE Rx Instructions: TAKE 1 TABLET BY MOUTH DAILY FOR BLOOD PRESSURE meclizine 25 mg tablet 25 mg PO .COMPLEX Qty: 60 1RF Rx Instructions: Take 25mg once daily every day; ok to take an additional 25mg once daily prn dizziness acetaminophen [Tylenol] 325 MG tablet 650 mg PO Q4H PRN PRN0RF Discharge Instructions Instructions: Ear Wax Impaction ED Additional Instructions: Please call your primary care provider to schedule follow-up appointment if your ears continue to give you discomfort or if you would like them rechecked again. You had cerumen impactions bilaterally, this caused your muffled hearing and pressure in your ears. I recommend that you not put anything in your ears. Avoid standing water in your ears. You may use Debrox drops according to package instructions if you feel they are getting clogged up again. Return to emergency care if develop new severe headaches, hearing loss, drainage from your ears, significant ear pain, or if you are very worried and need to be rechecked again immediately Referrals: Delmy Valdez, [facility] [Primary Care Provider, Medicine] HPI General Date/Time Provider Initiated Documentation: 07/16/25 17:06. HPI Narrative: Sherry is a 65-year-old female presents to the emergency department today for evaluation of plugged ears. She reports that she first noticed her right ear felt plugged yesterday, today it was her left ear as well. She feels like she has decreased hearing bilaterally. Yesterday she had an MRI and earplugs were placed in her ears. Did not put anything else in her ears, denies trauma, recent surgeries, recent illness such as fever/chills, congestion, sore throat, cough, headaches. No obvious inciting incident. Related Data Home Medications Medication Instructions Recorded Confirmed acetaminophen 325 mg tablet 650 mg (2 x 325 mg) PO Q4H PRN PRN 06/27/16 07/16/25 (Tylenol) Brandened Walker #1 ea 12/22/24 07/16/25 amitriptyline 25 mg tablet 25 mg PO QHS #90 tabs 02/04/25 07/16/25 lisinopril 10 mg tablet See Rx Instructions .Route 02/11/25 07/16/25 .COMPLEX #100 tabs meclizine 25 mg tablet 25 mg PO .COMPLEX dizziness #60 02/12/25 07/16/25 tabs donepezil 10 mg tablet 10 mg PO DAILY #90 tabs 05/21/25 07/16/25 lamotrigine 200 mg tablet 200 mg PO See Instructions #270 05/21/25 07/16/25 (Lamictal) tab-caps levetiracetam 750 mg tablet 750 mg PO BID #180 tabs 05/21/25 07/16/25 (Keppra) memantine 10 mg tablet 10 mg PO BID #180 tabs 05/21/25 07/16/25 Previous Rx's Medication Instructions Recorded acetaminophen 325 mg tablet 650 mg (2 x 325 mg) PO Q4H PRN PRN 06/27/16 (Tylenol) Wheeled Walker #1 ea 12/22/24 amitriptyline 25 mg tablet 25 mg PO QHS #90 tabs 02/04/25 lisinopril 10 mg tablet See Rx Instructions .Route 02/11/25 .COMPLEX #100 tabs meclizine 25 mg tablet 25 mg PO .COMPLEX dizziness #60 02/12/25 tabs donepezil 10 mg tablet 10 mg PO DAILY #90 tabs 05/21/25 lamotrigine 200 mg tablet 200 mg PO See Instructions #270 05/21/25 (Lamictal) tab-caps levetiracetam 750 mg tablet 750 mg PO BID #180 tabs 05/21/25 (Keppra) memantine 10 mg tablet 10 mg PO BID #180 tabs 05/21/25 Allergies Allergy/AdvReac Type Severity Reaction Status Date / Time hydrocortisone Allergy Unknown SKIN RASH Verified 07/16/25 17:05 adhesive AdvReac Intermediate skin rash Verified 07/16/25 17:05 NSAIDS (Non-Steroidal AdvReac chronic Verified 07/16/25 17:05 Anti-Inflamma kidney disease baby powder Allergy Intermediate Contraindic Uncoded 07/16/25 17:05 ated/rash pine trees Allergy Intermediate red Uncoded 07/16/25 17:05 blotches per pt. Never tested General Stated Complaint: EarProblem TAWNY: 4 Exam Const General: cooperative, healthy appearing, no acute distress, well developed and well groomed Nutritional Appearance: average body habitus and well nourished Orientation: alert and oriented x3 [facility] Head: normal to inspection, normocephalic, atraumatic, no Rodriguez's sign and no raccoon eyes Ears: external ears normal, no periauricular adenopathy and EAC abnormal cerumen impaction bilaterally General nose exam: external nose normal Face and sinus: normal facial exam Mouth: oral mucosae normal and lip normal Resp Effort & Inspection: normal respiratory effort and able to speak in complete sentences Neuro General: patient alert, patient oriented x3 and tone normal Cranial Nerves: facial strength normal Course Vital Signs Vital signs: Vital Signs Temperature 36.6 C 07/16/25 17:03 Pulse 74 07/16/25 17:03 Respiratory Rate 20 07/16/25 17:03 Blood Pressure 135/82 07/16/25 17:03 Pulse Oximetry 95 07/16/25 17:03 Temperature 36.6 C 07/16/25 17:03 Pulse 74 07/16/25 17:03 Respiratory Rate 20 07/16/25 17:03 Blood Pressure 135/82 07/16/25 17:03 Blood Pressure Position Sitting 07/16/25 17:03 Pulse Oximetry 95 07/16/25 17:03 Oxygen Delivery Method Room Air 07/16/25 17:03 Oxygen Flow Rate 0 07/16/25 17:03 Medical Decision Making Sherry is a 65year old female who presents to the emergency department today for evaluation of bilateral cerumen impaction. Physical exam remarkable for bilateral cerumen impaction, no red flags concerning for otitis externa, mastoiditis, or other serious infection. This was cleared with irrigation by RN, TMs were able to be visualized, pearly lujan. Patient reported full improvement of symptoms. Sherry reported full improvement of symptoms after irrigation. Reviewed discharge instructions with patient, including symptomatic management and red flags indicating need for return to emergency care. Recommend follow-up with PCP for further evaluation if any questions or concerns Quality:SDOH Health Related Social Needs: Health related social needs food insecurity Health related social needs details pt states she has home health, PT. PFSH All Active Problems (Updated 07/16/25 @ 18:11 by Mercedes Davis) Bilateral impacted cerumen (Acute) Hypoesthesia (Acute) Seizure (Acute) Altered mental status (Acute) Iron deficiency anemia (Acute 05/26/13) Dx'ed Dr. Antunez neuro [facility]; iron replacement worked Palliative care encounter (Acute) Memory loss (Acute) Impaired gait and mobility (Acute) Recurrent falls while walking (Acute ~2022) Menorrhagia (Chronic ~2011) EMBx 2011: benign. Repeat EMBx 2012: benign proliferative endometrium, started on norethindrone, pt counseled re: endometrial ablation. CKD (chronic kidney disease) (Chronic) 12/[address] US [address] [facility]: bilateral and symmetric renal cortical thinning consistent with patient's known history of CKD Sleep apnea (Chronic 06/09/13) 11/2023: Per sister Jeannine, not using CPAP Primary osteoarthritis of left knee (Chronic 01/03/17) Obesity (Chronic 05/15/13) Migraine without aura (Chronic 05/28/09) Memory impairment (Chronic 12/23/10) Related to sz disorder & brain surgery 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) Cerebral Cyst (L parietal cyst): Dr. Antunez [facility] Neuro follows Insomnia (Chronic 03/09/10) Amitryp resolved IFG (impaired fasting glucose) (Chronic 04/01/18) Hyperlipidemia (Chronic 12/24/15) 06/2021 labs: 10-year ASCVD risk ~4.9% --> no statin indicated Essential hypertension (Chronic 10/18/11) Endometrium, polyp (Chronic 01/25/16) currently protruding through the exocervix. I have recomended hysteroscopic resection under anesthesia. Coordination problem (Chronic 12/23/10) Hemiparesis; R more than L, mostly resolved Falls (Acute) Focal epilepsy (Chronic) Cyst on brain; [facility] Hemiparesis (Acute) right; Leg>>>arm; due to left parietal cyst Mild developmental delay (Acute) cognitive with right hemiparesis; due to parietal cyst; surgery, seizures Medical History Delirium Dizziness Encounter for screening colonoscopy (~12/2022) Petit mal seizure status Per sister states she is not aware she has them per her sister states it aroung 1 month ago Nephrolithiasis incidental finding Thyroid cyst (07/26/16) Most recent US: 01/24/2021 TI-RADS 2, repeat US if clinically necessary Hand fracture Surgical History History of section x2 closed reduction /pinning rgt fifth finger (06/27/16) R 5th digit; 2016; s/p fall Endometrial Biopsy (08/15/12) Dr. Salinas Brain cyst removal, [facility] 04/12/2011; fenestration Family History Father Alcohol abuse Other Adopted Social History Smoking/Tobacco Use Status: Never Smoking risk assessment performed?: Yes Alcohol Intake: never Drug use: Never Substance use type: does not use Adopted: Yes Caregiver/Support person: No Foster care: Yes Household members: spouse Housing: house Number of Children: 1 Communication Needs: Corrective Lenses Education Level: high school Do you need help understanding health information?: Never current occupation: Disabled Pets and animals: No Sexually active: No Do you think of yourself as: straight/heterosexual Current gender identity: female What is your relationship status?: How often do you talk on the phone with friends or family?: three or more times per week How often do you get together with friends or relatives?: never How often do you attend episcopal or worship services?: decline to answer Do you belong to any clubs or organized social groups?: no Panel score (0-1 are the most socially isolated patients): 2 What type of physical activity do you participate in: walking Duration: 15-30 minutes/day Frequency: daily Seatbelt use: sometimes Helmet use: Yes (No Reason) Helmet use: never Drive intox or ride w/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
[2025-07-16 18:06] VITALS: BP 135/82; PULSE 74; RESP 20; TEMP 36.6; O2SAT 95
== END 2025-07-16 18:50 | disposition home or self-care (01) ==
PROVIDERS: Emergency Provider Nurse Practitioner Family; PCP Nurse Practitioner Adult Health
DX: H61.23 Impacted cerumen, bilateral (principal); Z59.41 Food insecurity
CPT/HCPCS: 69209

== ENCOUNTER 2025-09-03 11:35 | Outpatient (REF) | payer MEDICARE, MEDICAID, SELFPAY ==
[2025-09-03 16:44] LABS: Glucose Negative (Negative)
[2025-09-03 16:54] LABS: RBC Negative HPF (0-2)
[2025-09-03 16:55] LABS: C & S Indicated? Yes
== END 2025-09-03 11:36 | disposition home or self-care (01) ==
LOC: LBN 11:35
PROVIDERS: PCP Nurse Practitioner Adult Health
DX: R30.0 Dysuria (principal)
CPT/HCPCS: 81003; 81015; 87086